=== PATIENT | female | born 1970 | race Caucasian/White ===

== ENCOUNTER 2021-02-20 12:49 | Outpatient (REF) | payer MEDICAID, SELFPAY ==
[2021-02-20 14:57] LABS: MANUAL DIFF FLAG NO
[2021-02-20 15:01] LABS: Basophils Absolute Auto 0.1 X10*3/uL (0.0-0.2); Basophils Percent Auto 0.6 % (0-2); Eosinophils Absolute Auto 0.2 X10*3/uL (0.0-0.4); Eosinophils Percent Auto 2.1 % (0-4); Hematocrit 41.9 % (37-47); Hemoglobin 13.9 g/dl (12.0-16.0); Imm Gran Abs Auto 0.02 X10*3/uL (0.00-0.03); Imm Gran Pct Auto 0.2 % (0.0-0.4); Lymphocytes Absolute Auto 2.9 X10*3/uL (1.2-4.9); Lymphocytes Percent Auto 27.7 % (20-40); Mean Corpuscular HGB Conc 33.2 g/dl (31.0-35.0); Mean Corpuscular Hemoglobin 29.8 pg (27.0-33.0); Mean Corpuscular Volume 89.7 fL (80-98); Monocytes Absolute Auto 0.9 X10*3/uL (0.1-1.2); Monocytes Percent Auto 8.7 % (2-11); Neutrophils Absolute Auto 6.3 X10*3/uL (2.0-8.3); Neutrophils Percent Auto 60.7 % (45-73); Platelet Count 416 X10*3/uL (160-400); Red Blood Count 4.67 X10*6/uL (4.20-5.50); Red Cell Distribution Width 12.8 % (11.0-16.0); White Blood Count 10.4 X10*3/uL (4.8-10.8)
[2021-02-20 15:28] LABS: Alanine Aminotransferase 10 U/L (0-31); Albumin Level 4.3 g/dL (3.5-5.0); Alkaline Phosphatase 63 U/L (39-117); Anion Gap 15 (12-20); Aspartate Amino Transferase 11 U/L (5-31); Bilirubin Total 0.4 mg/dL (0.0-1.0); Blood Urea Nitrogen 9 mg/dL (9-16); C Reactive Protein 0.76 mg/dL (< or = 0.50); Calcium 9.2 mg/dL (8.4-10.2); Carbon Dioxide 25 mmol/L (22-29); Chloride 105 mmol/L (96-108); Estimated Glomerular Filt Rate > 60; Glucose Random 74 mg/dL (60-115); Potassium 4.6 mmol/L (3.3-5.1); Sodium 140 mmol/L (135-145); Total Protein 6.9 g/dL (6.5-8.0)
[2021-02-20 15:54] LABS: Erythrocyte Sedimentation Rate 10 MM/HR (0-20)
== END 2021-02-20 12:50 | disposition home or self-care (01) ==
LOC: HO.LAB 12:49
PROVIDERS: PCP Internal Medicine; Visit Provider Physician Assistant
DX: R19.7 Diarrhea, unspecified (principal); R10.11 Right upper quadrant pain; R74.01 Elevation of levels of liver transaminase levels
CPT/HCPCS: 36415; 80053; 85025; 85652; 86140

== ENCOUNTER → 2021-02-27 10:19 | Outpatient (BNVA) | payer MEDICAID, SELFPAY | PROVIDERS: PCP Internal Medicine; Visit Provider Urology | DX: Q63.1 Lobulated, fused and horseshoe kidney (principal); N39.0 Urinary tract infection, site not specified | CPT/HCPCS: 99202 ==

== ENCOUNTER 2021-03-08 14:25 | Outpatient (REF) | payer MEDICAID, SELFPAY ==
--- NOTE | ~2021-03-08 | CT_ITS ---
EXAMINATION: CT ABDOMEN AND PELVIS WITH CONTRAST CLINICAL INFORMATION: Abdominal pain. COMPARISON: None TECHNIQUE: Multidetector volumetric images were obtained from the superior aspect of the liver through the pubic symphysis following administration 85 mL of Omnipaque 350 intravenous contrast. Sagittal and coronal reformatted images were obtained on the technologist's workstation. Oral contrast: Yes. This CT examination was performed using dose optimization techniques as appropriate, variously including the following: Automated exposure control. Adjustment of mA and/or kV according to patient size (this includes techniques or standardized protocols for targeted exams where dose is matched to indication/reason for exam; i.e. extremities or head). Use of iterative reconstruction technique. DLP: 1225 mGy-cm FINDINGS: LUNG BASES: The visualized lung bases are unremarkable. LIVER, GALLBLADDER, AND BILIARY TREE: The liver is normal in size, shape and attenuation. There are several low-attenuation liver lesions probably representing cysts. Largest measures 6 mm in the peripheral right lobe axial image 27 series 3. There is a calcification in the right lobe of the liver near the gallbladder axial image 23 series 3 that measures approximately 7 x 10 mm and appears benign. No other focal liver lesion is seen. The gallbladder is normal. There is no biliary duct dilatation. PANCREAS: Unremarkable. SPLEEN: Unremarkable. ADRENAL GLANDS: Unremarkable. KIDNEYS AND URETERS: There is a horseshoe kidney. There are bilateral extrarenal pelvises. No stone, mass or hydronephrosis seen. BLADDER: Unremarkable. GASTROINTESTINAL TRACT: There is diverticulosis of the colon. There is a segment of questionable wall thickening and edema of the distal left colon questionable for mild colitis. Small and large bowel is otherwise unremarkable. The appendix is unremarkable. The stomach is unremarkable. ABDOMINAL WALL: There is a small right inguinal hernia containing fat. LYMPH NODES: Normal. VASCULAR: Unremarkable. PELVIC VISCERA: There is an IUD in the uterus in satisfactory position. Uterus and adnexa are otherwise unremarkable. OSSEOUS STRUCTURES: There are degenerative changes of the spine. CT/CT abdomen pelvis w con IMPRESSION: Mild diverticulosis of the colon. No evidence of diverticulitis. Question of mild changes of colitis in the distal left colon versus changes due to underdistention. Horseshoe kidney. Small probable liver cysts. IUD in the uterus in satisfactory position.
[2021-03-08] MEDS: iohexoL 350 MG/ML 100 ML INFUS..BTL IV (15:58)
== END 2021-03-08 14:26 | disposition home or self-care (01) ==
LOC: HO.CT 14:25
PROVIDERS: Visit Provider Physician Assistant
DX: R10.9 Unspecified abdominal pain (principal)
CPT/HCPCS: 74177; Q9967

== ENCOUNTER 2021-03-20 07:46 | Day surgery (SDC) | payer MEDICAID, SELFPAY ==
--- NOTE | 2021-03-19 10:03 | HO.ANESPROP2 ---
HPI - Anesthesia Eval Consult details Narrative: 51yo F for Colonoscopy PMFSH Active Problems Active Problems: All Active Problems (Updated 02/27/21 @ 10:59 by Michael Greco MD) Horseshoe kidney (Acute) Recurrent UTI (urinary tract infection) (Acute) Diarrhea (Acute) Abdominal pain (Acute) Past Medical History Medical History HLD (hyperlipidemia) Horseshoe kidney Migraines Nasal airway abnormality Family History Family History (Updated 03/27/21 @ 11:06 by Sandy Lopez PA-C) Father Hx of colonoscopy S/P left colectomy Paternal Grandfather Pancreatic cancer Paternal Grandmother Dementia Maternal Grandfather Prostate cancer Surgical History Surgical History Hx of breast implants, bilateral S/P sinus surgery Social History Social History (Updated 03/27/21 @ 09:37 by Tish Carrillo CMA) Household Members: Spouse Alcohol intake: current Alcohol intake frequency: holidays/special occasions only Smoking Status: Never smoker Current occupational status: unemployed Meds Allergies Allergy/AdvReac Type Severity Reaction Status Date / Time levofloxacin [LEVOFLOXACIN] Allergy Unknown HANDS NUMB Verified 03/27/21 09:38 & BURNING , LUMP BEHIND EAR Home Medications Medication Instructions Recorded Confirmed Last Taken Type cetirizine 10 mg capsule 10 mg PO DAILY PRN 02/20/21 03/27/21 Unknown History docusate sodium 100 mg capsule 100 mg PO DAILY 02/20/21 03/27/21 Unknown History famotidine 20 mg tablet 20 mg PO DAILY 02/20/21 03/27/21 Unknown History fluticasone propionate 50 1 spray INTRANASAL DAILY 02/20/21 03/27/21 Unknown History mcg/actuation nasal spray,suspension omeprazole 20 mg capsule,delayed 20 mg PO DAILY 02/20/21 03/27/21 Unknown History release propranolol 60 mg capsule,24 60 mg PO DAILY 02/20/21 03/27/21 Unknown History hr,extended release simvastatin 40 mg/5 mL (8 mg/mL) 40 mg PO DAILY 02/20/21 03/27/21 Unknown History oral suspension Exam Exam Date and Time: March 19, 2021 1003 Assessment and Plan Assessment Anesthesia Assessment: Chart Reviewed
[2021-03-20 08:14] VITALS: BP 143/72; PULSE 63; RESP 15; TEMP 36.4; O2SAT 96; BMI 40.2
[2021-03-20] MEDS: Lactated Ringers 1,000 ML 100 ML IVCONT (08:18)
--- NOTE | 2021-03-20 08:49 | HO.ANESPROP2 ---
[facility] Active Problems Active Problems: All Active Problems (Updated 03/19/21 @ 10:08 by Sapphire Babb) Recurrent UTI (urinary tract infection) (Acute) Diarrhea (Acute) Abdominal pain (Acute) Past Medical History Medical History HLD (hyperlipidemia) Horseshoe kidney Migraines Nasal airway abnormality Family History Family History Father Hx of colonoscopy Paternal Grandfather Pancreatic cancer Paternal Grandmother Dementia Maternal Grandfather Prostate cancer Surgical History Surgical History Hx of breast implants, bilateral S/P sinus surgery Social History Social History Household Members: Spouse Alcohol intake: current Alcohol intake frequency: holidays/special occasions only Smoking Status: Never smoker Use of substances other than those prescribed or required for medical reasons: No Are you DNR?: No Advance Directives: No Advance Directives Information Provided: Yes Recently lost weight without trying: No Nutrition Risks: No Nutritional Risk Current occupational status: employed Meds Allergies Allergy/AdvReac Type Severity Reaction Status Date / Time levofloxacin [LEVOFLOXACIN] Allergy Unknown HANDS NUMB Verified 03/20/21 08:19 & BURNING , LUMP BEHIND EAR Active Medications: Current Medications Generic Name Dose Route Start Last Admin Trade Name Freq PRN Reason Stop Dose Admin Lactated Ringer's 1,000 mls @ 100 mls/hr 03/20/21 08:00 03/20/21 08:18 Lr IVCONT 100 mls/hr .Q10H CHRISTINA Administration Home Medications Medication Instructions Recorded Confirmed Last Taken Type cetirizine 10 mg capsule 10 mg PO DAILY PRN 02/20/21 Unknown History docusate sodium 100 mg capsule 100 mg PO DAILY 02/20/21 Unknown History famotidine 20 mg tablet 20 mg PO DAILY 02/20/21 Unknown History fluticasone propionate 50 1 spray INTRANASAL DAILY 02/20/21 Unknown History mcg/actuation nasal spray,suspension omeprazole 20 mg capsule,delayed 20 mg PO DAILY 02/20/21 Unknown History release propranolol 60 mg capsule,24 60 mg PO DAILY 02/20/21 Unknown History hr,extended release simvastatin 40 mg/5 mL (8 mg/mL) 40 mg PO DAILY 02/20/21 Unknown History oral suspension Exam Exam Date and Time: March 20, 2021 0849 Height,Weight and Vital Signs: Height 5 ft 2 in Weight 99.79 kg Last Vital Signs Temp 97.5 F 03/20/21 08:14 Pulse 63 03/20/21 08:14 Resp 15 03/20/21 08:14 BP 143/72 H 03/20/21 08:14 Pulse Ox 96 03/20/21 08:14 Airway Mallampati Class: II TM Dist: >3cm Neck ROM: Full Heart: RRR Lungs: CTA
--- NOTE | 2021-03-20 08:51 | P.OP_ITS ---
Operative Note Operative Note Date of Service: 03/20/21 Narrative: Pre-op diagnosis: Colon cancer screening, diarrhea alternating with constipation, elevated CRP, abnormal CT scan of the abdomen Post-op diagnosis: other (Colon polyps, diverticular, terminal ileal ulcers) Procedure: COLONOSCOPY TILL CECUM WITH BIOPSIES AND SNARE POLYPECTOMY Consent: Indications for the procedure and potential complications of bleeding, perforation, reaction to medications and missed diagnosis were discussed with the patient and informed consent was obtained. Instrument: Olympus PCF H 190 L variable stiffness pediatric colonoscope Monitoring: Vital signs and clinical assessment, intermittent blood pressure monitoring, continuous EKG monitoring, Pulse oximetry and Carbon Dioxide monitoring were done throughout the procedure. Colon withdrawl time was 25 minutes. Procedure: The patient was placed in the left lateral decubitis position and pre-procedure medications were administered. After a digital rectal examination of the ano-rectum, the video colonoscope was inserted into the rectum and advanced through the colon to the cecum. The colonoscope was slowly withdrawn in a retrograde panoramic fashion and the colon mucosa was carefully examined including a retroflexed view of the rectum. Findings and interventions are described below. Procedure Difficulty: Without difficulty Findings: Terminal Ileum: Distal 10-15 cm was examined. Scattered and a 5-8 mm chronic appearing ulcers - biopsies were obtained Cecum: Normal Ascending Colon: A 10 mm sessile polyp removed with a cold snare. Transverse Colon: A 4-5 mm diminutive appearing polyp removed with the cold biopsy. A 7-8 mm sessile polyp removed with a cold snare Descending Colon: Moderate diverticulosis Sigmoid Colon: Severe diverticulosis Rectum: Normal Ano-rectum: Normal Colon preparation: . Good after copious irrigation Impression and Post Procedure Diagnosis: Colonoscopy Findings: Scattered 5-8 mm chronic appearing ulcers in the TI - biopsies were obtained Random biopsies obtained from the right and left colon Three small to medium sized polyps removed Moderate diverticulosis seen in the left colon Plan: Await pathology results Patient has a FU appointment in the GI Clinic on 03/27/21 with RADHA Olivas. Given elevated CRP, and TI ulcers, recommend checking IBD serologies and Fecal calprotectin. If these are elevated, consider treatment with mesalamine (Lialda). Repeat Colonoscopy interval based on path results - in 3 - 5 years if polyps are adenomatous and 10 years if polyps are hyperplastic. Above findings were reviewed with the patient and colon polyps and diverticulosis handouts were given in the discharge area Surgeon: Brad Ko MD Anesthesia: MAC (Dr Camacho) Was an Classified Copy Control Clerk used for this Procedure?: Yes Classified Copy Control Clerk: Walt Lantigua Estimated blood loss (mL): 0 Pathology: other (A- TI BXS R/O CROHN'S B- RIGHT COLON BXS R/O MICROSCOPIC COLITIS C- ASCENDING COLON POLYP D - TRANSVERSE COLON POLYPS E- LEFT COLON BXS R/O MICROSCOPIC COLITIS) Condition: stable Disposition: PACU
--- NOTE | 2021-03-20 08:51 | MHC.SHP ---
Pre-Procedural Eval Section A The patient is an INPATIENT: No Changes since office visit: Yes Patient answered all questions; No Cold of Flu in the past 2 weeks, No New Medical Problems and No Changes in Medication The History & Physical has been completed within 30 days and I have reviewed it.: Yes Section B Chief Complaint: Abdominal Pain Allergies: Allergies Allergy/AdvReac Type Severity Reaction Status Date / Time levofloxacin [LEVOFLOXACIN] Allergy Unknown HANDS NUMB Verified 03/20/21 08:19 & BURNING , LUMP BEHIND EAR Plan I have reviewed the history and physical and performed a pertinent physical examination on my patient. No changes have occurred unless specified.
[2021-03-20 10:32] VITALS: BP 130/72; PULSE 63; RESP 16; TEMP 37.1; O2SAT 96
--- NOTE | 2021-03-20 11:08 | HO.POSTANES ---
Post Anesthesia Evaluation Post Anesthesia Evaluation Vital Signs: Vital Signs Temp Pulse Resp BP Pulse Ox 03/20/21 10:32 98.8 F 63 16 130/72 96 03/20/21 08:14 97.5 F 63 15 143/72 H 96 Anesthesia: Monitored Mental Status: Awake Pain Control: Satisfactory Nausea/Vomiting: None Hydration: Adequate Anesthesia-Related Issues: No Anes. Related Issues
== END 2021-03-20 11:20 | disposition home or self-care (01) ==
PROVIDERS: PCP Internal Medicine; Visit Provider Internal Medicine Gastroenterology
PROC: 0DJD8ZZ Inspection of Lower Intestinal Tract, Via Natural or Artificial Opening Endoscopic (ICD-10-PCS; CPT 45378; principal; 2021-03-20 09:10)
DX: Z12.11 Encounter for screening for malignant neoplasm of colon (principal); Z86.010 Personal history of colon polyps; D12.2 Benign neoplasm of ascending colon; D12.3 Benign neoplasm of transverse colon; K57.30 Diverticulosis of large intestine without perforation or abscess without bleeding; K63.3 Ulcer of intestine; R79.82 Elevated C-reactive protein (CRP); Q63.1 Lobulated, fused and horseshoe kidney; E78.5 Hyperlipidemia, unspecified; Z98.82 Breast implant status; Z79.899 Other long term (current) drug therapy; Z88.8 Allergy status to other drugs, medicaments and biological substances
CPT/HCPCS: 88305

== ENCOUNTER 2021-03-27 09:26 | Outpatient (REF) | payer MEDICAID, SELFPAY ==
[2021-03-27 12:05] LABS: Folate 8.5 ng/mL (> or = 4.0); Vitamin B12 484 pg/mL (200-900)
== END 2021-03-27 09:27 | disposition home or self-care (01) ==
LOC: HO.LAB 09:26
PROVIDERS: PCP Internal Medicine; Visit Provider Physician Assistant
DX: R10.9 Unspecified abdominal pain (principal); D64.9 Anemia, unspecified
CPT/HCPCS: 36415; 82607; 82746; 99212

== ENCOUNTER 2021-04-03 13:58 | Outpatient (REF) | payer MEDICAID, SELFPAY ==
[2021-04-03 15:17] LABS: Blood Urea Nitrogen 12 mg/dL (9-16); Estimated Glomerular Filt Rate > 60
[2021-04-12 23:57] LABS: Calprotectin, Fecal 197 mcg/g
== END 2021-04-03 13:59 | disposition home or self-care (01) ==
LOC: HO.US 13:58
PROVIDERS: Visit Provider Physician Assistant
DX: E61.1 Iron deficiency (principal); R10.9 Unspecified abdominal pain; R19.7 Diarrhea, unspecified
CPT/HCPCS: 36415; 82565; 83993; 84520

== ENCOUNTER 2021-04-06 13:38 | Outpatient (REF) | payer MEDICAID, SELFPAY ==
--- NOTE | ~2021-04-06 | CT_ITS ---
EXAMINATION: CT ENTEROGRAPHY ABDOMEN AND PELVIS WITH CONTRAST CLINICAL INFORMATION: E61.1 - Iron deficiency COMPARISON: CT abdomen and pelvis with IV contrast 03/08/2021 TECHNIQUE: Study performed with oral VoLumen (1350 mL) and 480 mL of water to distend the abdomen. The patient was injected with 85 mL Omnipaque 350 intravenous contrast which was administered without adverse effect. Coronal and sagittal reformatted images were obtained at the technologist's workstation, including additional coronal MIP reformatted images. This CT examination was performed using dose optimization techniques as appropriate, variously including the following: *Automated exposure control *Adjustment of mA and/or kV according to patient size (this includes techniques or standardized protocols for targeted exams where dose is matched to indication/reason for exam; i.e. extremities or head) *Use of iterative reconstruction technique DLP: 1167 mGy-cm FINDINGS: LUNG BASES: The visualized lung bases are unremarkable. There are bilateral breast implants. LIVER, GALLBLADDER, AND BILIARY TREE: Normal in size and smooth in contour and homogeneous. No intrahepatic biliary ductal dilatation. Again, there is a subcapsular cyst lateral right lobe just under 1 cm and a benign coarse calcification right lobe near the gallbladder. The gallbladder is unremarkable. No dilatation or wall thickening or calculus or pericholecystic inflammatory changes. Unremarkable common duct. PANCREAS: Unremarkable. SPLEEN: Unremarkable. ADRENAL GLANDS: Unremarkable. KIDNEYS AND URETERS: There is congenital horseshoe kidney with functioning isthmus. The renal contours are smooth and there is no parenchymal lesion or hydronephrosis or perinephric stranding. No hydroureter. BLADDER: Unremarkable. GASTROINTESTINAL TRACT: Sliding hiatal hernia is present measuring approximately 5 x 4 cm. There is no obstruction or focal inflammatory changes in the bowel or mesentery. The stomach and small bowel and large bowel show no focal wall thickening. There is no pneumatosis. The appendix is normal. There are scattered diverticula mid to distal descending and the sigmoid colon without diverticulitis. There is no ascites or fluid collection. ABDOMINAL WALL: Trace fat-containing umbilical hernia and small right fat-containing inguinal hernia under 3 cm. LYMPH NODES: No lymphadenopathy. VASCULAR: Unremarkable. PELVIC VISCERA: IUD in position. No adnexal mass or ascites. OSSEOUS STRUCTURES: Degenerative changes lower thoracic spine. CT/CT enterography IMPRESSION: 1. No obstruction or bowel wall thickening or focal visible intestinal lesion. 2. Sliding hiatal hernia 5 x 4 cm. 3. Congenital horseshoe kidney.
[2021-04-06] MEDS: iohexoL 350 MG/ML 100 ML INFUS..BTL IV (15:26)
[2021-04-06] MEDS: Sorbitol/Mannit/Xanth Imaging 500 ML LIQUID 1500 ML PO (15:33)
== END 2021-04-06 13:39 | disposition home or self-care (01) ==
LOC: HO.US 13:38
PROVIDERS: Visit Provider Physician Assistant
DX: E61.1 Iron deficiency (principal)
CPT/HCPCS: 74177; Q9967

== ENCOUNTER → 2021-04-11 09:25 | Outpatient (BNVA) | payer MEDICAID, SELFPAY | PROVIDERS: Visit Provider Physician Assistant ==

== ENCOUNTER 2021-06-07 12:12 | Outpatient (REF) | payer MEDICAID, SELFPAY ==
[2021-06-07 13:31] LABS: Hematocrit 41.2 % (37-47); Mean Corpuscular HGB Conc 31.6 g/dl (31.0-35.0); Mean Corpuscular Hemoglobin 28.9 pg (27.0-33.0); Mean Corpuscular Volume 91.6 fL (80-98); Mean Platelet Volume 9.9 fL (9.4-12.3); Platelet Count 372 X10*3/uL (160-400); Red Cell Distribution Width 13.3 % (11.0-16.0); White Blood Count 9.6 X10*3/uL (4.8-10.8)
[2021-06-07 14:30] LABS: Alanine Aminotransferase 13 U/L (0-31); Albumin Level 4.3 g/dL (3.5-5.0); Alkaline Phosphatase 57 U/L (39-117); Aspartate Amino Transferase 14 U/L (5-31); Bilirubin Direct 0.3 mg/dL (0.0-0.5); Bilirubin Total 0.8 mg/dL (0.0-1.0); Blood Urea Nitrogen 9 mg/dL (9-16); C Reactive Protein 0.34 mg/dL (< or = 0.50); Estimated Glomerular Filt Rate > 60; Total Protein 6.8 g/dL (6.5-8.0)
== END 2021-06-07 12:13 | disposition home or self-care (01) ==
LOC: HO.LAB 12:12
PROVIDERS: PCP Internal Medicine; Visit Provider Internal Medicine Gastroenterology
DX: K50.00 Crohn's disease of small intestine without complications (principal)
CPT/HCPCS: 36415; 80076; 82565; 84520; 85027; 86140

== ENCOUNTER → 2021-06-11 09:03 | Outpatient (BNVA) | payer MEDICAID, SELFPAY | PROVIDERS: Visit Provider Internal Medicine Gastroenterology ==

== ENCOUNTER 2021-06-26 13:08 | Outpatient (REF) | payer MEDICAID, SELFPAY ==
--- NOTE | ~2021-06-26 | MM_ITS ---
EXAMINATION: MM SCREENING DIGITAL BREAST TOMOSYNTHESIS, BILATERAL CLINICAL INFORMATION: Screening. Asymptomatic. The lifetime risk of breast cancer based on the Tyrer-Cuzick Model is 10%. COMPARISON: Mammography: 08/21/2018, 08/07/2017 TECHNIQUE: Digital mammography is performed in craniocaudal and mediolateral oblique views along with computer-aided detection (CAD). Digital breast tomosynthesis is performed in implant-displaced craniocaudal and implant-displaced mediolateral oblique views along with computer-aided detection (CAD). Synthesized 2D images are generated from the tomosynthesis. FINDINGS: There are scattered areas of fibroglandular density (ACR BI-RADS breast composition Category b). There are no significant masses, abnormal calcifications, or other abnormalities. There are bilateral implants with smooth contours similar to prior studies. Benign capsular calcifications are again noted on the right. The axilla and skin contours are unremarkable. No significant changes. MM/MM tomosynthesis screen imp BI IMPRESSION: No mammographic evidence of malignancy. ASSESSMENT: BI-RADS 2: Benign RECOMMENDATION: Routine annual mammography screening. This patient's information was entered into a reminder system with a target due date for their next mammogram.
== END 2021-06-26 13:09 | disposition home or self-care (01) ==
LOC: HO.MAMMO 13:08
PROVIDERS: Visit Provider Internal Medicine
DX: Z12.31 Encounter for screening mammogram for malignant neoplasm of breast (principal)
CPT/HCPCS: 77063; 77067

== ENCOUNTER 2021-08-10 12:15 | Outpatient (REF) | payer MEDICAID, SELFPAY ==
[2021-08-10 13:43] LABS: Iron 68 mcg/dL (30-160); Percent Iron Saturation 19 % (15-50); Total Iron Binding Capacity 352 mcg/dL (228-428); Unsaturated Iron Binding 284 ug/dL
[2021-08-16 02:17] LABS: Calprotectin, Fecal 79 mcg/g
== END 2021-08-10 12:16 | disposition home or self-care (01) ==
LOC: HO.LAB 12:15
PROVIDERS: Absent Provider Internal Medicine Gastroenterology; PCP Internal Medicine; Visit Provider Physician Assistant
DX: K50.00 Crohn's disease of small intestine without complications (principal); R10.9 Unspecified abdominal pain
CPT/HCPCS: 36415; 83540; 83993

== ENCOUNTER → 2021-08-13 13:09 | Outpatient (BNVA) | payer MEDICAID, SELFPAY | PROVIDERS: Referring Provider Internal Medicine; Visit Provider Internal Medicine Gastroenterology | DX: K50.00 Crohn's disease of small intestine without complications (principal); K59.09 Other constipation; R10.9 Unspecified abdominal pain; R19.7 Diarrhea, unspecified | CPT/HCPCS: 99212 ==

== ENCOUNTER 2021-11-20 11:35 | Outpatient (REF) | payer MEDICAID, SELFPAY ==
[2021-11-20 12:49] LABS: C Reactive Protein 0.31 mg/dL (< or = 0.50); Estimated Glomerular Filt Rate > 60
== END 2021-11-20 11:36 | disposition home or self-care (01) ==
LOC: HO.LAB 11:35
PROVIDERS: PCP Internal Medicine; Visit Provider Internal Medicine Gastroenterology
DX: R10.9 Unspecified abdominal pain (principal); K50.00 Crohn's disease of small intestine without complications; K59.09 Other constipation; R19.7 Diarrhea, unspecified
CPT/HCPCS: 36415; 81335; 82565; 86140

== ENCOUNTER → 2021-11-22 10:25 | Outpatient (BNVA) | payer MEDICAID, SELFPAY | PROVIDERS: PCP Internal Medicine; Referring Provider Internal Medicine; Visit Provider Internal Medicine Gastroenterology | DX: K50.00 Crohn's disease of small intestine without complications (principal); K59.09 Other constipation; R19.7 Diarrhea, unspecified; R10.9 Unspecified abdominal pain | CPT/HCPCS: 99212 ==

== ENCOUNTER → 2022-02-21 10:58 | Outpatient (BNVA) | payer MEDICAID, SELFPAY | PROVIDERS: PCP Internal Medicine; Referring Provider Internal Medicine; Visit Provider Internal Medicine Gastroenterology | DX: K50.00 Crohn's disease of small intestine without complications (principal); K59.09 Other constipation; R19.7 Diarrhea, unspecified; R10.9 Unspecified abdominal pain | CPT/HCPCS: 99212 ==

== ENCOUNTER 2022-03-11 13:02 | Outpatient (REF) | payer MEDICAID, SELFPAY ==
--- NOTE | ~2022-03-11 | XR_ITS ---
EXAMINATION: XR ABDOMEN KUB CLINICAL INDICATION: Constipation COMPARISON: Previous enterography CT March 2021 TECHNIQUE: AP view of the abdomen. FINDINGS: There is a moderate stool burden seen. There are no dilated loops of bowel to suggest obstruction. There is no evidence of free air. There is an IUD in the pelvis. There are bilateral pelvic calcifications probably representing calcified phleboliths. Bony structures are unremarkable. XR/XR KUB IMPRESSION: Moderate stool burden. No evidence of obstruction.
[2022-03-11 13:29] LABS: MANUAL DIFF FLAG NO
[2022-03-11 13:33] LABS: Basophils Percent Auto 0.4 % (0-2); Eosinophils Absolute Auto 0.3 X10*3/uL (0.0-0.4); Eosinophils Percent Auto 2.5 % (0-4); Hematocrit 41.3 % (37.0-47.0); Hemoglobin 13.3 g/dl (12.0-16.0); Imm Gran Abs Auto 0.03 X10*3/uL (0.00-0.03); Imm Gran Pct Auto 0.3 % (0.0-0.4); Lymphocytes Absolute Auto 2.5 X10*3/uL (1.2-4.9); Lymphocytes Percent Auto 24.8 % (20-40); Mean Corpuscular HGB Conc 32.2 g/dl (31.0-35.0); Mean Corpuscular Hemoglobin 29.6 pg (27.0-33.0); Mean Corpuscular Volume 91.8 fL (80.0-98.0); Mean Platelet Volume 9.3 fL (9.4-12.3); Monocytes Absolute Auto 0.8 X10*3/uL (0.1-1.2); Monocytes Percent Auto 7.7 % (2-11); Neutrophils Absolute Auto 6.4 x10*3/uL (2.0-8.3); Neutrophils Percent Auto 64.3 % (45-73); Platelet Count 321 X10*3/uL (160-400); Red Cell Distribution Width 12.6 % (11.0-16.0); White Blood Count 9.9 X10*3/uL (4.8-10.8)
[2022-03-11 14:02] LABS: Alanine Aminotransferase 12 U/L (0-31); Albumin Level 4.1 g/dL (3.5-5.0); Alkaline Phosphatase 57 U/L (39-117); Anion Gap 12 (12-20); Aspartate Amino Transferase 13 U/L (5-31); Bilirubin Total 0.9 mg/dL (0.0-1.0); Blood Urea Nitrogen 13 mg/dL (9-16); C Reactive Protein 0.29 mg/dL (< or = 0.50); Calcium 9.6 mg/dL (8.4-10.2); Carbon Dioxide 27 mmol/L (22-29); Chloride 106 mmol/L (96-108); Estimated Glomerular Filt Rate > 60; Glucose Random 83 mg/dL (60-115); Potassium 4.5 mmol/L (3.3-5.1); Sodium 140 mmol/L (135-145); Total Protein 6.7 g/dL (6.5-8.0)
== END 2022-03-11 13:03 | disposition home or self-care (01) ==
LOC: HO.XRAY 13:02
PROVIDERS: PCP Internal Medicine; Visit Provider Internal Medicine Gastroenterology
DX: K50.00 Crohn's disease of small intestine without complications (principal); K59.09 Other constipation
CPT/HCPCS: 36415; 80053; 85025; 86140

== ENCOUNTER 2022-03-15 13:21 | Outpatient (REF) | payer MEDICAID, SELFPAY | END 2022-03-15 13:22 | disposition home or self-care (01) | LOC: HO.XRAY 13:21 | PROVIDERS: PCP Internal Medicine; Visit Provider Internal Medicine Gastroenterology | DX: K59.09 Other constipation (principal) | CPT/HCPCS: 74018 ==

== ENCOUNTER 2022-04-04 09:57 | Outpatient (REF) | payer MEDICAID, SELFPAY ==
--- NOTE | ~2022-04-04 | XR_ITS ---
EXAMINATION: XR LUMBOSACRAL SPINE CLINICAL INFORMATION: Low back pain. COMPARISON: CT abdomen/pelvis dated from 03/08/2021. TECHNIQUE: Three views of the lumbosacral spine. FINDINGS: No acute compression deformities or malalignment. Redemonstration of moderate disc space narrowing and facet arthropathy at L5-S1, not significantly changed. Also again noted degenerative sclerosis of the endplates at the level of T11-T12. Normal symmetric appearance of the sacroiliac joints. Small pelvic phleboliths. IUD centered in the pelvis. XR/XR lumbar spine 2-3V IMPRESSION: No acute fractures or subluxation. Similar degree of multilevel degenerative changes of the lumbar spine when compared to a CT from February 2021. IUD overlies the pelvis.
--- NOTE | ~2022-04-04 | XR_ITS ---
EXAMINATION: XR HIP, LEFT CLINICAL INFORMATION: Pain in the left hip. COMPARISON: CT abdomen/pelvis dated from 03/08/2021. TECHNIQUE: Two views of the left hip. FINDINGS: Bones and soft tissues are normal. No fracture. Alignment is anatomic. Hip joint space is maintained. XR/XR hip LT min 2V IMPRESSION: Normal left hip.
[2022-04-12 16:16] LABS: HLA B27 Negative (Negative)
== END 2022-04-04 09:58 | disposition home or self-care (01) ==
LOC: HO.XRAY 09:57
PROVIDERS: PCP Internal Medicine; Referring Provider Internal Medicine; Visit Provider Internal Medicine Gastroenterology
DX: M54.50 Low back pain, unspecified (principal); M25.552 Pain in left hip; K50.00 Crohn's disease of small intestine without complications; K59.09 Other constipation; R19.7 Diarrhea, unspecified; R10.9 Unspecified abdominal pain
CPT/HCPCS: 36415; 72100; 73502; 86812; 99212

== ENCOUNTER 2022-08-09 15:43 | Outpatient (REF) | payer MEDICAID, SELFPAY ==
--- NOTE | ~2022-08-09 | MM_ITS ---
EXAMINATION: MM SCREENING DIGITAL BREAST TOMOSYNTHESIS, BILATERAL CLINICAL INFORMATION: Screening. Asymptomatic. The lifetime risk of breast cancer based on the Tyrer-Cuzick Model is 10%. COMPARISON: Mammography: 06/26/2021, 08/21/2018, 08/07/2017 TECHNIQUE: Digital mammography is performed in craniocaudal and mediolateral oblique views along with computer-aided detection (CAD). Digital breast tomosynthesis is performed in implant-displaced craniocaudal and implant-displaced mediolateral oblique views along with computer-aided detection (CAD). Synthesized 2D images are generated from the tomosynthesis. FINDINGS: There are scattered areas of fibroglandular density (ACR BI-RADS breast composition Category b). Breast tissue composition borders on predominantly fatty. Background stromal markings are stable. No developing density or interval architectural abnormality or abnormal calcifications. Implant contours are smooth. Again, there are numerous benign capsular calcifications around the right implant. The axilla and skin contours are unremarkable. No significant changes. MM/MM tomosynthesis screen imp BI IMPRESSION: No mammographic evidence of malignancy. ASSESSMENT: BI-RADS 2: Benign RECOMMENDATION: Routine annual mammography screening. This patient's information was entered into a reminder system with a target due date for their next mammogram.
== END 2022-08-09 15:44 | disposition home or self-care (01) ==
LOC: HO.MAMMO 15:43
PROVIDERS: Visit Provider Advanced Practice Midwife
DX: Z12.31 Encounter for screening mammogram for malignant neoplasm of breast (principal)
CPT/HCPCS: 77063; 77067

== ENCOUNTER → 2022-09-30 14:42 | Outpatient (BNVA) | payer MEDICAID, SELFPAY | PROVIDERS: PCP Internal Medicine; Visit Provider Physician Assistant | DX: M54.50 Low back pain, unspecified (principal) | CPT/HCPCS: 20610; 99202; J1040 ==

== ENCOUNTER 2022-10-21 11:32 | Outpatient (REF) | payer MEDICAID, SELFPAY | END 2022-10-21 11:33 | disposition home or self-care (01) | LOC: HO.LAB 11:32 | PROVIDERS: PCP Internal Medicine; Visit Provider Internal Medicine Gastroenterology | DX: Z13.89 Encounter for screening for other disorder (principal) ==

== ENCOUNTER 2022-10-25 16:55 | Outpatient (REF) | payer MEDICAID, SELFPAY ==
[2022-10-26 11:19] LABS: Adenovirus F 40/41 Not Detected (Not Detect.); Astrovirus Not Detected (Not Detect.); Campylobacter Not Detected (Not Detect.); Cryptosporidium Not Detected (Not Detect.); Cyclospora cayetanensis Not Detected (Not Detect.); E. coli EAEC Not Detected (Not Detect.); E. coli EPEC Not Detected (Not Detect.); E. coli ETEC Not Detected (Not Detect.); E. coli STEC Not Detected (Not Detect.); Entamoeba histolytica Not Detected (Not Detect.); Giardia lamblia Not Detected (Not Detect.); Norovirus GI/GII Not Detected (Not Detect.); Plesiomonas shigelloides Not Detected (Not Detect.); Rotavirus A Not Detected (Not Detect.); Salmonella Not Detected (Not Detect.); Sapovirus Not Detected (Not Detect.); Shigella sp./EIEC Not Detected (Not Detect.); Vibrio Not Detected (Not Detect.); Vibrio Cholerae Not Detected (Not Detect.); Yersinia enterocolitica Not Detected (Not Detect.)
[2022-10-26 11:55] LABS: CDiff Gene PCR NEGATIVE (Negative)
== END 2022-10-25 16:56 | disposition home or self-care (01) ==
LOC: HO.LNP 16:55
PROVIDERS: Visit Provider Internal Medicine Gastroenterology
DX: R19.7 Diarrhea, unspecified (principal)
CPT/HCPCS: 87493; 87507

== ENCOUNTER → 2023-01-02 12:04 | Outpatient (BNVA) | payer MEDICAID, SELFPAY | PROVIDERS: PCP Internal Medicine; Visit Provider Internal Medicine Gastroenterology | DX: K59.00 Constipation, unspecified (principal); K50.00 Crohn's disease of small intestine without complications; R14.0 Abdominal distension (gaseous); R19.7 Diarrhea, unspecified; K21.9 Gastro-esophageal reflux disease without esophagitis | CPT/HCPCS: 99212 ==

== ENCOUNTER 2023-01-07 14:54 | Outpatient (REF) | payer MEDICAID, SELFPAY ==
[2023-01-07 17:06] LABS: Hematocrit 43.8 % (37.0-47.0); Hemoglobin 14.3 g/dl (12.0-16.0); Mean Corpuscular HGB Conc 32.6 g/dl (31.0-35.0); Mean Corpuscular Hemoglobin 30.3 pg (27.0-33.0); Mean Corpuscular Volume 92.8 fL (80.0-98.0); Mean Platelet Volume 9.9 fL (9.4-12.3); Platelet Count 383 X10*3/uL (160-400); Red Blood Count 4.72 X10*6/uL (4.20-5.50); Red Cell Distribution Width 12.4 % (11.0-16.0)
[2023-01-07 17:36] LABS: Alanine Aminotransferase 20 U/L (0-31); Albumin Level 4.3 g/dL (3.5-5.0); Alkaline Phosphatase 68 U/L (39-117); Anion Gap 15 (12-20); Aspartate Amino Transferase 15 U/L (5-31); Bilirubin Total 0.6 mg/dL (0.0-1.0); Blood Urea Nitrogen 10 mg/dL (9-16); C Reactive Protein 0.49 mg/dL (< or = 0.50); Calcium 9.3 mg/dL (8.4-10.2); Carbon Dioxide 29 mmol/L (22-29); Chloride 103 mmol/L (96-108); Estimated Glomerular Filt Rate > 60; Glucose Random 80 mg/dL (60-115); Potassium 4.7 mmol/L (3.3-5.1); Sodium 142 mmol/L (135-145); Total Protein 6.9 g/dL (6.5-8.0)
[2023-01-07 18:05] LABS: Folate 8.7 ng/mL (> or = 4.0); Vitamin B12 449 pg/mL (200-900); Vitamin D 25-OH Total 29.9 ng/mL (>30)
== END 2023-01-07 14:55 | disposition home or self-care (01) ==
LOC: HO.LAB 14:54
PROVIDERS: PCP Internal Medicine; Visit Provider Internal Medicine Gastroenterology
DX: K50.00 Crohn's disease of small intestine without complications (principal)
CPT/HCPCS: 36415; 80053; 82306; 82607; 82746; 85027; 86140

== ENCOUNTER → 2023-01-14 08:17 | Outpatient (BNVA) | payer MEDICAID, SELFPAY | PROVIDERS: PCP Internal Medicine; Visit Provider Physician Assistant | DX: M70.62 Trochanteric bursitis, left hip (principal) | CPT/HCPCS: 20610; 99212; J1040 ==

== ENCOUNTER 2023-02-10 12:35 | Outpatient (REF) | payer MEDICAID, SELFPAY ==
--- NOTE | ~2023-02-10 | US_ITS ---
EXAMINATION: US VENOUS ULTRASOUND WITH DOPPLER LOWER EXTREMITY, LEFT CLINICAL INFORMATION: Left-sided pain and swelling. COMPARISON: None available. TECHNIQUE: Ultrasound of the deep veins is performed from the hip to the calf with compression sonography and color and pulse Doppler assessment. Spectral analysis with color-flow imaging is performed. FINDINGS: There is normal venous compression and respiratory variation and augmented flow. The visualized common femoral vein, superficial femoral vein, profunda femoral vein, popliteal vein, and the trifurcation region shows no evidence of deep venous thrombosis. No left popliteal cyst. The subcutaneous soft tissues are unremarkable. If the patient's symptoms persist, followup ultrasound in 5 days 7 days might be of value to exclude proximal propagation from a non-visualized calf vein. US/US venous duplex LE IMPRESSION: No evidence for deep venous thrombosis in the visualized veins of the left lower extremity.
== END 2023-02-10 12:36 | disposition home or self-care (01) ==
LOC: HO.US 12:35
PROVIDERS: PCP Internal Medicine; Visit Provider Internal Medicine
DX: M70.62 Trochanteric bursitis, left hip (principal); M79.652 Pain in left thigh; M54.50 Low back pain, unspecified
CPT/HCPCS: 93971; 99202

== ENCOUNTER 2023-02-17 10:51 | Day surgery (SDC) | payer MEDICAID, SELFPAY ==
[2023-02-17 11:58] VITALS: BMI 41.1
[2023-02-17 12:10] VITALS: BP 129/71; PULSE 67; RESP 16; TEMP 36.2; O2SAT 95
[2023-02-17] MEDS: Lactated Ringers 1,000 ML 50 ML IVCONT (12:20)
--- NOTE | 2023-02-17 12:47 | MHC.SHP ---
Pre-Procedural Eval Section A Date of Service: 02/17/23 The patient is an INPATIENT: No The History & Physical has been completed within 30 days and I have reviewed it.: No Section B Chief Complaint: Screening, follow-up of ileal inflammation Relevant Family History (Specify if Yes): Yes Relevant Social History: None Present Medications: see Short Stay [facility] assessment Medical History: Significant History (GE junction at 38 cms. No esophagitis, Song's or stricture. Biopsies obtained from proximal esophagus to check for EOE. Esophageal balloon dilation was performed with 20 mm (60 F) CRE baloon x 60 seconds.) History of Previous Operations: Relevant previous surgery/procedure and date(s) (Hx of breast implants, bilateral Hx of colonoscopy S/P sinus surgery) Allergies: Allergies Allergy/AdvReac Type Severity Reaction Status Date / Time levofloxacin [LEVOFLOXACIN] Allergy Unknown HANDS NUMB Verified 02/10/23 13:35 & BURNING , LUMP BEHIND EAR Review of Systems Sugical H&P ROS: Negative: Constitution, Cardiovascular, Respiratory and Gastrointestinal Exam Surgical H&P Exam: Normal: Heart, Normal: Lungs, Normal: Extremities and Normal: Abdomen Plan Diagnosis/Plan: Unchanged I have reviewed the history and physical and performed a pertinent physical examination on my patient. No changes have occurred unless specified. Time Spent With Patient Time: Total time managing care of this patient today ____ minutes.
--- NOTE | 2023-02-17 12:49 | P.CONAN_ITS ---
[facility] Active Problems Active Problems: All Active Problems (Updated 01/14/23 @ 08:44 by Stefani Salazar) Abdominal pain (Acute) Diarrhea (Acute) Recurrent UTI (urinary tract infection) (Acute) Crohn's disease involving terminal ileum (Acute) Chronic constipation (Acute) Low back pain (Acute) Greater trochanteric bursitis of left hip (Acute) Past Medical History Medical History HLD (hyperlipidemia) Horseshoe kidney Migraines Nasal airway abnormality Family History Family History Father Hx of colonoscopy S/P left colectomy Paternal Grandfather Pancreatic cancer Paternal Grandmother Dementia Maternal Grandfather Prostate cancer Family history of problems with anesthesia: No Surgical History Surgical History (Updated 02/12/23 @ 16:07 by Chantelle Schulz, HUGO) Hx of breast implants, bilateral Hx of colonoscopy S/P sinus surgery History of Problems with Anesthesia: No Social History Social History Household Members: Spouse Alcohol intake: current Alcohol intake frequency: holidays/special occasions only Patient Tobacco Use Status: Never used Tobacco Use of substances other than those prescribed or required for medical reasons: No Are you DNR?: No Advance Directives: No Advance Directives Information Provided: Yes Recently lost weight without trying: No Nutrition Risks: No Nutritional Risk Current occupational status: unemployed Meds Allergies Allergy/AdvReac Type Severity Reaction Status Date / Time levofloxacin [LEVOFLOXACIN] Allergy Unknown HANDS NUMB Verified 02/10/23 13:35 & BURNING , LUMP BEHIND EAR Active Medications: Current Medications Lactated Ringer's (Lr) 1,000 mls @ 50 mls/hr IVCONT .Q20H CHRISTINA Last Admin: 02/17/23 12:20 Dose: 50 mls/hr Home Medications Medication Instructions Recorded Confirmed Last Taken Type cetirizine 10 mg capsule (Allergy 10 mg PO DAILY PRN Allergy Symptoms 02/20/21 02/12/23 Unknown History Relief (cetirizine)) famotidine 20 mg tablet 20 mg PO DAILY 02/20/21 02/12/23 02/17/23 History propranolol 60 mg capsule,24 60 mg PO DAILY 02/20/21 02/12/2323 History hr,extended release ondansetron 4 mg disintegrating 4 mg PO Q8H 09/30/22 02/10/23 Unknown History tablet atomoxetine 40 mg capsule 40 mg PO QAM 01/02/23 02/12/23 Unknown History (Strattera) paroxetine HCl 20 mg tablet 20 mg PO DAILY 01/02/23 02/12/23 02/17/23 History simvastatin 40 mg tablet 40 mg PO QPM 01/02/23 02/12/23 Unknown History atomoxetine 40 mg capsule 40 mg PO BID 02/12/23 02/12/23 Unknown History (Strattera) fluticasone propionate 50 1 spray intranasal DAILY 02/12/23 02/12/23 Unknown History mcg/actuation nasal spray,suspension lorazepam 1 mg tablet 1 mg PO BID PRN Anxiety 02/12/23 02/12/23 Unknown History Exam Exam Date and Time: February 17, 2023 1249 Height,Weight and Vital Signs: Height 5 ft 2 in Weight 102.058 kg Last Vital Signs Temp 97.1 F 02/17/23 12:10 Pulse 67 02/17/23 12:10 Resp 16 02/17/23 12:10 BP 129/71 02/17/23 12:10 Pulse Ox 95 02/17/23 12:10 O2 Del Method Room Air 02/17/23 12:10 Airway Mallampati Class: II (caps laterally) TM Dist: >3cm Neck ROM: Full Heart: rrr Lungs: cta Assessment and Plan Assessment Anesthesia Assessment: Anesthesia Plan Discussed and Chart Reviewed Final Anesthetic Review Family History of Problems with Anesthesia: No History of Problems with Anesthesia: No NPO: Yes ASA Class: III Final Preanesthetic Review: No Changes in Pt Med Stat, Meds/Allgs Chart Reviewed and Consent Obtained/Reviewed Patient Risk: Intermediate Procedure Risk: Intermediate Anesthetic Plan Anesthetic Plan: MAC: Disposition: Standard PACU
--- NOTE | 2023-02-17 13:01 | W.PM.OPN ---
Operative Note Operative Note Date of Service: 02/17/23 Narrative: COLONOSCOPY TILL CECUM WITH BIOPSIES Pre-op diagnosis: Colon cancer screening, follow-up of colon polyps and Crohn's disease Post-op diagnosis:? Diverticulosis, small ileal ulcer Endoscopist:? Brad Ko MD Anesthesia:?MAC Consent: Indications for the procedure and potential complications of bleeding, perforation, reaction to medications and missed diagnosis were discussed with the patient and informed consent was obtained. Instrument: Olympus CF H 190 L variable stiffness adult colonoscope Monitoring: Vital signs and clinical assessment, intermittent blood pressure monitoring, continuous EKG monitoring, Pulse oximetry and Carbon Dioxide monitoring were done throughout the procedure. Please see anesthesia flowsheet. Colon withdrawl time was 21 minutes. Procedure: The patient was placed in the left lateral decubitis position and pre-procedure medications were administered. After a digital rectal examination of the ano-rectum, the video colonoscope was inserted into the rectum and advanced through the colon to the cecum. The colonoscope was slowly withdrawn in a retrograde panoramic fashion and the colon mucosa was carefully examined including a retroflexed view of the rectum. Findings and interventions are described below. Procedure Difficulty: Without difficulty Findings: Terminal Ileum: Distal 10 cm was examined and appeared normal except one 6-7 mm superficial ulcer - biopsies obtained Cecum: Normal Ascending Colon: Normal Transverse Colon: Normal Descending Colon: Moderate diverticulosis Sigmoid Colon: Severe diverticulosis Rectum: Normal Ano-rectum: Moderate internal hemorrhoids Colon preparation: Good after copious irrigation Impression and Post Procedure Diagnosis: Colonoscopy Findings: No polyps were detected Random biopsies were obtained from the TI, right and left colon to check for Crohn's disease Moderate diverticulosis seen in the entire colon Plan: Await pathology results Patient has an appointment on 03/20/23 in the GI Clinic with Brad Ko M.D. Repeat Colonoscopy interval based on path results - in 5 years if biopsies are normal in due to a history of adenomatous colon polyps Above findings were reviewed with the patient and diverticulosis handouts were given in the discharge area
[2023-02-17 13:43] VITALS: BP 87/43; PULSE 70; RESP 16; TEMP 36.2; O2SAT 94
[2023-02-17 13:55] VITALS: BP 98/58; PULSE 62; RESP 14; O2SAT 94
[2023-02-17 14:12] VITALS: BP 112/64; PULSE 55; RESP 14; TEMP 36.2; O2SAT 97
== END 2023-02-17 14:37 | disposition home or self-care (01) ==
PROVIDERS: PCP Internal Medicine; Visit Provider Internal Medicine Gastroenterology
PROC: 0DJD8ZZ Inspection of Lower Intestinal Tract, Via Natural or Artificial Opening Endoscopic (ICD-10-PCS; CPT 45378; principal; 2023-02-17 14:00)
DX: Z12.11 Encounter for screening for malignant neoplasm of colon (principal); K57.30 Diverticulosis of large intestine without perforation or abscess without bleeding; K63.3 Ulcer of intestine; K50.00 Crohn's disease of small intestine without complications; Z86.010 Personal history of colon polyps; Z80.0 Family history of malignant neoplasm of digestive organs
CPT/HCPCS: 45380; 88305

== ENCOUNTER 2023-03-27 10:59 | Outpatient (REF) | payer MEDICAID, SELFPAY ==
[2023-03-27 13:01] LABS: D Dimer High Sensitivity 251 NG/ML
== END 2023-03-27 11:00 | disposition home or self-care (01) ==
LOC: HO.LAB 10:59
PROVIDERS: PCP Internal Medicine; Visit Provider Internal Medicine
DX: I87.2 Venous insufficiency (chronic) (peripheral) (principal)
CPT/HCPCS: 36415; 85379

== ENCOUNTER 2023-03-27 14:41 | Outpatient (REF) | payer MEDICAID, SELFPAY ==
--- NOTE | ~2023-03-27 | US_ITS ---
EXAMINATION: US VENOUS ULTRASOUND WITH DOPPLER LOWER EXTREMITY, BILATERAL CLINICAL INFORMATION: Bilateral lower extremity edema and elevated d-dimer COMPARISON: None available. TECHNIQUE: Ultrasound of the deep veins is performed from the hip to the calf with compression sonography and color and pulse Doppler assessment. Spectral analysis with color-flow imaging is performed. FINDINGS: RIGHT: There is normal venous compression and respiratory variation and augmented flow. The visualized common femoral vein, superficial femoral vein, profunda femoral vein, popliteal vein, and the trifurcation region shows no evidence of deep venous thrombosis. There is no significant popliteal fossa cyst. LEFT: There is normal venous compression and respiratory variation and augmented flow. The visualized common femoral vein, superficial femoral vein, profunda femoral vein, popliteal vein, and the trifurcation region shows no evidence of deep venous thrombosis. There is no significant popliteal fossa cyst. If the patient's symptoms persist, followup ultrasound in 5 days 7 days might be of value to exclude proximal propagation from a non-visualized calf vein. US/US venous duplex LE BI IMPRESSION: No DVT demonstrated in either lower extremity.
== END 2023-03-27 14:42 | disposition home or self-care (01) ==
LOC: HO.US 14:41
PROVIDERS: PCP Internal Medicine; Visit Provider Internal Medicine
DX: I87.2 Venous insufficiency (chronic) (peripheral) (principal)
CPT/HCPCS: 93970

== ENCOUNTER 2023-05-01 17:38 | Outpatient (REF) | payer MEDICARE, MEDICAID, SELFPAY ==
[2023-05-07 23:49] LABS: Calprotectin, Fecal 343 mcg/g
== END 2023-05-01 17:39 | disposition home or self-care (01) ==
LOC: HO.LNP 17:38
PROVIDERS: Visit Provider Internal Medicine Gastroenterology
DX: K50.00 Crohn's disease of small intestine without complications (principal)
CPT/HCPCS: 83993

== ENCOUNTER → 2023-05-15 10:31 | Outpatient (BNVA) | payer MEDICARE, MEDICAID, SELFPAY | PROVIDERS: PCP Internal Medicine; Visit Provider Internal Medicine Gastroenterology | DX: K50.00 Crohn's disease of small intestine without complications (principal); K59.09 Other constipation; R10.9 Unspecified abdominal pain; R19.7 Diarrhea, unspecified | CPT/HCPCS: 99212 ==

== ENCOUNTER 2023-05-16 14:30 | Outpatient (REF) | payer MEDICARE, MEDICAID, SELFPAY ==
[2023-05-16 18:12] LABS: Alanine Aminotransferase 15 U/L (0-31); Albumin Level 4.1 g/dL (3.5-5.0); Alkaline Phosphatase 68 U/L (39-117); Aspartate Amino Transferase 12 U/L (5-31); Bilirubin Direct 0.1 mg/dL (0.0-0.5); Bilirubin Total 0.4 mg/dL (0.0-1.0); Blood Urea Nitrogen 13 mg/dL (9-16); C Reactive Protein 0.68 mg/dL (< or = 0.50); Estimated Glomerular Filt Rate > 60; Total Protein 7.1 g/dL (6.5-8.0)
== END 2023-05-16 14:31 | disposition home or self-care (01) ==
LOC: HO.LAB 14:30
PROVIDERS: PCP Internal Medicine; Visit Provider Internal Medicine Gastroenterology
DX: K50.00 Crohn's disease of small intestine without complications (principal)
CPT/HCPCS: 36415; 80076; 82565; 84520; 85025; 86140

== ENCOUNTER 2023-06-03 09:11 | Day surgery (SDC) | payer MEDICARE, MEDICAID, SELFPAY ==
[2023-05-30 15:56] VITALS: BMI 45.0
--- NOTE | 2023-06-02 10:18 | HO.ANESPROP2 ---
Documented by User: Sapphire Babb NP 06/02/23 10:22 HPI - Anesthesia Eval Consult details Narrative: 53yo F for Upper Endoscopy s/p colo 02/2023 with MAC PMFSH Active Problems Active Problems: All Active Problems (Updated 01/14/23 @ 08:44 by Stefani Salazar) Abdominal pain (Acute) Diarrhea (Acute) Recurrent UTI (urinary tract infection) (Acute) Crohn's disease involving terminal ileum (Acute) Chronic constipation (Acute) Low back pain (Acute) Greater trochanteric bursitis of left hip (Acute) Past Medical History Medical History Crohn disease Depression HLD (hyperlipidemia) Horseshoe kidney Migraines Nasal airway abnormality Family History Family History Father Hx of colonoscopy S/P left colectomy Paternal Grandfather Pancreatic cancer Paternal Grandmother Dementia Maternal Grandfather Prostate cancer Family history of problems with anesthesia: No Surgical History Surgical History Hx of breast implants, bilateral Hx of colonoscopy S/P sinus surgery History of Problems with Anesthesia: No Social History Social History Household Members: Spouse Alcohol intake: current Alcohol intake frequency: holidays/special occasions only Patient Tobacco Use Status: Never used Tobacco Use of substances other than those prescribed or required for medical reasons: Yes Substance Use Type Other:: edibles Substance Use Frequency: Occasionally Are you DNR?: No Advance Directives: No Advance Directives Information Provided: Yes Current occupational status: unemployed Meds Allergies Allergy/AdvReac Type Severity Reaction Status Date / Time levofloxacin [LEVOFLOXACIN] Allergy Unknown HANDS NUMB Verified 06/03/23 09:37 & BURNING , LUMP BEHIND EAR Home Medications Medication Instructions Recorded Confirmed Last Taken Type cetirizine 10 mg capsule (Allergy 10 mg PO DAILY PRN Allergy Symptoms 02/20/21 06/03/23 Unknown History Relief (cetirizine)) famotidine 20 mg tablet 20 mg PO DAILY 02/20/21 06/03/23 02/17/23 History propranolol 60 mg capsule,24 60 mg PO DAILY 02/20/21 06/03/2302/17/23 History hr,extended release ondansetron 4 mg disintegrating 4 mg PO Q8H 09/30/22 06/03/23 Unknown History tablet atomoxetine 40 mg capsule 40 mg PO QAM 01/02/23 06/03/23 Unknown History (Strattera) simvastatin 40 mg tablet 40 mg PO QPM 01/02/23 06/03/23 Unknown History fluticasone propionate 50 1 spray intranasal DAILY 02/12/23 06/03/23 Unknown History mcg/actuation nasal spray,suspension lorazepam 1 mg tablet 1 mg PO BID PRN Anxiety 02/12/23 06/03/23 Unknown History paroxetine HCl 30 mg tablet 30 mg PO DAILY 05/15/23 06/03/23 Unknown History trazodone 100 mg tablet 100 mg PO BEDTIME 06/03/23 06/03/23 Unknown History Exam Exam Date and Time: June 02, 2023 1018 Height,Weight and Vital Signs: Height 5 ft 2 in Weight 111.584 kg Pertinent Lab Results Pertinent Lab Results: Laboratory Tests 01/07/23 05/16/23 05/16/23 15:11 14:47 14:47 WBC 11.7 H Hgb 14.0 Hct 43.6 Plt Count 395 Sodium 142 Potassium 4.7 Chloride 103 Carbon Dioxide 29 BUN 13 Creatinine 0.78 Assessment and Plan Assessment Anesthesia Assessment: Chart Reviewed Final Anesthetic Review Family History of Problems with Anesthesia: No History of Problems with Anesthesia: No Documented by User: Dayan Cantu MD 06/03/23 10:45 PMFSH Active Problems Active Problems: All Active Problems (Updated 06/03/23 @ 10:05 by Dayan Cantu MD) Abdominal pain (Acute) Diarrhea (Acute) Recurrent UTI (urinary tract infection) (Acute) Crohn's disease involving terminal ileum (Acute) Chronic constipation (Acute) Low back pain (Acute) Greater trochanteric bursitis of left hip (Acute) Increased BMI 43.9 Past Medical History Medical History Crohn disease Depression HLD (hyperlipidemia) Horseshoe kidney Migraines Nasal airway abnormality Family History Family History Father Hx of colonoscopy S/P left colectomy Paternal Grandfather Pancreatic cancer Paternal Grandmother Dementia Maternal Grandfather Prostate cancer Surgical History Surgical History Hx of breast implants, bilateral Hx of colonoscopy S/P sinus surgery Social History Social History Household Members: Spouse Alcohol intake: current Alcohol intake frequency: holidays/special occasions only Patient Tobacco Use Status: Never used Tobacco Use of substances other than those prescribed or required for medical reasons: Yes Substance Use Type Other:: edibles Substance Use Frequency: Occasionally Are you DNR?: No Advance Directives: No Advance Directives Information Provided: Yes Current occupational status: unemployed Meds Allergies Allergy/AdvReac Type Severity Reaction Status Date / Time levofloxacin [LEVOFLOXACIN] Allergy Unknown HANDS NUMB Verified 06/03/23 09:37 & BURNING , LUMP BEHIND EAR Home Medications Medication Instructions Recorded Confirmed Last Taken Type cetirizine 10 mg capsule (Allergy 10 mg PO DAILY PRN Allergy Symptoms 02/20/21 06/03/23 Unknown History Relief (cetirizine)) famotidine 20 mg tablet 20 mg PO DAILY 02/20/21 06/03/23 02/17/23 History propranolol 60 mg capsule,24 60 mg PO DAILY 02/20/21 06/03/23 02/17/23 History hr,extended release ondansetron 4 mg disintegrating 4 mg PO Q8H 09/30/22 06/03/23 Unknown History tablet atomoxetine 40 mg capsule 40 mg PO QAM 01/02/23 06/03/23 Unknown History (Strattera) simvastatin 40 mg tablet 40 mg PO QPM 01/02/23 06/03/23 Unknown History fluticasone propionate 50 1 spray intranasal DAILY 02/12/23 06/03/23 Unknown History mcg/actuation nasal spray,suspension lorazepam 1 mg tablet 1 mg PO BID PRN Anxiety 02/12/23 06/03/23 Unknown History paroxetine HCl 30 mg tablet 30 mg PO DAILY 05/15/23 06/03/23 Unknown History trazodone 100 mg tablet 100 mg PO BEDTIME 06/03/23 06/03/23 Unknown History Exam Height,Weight and Vital Signs: Height 5 ft 2 in Weight 111.584 kg Vital Signs Temp Pulse Resp BP Pulse Ox O2 Del Method 06/03/23 10:00 97.1 F 70 16 133/77 97 Room Air Airway Mallampati Class: II TM Dist: >3cm Neck ROM: Full Loose/Missing/Broken Teeth: Yes (Missing 1 tooth bottom left back. Caps intact. Denies broken or loose teeth) Heart: RRR Lungs: CTAB Assessment and Plan Assessment Anesthesia Assessment: Anesthesia Plan Discussed Final Anesthetic Review NPO: Yes ASA Class: III Final Preanesthetic Review: No Changes in Pt Med Stat, Meds/Allgs Chart Reviewed, Consent Obtained/Reviewed and Anes Risks/Benef Reviewed Patient Risk: Intermediate Procedure Risk: Low Assessment/Block/Sedation in SS: Assess/Block/Sedation-SS Anesthetic Plan Anesthetic Plan: MAC: Disposition: Standard PACU
--- NOTE | 2023-06-03 09:33 | MHC.SHP ---
Pre-Procedural Eval Section A Date of Service: 06/03/23 The patient is an INPATIENT: No Changes since office visit: Yes Patient answered all questions; No Cold of Flu in the past 2 weeks, No New Medical Problems and No Changes in Medication The History & Physical has been completed within 30 days and I have reviewed it.: Yes Section B Chief Complaint: Pt co intermittent dysphagia to solids and liquids Allergies: Allergies Allergy/AdvReac Type Severity Reaction Status Date / Time levofloxacin [LEVOFLOXACIN] Allergy Unknown HANDS NUMB Verified 05/15/23 10:37 & BURNING , LUMP BEHIND EAR Plan I have reviewed the history and physical and performed a pertinent physical examination on my patient. No changes have occurred unless specified. Time Spent With Patient Time: Total time managing care of this patient today ____ minutes.
[2023-06-03 09:38] VITALS: BMI 43.9
[2023-06-03 10:00] VITALS: BP 133/77; PULSE 70; RESP 16; TEMP 36.2; O2SAT 97
[2023-06-03] MEDS: Lactated Ringers 1,000 ML 100 ML IVCONT (10:01)
--- NOTE | 2023-06-03 10:18 | W.PM.OPN ---
Operative Note Operative Note Date of Service: 06/03/23 Narrative: FLEXIBLE TRANSORAL UPPER GASTROINTESTINAL ENDOSCOPY WITH BIOPSIES AND ESOPHAGEAL BALLOON DILATION Pre-op diagnosis: Dysphagia to solids, liquids and pills (never had an EGD in the past) Post-op diagnosis: Hiatal hernia, dysphagia, gastritis Endoscopist:? Brad Ko MD Anesthesia:?MAC Consent: Indications for the procedure and potential complications of bleeding, perforation, reaction to medications and missed diagnosis were discussed with the patient and informed consent was obtained. Instrument: Olympus GIF H 190 mid size upper endoscope Monitoring: Vital signs and clinical assessment, continuous EKG monitoring, Pulse oximetry, Carbon Dioxide monitoring and blood pressure monitoring were done throughout the procedure. Procedure: The patient was placed in the left lateral decubitis position and pre-procedure medications were administered and a bite block was placed. The endoscope was inserted into the mouth and advanced under direct vision to the third part of duodenum. A careful inspection was made as the upper endoscope was withdrawn including a retroflexed examination of the proximal stomach; Findings and interventions are described below. Findings: Larynx: Normal Esophagus: Mildly tortuous esophagus with increased tertiary contractions without stricture or ring. Biopsies were obtained from proximal esophagus to check for EOE. GE junction at 35 cms, small hiatal hernia 35 to 37 cms. No esophagitis or Song's. Empiric esophageal balloon dilation was performed with a 19 mm (57 F) balloon for 60 seconds Stomach: Mild gastric erythema. Biopsies were obtained. Grade 3 flap valve on retroflexed examination of the cardia. Duodenum: Normal bulb and descending duodenum Intervention: Biopsies and esophageal balloon dilation as noted above Impression and Post Procedure Diagnosis: Endoscopy Findings: ESOPHAGUS: Mildly tortuous esophagus with increased tertiary contractions without stricture or ring. Biopsies were obtained from proximal esophagus to check for EOE. Small hiatal hernia 35 to 37 cms. Empiric esophageal balloon dilation was performed with a 19 mm (57 F) balloon for 60 seconds STOMACH: Mild gastritis. Dysphagia is likely related to esophageal motility disorder. Plan: Await pathology results. If biopsies are normal and symptoms persist, further evaluation with a barium swallow. Patient has an appointment on 06/19/23 in the GI Clinic with Brad Ko M.D. Above findings were reviewed with the patient and Hiatal hernia handout was given in the discharge area.
[2023-06-03 11:00] VITALS: BP 135/77; PULSE 72; RESP 16; TEMP 37.1; O2SAT 97
[2023-06-03 11:15] VITALS: BP 141/79; PULSE 62; RESP 18; TEMP 37.2; O2SAT 96
== END 2023-06-03 11:53 | disposition home or self-care (01) ==
PROVIDERS: PCP Internal Medicine; Visit Provider Internal Medicine Gastroenterology
PROC: 0DJ08ZZ Inspection of Upper Intestinal Tract, Via Natural or Artificial Opening Endoscopic (ICD-10-PCS; CPT 43235; principal; 2023-06-03 10:40)
DX: R13.10 Dysphagia, unspecified (principal); K29.70 Gastritis, unspecified, without bleeding; K44.9 Diaphragmatic hernia without obstruction or gangrene; R10.9 Unspecified abdominal pain; K50.90 Crohn's disease, unspecified, without complications; Q63.1 Lobulated, fused and horseshoe kidney; E66.9 Obesity, unspecified; Z68.42 Body mass index [BMI] 45.0-49.9, adult; Z79.899 Other long term (current) drug therapy
CPT/HCPCS: 43239; 43249; 88305; 88342; C1726

== ENCOUNTER → 2023-06-03 09:11 | Outpatient (BNV) | payer MEDICAID, SELFPAY | PROVIDERS: PCP Internal Medicine; Visit Provider Internal Medicine Gastroenterology | DX: R13.10 Dysphagia, unspecified (principal); K29.70 Gastritis, unspecified, without bleeding | CPT/HCPCS: 43239; 43249 ==

== ENCOUNTER 2023-06-17 14:52 | Outpatient (REF) | payer MEDICARE, MEDICAID, SELFPAY | END 2023-06-17 14:53 | disposition home or self-care (01) | LOC: HO.CHCLNP 14:52 | PROVIDERS: Visit Provider Internal Medicine | DX: R35.0 Frequency of micturition (principal) | CPT/HCPCS: 87086 ==

== ENCOUNTER 2023-06-19 10:01 | Outpatient (AMB) | payer MEDICARE, MEDICAID, SELFPAY ==
--- NOTE | 2023-06-19 10:07 | A.OFFVIS_ITS ---
Intake Vital Signs 06/19/23 10:10 Height 5 ft 2 in Weight 248 lb BMI 45.4 BP 130/67 Blood Pressure Location Lt brachial Position Sitting Pulse 66 Intake Visit Reasons: S/P EGD; Dr. Ko Intake Note: Patient follow up for abdominal pain and EGD results. Patient cc: abdominal cramping with constipation. Denies any other GI issues. Maintenance Of Way Supervisor Required: No Accompanied by: Self / Same As Patient Allergies levofloxacin [LEVOFLOXACIN] Allergy (Unknown, Verified 06/03/23 09:37) HANDS NUMB & BURNING , LUMP BEHIND EAR Medication List - Last Reconciled 06/19/23 by Brad Ko MD atomoxetine (Strattera) 40 mg PO QAM celecoxib 100 mg PO BID cetirizine (Allergy Relief (cetirizine)) 10 mg PO DAILY PRN famotidine 20 mg PO DAILY fluticasone propionate 50 mcg/actuation 1 spray intranasal DAILY gabapentin 300 mg PO BEDTIME linaclotide (Linzess) 145 mcg PO QAM 30 days lorazepam 1 mg PO BID PRN mesalamine ER (Pentasa) 1,000 mg (2 x 500 mg) PO TID 30 days nitrofurantoin macrocrystal 100 mg PO BID omeprazole 20 mg PO DAILY 60 days ondansetron 4 mg PO Q8H paroxetine HCl 30 mg PO DAILY propranolol ER 60 mg PO DAILY simvastatin 40 mg PO QPM trazodone 100 mg PO BEDTIME HPI S/P EGD; Dr. Ko HPI Details GI clinic visit for this 53 YF for follow up of chronic abdominal pain, constipation and nausea. Patient was diagnosed with Crohn's disease on colonoscopy in 03/2021. IMAGING STUDIES:? 03/2022 KUB SHOWED: ?Moderate stool in the colon. Most of markers were present in the rectum indicating outlet delay or dyssynergia defecation. 04/06/[address] SCAN SHOWED 1. No obstruction or bowel wall thickening or focal visible intestinal lesion. 2. Sliding hiatal hernia 5 x 4 cm. 3. Congenital horseshoe kidney. ENDOSCOPIC STUDIES: 06/03/23 EGD SHOWED: ESOPHAGUS: Mildly tortuous esophagus with increased tertiary contractions without stricture or ring. Biopsies were obtained from proximal esophagus to check for EOE. Small hiatal hernia 35 to 37 cms. Empiric esophageal balloon dilation was performed with a 19 mm (57 F) balloon for 60 seconds STOMACH: Mild gastritis. Dysphagia is likely related to esophageal motility disorder. Plan: Await pathology results.? If biopsies are normal and symptoms persist, further evaluation with a barium swallow. Patient has an appointment on 06/19/23 in the GI Clinic with Brad Ko M.D. BIOPSIES SHOWED: A.? Stomach, antrum, biopsy:? Antral-type mucosa with mild chronic inactive inflammation; no Helicobacter organisms seen. B.? Esophagus, proximal, biopsy: - Squamous epithelium within normal limits; no inflammation seen. - Small fragment of gastric mucosa with mild chronic inactive inflammation; no intestinal metaplasia identified. 02/17/23 COLONOSCOPY SHOWED: Colonoscopy Findings: Terminal Ileum:? Distal 10 cm was examined and appeared normal except one 6-7 mm superficial ulcer - biopsies showed A.? Terminal ileum, biopsy:? Chronic inactive ileitis. No polyps were detected Random biopsies were obtained from the TI, right and left colon to check for Crohn's disease - normal Moderate diverticulosis seen in the entire colon Plan:? Repeat Colonoscopy interval based on path results - in 5 years if biopsies are normal in due to a history of adenomatous colon polyps Above findings were reviewed with the patient and diverticulosis handouts were given in the discharge area 03/20/21 COLONOSCOPY SHOWED: Scattered 5-8 mm chronic appearing ulcers in the TI - biopsies showed: Chronic inactive ileitis; focus of granulation tissue; no granulomata or dysplasia seen. Random biopsies obtained from the right and left colon Three small to medium sized adenomatous polyps removed Moderate diverticulosis seen in the left colon Plan:? Given elevated CRP, and TI ulcers, recommend checking IBD serologies and Fecal calprotectin.? If these are elevated, consider treatment with mesalamine (Lialda). Repeat Colonoscopy interval based on path results - in 3 - 5? years if polyps are adenomatous and 10 years if polyps are hyperplastic. TODAY'S VISIT: EGD results reviewed Dysphagia has improved since she had the EGD and dilation Had anorectal manometry had [facility] end of May and report has been requested. Has more constipation than diarrhea at present since she is on an antibiotic for a UTI. Scheduled for rectocele repair and sling on 07/28/[address] Araujo at [facility] May need a 2nd surgery later. Scheduled to see Dr Araujo next week for pre-op visit. PAST VISITS: Has diarrhea alternating with constipation. Lately having more problems with constipation and has a BM twice a day Had anorectal manometry on 05/14/23 at [facility] and results will be available in 2 weeks. (had difficulty expelling the balloon) Complains of intermittent dysphagia to solids and pills over the last few days Taking one pill at a time. Never had an EGD PT CC: pt reports having abdominal cramping , bloating , diarrhea , constipation , increased GERD Not feeling great Had explosive diarrhea 4 times a day without control Diarrhea lasted for 2 months and now has constipation Seen by Dr Jeffery and was informed pelvic muscles were very weak. Defecography showed rectal prolapse Seen by Dr Araujo (Uro-gynecology) at [facility] - no procedures planned until anorectal manometry is done. Scheduled for ano-rectal manometry in 07/2023. Has gained wt and is on medications for depression Its has been OK Past 6 weeks have been the best 6 weeks for me. The new medication works better Has to be near the bathroom when it starts working she has to be near a bathroom Feels like the medication is helping Still having flare ups and not as many - 2 episodes last week. Episode lasted several hrs - she was exhausted. Nothing was moving and had pain Episodes last for a few hrs and then something releases and she gets relief. Feels like something is stuck in the rectum and usually it can be a tiny piece of stool Gets relief once she is able to expel it. Notes diarrhea only after episodes of flare Family history is positive for Colon cancer in her Dad at age 66 yrs -?w/ flat polyp, anastomosis-Pos cancercous PAST VISITS: Patient 3 month follow up for Crohn's disease and lab results. Patient cc: Nauseas, abdominal pain/bloating on and off, constipation, less diarrhea as before, some difficulty swallowing food. Denies any other GI issues. Diarrhea has improved and having more problems with constipation. Has a BM daily with passage of small pellet like stools. Has had episodes of belly aches, cramping, nausea and cold sweats. Pt is accompanied by her SO. Has a BM 20 min after she eats. Had an episode of fecal incontinence at night and during sexual intercourse - 2- 3 episodes over a 3 week period. Noted tiny white specks in the stool. Can go a few days without a BM. If she has diarrhea its an all day event. Unable to identify any foods that is triggering the diarrhea. Has been avoiding going to the beach due to anxiety of not finding a bathroom. 3-4 episodes of episodes of cramping abdominal pain. Eating less, feels full fast and wt loss of 20 lbs. 05/04/21 Patient called, colonoscopy findings, biopsy and lab results were reviewed with the patient. Patient had COVID infection in November,. Initially her appetite was very poor and has been improving slowly and not back to normal yet. Patient continues to have nausea, decreased appetite and episodes of abdominal pain. Reports nausea is improving slowly. She has constipation alternating with diarrhea without blood or mucus. She notes 1-2 episodes per week of severe abdominal pain on days that she has diarrhea associated with sweating. These episodes lasted for a day, last episode lasted for almost a week. Does not feel great the following day. In between episodes of diarrhea she is constipated.? Notes bloating when she is constipated. Patient was using stool softeners for constipation which she found helpful Patient admits to taking NSAIDs rarely, usually takes Tylenol. Denies known family history of IBD. Her dad had flat polyps and had part of the colon removed. Maternal aunt had her colon and part of small intestine removed for diverticulitis. Patient admits to losing weight - unsure how much weight has she lost since she does not weigh herself regularly RECOMMENDATIONS. 1.? Linda was advised to start Pentasa 1 g twice daily. 2. She will have lab tests checked in 4 weeks. 3. Follow-up appointment as scheduled on 06/11/2021. 4.? Handout on Crohn's disease and mesalamine was mailed to?the?patient [facility] Medical History Crohn disease Depression HLD (hyperlipidemia) Horseshoe kidney Migraines Nasal airway abnormality Surgical History History of esophagogastroduodenoscopy (EGD) Hx of breast implants, bilateral Hx of colonoscopy S/P sinus surgery Family History Father Hx of colonoscopy S/P left colectomy Paternal Grandfather Pancreatic cancer Paternal Grandmother Dementia Maternal Grandfather Prostate cancer Social History Household Members: Spouse Alcohol intake: current Alcohol intake frequency: holidays/special occasions only Patient Tobacco Use Status: Never used Tobacco Current occupational status: unemployed Review of Systems Const All systems reviewed & are unremarkable except as noted in HPI and below Physical Exam Vital Signs: Last Vital Signs Pulse 66 06/19/23 10:10 BP 130/67 06/19/23 10:10 BMI result Body Mass Index 45.4 Const General: healthy appearing and no acute distress Nutritional Appearance: obese Orientation/consciousness: patient oriented x3 Limitations: no limitations HEENT Head: Yes normal to inspection Ears: hearing grossly normal bilaterally Eyes Sclerae: sclerae normal Pupils: Equal, round and reactive pupils present Neck Neck: Yes normal visual inspection Chest Chest palpation & inspection: normal inspection of the chest Resp Effort & Inspection: normal respiratory effort Auscultation: clear to auscultation bilaterally Cardio Palpation: normal PMI Rate: regular rate Rhythm: regular rhythm Heart sounds: S1 normal heart sound present, S2 normal heart sound present and no murmurs GI Palpation (GI): Soft to palpation, nontender and No hepatosplenomegaly present Auscultation: normal bowel sounds Rectal Exam - Female: deferred Skin General skin exam: no rashes or lesions noted Neuro General: patient oriented x3, gait normal and moves all extremities Cranial nerves: Yes Equal, round and reactive pupils present Psych Appearance: grossly normal Mental Status: mental status grossly normal Assessment & Plan Assessment & Plan (1) Abdominal pain: Comment: Colon- procedure report and path reviewed-abdominal pain and alternating stool- r/o chrons- CT enterography update blood work-B12, iron studies Stool calprotectin r/o ibd Code(s): R10.9 - Unspecified abdominal pain (2) Diarrhea: Code(s): R19.7 - Diarrhea, unspecified (3) Crohn's disease involving terminal ileum: Code(s): K50.00 - Crohn's disease of small intestine without complications (4) Chronic constipation: Code(s): K59.09 - Other constipation Plan 53 YF with hyperlipidemia, migraine headaches and horseshoe kidney followed in GI for abdominal pain, constipation alternating with diarrhea. Patient was diagnosed with Crohn's disease during colonoscopy in 03/2021 and was started on Pentasa 1 g three times daily. CRP and sed rate were normal.? Fecal calprotectin was elevated at 197 prior to starting the test and decreased to 79 (on Pentasa). 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 She also complains intermittent episodes of fecal incontinence at night and during sexual intercourse - improved. She is eating less and has lost 20 lbs. TPMT assay showed intermediate enzyme activity. Patient was advised a trail of Ondansetron for nausea and hyoscyamine for abdominal pain 02/2021 CRP slightly elevated at 0.76 and FU CRP has been normal Sitz marker study:??03/2022 KUB SHOWED: ?Moderate stool in the colon. Most of markers were present in the rectum indicating outlet delay or dyssynergia defecation. Linzess 145 mcg daily has been helping her symptoms. Patient had anorectal manometry with biofeedback in 05/2023 at [facility] and report has been requested. 02/17/23 colonoscopy was performed and findings as noted above (advised to hold Pentasa for 4 weeks prior to colonoscopy appt) 02/21/23? Reviewed biopsy results with the pt. Patient had held mesalamine 4 weeks prior to her colonoscopy. I advised her to resume taking mesalamine and have a fecal calprotectin checked after 4 weeks. 06/01 Upper endoscopy was performed for evaluation of dysphagia and findings as noted above.? 06/19/23 Symptoms of dysphagia improved after EGD with balloon dilation. I will obtain a barium swallow patient notes recurrent dysphagia in the future FU in 4 months Medications: Changed From linaclotide (Linzess) 145 mcg PO QAM 30 days 30 caps 3RF K59.09 - Other constipation To linaclotide (Linzess) 290 mcg (2 x 145 mcg) PO QAM 60 caps 3RF 30 days K59.09 - Other constipation Coding Level of Care Code Est Pt Level 4 (52509) Diagnoses Abdominal pain R10.9 Diarrhea R19.7 Crohn's disease involving terminal ileum K50.00 Chronic constipation K59.09 Time Spent (min) 22
[2023-06-19 10:10] VITALS: BP 130/67; PULSE 66; BMI 45.4
== END 2023-06-19 10:36 | disposition home or self-care (01) ==
PROVIDERS: PCP Internal Medicine; Visit Provider Internal Medicine Gastroenterology
DX: R10.9 Unspecified abdominal pain (principal); R19.7 Diarrhea, unspecified; K50.00 Crohn's disease of small intestine without complications; K59.09 Other constipation
CPT/HCPCS: 99214

== ENCOUNTER → 2023-06-19 10:01 | Outpatient (BNVA) | payer MEDICARE, MEDICAID, SELFPAY | PROVIDERS: PCP Internal Medicine; Visit Provider Internal Medicine Gastroenterology | DX: R10.9 Unspecified abdominal pain (principal); R19.7 Diarrhea, unspecified; K50.00 Crohn's disease of small intestine without complications; K59.09 Other constipation | CPT/HCPCS: 99212 ==

== ENCOUNTER 2023-10-23 09:26 | Outpatient (AMB) | payer MEDICARE, MEDICAID, SELFPAY ==
--- NOTE | 2023-10-23 09:31 | A.OFFVIS_ITS ---
Vital Signs 10/23/23 09:36 10/23/23 10:01 Height 5 ft 2 in Weight 270 lb BMI 49.4 BP 185/83 H 156/80 H Blood Pressure Location Lt brachial Lt brachial Position Sitting Sitting Pulse 64 65 Intake Visit Reasons: 4 month follow up Intake Note: Patient follow up for abdominal pain. Patient cc: abdominal cramping, and body aches. Denies any other GI issues. Director Of Laboratory Operations Required: No Accompanied by: Self / Same As Patient Allergies levofloxacin [LEVOFLOXACIN] Allergy (Unknown, Verified 10/23/23 09:31) HANDS NUMB & BURNING , LUMP BEHIND EAR Medication List - Last Reconciled 10/23/23 by Brad Ko MD atomoxetine (Strattera) 40 mg PO QAM baclofen 10 mg PO TID celecoxib 100 mg PO BID cetirizine (Allergy Relief (cetirizine)) 10 mg PO DAILY PRN famotidine 20 mg PO DAILY fluticasone propionate 50 mcg/actuation 1 spray intranasal DAILY linaclotide (Linzess) 290 mcg (2 x 145 mcg) PO QAM 30 days lorazepam 1 mg PO BID PRN mesalamine ER (Pentasa) 1,000 mg (2 x 500 mg) PO TID omeprazole 20 mg PO DAILY 90 days ondansetron 4 mg PO Q8H paroxetine HCl 30 mg PO DAILY propranolol ER 60 mg PO DAILY simvastatin 40 mg PO QPM trazodone 100 mg PO BEDTIME HPI HPI 4 month follow up: Details: GI clinic visit for this 53 YF for follow up of chronic abdominal pain, constipation and nausea. Patient was diagnosed with Crohn's disease on colonoscopy in 03/2021. IMAGING STUDIES:? 03/2022 KUB SHOWED: ?Moderate stool in the colon. Most of markers were present in the rectum indicating outlet delay or dyssynergia defecation. 04/06/[address] SCAN SHOWED 1. No obstruction or bowel wall thickening or focal visible intestinal lesion. 2. Sliding hiatal hernia 5 x 4 cm. 3. Congenital horseshoe kidney. ENDOSCOPIC STUDIES: 06/03/23 EGD SHOWED: ESOPHAGUS: Mildly tortuous esophagus with increased tertiary contractions without stricture or ring. Biopsies were obtained from proximal esophagus to check for EOE. Small hiatal hernia 35 to 37 cms. Empiric esophageal balloon dilation was performed with a 19 mm (57 F) balloon for 60 seconds STOMACH: Mild gastritis. Dysphagia is likely related to esophageal motility disorder. Plan: Await pathology results.? If biopsies are normal and symptoms persist, further evaluation with a barium swallow. Patient has an appointment on 06/19/23 in the GI Clinic with Brad Ko M.D. BIOPSIES SHOWED: A.? Stomach, antrum, biopsy:? Antral-type mucosa with mild chronic inactive inflammation; no Helicobacter organisms seen. B.? Esophagus, proximal, biopsy: - Squamous epithelium within normal limits; no inflammation seen. - Small fragment of gastric mucosa with mild chronic inactive inflammation; no intestinal metaplasia identified. 02/17/23 COLONOSCOPY SHOWED: Colonoscopy Findings: Terminal Ileum:? Distal 10 cm was examined and appeared normal except one 6-7 mm superficial ulcer - biopsies showed A.? Terminal ileum, biopsy:? Chronic inactive ileitis. No polyps were detected Random biopsies were obtained from the TI, right and left colon to check for Crohn's disease - normal Moderate diverticulosis seen in the entire colon Plan:? Repeat Colonoscopy interval based on path results - in 5 years if biopsies are normal in due to a history of adenomatous colon polyps Above findings were reviewed with the patient and diverticulosis handouts were given in the discharge area 03/20/21 COLONOSCOPY SHOWED: Scattered 5-8 mm chronic appearing ulcers in the TI - biopsies showed: Chronic inactive ileitis; focus of granulation tissue; no granulomata or d ysplasia seen. Random biopsies obtained from the right and left colon Three small to medium sized adenomatous polyps removed Moderate diverticulosis seen in the left colon Plan:? Given elevated CRP, and TI ulcers, recommend checking IBD serologies and Fecal calprotectin.? If these are elevated, consider treatment with mesalamine (Lialda). Repeat Colonoscopy interval based on path results - in 3 - 5? years if polyps are adenomatous and 10 years if polyps are hyperplastic. TODAY'S VISIT: Patient cc: abdominal cramping, and body aches. Denies any other GI issues. I had a couple of smaller flare ups - felt like a heavy period cramp rather than pain Had rectocele repair in 07/2023 - went well Notes intermittent incontinence - feels she is wet while walking. - has been trying different things to see what works. When she sits on the toilet - has dumping of the stool and everything comes. takes Linzess 1 tab daily and increases to two tab if she has constipation Swallowing is good. Whole body aches. PAST VISITS: EGD results reviewed Dysphagia has improved since she had the EGD and dilation Had anorectal manometry had [facility] end of May and report has been requested. Has more constipation than diarrhea at present since she is on an antibiotic for a UTI. Scheduled for rectocele repair and sling on 07/28/[address] Araujo at [facility] May need a 2nd surgery later. Scheduled to see Dr Araujo next week for pre-op visit. Has diarrhea alternating with constipation. Lately having more problems with constipation and has a BM twice a day Had anorectal manometry on 05/14/23 at [facility] and results will be available in 2 weeks. (had difficulty expelling the balloon) Complains of intermittent dysphagia to solids and pills over the last few days Taking one pill at a time. Never had an EGD PT CC: pt reports having abdominal cramping , bloating , diarrhea , constipation , increased GERD Not feeling great Had explosive diarrhea 4 times a day without control Diarrhea lasted for 2 months and now has constipation Seen by Dr Jeffery and was informed pelvic muscles were very weak. Defecography showed rectal prolapse Seen by Dr Araujo (Uro-gynecology) at [facility] [place] - no procedures planned until anorectal manometry is done. Scheduled for ano-rectal manometry in 07/2023. Has gained wt and is on medications for depression Its has been OK Past 6 weeks have been the best 6 weeks for me. The new medication works better Has to be near the bathroom when it starts working she has to be near a bathroom Feels like the medication is helping Still having flare ups and not as many - 2 episodes last week. Episode lasted several hrs - she was exhausted. Nothing was moving and had pain Episodes last for a few hrs and then something releases and she gets relief. Feels like something is stuck in the rectum and usually it can be a tiny piece of stool Gets relief once she is able to expel it. Notes diarrhea only after episodes of flare Family history is positive for Colon cancer in her Dad at age 66 yrs -?w/ flat polyp, anastomosis-Pos cancercous PAST VISITS: Patient 3 month follow up for Crohn's disease and lab results. Patient cc: Nauseas, abdominal pain/bloating on and off, constipation, less diarrhea as before, some difficulty swallowing food. Denies any other GI issues. Diarrhea has improved and having more problems with constipation. Has a BM daily with passage of small pellet like stools. Has had episodes of belly aches, cramping, nausea and cold sweats. Pt is accompanied by her SO. Has a BM 20 min after she eats. Had an episode of fecal incontinence at night and during sexual intercourse - 2- 3 episodes over a 3 week period. Noted tiny white specks in the stool. Can go a few days without a BM. If she has diarrhea its an all day event. Unable to identify any foods that is triggering the diarrhea. Has been avoiding going to the beach due to anxiety of not finding a bathroom. 3-4 episodes of episodes of cramping abdominal pain. Eating less, feels full fast and wt loss of 20 lbs. 05/04/21 Patient called, colonoscopy findings, biopsy and lab results were reviewed with the patient. Patient had COVID infection in November,. Initially her appetite was very poor and has been improving slowly and not back to normal yet. Patient continues to have nausea, decreased appetite and episodes of abdominal pain. Reports nausea is improving slowly. She has constipation alternating with diarrhea without blood or mucus. She notes 1-2 episodes per week of severe abdominal pain on days that she has diarrhea associated with sweating. These episodes lasted for a day, last episode lasted for almost a week. Does not feel great the following day. In between episodes of diarrhea she is constipated.? Notes bloating when she is constipated. Patient was using stool softeners for constipation which she found helpful Patient admits to taking NSAIDs rarely, usually takes Tylenol. Denies known family history of IBD. Her dad had flat polyps and had part of the colon removed. Maternal aunt had her colon and part of small intestine removed for div erticulitis. Patient admits to losing weight - unsure how much weight has she lost since she does not weigh herself regularly RECOMMENDATIONS. 1.? Linda was advised to start Pentasa 1 g twice daily. 2. She will have lab tests checked in 4 weeks. 3. Follow-up appointment as scheduled on 06/11/2021. 4.? Handout on Crohn's disease and mesalamine was mailed to?the?patient [facility] Medical History (Updated 10/23/23 @ 09:52 by Brad Ko MD) Depression Crohn disease Migraines HLD (hyperlipidemia) Horseshoe kidney Nasal airway abnormality Surgical History History of esophagogastroduodenoscopy (EGD) Hx of colonoscopy S/P sinus surgery Hx of breast implants, bilateral Family History Father Hx of colonoscopy S/P left colectomy Paternal Grandfather Pancreatic cancer Paternal Grandmother Dementia Maternal Grandfather Prostate cancer Social History Household Members: Spouse Alcohol intake: current Alcohol intake frequency: holidays/special occasions only Patient Tobacco Use Status: Never used Tobacco Current occupational status: unemployed Review of Systems Const All systems reviewed & are unremarkable except as noted in HPI and below Physical Exam Vital Signs: Last Vital Signs Pulse 65 10/23/23 10:01 BP 156/80 H 10/23/23 10:01 BMI result Body Mass Index 49.4 Const General: no acute distress; No healthy appearing Nutritional Appearance: obese Orientation/consciousness: patient oriented x3 Limitations: no limitations HEENT Head: Yes normal to inspection Ears: hearing grossly normal bilaterally Mouth: Normal oral and palatal mucosa present Eyes Sclerae: sclerae normal Pupils: Equal, round and reactive pupils present Neck Neck: Yes normal visual inspection Chest Chest palpation & inspection: normal inspection of the chest Resp Effort & Inspection: normal respiratory effort Auscultation: clear to auscultation bilaterally Cardio Palpation: normal PMI Rate: regular rate Rhythm: regular rhythm Heart sounds: S1 normal heart sound present, S2 normal heart sound present and no murmurs GI Palpation (GI): Soft to palpation, nontender and No hepatosplenomegaly present Auscultation: normal bowel sounds Rectal Exam - Female: deferred Skin General skin exam: no rashes or lesions noted Neuro General: patient oriented x3, gait normal and moves all extremities Cranial nerves: Yes Equal, round and reactive pupils present Psych Appearance: grossly normal Mental Status: mental status grossly normal Assessment & Plan Assessment & Plan (1) GERD (gastroesophageal reflux disease): Code(s): K21.9 - Gastro-esophageal reflux disease without esophagitis Category: Medical (2) Abdominal pain: Comment: Colon- procedure report and path reviewed-abdominal pain and alternating stool- r/o chrons- CT enterography update blood work-B12, iron studies Stool calprotectin r/o ibd Code(s): R10.9 - Unspecified abdominal pain Category: Medical (3) Diarrhea: Code(s): R19.7 - Diarrhea, unspecified Category: Medical (4) Crohn's disease involving terminal ileum: Code(s): K50.00 - Crohn's disease of small intestine without complications Category: Medical (5) Chronic constipation: Code(s): K59.09 - Other constipation Category: Medical (6) Nausea: Code(s): R11.0 - Nausea Category: Medical Plan 53 YF with hyperlipidemia, migraine headaches and horseshoe kidney followed in GI for abdominal pain, constipation alternating with diarrhea. Patient was diagnosed with Crohn's disease during colonoscopy in 03/2021 and was started on Pentasa 1 g three times daily. CRP and sed rate were normal.? Fecal calprotectin was elevated at 197 prior to starting the test and decreased to 79 (on Pentasa). 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 She also complains intermittent episodes of fecal incontinence at night and during sexual intercourse - improved. She is eating less and has lost 20 lbs. TPMT assay showed intermediate enzyme activity. Patient was advised a trail of Ondansetron for nausea and hyoscyamine for abdominal pain 02/2021 CRP slightly elevated at 0.76 and FU CRP has been normal Sitz marker study:??03/2022 KUB SHOWED: ?Moderate stool in the colon. Most of markers were present in the rectum indicating outlet delay or dyssynergia defecation. Linzess 145 mcg daily has been helping her symptoms. Patient had anorectal manometry with biofeedback in 05/2023 at [facility] and report has been requested. 02/17/23 colonoscopy was performed and findings as noted above (advised to hold Pentasa for 4 weeks prior to colonoscopy appt) 02/21/23? Reviewed biopsy results with the pt. Patient had held mesalamine 4 weeks prior to her colonoscopy. I advised her to resume taking mesalamine and have a fecal calprotectin checked after 4 weeks. 06/01 Upper endoscopy was performed for evaluation of dysphagia and findings as noted above.? 05/14/23 Pt had anorectal manometry at [facility]. pt called and anorctal manometry results were reviewed with her: IMPRESSION: Anal normotension with hypocontractility Rectal hypersensitivity, consistent with chronic constipation. Normal balloon expulsion with abnormal pattern of rectal anal coordination. Type 3 dyssynergic defecation pattern, and though balloon expulsion is normal note is made of abnormal Sitz marker study with markers collected in the rectum which would fullfill the 2nd criteria to diagnose this patient with type 3 dyssynergic defecation if she also has constipation not responding to laxatives. Episodes of fecal incontinence may be related to overflow in the setting of anal hypocontractility. Please note high rates of abnormal anorectal manometry findings can be expected even in asymptomatic patients Pt reports doing pelvic floor therapy for 2 months without significant differe nce in her symptoms. Pt is scheduled for rectocele repair and sling surgery on 07/28/2023 at [facility] 06/19/23 Symptoms of dysphagia improved after EGD with balloon dilation. I will obtain a barium swallow patient notes recurrent dysphagia in the future 10/23/24 I had a couple of smaller flare ups - felt like a heavy period cramp rather than pain Had rectocele repair in 07/2023 - went well Notes intermittent incontinence - feels she is wet while walking. - has been trying different things to see what works. When she sits on the toilet - has dumping of the stool and everything comes. takes Linzess 1 tab daily and increases to two tab if she has constipation Swallowing is good. Whole body aches. FU in 6 months Medications: Changed From ondansetron 4 mg PO Q8H R11.0 - Nausea To ondansetron 4 mg PO Q8H 30 tabs 1RF 30 days R11.0 - Nausea
[2023-10-23 09:36] VITALS: BP 185/83; PULSE 64; BMI 49.4
[2023-10-23 10:01] VITALS: BP 156/80; PULSE 65
== END 2023-10-23 10:03 | disposition home or self-care (01) ==
PROVIDERS: PCP Internal Medicine; Visit Provider Internal Medicine Gastroenterology
DX: K21.9 Gastro-esophageal reflux disease without esophagitis (principal); R10.9 Unspecified abdominal pain; R19.7 Diarrhea, unspecified; K50.00 Crohn's disease of small intestine without complications; K59.09 Other constipation; R11.0 Nausea
CPT/HCPCS: 99214

== ENCOUNTER → 2023-10-23 09:26 | Outpatient (BNVA) | payer MEDICARE, MEDICAID, SELFPAY | PROVIDERS: PCP Internal Medicine; Visit Provider Internal Medicine Gastroenterology | DX: R10.9 Unspecified abdominal pain (principal); K21.9 Gastro-esophageal reflux disease without esophagitis; K50.00 Crohn's disease of small intestine without complications; K59.09 Other constipation; R11.0 Nausea; R19.7 Diarrhea, unspecified | CPT/HCPCS: 99212 ==

== ENCOUNTER 2023-12-18 14:47 | Outpatient (REF) | payer OTHER, SELFPAY ==
--- NOTE | ~2023-12-18 | XR_ITS ---
EXAMINATION: XR CHEST CLINICAL INFORMATION: Reason for Exam SOB COMPARISON: None TECHNIQUE: 2 views of the chest FINDINGS: Lines and tubes: None. Clear lungs. No pleural effusion. No pneumothorax. Normal cardiomediastinal silhouette. XR/XR chest 2V IMPRESSION: Clear lungs.
== END 2023-12-18 14:48 | disposition home or self-care (01) ==
LOC: HO.XRAY 14:47
PROVIDERS: PCP Internal Medicine; Visit Provider Internal Medicine
DX: R06.02 Shortness of breath (principal)
CPT/HCPCS: 71046

== ENCOUNTER → 2023-12-26 15:02 | Outpatient (REF) | payer OTHER, SELFPAY ==
--- NOTE | 2023-12-26 15:06 | CA_ITS ---
Transthoracic Echocardiogram Patient (Last, First, Middle): Linda Nicholas, Gender: Female Date of : 1970 Age: 53 Procedure Date: 12/26/2023 Procedure Type: Transthoracic Echocardiogram Location: OP Height: 157.48 cm Weight: 117.94 kg BSA: 2.14 m2 Heart Rate: bpm BP: 130 / 90 mmHg Wet Machine Tender: TO Referring MD: Kalie Calzada MD Symptoms: SOB R06.02 Study Quality: Fair/Contrast Conclusions: - Normal left ventricular size and systolic function. There is mildly increased left ventricular wall thickness. The visually estimated ejection fraction is between 60-65%. There is no evidence of regional wall motion abnormalities. Diastolic function is normal for age. - Normal right ventricular cavity size and systolic function. - Mildly elevated right atrial pressure. Mild pulmonary hypertension is present. - There is mild dilatation of the ascending aorta measuring 3.70 cm and mild dilatation of the aortic arch measuring 3.50 cm. - The inferior vena cava is dilated and collapses greater than 50% with inspiration. Findings Procedure Information Contrast agent, definity, is being given per protocol without apparent complications. Left Ventricle Normal left ventricular size and systolic function. There is mildly increased left ventricular wall thickness. The visually estimated ejection fraction is between 60-65%. There is no evidence of regional wall motion abnormalities. Diastolic function is normal for age. Right Ventricle Normal right ventricular cavity size and systolic function. Atria The left atrium is normal in size. The right atrium is normal in size. Aortic Valve Normal aortic valve structure and function. There is no aortic valve stenosis. There is no aortic valve regurgitation. Mitral Valve The mitral valve appears normal. There is no mitral valve regurgitation. There is no mitral valve stenosis. Pulmonic Valve The pulmonic valve is likely normal. Tricuspid Valve Normal tricuspid valve structure. There is no tricuspid valve regurgitation. The right ventricular systolic pressure is 37 mmHg. Mildly elevated right atrial pressure. Mild pulmonary hypertension is present. Great Vessels There is mild dilatation of the ascending aorta measuring 3.70 cm and mild dilatation of the aortic arch measuring 3.50 cm. Venous The inferior vena cava is dilated and collapses greater than 50% with inspiration. Pericardium/Pleural There is no evidence of pericardial effusion. Measurements 2D Linear Measurements IVSd: 1.07 0.6-0.9/0.6-1.0 cm LVIDd: 4.76 3.9-5.3/4.2-5.9 cm LVIDd Index: 2.22 2.4-3.2/2.2-3.1 cm/m2 LVIDs: 2.96 2.0-3.6 cm LVPWd: 1.10 0.7-1.1 cm LA Diam: 3.90 2.7-3.8/3.0-4.0 cm LAIDs Index: 1.82 1.5-2.3 cm/m2 LV Mass: 233.96 67-162/88-224 g LV Mass Index: 109.33 43-95/49-115 g/m2 LVOT Diam: 2.20 3.0+(-)1.3 cm 2D Systolic Function EF 4C: 68.40 >55% EF 2C: 63.40 >55% EF BiP: 66.20 >55% Mitral Valve MV Pk E: 0.69 MV PK A: 0.38 MV Decel Time: 267.00 E/A: 1.80 E'Lateral: 9.03 E'Medial: 6.85 E/E' Med: 10.10 E/E' Lat: 7.60 PHT: 78.00 MVA PHT: 2.82 Decel [place]: 2.58 Aortic Valve AoV Pk Jaylan: 1.42 AoV Mn Jaylan: 0.95 AoV VTI: 0.36 AoV Pk Grad: 8.00 Aov Mn Grad: 4.00 ANGELES Cont.VTI: 2.52 LVOT LVOT Pk Jaylan: 0.88 LVOT Mn Jaylan: 0.61 LVOT VTI: 0.24 LVOT Pk Grad: 3.00 LVOT Mn Grad: 2.00 LVOT Diam: 2.20 LVOT Area: 3.80 Diastolic Function MV Pk E: 0.69 MV Pk A: 0.38 E/A: 1.80 E'Medial: 6.85 E/E' Med: 10.10 E' Laterial: 9.03 E/E' Lat: 7.60 Right Ventricle TAPSE (mm): 21.20 TVS' Jaylan: 11.00 Tricuspid Valve TR Pk Jaylan: 2.70 TR Pk Grad: 29.00 RA Press: 8.00 RVSP: 37.00 Great Vessels Aorta Sinus of Valsalva: 3.31 2.0-3.5 cm Ao Asc: 3.70 2.1-3.4 cm Ao Arch: 3.50 Updated in Other Vendor System with Status of Final Pierre Singh MD electronically signed on 12/27/2023 11:54:03 AM with status of Final
== END ==
LOC: HO.CARD 15:02
PROVIDERS: PCP Internal Medicine; Visit Provider Internal Medicine
DX: R06.02 Shortness of breath (principal)
CPT/HCPCS: 93306; Q9957

== ENCOUNTER → 2023-12-26 15:06 | Outpatient (BNV) | payer OTHER, SELFPAY | PROVIDERS: PCP Internal Medicine; Visit Provider Internal Medicine Cardiovascular Disease | DX: R06.02 Shortness of breath (principal) | CPT/HCPCS: 93306 ==

== ENCOUNTER 2024-01-21 14:02 | Outpatient (REF) | payer OTHER, SELFPAY ==
--- NOTE | ~2024-01-21 | MM_ITS ---
EXAMINATION: MM SCREENING DIGITAL BREAST TOMOSYNTHESIS, BILATERAL WITH BREAST IMPLANTS CLINICAL INFORMATION: Screening. Asymptomatic. COMPARISON: Mammography: This study is compared with prior exams dating back to 2018. TECHNIQUE: Digital mammography is performed in craniocaudal and mediolateral oblique views along with computer-aided detection (CAD). Digital breast tomosynthesis is performed in implant-displaced craniocaudal and implant-displaced mediolateral oblique views along with computer-aided detection (CAD). Synthesized 2D images are generated from the tomosynthesis. FINDINGS: There are scattered areas of fibroglandular density (ACR BI-RADS breast composition Category b). There are no significant masses, abnormal calcifications, or other abnormalities. There are bilateral, mammographically intact, saline breast implants which are retroglandular. There are chronic benign calcifications on the surface of the right breast implant. MM/MM tomosynthesis screen imp BI IMPRESSION: There are no significant changes from prior study. ASSESSMENT: BI-RADS BI-RADS 1 - Negative RECOMMENDATION: Routine annual mammography screening. 1 year F/U This patient's information was entered into a reminder system with a target due date for their next mammogram.
== END 2024-01-21 14:03 | disposition home or self-care (01) ==
LOC: HO.MAMMO 14:02
PROVIDERS: PCP Internal Medicine; Visit Provider Advanced Practice Midwife
DX: Z12.31 Encounter for screening mammogram for malignant neoplasm of breast (principal)
CPT/HCPCS: 77063; 77067

== ENCOUNTER → 2024-01-21 14:30 | Outpatient (BNV) | payer OTHER, SELFPAY | PROVIDERS: PCP Internal Medicine; Visit Provider Radiology Diagnostic Radiology | DX: Z12.31 Encounter for screening mammogram for malignant neoplasm of breast (principal) | CPT/HCPCS: 77063; 77067 ==

== ENCOUNTER → 2024-02-03 20:30 | Outpatient (BNV) | payer OTHER, SELFPAY | PROVIDERS: PCP Internal Medicine; Visit Provider Internal Medicine | DX: G47.33 Obstructive sleep apnea (adult) (pediatric) (principal) | CPT/HCPCS: 95810 ==

== ENCOUNTER → 2024-02-03 20:30 | Outpatient (REF) | payer OTHER, SELFPAY | LOC: HO.SL 20:30 | PROVIDERS: PCP Internal Medicine; Visit Provider Internal Medicine | DX: G47.33 Obstructive sleep apnea (adult) (pediatric) (principal); G47.19 Other hypersomnia | CPT/HCPCS: 95810 ==

== ENCOUNTER 2024-02-27 10:10 | Outpatient (AMB) | payer OTHER, SELFPAY ==
--- NOTE | 2024-02-27 10:08 | MHC.OFFVIS ---
Vital Signs 02/27/24 10:11 Height 5 ft 2 in Weight 247 lb BMI 45.2 BP 134/78 Blood Pressure Location Rt brachial Position Sitting Pulse 66 Pulse Source Pulse Oximeter Pulse Oximetry (%) 96 Oxygen Delivery Method Room Air Intake Visit Reasons: Shortness of breath Seaweed Harvester Required: No Transitions Rn Care Coordinator: Transitions Rn Care Coordinator offered & declined Accompanied by: Spouse Allergies levofloxacin [LEVOFLOXACIN] Allergy (Unknown, Verified 02/27/24 10:18) HANDS NUMB & BURNING , LUMP BEHIND EAR Medication List - Last Reconciled 02/27/24 by Lauren Navarrete LPN atomoxetine (Strattera) 40 mg PO QAM baclofen 10 mg PO TID celecoxib 100 mg PO BID cetirizine (Allergy Relief (cetirizine)) 10 mg PO DAILY PRN famotidine 20 mg PO DAILY fluticasone propionate 50 mcg/actuation 1 spray intranasal DAILY linaclotide (Linzess) 290 mcg (2 x 145 mcg) PO QAM 30 days lisdexamfetamine (Vyvanse) 70 mg PO DAILY lorazepam 1 mg PO BID PRN mesalamine ER (Pentasa) 1,000 mg (2 x 500 mg) PO TID omeprazole 20 mg PO DAILY ondansetron 4 mg PO Q8H paroxetine HCl 30 mg PO DAILY propranolol ER 60 mg PO DAILY simvastatin 40 mg PO QPM trazodone 100 mg PO BEDTIME HPI HPI Shortness of breath : Details: Linda is a pleasant 54 year old female, never smoker, with underlying PVD. She was referred by PCP for pulmonary evaluation after recent PSG revealed nocturnal hypoxemia. She reported symptoms of significant daytime fatigue and was sent for PSG which was negative for KELSI however revealed mild nocturnal hypoxemia, with 9 minutes <88%. She reports since June she has noticed progressively worsening dyspnea on exertion, decreased exercise capacity, orthopnea and intermittent wheezing. She currently has a productive cough with clear sputum which started with the season change and she attributes to seasonal allergies. No recent allergy testing. No pets at home. She also notes significant weight gain then weight loss of 25+ lbs over a four month period. She reports changes to diet. She is under the care of vascular for PVD since August, wearing compression suit from waist to feet 1-2 hours per day with good effect. She had recent echo which revealed elevated RVSP 37 and will be evaluated by cardiology for possible pulmonary HTN. She denies any prior history of asthma. She denies any occupational exposures. She reports grandmother, smoker, with COPD otherwise no other pertinent family history. [facility], [facility] Medical History (Updated 03/02/24 @ 21:08 by Peyton Worthington NP) Depression Crohn disease Migraines HLD (hyperlipidemia) Horseshoe kidney Nasal airway abnormality Surgical History History of esophagogastroduodenoscopy (EGD) Hx of colonoscopy S/P sinus surgery Hx of breast implants, bilateral Family History Father Hx of colonoscopy S/P left colectomy Paternal Grandfather Pancreatic cancer Paternal Grandmother Dementia Maternal Grandfather Prostate cancer Social History (Updated 02/27/24 @ 10:20 by Lauren Navarrete LPN) Household Members: Spouse Alcohol intake: current Alcohol intake frequency: holidays/special occasions only Patient Tobacco Use Status: Never used Tobacco Current occupational status: unemployed Review of Systems Const Denies chills, Denies excessive sweating, Denies fever(s), Denies headache(s) and Denies night sweats Eyes Denies dry eyes, Denies irritation and Denies itchy eyes ENT Reports Normal hearing present, Denies headache(s), Denies nasal congestion, Denies nasal discharge, Denies post nasal drip and Denies sore throat Card Denies chest pain, Denies chest pain at rest, Denies chest pain with activity, Denies claudication and Denies paroxysmal nocturnal dyspnea Resp Denies chest congestion, Denies excessive phlegm production, Denies pain on inspiration, Denies pain with cough and Denies stridor Musc Denies myalgias Neuro Reports Normal hearing present and Denies headache(s) Endo Denies excessive sweating Jose/Lymph Denies lymphadenopathy Aller/Immun Denies itchy eyes and Denies seasonal rhinorrhea Physical Exam Vital Signs: Last Vital Signs Pulse 66 02/27/24 10:11 BP 134/78 02/27/24 10:11 Pulse Ox 96 02/27/24 10:11 Oxygen Delivery Method Room Air 02/27/24 10:11 BMI result Body Mass Index 45.2 Const General: cooperative, healthy appearing, comfortable, no acute distress, well developed and alert Nutritional Appearance: obese Orientation/consciousness: patient oriented x3 Limitations: no limitations HEENT Head: Yes normal to inspection, Yes normocephalic and Yes atraumatic Ears: hearing grossly normal bilaterally and external ears normal Eyes General: appearance normal, both eyes and all related structures Eyelids: Yes eyelids normal Sclerae: sclerae normal EOM: EOMs intact bilaterally Neck Neck: Yes normal visual inspection and Yes no lymphadenopathy Lymphatic: no lymphadenopathy noted Chest Chest palpation & inspection: normal inspection of the chest Resp Effort & Inspection: normal respiratory effort, able to speak in complete sentences, no audible wheezes, no cough, no stridor, not tachypneic, no tripod positioning and no use of accessory muscles Auscultation: clear to auscultation bilaterally Cardio Jugular venous distension: no JVD Rate: regular rate Rhythm: regular rhythm Skin Other: warm, dry General skin exam: no rashes or lesions noted Neuro General: patient oriented x3 Cranial nerves: Yes Normal hearing present Cognition (Neuro): normal cognition Gait exam (Neuro): Normal gait present Extrem General: Yes normal to inspection, Yes capillary refill normal, Yes no clubbing, cyanosis or edema and Yes no pedal edema Psych Appearance: grossly normal and well kempt Speech and movement: Normal speech and movement present and Clear speech present Affect: normal affect Attitude: cooperative Thought process: Normal thought process present Thought content: Normal thought content present Insight: Good insight present (Psych) Judgement: Good judgement present (Psych) Office Procedures 6 Minute Walk Time:: 10:52 SPO2 % at rest: 97 Pulse at rest: 63 SPO2 % during excercise: 94 Pulse during excercise: 77 SPO2 % after excercise: 97 Pulse after excercise: 82 Distance in yards walked: 1,000 Elvis Score: 6 Performance Observations:: Patient walked unassisted on level ground at a moderate to fast pace. Patient was able to maintain O2 saturation of 94% or greater and a pulse rate no higher than 82 for the entire walk. Patient states she does feel short of breath with brisk walking or on any stairs or incline. Patient did not require supplemental oxygen. [id number] - 6 Minute Walk Results Reviewed Results Reviewed: [address] [address] Cardiology Report Signed Patient: Linda Nicholas MR#: [id number] : 1970 Acct:[id number] Age/Sex: 53 / F ADM Date: 12/26/23 Loc: [facility] Attending Dr: Kalie Calzada MD Ordering Physician: Kalie Calzada MD Date of Service: 12/26/23 Procedure(s): CA echo transthorac w con Accession Number(s): cc: Kalie Calzada MD~ Transthoracic Echocardiogram Patient (Last, First, Middle): Linda Nicholas, Gender: Female Date of : 1970 Age: 53 Procedure Date: 12/26/2023 Procedure Type: Transthoracic Echocardiogram Location: OP Height: 157.48 cm Weight: 117.94 kg BSA: 2.14 m2 Heart Rate: bpm BP: 130 / 90 mmHg Business Continuity Analyst: TO Referring MD: Kalie Calzada MD Symptoms: SOB R06.02 Study Quality: Fair/Contrast Conclusions: - Normal left ventricular size and systolic function. There is mildly increased left ventricular wall thickness. The visually estimated ejection fraction is between 60-65%. There is no evidence of regional wall motion abnormalities. Diastolic function is normal for age. - Normal right ventricular cavity size and systolic function. - Mildly elevated right atrial pressure. Mild pulmonary hypertension is present. - There is mild dilatation of the ascending aorta measuring 3.70 cm and mild dilatation of the aortic arch measuring 3.50 cm. - The inferior vena cava is dilated and collapses greater than 50% with inspiration. Findings Procedure Information Contrast agent, definity, is being given per protocol without apparent complications. Left Ventricle Normal left ventricular size and systolic function. There is mildly increased left ventricular wall thickness. The visually estimated ejection fraction is between 60-65%. There is no evidence of regional wall motion abnormalities. Diastolic function is normal for age. Right Ventricle Normal right ventricular cavity size and systolic function. Atria The left atrium is normal in size. The right atrium is normal in size. Aortic Valve Normal aortic valve structure and function. There is no aortic valve stenosis. There is no aortic valve regurgitation. Mitral Valve The mitral valve appears normal. There is no mitral valve regurgitation. There is no mitral valve stenosis. Pulmonic Valve The pulmonic valve is likely normal. Tricuspid Valve Normal tricuspid valve structure. There is no tricuspid valve regurgitation. The right ventricular systolic pressure is 37 mmHg. Mildly elevated right atrial pressure. Mild pulmonary hypertension is present. Great Vessels There is mild dilatation of the ascending aorta measuring 3.70 cm and mild dilatation of the aortic arch measuring 3.50 cm. Venous The inferior vena cava is dilated and collapses greater than 50% with inspiration. Pericardium/Pleural There is no evidence of pericardial effusion. Measurements 2D Linear Measurements IVSd: 1.07 0.6-0.9/0.6-1.0 cm LVIDd: 4.76 3.9-5.3/4.2-5.9 cm LVIDd Index: 2.22 2.4-3.2/2.2-3.1 cm/m2 LVIDs: 2.96 2.0-3.6 cm LVPWd: 1.10 0.7-1.1 cm LA Diam: 3.90 2.7-3.8/3.0-4.0 cm LAIDs Index: 1.82 1.5-2.3 cm/m2 LV Mass: 233.96 67-162/88-224 g LV Mass Index: 109.33 43-95/49-115 g/m2 LVOT Diam: 2.20 3.0+(-)1.3 cm 2D Systolic Function EF 4C: 68.40 >55% EF 2C: 63.40 >55% EF BiP: 66.20 >55% Mitral Valve MV Pk E: 0.69 MV PK A: 0.38 MV Decel Time: 267.00 E/A: 1.80 E'Lateral: 9.03 E'Medial: 6.85 E/E' Med: 10.10 E/E' Lat: 7.60 PHT: 78.00 MVA PHT: 2.82 Decel Benton: 2.58 Aortic Valve AoV Pk Jaylan: 1.42 AoV Mn Jaylan: 0.95 AoV VTI: 0.36 AoV Pk Grad: 8.00 Aov Mn Grad: 4.00 ANGELES Cont.VTI: 2.52 LVOT LVOT Pk Jaylan: 0.88 LVOT Mn Jaylan: 0.61 LVOT VTI: 0.24 LVOT Pk Grad: 3.00 LVOT Mn Grad: 2.00 LVOT Diam: 2.20 LVOT Area: 3.80 Diastolic Function MV Pk E: 0.69 MV Pk A: 0.38 E/A: 1.80 E'Medial: 6.85 E/E' Med: 10.10 E' Laterial: 9.03 E/E' Lat: 7.60 Right Ventricle TAPSE (mm): 21.20 TVS' Jaylan: 11.00 Tricuspid Valve TR Pk Jaylan: 2.70 TR Pk Grad: 29.00 RA Press: 8.00 RVSP: 37.00 Great Vessels Aorta Sinus of Valsalva: 3.31 2.0-3.5 cm Ao Asc: 3.70 2.1-3.4 cm Ao Arch: 3.50 Updated in Other Vendor System with Status of Final Pierre Singh MD electronically signed on 12/27/2023 11:54:03 AM with status of Final Dictated By: Pierre Singh MD Signed By: <Electronically signed by Pierre Singh MD in OV> 12/27/23 1153 DD/ 1514 TD/TT: Solder Deposit Operator: [address] [address] XRay Report Signed Patient: Linda Nicholas MR#: [id number] : 1970 Acct:[id number] Age/Sex: 53 / F ADM Date: 12/18/23 Loc: [facility] Attending Dr: Kalie Calzada MD Ordering Physician: Kalie Calzada MD Date of Service: 12/18/23 Procedure(s): XR chest 2V Accession Number(s): [id number] cc: Kalie Calzada MD~ EXAMINATION: XR CHEST CLINICAL INFORMATION: Reason for Exam SOB COMPARISON: None TECHNIQUE: 2 views of the chest FINDINGS: Lines and tubes: None. Clear lungs. No pleural effusion. No pneumothorax. Normal cardiomediastinal silhouette. XR/XR chest 2V IMPRESSION: Clear lungs. Dictated By: Kayli Woodson MD Signed By: <Electronically signed by Kayli Woodson MD in OV> 12/22/23 1831 DD/ 1509 TD/TT: Solder Deposit Operator: Assessment & Plan Assessment & Plan (1) Dyspnea: Code(s): R06.00 - Dyspnea, unspecified Category: Medical (2) Cough: Code(s): R05.9 - Cough, unspecified Category: Medical (3) Nocturnal hypoxemia: Code(s): G47.34 - Idiopathic sleep related nonobstructive alveolar hypoventilation Category: Medical Plan Linda's symptoms are likely multifactorial with pulmonary, cardiac and deconditioning/obesity etiologies. Will send for PFT to evaluate for any obstructive or restrictive defect. Will send for chest CT to assess for causes of hypoxia. Prior CXR unremarkable. 6MWT performed and patient does not require supplemental oxygen at this time. Given nocturnal hypoxemia, will send for overnight oximetry. Echo revealed elevated RVSP suggestive of pulmonary HTN, will be evaluated for cardiology with possible RHC. All questions were answered and patient is in agreement of plan. Will follow up to review results or sooner if needed. Orders: Orders AMB 6 minute walk 02/27/24 R06.00 - Dyspnea, unspecified CT chest wo IV con Today G47.34 - Idiopathic sleep related nonobstructive alveolar hypoventilation, R05.9 - Cough, unspecified PFT pulmonary function test Today R06.00 - Dyspnea, unspecified Coding Level of Care Code New Pt Level 4 (70494) Diagnoses Dyspnea R06.00 Cough R05.9 Nocturnal hypoxemia G47.34 CPT Codes Coding ([id number])
[2024-02-27 10:11] VITALS: BP 134/78; PULSE 66; O2SAT 96; BMI 45.2
[2024-02-27 11:50] VITALS: PULSE 63; O2SAT 97
== END 2024-02-27 12:22 | disposition home or self-care (01) ==
PROVIDERS: PCP Internal Medicine; Visit Provider Nurse Practitioner Family
DX: R06.00 Dyspnea, unspecified (principal); R05.9 Cough, unspecified
CPT/HCPCS: 94618; 99204

== ENCOUNTER → 2024-02-27 10:10 | Outpatient (BNVA) | payer OTHER, SELFPAY | PROVIDERS: PCP Internal Medicine; Visit Provider Nurse Practitioner Family | DX: R06.00 Dyspnea, unspecified (principal); R05.9 Cough, unspecified; G47.34 Idiopathic sleep related nonobstructive alveolar hypoventilation | CPT/HCPCS: 94618; 99202 ==

== ENCOUNTER 2024-03-08 10:00 | Outpatient (AMB) | payer OTHER, SELFPAY ==
[2024-03-08 10:07] VITALS: BP 132/82; PULSE 61; BMI 45.7
--- NOTE | 2024-03-08 10:07 | MHC.OFFVIS ---
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/Pulmonary HTN Intake Note: New patient dx pulmonary HTN with ekg had echo in 2012 c/o sob Epic Prelude Analyst Required: No Market Research Associate: Market Research Associate Present Accompanied by: Spouse Allergies levofloxacin [LEVOFLOXACIN] Allergy (Unknown, Verified 02/27/24 10:18) HANDS NUMB & BURNING , LUMP BEHIND EAR Medication List - Last Reviewed 03/08/24 by Marina Keyes, Bobby baclofen 10 mg PO TID celecoxib 100 mg PO BID cetirizine (Allergy Relief (cetirizine)) 10 mg PO DAILY PRN famotidine 20 mg PO DAILY fluticasone propionate 50 mcg/actuation 1 spray intranasal DAILY linaclotide (Linzess) 290 mcg (2 x 145 mcg) PO QAM 30 days lisdexamfetamine (Vyvanse) 70 mg PO DAILY lorazepam 1 mg PO BID PRN mesalamine ER 1,000 mg (2 x 500 mg) PO TID omeprazole 20 mg PO DAILY ondansetron 4 mg PO Q8H paroxetine HCl 30 mg PO DAILY propranolol ER 60 mg PO DAILY simvastatin 40 mg PO QPM trazodone 100 mg PO BEDTIME HPI Comments Details: Thank you for referring Linda in cardiology consultation today for management of exertional shortness of breath. She has a 54-year-old female since last June started noticing increasing exertional shortness of breath. She denies any symptoms of orthopnea, PND, leg edema. No exertional chest pain. No prolonged palpitation irregular heartbeat. Since then she had an echocardiogram in December which showed normal LV ejection fraction with upper limits of normal RV systolic pressure at 37 mm Hg without any significant elevation of right atrial pressures. No significant valvular abnormalities. There was no significant diastolic dysfunction. Subsequently she underwent a sleep study although I do not have a copy of the report. She says she was told that she does not have any significant sleep apnea but has nocturnal hypoxemia and has seen Pulmonary consultation and has been advise possible nighttime oxygen therapy although she has not got that as yet. She is referred here for further evaluation of her shortness of breath and noted borderline RV systolic pressure. Since the report of her echocardiogram she has significantly modified her lifestyle mostly with diet and has lost about 38 lb. She still remains significantly overweight. No family history for premature coronary artery disease PFSH Medical History (Updated 03/08/24 @ 10:43 by Jovan Mendiola MD) Depression Crohn disease Migraines HLD (hyperlipidemia) Horseshoe kidney Nasal airway abnormality Surgical History History of esophagogastroduodenoscopy (EGD) Hx of colonoscopy S/P sinus surgery Hx of breast implants, bilateral Family History Father Hx of colonoscopy S/P left colectomy Paternal Grandfather Pancreatic cancer Paternal Grandmother Dementia Maternal Grandfather Prostate cancer Social History (Updated 02/27/24 @ 10:20 by Lauren Navarrete LPN) Household Members: Spouse Alcohol intake: current Alcohol intake frequency: holidays/special occasions only Patient Tobacco Use Status: Never used Tobacco Current occupational status: unemployed Review of Systems Const Denies chills, Denies daytime sleepiness, Denies fatigue, Denies fever(s), Denies frequent falls, Denies poor appetite, Denies snoring, Denies stops breathing during sleep, Denies weakness, Denies weight gain and Denies weight loss Eyes Denies loss of vision ENT Denies dizziness and Denies hearing loss Card Denies chest pain, Denies claudication, Denies leg edema, Denies lightheadedness, Denies palpitations, Denies dyspnea, Denies dyspnea on exertion and Denies orthopnea Resp Denies cough, Denies excessive phlegm production, Denies dyspnea, Denies dyspnea on exertion, Denies snoring and Denies wheezing GI Denies abdominal pain, Denies hematochezia, Denies change in bowel habits, Denies nausea and Denies vomiting Denies urinary frequency and Denies dysuria Musc Denies arthralgias, Denies muscle weakness, Denies numbness and Denies other (frequent falls) Skin/Breast Denies nail changes and Denies rash Neuro Denies Abnormal speech present, Denies dizziness, Denies frequent falls, Denies loss of vision, Denies memory loss, Denies numbness and Denies weakness Psych Denies depression and Denies memory loss Endo Denies fatigue and Denies palpitations Jose/Lymph Reports easy bruising and Reports other (anemia) Aller/Immun Denies wheezing Physical Exam Vital Signs: Last Vital Signs Pulse 61 03/08/24 10:07 BP 132/82 03/08/24 10:07 BMI result Body Mass Index 45.7 Const General: cooperative, comfortable, no acute distress and alert Nutritional Appearance: obese morbidly obese Orientation/consciousness: patient oriented x3 Limitations: no limitations HEENT Head: Yes normocephalic and Yes atraumatic Neck Neck: Yes trachea midline, Yes supple and Yes no JVD Resp Effort & Inspection: normal respiratory effort Auscultation: clear to auscultation bilaterally Cardio Jugular venous distension: no JVD Palpation: normal PMI Rate: regular rate Rhythm: regular rhythm Heart sounds: S1 normal heart sound present, S2 normal heart sound present, no click, no gallops, no murmurs and no rubs GI Auscultation: normal bowel sounds Skin General skin exam: no rashes or lesions noted Neuro General: patient oriented x3 and no focal motor deficits Speech: No Abnormal speech present Extrem General: Yes no clubbing, cyanosis or edema Psych Appearance: grossly normal Office Procedures EKG Details: EKG shows normal sinus rhythm with normal EKG [id number], Complete Assessment & Plan Assessment & Plan (1) Exertional dyspnea: Code(s): R06.09 - Other forms of dyspnea Category: Medical Plan: Exertional shortness of breath in this woman as probably multifactorial. Given her multiple risk factors obstructive coronary artery disease needs to be ruled out. Will suggest exercise myocardial perfusion imaging. If this is within normal limits most likely explanation for exertional shortness of breath appears to be obesity related restrictive pulmonary defect, exercise-induced pulmonary hypertension and deconditioning. The participation more aggressive weight loss program needs to be pursued. Consider bariatric consultation. She is very motivated to losing weight and is doing dietary modification. Interested in medicine for weight loss as well. She does have borderline pulmonary hypertension which are most likely either obesity hypoventilation related and nocturnal hypoxemia related. This needs to be corrected. If she is sleep apnea this needs to be corrected. She is currently seeing Pulmonary regarding the same. Once she has treatment for this and has adequate optimization for nocturnal hypoxemia repeat limited echocardiogram for evaluation of RV systolic pressure and she will lead to normalization of her RV systolic pressure. In the terminal gauger losing weight is going to be significantly important for her. Continue participate in regular physical activity if stress test is within normal limits. Blood pressure is currently well optimized. Lipids being managed through office with target goal LDL less than 100 mg/dL. Will follow up in the clinic if need be. Thank you for allowing me to partake in the care Coding Level of Care Code New Pt Level 4 (76742) Diagnoses Exertional dyspnea R06.09 CPT Codes EKG - CPT: 71938-[id number], Complete ([id number])
== END 2024-03-08 10:39 | disposition home or self-care (01) ==
PROVIDERS: PCP Internal Medicine; Visit Provider Internal Medicine Cardiovascular Disease
DX: R06.09 Other forms of dyspnea (principal)
CPT/HCPCS: 93010; 99204

== ENCOUNTER → 2024-03-08 10:00 | Outpatient (BNVA) | payer OTHER, SELFPAY | PROVIDERS: PCP Internal Medicine; Visit Provider Internal Medicine Cardiovascular Disease | DX: I27.20 Pulmonary hypertension, unspecified (principal); R06.09 Other forms of dyspnea | CPT/HCPCS: 93005; 99202 ==

== ENCOUNTER → 2024-03-31 08:30 | Outpatient (REF) | payer OTHER, SELFPAY ==
--- NOTE | 2024-03-31 08:33 | CA_ITS ---
Acquisition Time: 2024-03-31 08:45:18 Total Exercise Time: 00:05:21 Test Indications: SOB Medications: SEE H Protocol: TAWNYA Max HR: 125 BPM 75% of Pred: 166 BPM Max BP: 134/080 mmHG Max Work Load: 7.0 METS Exercise stress test exercise 5 min 21 sec of Tawnya protocol achieving 74% MPHR, without chest pains, with moderate SOB, without arrhythmais, with normotensive response to exercise, without EKG changes at achieved workload. Breathing returned to normal by 3 mins recovery Test reviewed with Dr. Mendiola Patient took propranolol morning of test. Referred By: Jovan Mendiola Overread By: Carmen Cedeño
== END ==
LOC: HO.CARD 08:30
PROVIDERS: PCP Internal Medicine; Visit Provider Internal Medicine Cardiovascular Disease
DX: R06.00 Dyspnea, unspecified (principal); R06.09 Other forms of dyspnea
CPT/HCPCS: 93017

== ENCOUNTER → 2024-03-31 08:33 | Outpatient (BNV) | payer OTHER, SELFPAY | PROVIDERS: PCP Internal Medicine; Visit Provider Nurse Practitioner | DX: R06.02 Shortness of breath (principal) | CPT/HCPCS: 93016; 93018 ==

== ENCOUNTER 2024-04-20 12:55 | Outpatient (REF) | payer OTHER, SELFPAY | END 2024-04-20 12:56 | disposition home or self-care (01) | LOC: HO.RESP 12:55 | PROVIDERS: PCP Internal Medicine; Visit Provider Nurse Practitioner Family | DX: R06.00 Dyspnea, unspecified (principal) ==

== ENCOUNTER 2024-04-20 16:26 | Outpatient (REF) | payer OTHER, SELFPAY ==
--- NOTE | ~2024-04-20 | CT_ITS ---
EXAMINATION: CT CHEST WITHOUT CONTRAST CLINICAL INFORMATION: Cough COMPARISON: X-ray from 12/18/2023 TECHNIQUE: Multidetector volumetric CT imaging of the chest was done. Axial MIP volume rendering provided. Sagittal and coronal reformatted images were obtained. This CT examination was performed using dose optimization techniques as appropriate, variously including the following: *Automated exposure control *Adjustment of mA and/or kV according to patient size (this includes techniques or standardized protocols for targeted exams where dose is matched to indication/reason for exam; i.e. extremities or head) *Use of iterative reconstruction technique DLP: 199 mGy-cm FINDINGS: PERSONNEL MANAGER: Unremarkable LUNGS: The lungs are clear with no evidence of inflammation or suspicious nodules. Calcified granuloma seen in the right upper lobe. MEDIASTINUM: The mediastinum is normal. Heart is normal in size. No mediastinal or hilar lymphadenopathy. CORONARY ARTERY CALCIFICATION: None visualized on this study. PLEURA: There is no pleural effusion. No pleural mass or thickening. AXILLA: No lymphadenopathy. UPPER ABDOMEN: Coarse calcification seen within the liver. Hypodense cyst is seen within the liver. OSSEOUS STRUCTURES: Unremarkable. CT/CT chest wo IV con IMPRESSION: 1. No acute cardiopulmonary process. 2. Calcified granuloma in the right upper lobe.
== END 2024-04-20 16:27 | disposition home or self-care (01) ==
LOC: HO.CT 16:26
PROVIDERS: PCP Internal Medicine; Visit Provider Nurse Practitioner Family
DX: R05.9 Cough, unspecified (principal); G47.34 Idiopathic sleep related nonobstructive alveolar hypoventilation
CPT/HCPCS: 71250

== ENCOUNTER → 2024-05-14 08:36 | Outpatient (REF) | payer OTHER, SELFPAY ==
--- NOTE | 2024-05-14 08:39 | CA_ITS ---
Acquisition Time: 2024-05-14 08:48:42 Total Exercise Time: 00:07:00 Test Indications: SOB Medications: SEE H Protocol: TAWNAY Max HR: 157 BPM 94% of Pred: 166 BPM Max BP: 128/074 mmHG Max Work Load: 8.5 METS Exercise stress test exercise 7 min of Tawnya protocol achieivng 90% MPHR, with mild to moderate SOB, no chest discomfort, with isolated PACs, with normotensive response to exercise, without EKG changed. Breathing returned to baseline with rest. Test reviewed with Dr. Mendiola Referred By: Carmen Cedeño Overread By: Carmen Cedeño
== END ==
LOC: HO.CARD 08:36
PROVIDERS: PCP Internal Medicine; Visit Provider Nurse Practitioner
DX: R06.00 Dyspnea, unspecified (principal)
CPT/HCPCS: 93017

== ENCOUNTER → 2024-05-14 08:39 | Outpatient (BNV) | payer OTHER, SELFPAY | PROVIDERS: PCP Internal Medicine; Visit Provider Nurse Practitioner | DX: R06.02 Shortness of breath (principal) | CPT/HCPCS: 93016; 93018 ==

== ENCOUNTER → 2024-05-28 10:06 | Outpatient (BNVA) | payer OTHER, SELFPAY | PROVIDERS: PCP Internal Medicine; Visit Provider Nurse Practitioner Family ==

== ENCOUNTER → 2024-05-28 11:22 | Outpatient (AMB) | payer OTHER, SELFPAY ==
--- NOTE | 2024-05-28 10:06 | MHC.OFFVIS ---
Vital Signs 05/28/24 10:07 Height 5 ft 2 in Weight 232 lb 4 oz BMI 42.5 BP 124/88 Blood Pressure Location Lt brachial Position Sitting Pulse 84 Pulse Source Pulse Oximeter Pulse Oximetry (%) 98 Oxygen Delivery Method Room Air Intake Visit Reasons: CT results/ Spirometry Allergies levofloxacin [LEVOFLOXACIN] Allergy (Unknown, Verified 05/28/24 10:10) HANDS NUMB & BURNING , LUMP BEHIND EAR HPI HPI CT results/ Spirometry: Details: Linda is a pleasant 54 year old female, never smoker, with underlying PVD. She was referred by PCP for pulmonary evaluation after recent PSG. PSG negative for KELSI however revealed mild nocturnal hypoxemia, with 9 minutes <88%. She reports over the last year has noticed progressively worsening dyspnea on exertion, decreased exercise capacity, orthopnea and intermittent wheezing. She denies prior history of asthma. PFT scheduled next week at [facility]. Despite approximately 50 lb weight loss patient reports no change in symptoms. She was evaluated by cardiology who scheduled patient for stress test which did not reveal ischemic EKG changes. Echo revealed elevated RVSP 37. Cardiology felt symptoms of mild pulmonary hypertension could be minimized through weight loss. Today she presents to review chest CT results. [facility] Medical History (Updated 05/28/24 @ 11:17 by Peyton Worthington NP) Depression Crohn disease Migraines HLD (hyperlipidemia) Horseshoe kidney Nasal airway abnormality Surgical History History of esophagogastroduodenoscopy (EGD) Hx of colonoscopy S/P sinus surgery Hx of breast implants, bilateral Family History Father Hx of colonoscopy S/P left colectomy Paternal Grandfather Pancreatic cancer Paternal Grandmother Dementia Maternal Grandfather Prostate cancer Social History Household Members: Spouse Alcohol intake: current Alcohol intake frequency: holidays/special occasions only Patient Tobacco Use Status: Never used Tobacco Current occupational status: unemployed Review of Systems Const Denies chills, Denies excessive sweating, Denies fever(s), Denies headache(s) and Denies night sweats Eyes Denies dry eyes, Denies irritation and Denies itchy eyes ENT Reports Normal hearing present, Denies headache(s), Denies nasal congestion, Denies nasal discharge, Denies post nasal drip and Denies sore throat Card Denies chest pain, Denies chest pain at rest, Denies chest pain with activity, Denies claudication, Denies orthopnea and Denies paroxysmal nocturnal dyspnea Resp Denies chest congestion, Denies excessive phlegm production, Denies pain on inspiration, Denies pain with cough and Denies stridor Musc Denies myalgias Neuro Reports Normal hearing present and Denies headache(s) Endo Denies excessive sweating Jose/Lymph Denies lymphadenopathy Aller/Immun Denies itchy eyes and Denies seasonal rhinorrhea Physical Exam Vital Signs: Last Vital Signs Pulse 84 05/28/24 10:07 BP 124/88 05/28/24 10:07 Pulse Ox 98 05/28/24 10:07 Oxygen Delivery Method Room Air 05/28/24 10:07 BMI result Body Mass Index 42.5 Const General: cooperative, healthy appearing, comfortable, no acute distress, well developed and alert Nutritional Appearance: obese Orientation/consciousness: patient oriented x3 Limitations: no limitations HEENT Head: Yes normal to inspection, Yes normocephalic and Yes atraumatic Ears: hearing grossly normal bilaterally and external ears normal Eyes General: appearance normal, both eyes and all related structures Eyelids: Yes eyelids normal Sclerae: sclerae normal EOM: EOMs intact bilaterally Neck Neck: Yes normal visual inspection and Yes no lymphadenopathy Lymphatic: no lymphadenopathy noted Chest Chest palpation & inspection: normal inspection of the chest Resp Effort & Inspection: normal respiratory effort, able to speak in complete sentences, no audible wheezes, no cough, no stridor, not tachypneic, no tripod positioning and no use of accessory muscles Auscultation: clear to auscultation bilaterally Cardio Jugular venous distension: no JVD Rate: regular rate Rhythm: regular rhythm Skin Other: warm, dry General skin exam: no rashes or lesions noted Neuro General: patient oriented x3 Cranial nerves: Yes Normal hearing present Cognition (Neuro): normal cognition Gait exam (Neuro): Normal gait present Extrem General: Yes normal to inspection, Yes capillary refill normal, Yes no clubbing, cyanosis or edema and Yes no pedal edema Psych Appearance: grossly normal and well kempt Speech and movement: Normal speech and movement present and Clear speech present Affect: normal affect Attitude: cooperative Thought process: Normal thought process present Thought content: Normal thought content present Insight: Good insight present (Psych) Judgement: Good judgement present (Psych) Office Procedures Spirometry Testing Spirometry Comments: In department spirometry completed with results to provider. 67567- Spirometry Results Reviewed Results Reviewed: [address] [address] [address] Scan Report Signed Patient: Linda Nicholas MR#: [id number] : 1970 Acct:[id number] Age/Sex: 54 / F ADM Date: 04/20/24 Loc: HO.CT Attending Dr: Peyton Worthington NP Ordering Physician: Peyton Worthington NP Date of Service: 04/20/24 Procedure(s): CT chest wo IV con Accession Number(s): [id number] cc: Kalie Calzada MD; Peyton Worthington NP~ EXAMINATION: CT CHEST WITHOUT CONTRAST CLINICAL INFORMATION: Cough COMPARISON: X-ray from 12/18/2023 TECHNIQUE: Multidetector volumetric CT imaging of the chest was done. Axial MIP volume rendering provided. Sagittal and coronal reformatted images were obtained. This CT examination was performed using dose optimization techniques as appropriate, variously including the following: *Automated exposure control *Adjustment of mA and/or kV according to patient size (this includes techniques or standardized protocols for targeted exams where dose is matched to indication/reason for exam; i.e. extremities or head) *Use of iterative reconstruction technique DLP: 199 mGy-cm FINDINGS: STRIP STAMP STRAIGHTENER: Unremarkable LUNGS: The lungs are clear with no evidence of inflammation or suspicious nodules. Calcified granuloma seen in the right upper lobe. MEDIASTINUM: The mediastinum is normal. Heart is normal in size. No mediastinal or hilar lymphadenopathy. CORONARY ARTERY CALCIFICATION: None visualized on this study. PLEURA: There is no pleural effusion. No pleural mass or thickening. AXILLA: No lymphadenopathy. UPPER ABDOMEN: Coarse calcification seen within the liver. Hypodense cyst is seen within the liver. OSSEOUS STRUCTURES: Unremarkable. CT/CT chest wo IV con IMPRESSION: 1. No acute cardiopulmonary process. 2. Calcified granuloma in the right upper lobe. Dictated By: Bradford Lin MD Signed By: <Electronically signed by Bradford Lin MD in OV> 05/17/24 1549 Assessment & Plan Assessment & Plan (1) Nocturnal hypoxemia: Code(s): G47.34 - Idiopathic sleep related nonobstructive alveolar hypoventilation Category: Medical (2) Environmental allergies: Code(s): Z91.09 - Other allergy status, other than to drugs and biological substances Category: Medical (3) Dyspnea: Code(s): R06.00 - Dyspnea, unspecified Category: Medical (4) Cough: Code(s): R05.9 - Cough, unspecified Category: Medical Plan Reviewed chest CT which was unremarkable other than noted granuloma of RUL, with no significant findings for hypoxia other than obesity related restriction. PFT is scheduled at [facility] next week. 6MWT performed at last visit and patient does not require supplemental oxygen.Given nocturnal hypoxemia on PSG, will send for overnight oximetry. Echo revealed elevated RVSP of 37, suggestive of mild pulmonary HTN, however normal right ventricle size and function. Patient was evaluated by cardiology who felt if CAD not a contributing factor then symptoms are more likely related to underlying obesity. Will review results of overnight oximetry and plan to repeat echo given significant weight loss since echo. In the mean time, patient reports allergic symptoms and interested in trialing albuterol. Will send for RAST and trial albuterol PRN. All questions were answered and patient is in agreement of plan. Will follow up to review results or sooner if needed. Orders: Orders AMB Spirometry Testing 05/28/24 G47.34 - Idiopathic sleep related nonobstructive alveolar hypoventilation, R06.09 - Other forms of dyspnea Overnight Pulse Oximetry 05/28/24 G47.34 - Idiopathic sleep related nonobstructive alveolar hypoventilation Resp Allergy Profile Region I 05/28/24 Z91.09 - Other allergy status, other than to drugs and biological substances Complete Blood Count Auto Diff 05/28/24 Z91.09 - Other allergy status, other than to drugs and biological substances Immunoglobulin E 05/28/24 Z91.09 - Other allergy status, other than to drugs and biological substances Medications: New albuterol sulfate 90 mcg/actuation 2 puffs inhalation Q4-6H PRN 1 ea 0RF shortness of breath or wheezing Coding Level of Care Code Est Pt Level 4 (86429) Diagnoses Nocturnal hypoxemia G47.34 Environmental allergies Z91.09 Dyspnea R06.00 Cough R05.9 CPT Codes Spirometry - CPT: 35138- Spirometry ([id number])
[2024-05-28 10:07] VITALS: BP 124/88; PULSE 84; O2SAT 98; BMI 42.5
--- OUTSIDE RECORDS SUMMARY | 2024-05-28 10:07 | XMS_ITS | Continuity of Care Document ---
Author Organization [facility] Address [address] [place] [address] [address] [place] [address]- Care Team Providers Care Ladler Name Role Phone Kalie Calzada MD Primary Care Physician [phone] [place]counter [facility] Date[place]/08/22 - 08/15/[address] [place] [address]- Encounter Diagnosis Crohn's disease(Discharge Diagnosis) - 08/08/22 Attending Physician: Lelia Jeffery MD Referring Physician: Brad Ko MD Allergies, Adverse Reactions, Alerts No Known Allergies Medications Cetirizine 0 Refills, Maintenance, 08/08/22 14:08:00 EDT, Partial fill upon patient request if the prescription is for a schedule II opioid drug. Start Date: 08/08/22 Status: Ordered Famotidine 0 Refills, Maintenance, 08/08/22 14:07:00 EDT, Partial fill upon patient request if the prescription is for a schedule II opioid drug. Start Date: 08/08/22 Status: Ordered hyoscyamine 0.125 mg oral tablet 0.125 mg, 1, tablet, By Mouth, 4 times a day, Refills 0, Maintenance, 08/08/22 14:07:00 EDT, Partial fill upon patient request if the prescription is for a schedule II opioid drug. Start Date: 08/08/22 Status: Ordered Linzess By Mouth, Daily, 0 Refills, Maintenance, 08/08/22 14:07:00 EDT, Partial fill upon patient request if the prescription is for a schedule II opioid drug. Start Date: 08/08/22 Status: Ordered Mirena 52 mg intrauteral device 1 each = 52 mg, Vaginally, Once, # 1 each, 0 Refills, Maintenance Start Date: 04/27/10 Status: Ordered Ondansetron 0 Refills, Maintenance, 08/08/22 14:07:00 EDT, Partial fill upon patient request if the prescription is for a schedule II opioid drug. Start Date: 08/08/22 Status: Ordered Pentasa 500 mg oral capsule, extended release 2 capsule = 1,000 mg, By Mouth, 4 times a day, 0 Refills, Maintenance, 08/08/22 14:07:00 EDT, Partial fill upon patient request if the prescription is for a schedule II opioid drug. Start Date: 08/08/22 Status: Ordered Propranolol Refills 0, Maintenance, 08/08/22 14:07:00 EDT, Partial fill upon patient request if the prescription is for a schedule II opioid drug. Start Date: 08/08/22 Status: Ordered Ropinirole By Mouth, 0 Refills, Maintenance Start Date: 09/11/12 Status: Ordered Simvastatin By Mouth, 0 Refills, Maintenance, 08/08/22 14:08:00 EDT, Partial fill upon patient request if the prescription is for a schedule II opioid drug. Start Date: 08/08/22 Status: Ordered Simvastatin Tablet By Mouth, Daily at bedtime, Maintenance, 09/11/12 15:52:25 Start Date: 09/11/12 Status: Ordered Sumatriptan Daily, 0 Refills, Maintenance Start Date: 09/11/12 Status: Ordered Vitamin D3 1000 intl units oral capsule 1 capsule = 1,000 International_Units, By Mouth, Daily, 0 Refills, Maintenance Start Date: 09/11/12 Status: Ordered Problem List Condition Confirmation Course Effective Dates Status Health [facility] Informant Crohn's disease Confirmed Active Obese class II Confirmed Active Diagnosis Diagnosis Type Effective Dates Health [facility] Informant Crohn's disease Discharge Diagnosis 08/08/22 Vital Signs Most recent to oldest [Reference Range]: 1 Height 159 cm (08/08/22 2:02 PM) Weight 93.2 kg (08/08/22 2:02 PM) Pulse Rate [55-90 bpm] 64 bpm (08/08/22 2:02 PM) Body Mass Index [18.5-24.99 kg/m2] 36.87 kg/m2 *>HHI* (08/08/22 2:02 PM) Blood Pressure [90-138/55-84 mm Hg] 139/ 85mm Hg *H* (08/08/22 2:02 PM) Temperature [96.8-100.4 DegF] 97.5 DegF (08/08/22 2:02 PM) Temperature Route Temporal (08/08/22 2:02 PM) Patient Care team information Personnel Name: Kalie Calzada MD Address: Address: [address] [place] [id number]
--- OUTSIDE RECORDS SUMMARY | 2024-05-28 10:07 | XMS_ITS | Continuity of Care Document ---
Author Organization [facility] As [facility] Address [address] [place] [address] ve [address] [place] [address]- Care Team Providers Care Car Body Designer Name Role Phone Elsi ULLOA, Kalie Primary Care Physician En[place] [facility] [place] Date(s): [place]/08/22 - 09/07/[address] [place] [address]- Attending Physician: Celia Kearns Admitting Physician: Celia Kearns Referring Physician: AdmtrCelia Allergies, Adverse Reactions, Alerts No Known Allergies [...] Confirmed Active Obese class II Confirmed Active Patient Care team information Personnel Name: Kalie Calzada MD Address: Address: [address] [place] [id number]
--- OUTSIDE RECORDS SUMMARY | 2024-05-28 10:07 | XMS_ITS | Continuity of Care Document ---
Author Organization [facility] Address [address] [place] [address]- Care Team Providers Care Nurse Orthopaedic Name Role Phone Elsi ULLOA, Kalie Primary Care Physician [phone] [id number] Date(s): 01/17/23 - 02/16/23 [facility] [address] [place], [place] [address] Attending Physician: Celia Kearns Admitting Physician: AdmCelia christine Referring Physician: Admtr, Ar8 Allergies, Adverse Reactions, Alerts Substance Reaction Severity Status Levaquin Active Medications Baclofen By Mouth, 3 times a day, 0 Refills, Maintenance, 01/17/23 9:11:00 EST, Partial fill upon patient request if the prescription is for a schedule II opioid drug. Start Date: 01/17/23 Status: Ordered Celecoxib By Mouth, 0 Refills, Maintenance, 01/17/23 9:11:00 EST, Partial fill upon patient request if the prescription is for a schedule II opioid drug. Start Date: 01/17/23 Status: Ordered Cetirizine 0 Refills, Maintenance, 08/08/22 14:08:00 EDT, Partial fill upon patient request if the prescription is for a schedule II opioid drug. Start Date: 08/08/22 Status: Ordered Famotidine 0 Refills, Maintenance, 08/08/22 14:07:00 EDT, Partial fill upon patient request if the prescription is for a schedule II opioid drug. Start Date: 08/08/22 Status: Ordered Flonase Daily, 0 Refills, Maintenance, 01/17/23 9:11:00 EST, Partial fill upon patient request if the prescription is for a schedule II opioid drug. Start Date: 01/17/23 Status: Ordered hyoscyamine 0.125 mg oral tablet [...] opioid drug. Start Date: 08/08/22 Status: Ordered Lorazepam 0 Refills, Maintenance, 01/17/23 9:11:00 EST, Partial fill upon patient request if the prescriptionis for a schedule II opioid drug. Start Date: 01/17/23 Status: Ordered Mirena 52 mg intrauteral device 1 each = 52 mg, Vaginally, Once, # 1 each, 0 Refills, Maintenance Start Date: 04/27/10 Status: Ordered Omeprazole By Mouth, Daily, 0 Refills, Maintenance, 01/17/23 9:10:00 EST, Partial fill upon patient request ifthe prescription is for a schedule II opioid drug. Start Date: 01/17/23 Status: Ordered Ondansetron 0 Refills, Maintenance, 08/08/22 14:07:00 EDT, Partial fill upon patient request if the prescription is for a schedule II opioid drug. Start Date: 08/08/22 Status: Ordered Paroxetine By Mouth, 0 Refills, Maintenance, 01/17/23 9:11:00 EST, Partial fill upon patient request if the prescription is for a schedule II opioid drug. Start Date: 01/17/23 Status: Ordered Pentasa 500 mg oral capsule, [...] 09/11/12 15:52:25 Start Date: 09/11/12 Status: Ordered Strattera By Mouth, Daily in AM, 0 Refills, Maintenance, 01/17/23 9:11:00 EST, Partial fill upon patient request if the prescription is for a schedule II opioid drug. Start Date: 01/17/23 Status: Ordered Sumatriptan Daily, 0 Refills, Maintenance Start Date: 09/11/12 Status: Ordered Trazodone By Mouth, 0 Refills, Maintenance, 01/17/23 9:11:00 EST, Partial fill upon patient request if the prescription is for a schedule II opioid drug. Start Date: 01/17/23 Status: Ordered Vitamin D3 1000 intl units oral capsule 1 capsule = 1,000 International_Units, By Mouth, Daily, 0 Refills, Maintenance Start Date: 09/11/12 Status: Ordered Problem List Condition Confirmation Course Effective Dates Status Health [facility] Informant Crohn's disease Confirmed Active Severe obesity Confirmed Active Social History Social History Type Response Smoking Status Never (less than 100 in lifetime) entered on: 09/27/22 Sex Patient Care team information Care Team Personnel Name: Kalie Calzada MD Position: [facility] Outreach Member Role: PCP Address: Address: [address] [place] [address]- Care Team Related Persons Name: RODDY BARNETT Address: [address] [place] [address]
--- OUTSIDE RECORDS SUMMARY | 2024-05-28 10:07 | XMS_ITS | Continuity of Care Document ---
Author Organization [facility] Address [address], 4t [place] [address]- Care Team Providers Care Vice President Of Procurement Name Role Phone Elsi ULLOA, Kalie Primary Care Physician [id number] Date[facility]s): 11/19/23 - 04/29/24 [facility] Chiara [employer] [facility] [address], 4th [place] [address]- Attending Physician: Bambi Araujo MD Admitting Physician: Bambi Araujo MD Referring Physician: Kalie Calzada MD Allergies, Adverse Reactions, Alerts Substance Reaction Severity Status Levaquin hand swelling and itching/neck lumps Active Other Environmental Allergy seasonal Active Medications acetaminophen 325 mg oral tablet 650 mg, 2, tablet, By Mouth, Every 4 hours, PRN, # 50 tablet, Refills 0, Tot. Refills 0, Maintenance, Pain , Mild, 07/28/23 13:26:00 EDT, Route to Pharmacy Electronically, [facility]/pharmacy #[id number], Partialfill upon patient request if the prescription is fo... Start Date: 07/28/23 Status: Ordered Baclofen = 10 mg, By Mouth, 3 times a day, 0 Refills, Maintenance, 01/17/23 9:11:00 EST, Partial fill upon patient request if the prescription is for a schedule II opioid drug. Start Date: 01/17/23 Status: Ordered Celecoxib = 100 mg, By Mouth, 2 times a day, 0 Refills, Maintenance, 01/17/23 9:11:00 EST, Partial fill upon patient request if the prescription is for a schedule II opioid drug. Start Date: 01/17/23 Status: Ordered Cetirizine = 10 mg, By Mouth, Daily, 0 Refills, Maintenance, 08/08/22 14:08:00 EDT, Partial fill upon patient request if the prescription is for a schedule II opioid drug. Start Date: 08/08/22 Status: Ordered Famotidine = 20 mg, By Mouth, 2 times a day, 0 Refills, Maintenance, 08/08/22 14:07:00 EDT, Partial fill upon patient request if the prescription is for a schedule II opioid drug. Start Date: 08/08/22 Status: Ordered Flonase Daily, 0 Refills, Maintenance, 01/17/23 9:11:00 EST, Partial fill upon patient request if the prescription is for a schedule II opioid drug. Start Date: 01/17/23 Status: Ordered ibuprofen 600 mg oral tablet 600 mg, 1, tablet, By Mouth, 4 times a day, PRN, # 40 tablet, Refills 0, Tot. Refills 0, Maintenance, for pain, 07/28/23 13:25:00 EDT, Route to Pharmacy Electronically, [facility]/pharmacy #[id number], Partial fill upon patient request if the prescription is for a... Start Date: 07/28/23 Status: Ordered Linzess = 145 mcg, By Mouth, 2 times a day, 0 Refills, Maintenance, 08/08/22 14:07:00 EDT, Partial fill upon patient request if the prescription is for a schedule II opioid drug. Start Date: 08/08/22 Status: Ordered Lorazepam = 1 mg, By Mouth, 2 times a day, 0 Refills, Maintenance, 01/17/23 9:11:00 EST, Partial fill upon patient request if the prescription is for a schedule II opioid drug. Start Date: 01/17/23 Status: Ordered MiraLax oral powder for reconstitution = 17 Gm, By Mouth, Daily, # 238 Gm, 0 Refills, Maintenance, 07/28/23 13:26:00 EDT, REC Powder, [facility]/pharmacy #[id number], Partial fill upon patient request if the prescription is for a schedule II opioid drug., 17 Gm By Mouth Daily, 158, cm, 07/28/23 10:26:0... Start Date: 07/28/23 Status: Ordered Nyamyc 100,000 units/g topical powder See Instructions, APPLY TO AFFECTED AREA TWICE A DAY, # 30 Gm, 0 Refills, Maintenance, 11/27/23 10:21:00 EST, [facility], 30, APPLY TO AFFECTED AREA TWICE A DAY, 158, cm, 07/28/23 10:26:00 EDT, Height, 124, kg, 09/02/23 9:58:00 EDT, Dry Weight Start Date: 11/27/23 Status: Ordered Omeprazole = 20 mg, By Mouth, Daily, 0 Refills, Maintenance, 01/17/23 9:10:00 EST, Partial fill upon patient request if the prescription is for a schedule II opioid drug. Start Date: 01/17/23 Status: Ordered Ondansetron = 4 mg, By Mouth, 3 times a day, PRN, 0 Refills, Maintenance, 08/08/22 14:07:00 EDT, Partial fill upon patient request if the prescription is for a schedule II opioid drug. Start Date: 08/08/22 Status: Ordered oxyCODONE 5 mg oral tablet 5 mg, 1, tablet, By Mouth, Every 6 hours, PRN, # 12 tablet, Refills 0, Tot. Refills 0, Maintenance,as needed for pain, 07/28/23 13:26:00 EDT, Route to Pharmacy Electronically, [facility]/pharmacy #[id number], Partial fill upon patient request if the prescription... Start Date: 07/28/23 Status: Ordered Paxil 30 mg oral tablet 1 tablet = 30 mg, By Mouth, Daily, 0 Refills, Maintenance, 07/25/23 9:12:00 EDT, Partial fill upon patient request if the prescription is for a schedule II opioid drug. Start Date: 07/25/23 Status: Ordered Pentasa 500 mg oral capsule, extended release 2 capsule = 1,000 mg, By Mouth, 3 times a day, 0 Refills, Maintenance, 08/08/22 14:07:00 EDT, Partial fill upon patient request if the prescription is for a schedule II opioid drug. Start Date: 08/08/22 Status: Ordered Propranolol 60 mg, By Mouth, Daily, Refills 0, Maintenance, 08/08/22 14:07:00 EDT, Partial fill upon patient request if the prescription is for a schedule II opioid drug. Start Date: 08/08/22 Status: Ordered Senna 8.6 mg oral tablet 8.6 mg, 1, tablet, By Mouth, Daily at bedtime, # 50 tablet, Refills 0, Tot. Refills 0, Maintenance,07/28/23 13:25:00 EDT, Route to Pharmacy Electronically, [facility]/pharmacy #[id number], Partial fill upon patient request if the prescription is for a schedule II... Start Date: 07/28/23 Status: Ordered Simvastatin = 40 mg, By Mouth, Daily at bedtime, 0 Refills, Maintenance, 08/08/22 14:08:00 EDT, Partial fill upon patient request if the prescription is for a schedule II opioid drug. Start Date: 08/08/22 Status: Ordered Strattera = 100 mg, By Mouth, Daily in AM, 0 Refills, Maintenance, 01/17/23 9:11:00 EST, Partial fill upon patient request if the prescription is for a schedule II opioid drug. Start Date: 01/17/23 Status: Ordered Trazodone = 100 mg, By Mouth, Daily at bedtime, 0 Refills, Maintenance, 01/17/23 9:11:00 EST, Partial fill upon patient request if the prescription is for a schedule II opioid drug. Start Date: 01/17/23 Status: Ordered Problem List Condition Confirmation Course Effective Dates Status Health St atus Informant Crohn's disease Confirmed Active Severe obesity Confirmed Active Social History Social History Type Response Smoking Status Never (less than 100 in lifetime) entered on: 09/27/22 Sex Patient Care team information Care Team Personnel Name: Kalie Calzada MD Position: [facility] Outreach Member Role: PCP Address: Address: [address] [place] [address]- Care Team Related Persons Name: RODDY BARNETT Address: home [address] [place] [address]
--- OUTSIDE RECORDS SUMMARY | 2024-05-28 10:07 | XMS_ITS | Continuity of Care Document ---
Author Organization [facility] Address [address], 4t [place] [address]- Care Team Providers Care Chief Juvenile Probation Officer Name Role Phone Elsi ULLOA, Kalie Primary Care Physician [phone] En[facility] Date(s): 08/12/23 - 09/11/23 [facility] [employer] [facility] [address], 4th [place] [address]- Allergies, Adverse Reactions, Alerts Substance Reaction Severity Status Levaquin hand swelling and itching/neck lumps Active Other Environmental Allergy seasonal Active Medications acetaminophen 325 mg oral tablet 650 mg, 2, tablet, By Mouth, Every 4 hours, PRN, # 50 tablet, Refills 0, Tot. Refills 0, Maintenance, Pain , Mild, 07/28/23 13:26:00 EDT, Route to Pharmacy Electronically, [facility]/pharmacy #[id number], Partialfill upon patient request if the prescription [...] 07/28/23 13:25:00 EDT, Route to Pharmacy Electronically, [facility]/pharmacy #[id number], Partial fill upon patient request if [...] Refills, Maintenance, 07/28/23 13:26:00 EDT, REC Powder, [facility]/pharmacy #[id number], Partial fill upon patient request if the prescription is for a schedule II opioid drug., 17 Gm By Mouth Daily, 158, cm, 07/28/23 10:26:0... Start Date: 07/28/23 Status: Ordered nystatin topical 711185 u/gm powder 1 application, Topically, 2 times a day, # 30 Gm, 0 Refills, Acute 09/16/23 10:54:00 EST, 09/02/23 10:54:00 EDT, Powder, [facility]/pharmacy #[id number], Partial fill upon patient request if the prescription is for a schedule II opioid drug., 1 application Topical... Start Date: 09/02/23 Stop Date: 09/16/23 Status: Ordered Omeprazole = 20 mg, By [...] 07/28/23 13:26:00 EDT, Route to Pharmacy Electronically, [facility]/pharmacy #[id number], Partial fill upon patient request if the [...] Maintenance,07/28/23 13:25:00 EDT, Route to Pharmacy Electronically, [facility]/pharmacy #[id number], Partial fill upon patient request if [...] Team Personnel Name: Kalie Calzada MD Position: [facility] Outreach Member Role: PCP Address: Address: [address] [place] [address]- Care Team Related Persons Name: RODDY BARNETT Address: home [address] [place] [address]
--- OUTSIDE RECORDS SUMMARY | 2024-05-28 10:07 | XMS_ITS | Continuity of Care Document ---
Author Organization [facility] Mauri [employer] [facility] Address [address] [facility] [address] [facility], 4t [place] [address]- Care Team Providers Care Sign Language Instructor Name Role Phone Elsi ULLOA, Kalie Primary Care Physician En[place] [facility] Date(s): 04/25/23 - 05/25/23 [facility] [employer] [facility] [facility] [address] [facility], 4th [place] [address]- Attending Physician: Celia Kearns Admitting Physician: AdmCelia [...] opioid drug. Start Date: 01/17/23 Status: Ordered Gabapentin = 300 mg, By Mouth, Daily, 0 Refills, Maintenance, 04/25/23 11:37:00 EDT, Partial fill upon patientrequest if the prescription is for a schedule II opioid drug. Start Date: 04/25/23 Status: Ordered hyoscyamine 0.125 mg oral tablet [...] Team Personnel Name: Kalie Calzada MD Position: [facility] Outreach Member Role: PCP Address: Address: [address] [place] [address]- Care Team Related Persons Name: RODDY BARNETT Address: home [address] [place] [address]
--- OUTSIDE RECORDS SUMMARY | 2024-05-28 10:07 | XMS_ITS | Continuity of Care Document ---
Author Organization [facility] Address [address] [place] [address]- Care Team Providers Care Survey Engineer Name Role Phone Kalie Calzada MD Primary Care Physician [phone] En[place] [facility] [id number] Date(s): 05/14/23 - 05/14/[address] [address]- Discharge Disposition: A-D/C Home Attending Physician: Ximena Alexandra MD Admitting Physician: Ximena Alexandra MD Referring Physician: Ximena Alexandra MD Allergies, Adverse Reactions, Alerts Substance Reaction [...] Team Personnel Name: Kalie Calzada MD Position: [facility] Outreach Member Role: PCP Address: Address: [address] [place] [address]- Care Team Related Persons Name: RODDY BARNETT Address: home [address] [place] [address]
--- OUTSIDE RECORDS SUMMARY | 2024-05-28 10:08 | XMS_ITS | Continuity of Care Document ---
Author Organization [facility] [place] Address [address] [place] [address]- Care Team Providers Care Keno Writer / Runner Name Role Phone Elsi ULLOA, Kalie Primary Care Physician Encounter [facility] Date(s): 07/03/22 - 09/18/22 [facility] [place] [address] [place], [place] [address] Attending Physician: Eitan Rodriguez MD Referring Physician: Brad Ko MD Allergies, [...] II Confirmed Active Patient Care team information Care Team Personnel Name: Kalie Calzada MD Position: [facility] Outreach Member Role: PCP Address: Address: [address] [place] [address]- Care Team Related Persons Name: RODDY BARNETT Address: home [address] [place] [address]
--- OUTSIDE RECORDS SUMMARY | 2024-05-28 10:08 | XMS_ITS | Continuity of Care Document ---
Author Organization [facility] Address [address] [facility] [facility], 4t [place] [address]- Care Team Providers Care Flow Match Sofa Cutter Name Role Phone Elsi ULLOA, Kalie Primary Care Physician [phone] En[place] [facility] Date(s): 03/17/23 - 04/16/23 [facility] [place] [facility] [address] [facility] [facility], 4th [place] [address]- Allergies, Adverse Reactions, Alerts Substance Reaction Severity [...] Team Personnel Name: Kalie Calzada MD Position: [facility] Outreach Member Role: PCP Address: Address: [address] [place] [address]- Care Team Related Persons Name: RODDY BARNETT Address: home [address] [place] [address]
--- OUTSIDE RECORDS SUMMARY | 2024-05-28 10:08 | XMS_ITS | Continuity of Care Document ---
Author Organization [facility] Address [address] [place] [address]- Care Team Providers Care Bridal Consultant Name Role Phone Kalie Calzada MD Primary Care Physician [id number] Date(s): 03/10/23 - 04/09/[address] [address] Attending Physician: Celia Kearns Admitting Physician: Admtr, Ar8 Referring Physician: Admtr, Ar8 Allergies, Adverse Reactions, [...] CENTER Outreach Member Role: PCP Address: Address: [address] [place] [address]- Care Team Related Persons Name: RODDY BARNETT Address: home [address] [place] [address]
--- OUTSIDE RECORDS SUMMARY | 2024-05-28 10:08 | XMS_ITS | Continuity of Care Document ---
Author Organization [facility] Address [address] [facility], 4[place] [address]- Care Team Providers Care Jig Hand Name Role Phone Elsi ULLOA, Kalie Primary Care Physician [phone] [place] [facility] [place] 05/09/23 - 06/08/23 [facility] [place] [facility] [address] [facility], 4th [place] [address]- Allergies, Adverse Reactions, Alerts Substance Reaction Severity [...] Team Personnel Name: Kalie Calzada MD Position: [facility] Outreach Member Role: PCP Address: Address: [address] [place] [address]- Care Team Related Persons Name: RODDY BARNETT Address: home [address] [place] [address]
--- OUTSIDE RECORDS SUMMARY | 2024-05-28 10:08 | XMS_ITS | Continuity of Care Document ---
Author Organization [facility] Address [address] [facility], 4t [place] [address]- Care Team Providers Care Sleep Lab Technologist Name Role Phone Elsi ULLOA, Kalie Primary Care Physician [phone] [facility] [place] 09/05/22 - 10/05/22 [facility] KhanLaunch[employer] [facility] [address] [facility], 4th [place] [address]- Allergies, Adverse Reactions, Alerts Substance Reaction Severity Status Levaquin Active Medications Cetirizine 0 Refills, Maintenance, 08/08/22 14:08:00 [...] Confirmed Active Obese class II Confirmed Active Social History Social History Type Response Smoking Status Never (less than 100 in lifetime) entered on: 09/27/22 Sex Patient Care team information Care Team Personnel Name: Elsi ULLOA , Kalie Position: [facility] Outreach Member Role: PCP Address: Address: [address] [place] [address]- Care Team Related Persons Name: RODDY BARNETT Address: home [address] [place] [address]
--- OUTSIDE RECORDS SUMMARY | 2024-05-28 10:08 | XMS_ITS | Continuity of Care Document ---
Author Organization [facility] Address [address] [place] [address] [address] [place] [address]- Care Team Providers Care Hadoop Application Developer Name Role Phone Kalie Calzada MD Primary Care Physician [phone] En[place] [facility] [place] Date(s): 09/02/22 - 10/02/[address] [place] [address]- Allergies, Adverse Reactions, Alerts Substance Reaction Severity [...] Team Personnel Name: Kalie Calzada MD Position: [facility] Outreach Member Role: PCP Address: Address: [address] [place] [address]- Care Team Related Persons Name: RODDY BARNETT Address: home [address] [place] [address]
--- OUTSIDE RECORDS SUMMARY | 2024-05-28 10:08 | XMS_ITS | Continuity of Care Document ---
Author Organization [facility] Address [address] [place] [address]- Care Team Providers Care Power Engineer Name Role Phone Kalie Calzada MD Primary Care Physician Encounter [facility] Date(s): 01/13/23 - 02/19/[address] [address] Attending Physician: Kalie Calzada MD Admitting Physician: Kalie Calzada MD Allergies, Adverse Reactions, [...] By Mouth, 0 Refills, Maintenance Start Date: 11/2/12 Status: Ordered Simvastatin By Mouth, 0 Refills, [...] Team Personnel Name: Kalie Calzada MD Position: [facility] Outreach Member Role: PCP Address: Address: [address] [place] [address]- Care Team Related Persons Name: RODDY BARNETT Address: home [address] [place] [address]
--- OUTSIDE RECORDS SUMMARY | 2024-05-28 10:08 | XMS_ITS | Continuity of Care Document ---
Author Organization [facility] Address [address] [place] [address]- Care Team Providers Care Head Porter Name Role Phone Elsi ULLOA, Kalie Primary Care Physician [phone] Encounter [facility] Date(s): 06/11/23 - 07/11/23 [facility] [address] [place] [address]- [place] Allergies, Adverse Reactions, Alerts Substance Reaction Severity [...] Team Personnel Name: Kalie Calzada MD Position: [facility] Outreach Member Role: PCP Address: Address: [address] [place] [address]- Care Team Related Persons Name: RODDY BARNETT Address: home [address] [place] [address]
--- OUTSIDE RECORDS SUMMARY | 2024-05-28 10:08 | XMS_ITS | Continuity of Care Document ---
Author Organization [facility] n[facility] [employer] [facility] Address [address] [facility], 4t [place] [address]- Care Team Providers Care Photographic Spotter Name Role Phone Elsi ULLOA, Kalie Primary Care Physician [phone] [facility] [id number] Date(s): 09/28/22 - 01/26/23 [facility] Khan[facility] [employer] [facility] [address] [facility], 4th Floor [place], [place] [address] Attending Physician: Bambi Araujo MD Admitting Physician: [...] Team Personnel Name: Kalie Calzada MD Position: [facility] Outreach Member Role: PCP Address: Address: [address] [place] [address]- Care Team Related Persons Name: RODDY BARNETT Address: home [address] [place] [address]
--- OUTSIDE RECORDS SUMMARY | 2024-05-28 10:08 | XMS_ITS | Continuity of Care Document ---
Author Organization [facility] Address [address] [place] [address]- Care Team Providers Care Lean Leader Name Role Phone Kalie Calzada MD Primary Care Physician [phone] [id number] Date[facility]s): 12/23/22 - 01/22/23 [facility] [address] [place] [address]- Attending Physician: Celia Kearns Admitting Physician: AdmCelia christine Referring Physician: Admtr Ar8 Allergies, Adverse Reactions, Alerts Substance Reaction [...] Name: Kalie Calzada MD Position: [facility] Outreach Member Role: PCP Address: Address: [address] [place] [address]- Care Team Related Persons Name: RODDY BARNETT Address: home [address] [place] [address]
--- OUTSIDE RECORDS SUMMARY | 2024-05-28 10:08 | XMS_ITS | Continuity of Care Document ---
Author Organization [facility] Mauri nAkorri Networkss [facility] Address [address] [facility], 4t [place] [address]- Care Team Providers Care Graduate Rn Name Role Phone Elsi ULLOA, Kalie Primary Care Physician [phone] [id number] Date(s): 05/21/23 - 09/10/23 [facility] WomenAk[facility] [address], 4th [place] [address]- Attending Physician: Bambi Araujo MD Admitting Physician: [...] 07/28/23 13:26:00 EDT, Route to Pharmacy Electronically, [facility]/pharmacy #[id number], Partialfill upon patient request if the prescription [...] 07/28/23 13:25:00 EDT, Route to Pharmacy Electronically, [facility]/pharmacy #[id number], Partial fill upon patient request if [...] Refills, Maintenance, 07/28/23 13:26:00 EDT, REC Powder, [facility]/pharmacy #[id number], Partial fill upon patient request if the prescription is for a schedule II opioid drug., 17 Gm By Mouth Daily, 158, cm, 07/28/23 10:26:0... Start Date: 07/28/23 Status: Ordered nystatin topical [id number] u/gm powder 1 application, Topically, 2 times a day, # 30 Gm, 0 Refills, Acute 09/16/23 10:54:00 EST, 09/02/23 10:54:00 EDT, Powder, [facility]/pharmacy #[id number], Partial fill upon patient request if [...] 07/28/23 13:26:00 EDT, Route to Pharmacy Electronically, [facility]/pharmacy #[id number], Partial fill upon patient request if [...] Maintenance,07/28/23 13:25:00 EDT, Route to Pharmacy Electronically, [facility]/pharmacy #[id number], Partial fill upon patient request if the [...] Team Personnel Name: Kalie Calzada MD Position: [facility] Outreach Member Role: PCP Address: Address: [address] [place] [address]- Care Team Related Persons Name: RODDY BARNETT Address: home [address] [place] [address]
--- OUTSIDE RECORDS SUMMARY | 2024-05-28 10:08 | XMS_ITS | Continuity of Care Document ---
Author Organization [facility] Address [address] [place] [address]- Care Team Providers Care Commercial Lines Account Assistant Name Role Phone Elsi ULLOA, Kalie Primary Care Physician [place] [facility] [place]02[place]23 - 08/01/23 [facility] [address] [place] [address]- [place] Allergies, Adverse Reactions, Alerts Substance Reaction Severity Status Levaquin hand swelling and itching/neck lumps Active Other Environmental Allergy seasonal Active Medications acetaminophen 325 mg oral tablet 650 mg, 2, tablet, By Mouth, Every 4 hours, PRN, # 50 tablet, Refills 0, Tot. Refills 0, Maintenance, Pain , Mild, 07/28/23 13:26:00 EDT, Route to Pharmacy Electronically, [facility]/pharmacy #[id number], Partialfill upon patient request if the prescription [...] 07/28/23 13:25:00 EDT, Route to Pharmacy Electronically, [facility]/pharmacy #[id number], Partial fill upon patient request [...] Refills, Maintenance, 07/28/23 13:26:00 EDT, REC Powder, [facility]/pharmacy #[id number], Partial fill upon patient request if the prescription is for a schedule II opioid drug., 17 Gm By Mouth Daily, 158, cm, 07/28/23 10:26:0... Start Date: 07/28/23 Status: Ordered Omeprazole = 20 mg, By [...] 07/28/23 13:26:00 EDT, Route to Pharmacy Electronically, [facility]/pharmacy #[id number], Partial fill upon patient request [...] Maintenance,07/28/23 13:25:00 EDT, Route to Pharmacy Electronically, [facility]/pharmacy #[id number], Partial fill upon patient request [...] Personnel Name: Elsi ULLOA , Kalie Position: [facility] Outreach Member Role: PCP Address: Address: [address] [place] [address]- Care Team Related Persons Name: RODDY BARNETT Address: home [address] [place] [address]
--- OUTSIDE RECORDS SUMMARY | 2024-05-28 10:08 | XMS_ITS | Continuity of Care Document ---
Author Organization [facility] [employer] [facility] Address [address] [facility], 4t [place] [address]- Care Team Providers Care Financial Accounting Manager Name Role Phone Elsi ULLOA, Kalie Primary Care Physician [phone] Encounter [facility] Date(s): 09/02/23 - 10/30/23 [facility]ara [employer] [facility] [address], [address]th [place] [address]- Attending Physician: Bambi Araujo MD Admitting Physician: [...] 07/28/23 13:26:00 EDT, Route to Pharmacy Electronically, [facility]/pharmacy #[id number], Partialfill upon patient request if the prescription [...] 07/28/23 13:25:00 EDT, Route to Pharmacy Electronically, [facility]/pharmacy #[id number], Partial fill upon patient request [...] Refills, Maintenance, 07/28/23 13:26:00 EDT, REC Powder, [facility]/pharmacy #[id number], Partial fill upon patient request [...] 07/28/23 13:26:00 EDT, Route to Pharmacy Electronically, [facility]/pharmacy #[id number], Partial fill upon patient request [...] Maintenance,07/28/23 13:25:00 EDT, Route to Pharmacy Electronically, [facility]/pharmacy #[id number], Partial fill upon patient request [...] Team Personnel Name: Kalie Calzada MD Position: [facility] Outreach Member Role: PCP Address: Address: [address] [place] [address]- Care Team Related Persons Name: RODDY BARNETT Address: home [address] [place] [address]
--- OUTSIDE RECORDS SUMMARY | 2024-05-28 10:08 | XMS_ITS | Continuity of Care Document ---
Author Organization [facility] Chiara [employer] Address [address] [facility], 4t [place] [address]- Care Team Providers Care Dairy Farm Worker Name Role Phone Elsi ULLOA, Kalie Primary Care Physician [phone] [id number] Date(s): 09/01/23 - 10/01/23 [facility] [employer] [facility] [address] [facility], 4th [place] [address]- Allergies, Adverse Reactions, Alerts Substance Reaction Severity Status Levaquin hand swelling and itching/neck lumps Active Other Environmental Allergy seasonal Active Medications acetaminophen 325 mg oral tablet 650 mg, 2, tablet, By Mouth, Every 4 hours, PRN, # 50 tablet, Refills 0, Tot. Refills 0, Maintenance, Pain , Mild, 07/28/23 13:26:00 EDT, Route to Pharmacy Electronically, [facility]/pharmacy #[id number], Partialfill upon patient request if the prescription [...] 07/28/23 13:25:00 EDT, Route to Pharmacy Electronically, [facility]/pharmacy #[id number], Partial fill upon patient request [...] Refills, Maintenance, 07/28/23 13:26:00 EDT, REC Powder, [facility]/pharmacy #[id number], Partial fill upon patient request [...] 07/28/23 13:26:00 EDT, Route to Pharmacy Electronically, [facility]/pharmacy #[id number], Partial fill upon patient request [...] Maintenance,07/28/23 13:25:00 EDT, Route to Pharmacy Electronically, [facility]/pharmacy #[id number], Partial fill upon patient request [...] Personnel Name: Kalie Calzada MD Position: [facility] Outreach Member Role: PCP Address: Address: [address] [place] [address]- Care Team Related Persons Name: RODDY BARNETT Address: home [address] [place] [address]
--- OUTSIDE RECORDS SUMMARY | 2024-05-28 10:08 | XMS_ITS | Continuity of Care Document ---
Author Organization [facility] Address [address] [place] [address] ve [address] [place] [address]- Care Team Providers Care Senior Qa Automation Engineer Name Role Phone Elsi ULLOA, Kalie Primary Care Physician [phone] Encounter [facility] Date(s): 08/22/22 - 09/21/[address] [place], [place] [address] Allergies, Adverse Reactions, Alerts No Known Allergies [...] Team Personnel Name: Kalie Calzada MD Position: [facility] Outreach Member Role: PCP Address: Address: [address] [place] [address]- Care Team Related Persons Name: RODDY BARNETT Address: home [address] [place] [address]
--- OUTSIDE RECORDS SUMMARY | 2024-05-28 10:08 | XMS_ITS | Continuity of Care Document ---
Author Organization [facility] Chiara D[employer]on [employer] Address [address] [facility], 4t [place] [address]- Care Team Providers Care Implant Polisher Name Role Phone Elsi ULLOA, Kalie Primary Care Physician [id number] Date[facility]s): 09/01/23 - 10/01/23 [facility] [employer] [facility] [address] [facility], 4th [place] [address]- Allergies, Adverse Reactions, Alerts Substance Reaction Severity Status Levaquin hand swelling and itching/neck lumps Active Other Environmental Allergy seasonal Active Medications acetaminophen 325 mg oral tablet 650 mg, 2, tablet, By Mouth, Every 4 hours, PRN, # 50 tablet, Refills 0, Tot. Refills 0, Maintenance, Pain , Mild, 07/28/23 13:26:00 EDT, Route to Pharmacy Electronically, [facility]/pharmacy #[id number], Partialfill upon patient request if the prescription [...] 07/28/23 13:25:00 EDT, Route to Pharmacy Electronically, [facility]/pharmacy #[id number], Partial fill upon patient request if [...] Refills, Maintenance, 07/28/23 13:26:00 EDT, REC Powder, [facility]/pharmacy #[id number], Partial fill upon patient request if [...] 07/28/23 13:26:00 EDT, Route to Pharmacy Electronically, [facility]/pharmacy #[id number], Partial fill upon patient request if [...] Maintenance,07/28/23 13:25:00 EDT, Route to Pharmacy Electronically, [facility]/pharmacy #[id number], Partial fill upon patient request if [...] Team Personnel Name: Kalie Calzada MD Position: [facility] Outreach Member Role: PCP Address: Address: [address] [place] [address]- Care Team Related Persons Name: RODDY BARNETT Address: [address] [place] [address]
--- OUTSIDE RECORDS SUMMARY | 2024-05-28 10:08 | XMS_ITS | Continuity of Care Document ---
Author Organization [facility] [employer] [facility] Address [address] [facility], [address] [place] [address]- Care Team Providers Care Dimension Mill Worker Name Role Phone Elsi ULLOA, Kalie Primary Care Physician [phone] Encounter [facility] [id number] Date(s): 04/25/23 - 05/02/23 [facility] Chiara [employer] [facility] [address], [address] [place], [place] [address] Attending Physician: Bambi Araujo MD Referring Physician: Kalie [...] Team Personnel Name: Kalie Calzada MD Position: [facility] Outreach Member Role: PCP Address: Address: [address] [place] [address]- Care Team Related Persons Name: RODDY BARNETT Address: home [address] [place] [address]
--- OUTSIDE RECORDS SUMMARY | 2024-05-28 10:08 | XMS_ITS | Continuity of Care Document ---
Author Organization [facility] [employer] [facility] Address [address] [facility], 4t [place] [address]- Care Team Providers Care Tractor Engine Assembler Name Role Phone Elsi ULLOA, Kalie Primary Care Physician Encounter [facility] [id number] Date(s): 03/30/24 - 04/29/24 [facility] Chiara [employer] [facility] [address] [facility], [address] [place], [place] [address] Attending Physician: Admtr, [id number] Admitting Physician: Admtr, Ar8 Referring Physician: Admtr, Ar8 Allergies, Adverse Reactions, Alerts Substance Reaction Severity Status Levaquin hand swelling and itching/neck lumps Active Other Environmental Allergy seasonal Active Medications acetaminophen 325 mg oral tablet 650 mg, 2, tablet, By Mouth, Every 4 hours, PRN, # 50 tablet, Refills 0, Tot. Refills 0, Maintenance, Pain , Mild, 07/28/23 13:26:00 EDT, Route to Pharmacy Electronically, [facility]/pharmacy #[id number], Partialfill upon patient request if the prescription [...] 07/28/23 13:25:00 EDT, Route to Pharmacy Electronically, [facility]/pharmacy #[id number], Partial fill upon [...] Refills, Maintenance, 07/28/23 13:26:00 EDT, REC Powder, [facility]/pharmacy #[id number], Partial fill upon patient request if the prescription is for a schedule II opioid drug., 17 Gm By Mouth Daily, 158, cm, 07/28/23 10:26:0... Start Date: 07/28/23 Status: Ordered Nyamyc 100,000 units/g topical powder See Instructions, APPLY TO AFFECTED AREA TWICE A DAY, # 30 Gm, 0 Refills, Maintenance, 11/27/23 10:21:00 EST, [facility] STORE [id number], 30, APPLY TO AFFECTED AREA TWICE A [...] 07/28/23 13:26:00 EDT, Route to Pharmacy Electronically, [facility]/pharmacy #[id number], Partial fill upon patient request if the [...] Maintenance,07/28/23 13:25:00 EDT, Route to Pharmacy Electronically, [facility]/pharmacy #[id number], Partial fill upon patient request if the [...] HOSPITAL Outreach Member Role: PCP Address: Address: [address] [place] [address]- Care Team Related Persons Name: RODDY BARNETT Address: [address] [place] [address]
--- OUTSIDE RECORDS SUMMARY | 2024-05-28 10:09 | XMS_ITS | Continuity of Care Document ---
Author Organization [facility] [place] Address [address] [place] [address]- Care Team Providers Care Passenger Car Upholsterer Apprentice Name Role Phone Elsi ULLOA, Kalie Primary Care Physician Encounter [facility] Date(s): 08/19/22 - 09/18/22 [facility] [place] [address] [place], [place] [address] Attending Physician: Celia Kearns Admitting Physician: Celia [...] Team Personnel Name: Kalie Calzada MD Position: [facility] Outreach Member Role: PCP Address: Address: [address] [place] [address]- Care Team Related Persons Name: RODDY BARNETT Address: home [address] [place] [address]
--- OUTSIDE RECORDS SUMMARY | 2024-05-28 10:09 | XMS_ITS | Continuity of Care Document ---
Author Organization [facility] ter Address [address] [place] [id number]- Care Team Providers Care Preschool Teacher Assistant Name Role Phone Kalie Calzada MD Primary Care Physician [place] [facility] [place] - 07/28/[address] [address]- Discharge Disposition: A-D/C Home Attending Physician: Bambi Araujo MD Admitting Physician: Bambi Araujo MD Referring Physician: Bambi Araujo MD Allergies, Adverse Reactions, Alerts Substance Reaction Severity Status Levaquin hand swelling and itching/neck lumps Active Other Environmental Allergy seasonal Active Medications acetaminophen 325 mg oral tablet 650 mg, 2, tablet, By Mouth, Every 4 hours, PRN, # 50 tablet, Refills 0, Tot. Refills 0, Maintenance, Pain , Mild, 07/28/23 13:26:00 EDT, Route to Pharmacy Electronically, [facility]/pharmacy #[id number], Partialfill upon patient request if the prescription [...] 07/28/23 13:25:00 EDT, Route to Pharmacy Electronically, [facility]/pharmacy #[id number], Partial fill upon [...] Refills, Maintenance, 07/28/23 13:26:00 EDT, REC Powder, [facility]/pharmacy #[id number], Partial fill upon [...] 07/28/23 13:26:00 EDT, Route to Pharmacy Electronically, [facility]/pharmacy #[id number], Partial fill upon [...] Maintenance,07/28/23 13:25:00 EDT, Route to Pharmacy Electronically, [facility]/pharmacy #[id number], Partial fill upon [...] disease Confirmed Active Severe obesity Confirmed Active Vital Signs Most recent to oldest [Reference Range]: 1 2 3 Height 158 cm (07/28/23 10:26 AM) 158 cm (07/25/23 9:30 AM) Weight 125.8 kg (07/28/23 10:26 AM) 113.5 kg (07/25/23 9:30 AM) Oxygen Saturation [94-100 %] 98 % (07/28/23 5:15 PM) 98 % (07/28/23 4:00 PM) 89 % *L* (07/28/23 3:45 PM) Pulse Rate [55-90 bpm] 60 bpm (07/28/23 10:26 AM) Body Mass Index [18.5-24.99 kg/m2] 50.39 kg/m2 *>HHI* (07/28/23 10:26 AM) 45.47 kg/m2 *>HHI* (07/25/23 9:30 AM) Blood Pressure [90-138/55-84 mm Hg] 135/93mm Hg (07/28/23 4:00 PM) 137/85mm Hg (07/28/23 3:45 PM) 125/80mm Hg (07/28/23 3:30 PM) Respiratory Rate [16-30 br/min] 16 br/min (07/28/23 4:00 PM) 9 br/min *L* (07/28/23 3:45 PM) 10 br/min *L* (07/28/23 3:30 PM) Temperature [96.8-100.4 DegF] 98.3 DegF (07/28/23 1:30 PM) 98.6 DegF (07/28/23 10:26 AM) Liters per Minute 5 L/min (07/28/23 3:00 PM) 5 L/min (07/28/23 2:45 PM) 5 L/min (07/28/23 2:30 PM) Mode of Delivery (Oxygen) Room air (07/28/23 5:15 PM) Room air (07/28/23 4:00 PM) Room air (07/28/23 3:45 PM) Blood pressure sites Arm, left (07/28/23 1:30 PM) Arm, right (07/28/23 10:26 AM) Temperature Route Temporal (07/28/23 1:30 PM) Temporal (07/28/23 10:26 AM) Dry Weight 125.8 kg (07/28/23 10:26 AM) 113.5 kg (07/25/23 9:30 AM) Weight Obtained Via Standing scale (07/28/23 10:26 AM) Patient/family stated (07/25/23 9:30 AM) Dry Weight Obtained Via Standing scale (07/28/23 10:26 AM) Patient/family stated (07/25/23 9:30 AM) Social History Social History Type Response Smoking Status Never (less than 100 in lifetime) entered on: 09/27/22 Sex Note * Melanie Ontiveros RN: PERFORM Event Display: Discharge/Transfer Note Hospital Authored Date: [id number] Nursing Discharge Note Entered On: 07/28/2023 17:25 EDT Performed On: 07/28/2023 17:18 EDT by Melanie Ontiveros RN Nursing Discharge Note 2 Discharge Time : 07/28/2023 17:18 EDT Discharge Level of Care at Discharge : Home/Penitentiary/Foster Care Patient Left Unit Via : Wheelchair Patient Accompanied Off Unit with : Responsible adult DC Instructions Provided & Signed by Pt : Yes Patient Understands D/C Instructions : Yes Verbalized Understanding of D/C Plan By : Patient Patient Instructions Discharge Signed : Yes Did Pt have Specialty Bed or Wound Vac : No Melanie Ontiveros RN - 07/28/2023 17:24 EDT * Melanie Ontiveros RN: PERFORM Event Display: Patient Education/Instruction Authored Date: [id number] Surgery Adult Discharge Instructions [address] [address] Name: HUGO BARNETT : 1970?? Visit: 07/28/2023 10:10?? Current Date: 07/28/2023 16:07 ?? Account: [id number]?? Surgery Discharge Instructions We would like to thank you for allowing us to assist you with your healthcare needs. The following includes patient education materials and information regarding your injury/illness. Our entire staffstrives to provide an excellent experience for our patients and their families. PLEASE ENSURE YOU FOLLOW-UP PER THE INSTRUCTIONS BELOW! ?? YOUR OPINION IS IMPORTANT TO US! Please complete the survey you may receive by mail or email. Your feedback will be used to make improvements to the healthcare experiences of our patients and their families. Surveys are administered by [employer] ?? If further treatment with your primary care physician or another doctor is recommended, it is important for you to keep the appointment. Call your primary care physician or return to the Emergency Department immediately if your condition worsens, fails to improve, or new symptoms develop. If you need to find a doctor, you can call [facility] Link for a referral at [phone] or toll free at [phone] or log in to [email or web address].. ?? [facility], in keeping with [facility] guidance, no longer requires face masks for staff, patientsor visitors in most situations. Similiar to time spent indoors at other locations, there is the chance that you were exposed to repiratory viruses during your time with us (such as flu or COVID-19). If you develop symptoms concerning for a viral respiratory infection, please seek testing (and treatment if indicated) from your medical provider or home test kit. ?? You can view and manage your care through the patient portal or by using a health care jeannette of your choosing. [employer] is a website that allows you to securely view your medical information including your hospital discharge summary, office visit summaries, medications and follow-up visits. You can also request appointments, renew medications, and request access to your medical information using a health care jeannette of your choosing, or just ask a question. You are entitled to know the individuals who participated in your treatment. This information is available within your medical record and will be provided upon your request. You can enroll at [email or web address] or register d uring your next office visit. You have been discharged from [facility], Patient Care Unit: [facility]??. If you have any questions regarding these instructions after you leave, please call us and we will be happy to assist you. [facility] Your Care Team Attending Physician Van ULLOA, Bambi Rosales?? Discharging Providers Julissa Cartagena DO A Reason for Admission RECTOCELE CS DS Primary Care Provider Elsi ULLOA , Kalie? Advance Directive Health Care Proxy on File No What to do next Instructions From Your Doctor ?? Orders? 07/28/23 13:24:00 EDT?? Instructions from your Care Team See physician post op sheet. Prescriptions electronically prescribed. Scheduled Follow-Up Appointments Friday 11:20 AM EDT ?? With: Van ULLOA, Bambi Rosales Where: [facility] [address] [place] [address]- Status: Pending You Need to Schedule the Following Appointments Follow Up with??Bambi Araujo Where: [address], [address] [facility] [place] [address]- Business (1) Follow Up with??Kalie Calzada MD When:??In 0 days Where: [address] [place] [address]- Business (1) Discharge Medications HUGO BARNETT :1970 Visit Date:07/28/2023 Medications: Please continue your medications until treatment is completed or stopped by your provider. You may resume your daily prescription medications. Discuss any questions related to medications with your provider. What How Much When Instructions Next Dose Unchanged Acetaminophen (acetaminophen 325 mg oral tablet) 2 tab(s) Oral Every 4 hours as needed for Pain , Mild Pickup at [facility]/pharmacy #[id number] Unchanged Atomoxetine (Strattera) 100 Milligram Oral Daily in the morning Unchanged Baclofen 10 Milligram Oral 3 times a day Unchanged Celecoxib 100 Milligram Oral Twice a day Unchanged Cetirizine 10 Milligram Oral Daily Unchanged Famotidine 20 Milligram Oral Twice a day Unchanged Fluticasone Nasal (Flonase) Daily Unchanged Ibuprofen (ibuprofen 600 mg oral tablet) 1 tab(s) Oral 4 times a day as needed for for pain Pickup at [facility]/pharmacy #[id number] Unchanged linaclotide (Linzess) 145 Microgram Oral Twice a day Unchanged Lorazepam 1 Milligram Oral Twice a day Unchanged Mesalamine (Pentasa 500 mg oral capsule, extended release) 2 capsule Oral 3 times a day Unchanged Omeprazole 20 Milligram Oral Daily Unchanged Ondansetron 4 Milligram Oral 3 times a day PRN ?? Unchanged Oxycodone (oxyCODONE 5 mg oral tablet) 1 tab(s) Oral Every 6 hours as needed for as needed for pain Pickup at [facility]/pharmacy #0859 Unchanged Paroxetine (Paxil 30 mg oral tablet) 1 tab(s) Oral Daily Unchanged Polyethylene Glycol 3350 (MiraLax oral powder for reconstitution) 17 gram Oral Daily Pickup at [facility]/pharmacy #0859 Unchanged Propranolol 60 Milligram Oral Daily Unchanged Senna (Senna 8.6 mg oral tablet) 1 tab(s) Oral Daily at Bedtime Pickup at [facility]/pharmacy #0859 Unchanged Simvastatin 40 Milligram Oral Daily at Bedtime Unchanged Trazodone 100 Milligram Oral Daily at Bedtime Pharmacy Information [facility]/pharmacy #[id number]: [address], [place] [phone] Allergies (NKA means No Known Allergies) Levaquin??(hand swelling and itching/neck lumps) Other Environmental Allergy??(seasonal) Education Materials Below is the list of Educational Leaflet Providered with your Discharge Instructions. Surgery Medical Daystay Surgical Overnight Discharge Instructions?? Valuables and Belongings I fully understand and agree that [facility] accepts no responsibility for all my personal property including clothing, toilet articles, radios, jewelry, dentures, hearing aids, rings, money, or any other property that is in my possession or is brought to me after admission. I understand certain valuables may be placed in a hospital safe for a short period of time. I understand that the hospital is not liable for loss or damage due to accident, fire, or other natural occurrence while said property is in the safe. I accept full responsibility for any personal property that I keep with me, and will not hold the hospital responsible in case of loss or disappearance. I acknowledge that i have been encouraged to send valuables and belongings home. ?? Review of Valuable and Belonging List: With patient Date for Pt to Sign Valuables/Belongings: 07/28/23 10:26:00 ?? Valuables & Belongings ?? Clothes Electronic devices Jewelry Monetary Items Personal devices Miscellaneous Medications (Valuables) Valuables at Bedside Pants, Shirt, Shoes, Undergarments Cell phone ? Brace, Glasses ? Valuables Sent Home ? Valuables Sent to Security ? Other Discharge Information ? Pulmonary Rehab Status?? Pulmonary Rehab Discharge Status?? Respiratory Rate:??9 br/min??Low ? Common Emergency Awareness Tips IS IT A STROKE? Act FAST and Check for these signs: FACE Does the face look uneven? ARM Does one arm drift down? SPEECH Does their speech sound strange? TIME Call at any sign of stroke ?? Heart Attack Signs Chest discomfort: Most heart attacks involve discomfort in the center of the chest and lasts more than a few minutes, or goes away and comes back. It can feel like uncomfortable pressure, squeezing, fullness or pain. Discomfort in upper body: Symptoms can include pain or discomfort in one or both arms, back, neck, jaw or stomach. Shortness of breath: With or without discomfort. Other signs: Breaking out in a cold sweat, nausea, or lightheaded. Remember, MINUTES DO MATTER. If you experience any of these heart attack warning signs, call to get immediate medical attention! ?? Smoking can increase your chances of developing chronic health problems and can cause harmful effects to other family members in your house. If you smoke, you are strongly encouraged to quit. Please call [facility] Link at [phone] or [phone]) or log in to [email or web address] for referrals to smoking cessation programs. ?? The National Suicide Prevention Hotline is available 02/06 if you or someone you know needs to find a reason to keep living. By calling 6-502-110-bfiq (2839) you'll be connected to a skilled, trained counselor at a crisis center in your area. SURGERY DISCHARGE INSTRUCTIONS SIGNATURE PAGE HUGO BARNETT Location:[facility] Registration Date and Time:07/28/2023 10:10 EDT Primary Care Physician: Elsi ULLOA , [facility] Attending Physician: Van ULLOA, Bambi Rosales, I HUGO BARNETT, have received the above patient education materials/instructions and have verbalized understanding. If ambulance or transport services are being used I further acknowledge being givena choice of service. ?? If you need to contact me, please call me at this number: . Patient/Bioinformatics Developer Name: Patient/Bioinformatics Developer Signature: Relationship to Patient: Witness Name/Signature: Date: * Melanie Ontiveros RN: PERFORM, SIGN, VERIFY Event Display: Patient Education Handout Authored Date: * Melanie Ontiveros RN: PERFORM Event Display: Patient Education Leaflets Authored Date: [id number] Using an Incentive Spirometer ?? [id number] Using an Incentive Spirometer An incentive spirometer is a device that helps you do deep breathing exercises after surgery. Or ithelps lower the risk for breathing problems if you have a lung disease or condition. These exercises expand your lungs, aid in circulation, and may help prevent pneumonia. Deep breathing exercises also help you breathe better and improve the function of your lungs by: ??? Keeping your lungs clear ??? Strengthening your breathing muscles ??? Helping prevent respiratory complications or problems The incentive spirometer gives you a way to take an active part in your recovery. A nurse or respiratory therapist will teach you breathing exercises. To do these exercises, you will breathe in through your mouth and not your nose. The incentive spirometer only works correctly if you breathe in through your mouth. Deep breathing expands the lungs, aids circulation, and helps prevent pneumonia. Your healthcare provider or their staff will tell you how to use the device, your targeted volume(s), and provide other helpful tips to prevent complications (such as pain, dizziness, feeling lightheaded) when blowing in the incentive spirometer. ?? Steps to clear lungs Step 1. Exhale normally. Then, inhale normally. ??? Relax and breathe out. Step 2. Place your lips tightly around the mouthpiece. ??? Make sure the device is upright and not tilted. ??? Sit up and breathe out (exhale) fully ??? Tightly seal your lips around the mouthpiece Step 3. Inhale as much air as you can through the mouthpiece. Don't breathe through your nose. ??? Breathe in (inhale) slowly and deeply. ??? Hold??your breath long enough to keep the balls, piston, or disk raised for at least 3??to 5seconds, or as instructed by your healthcare provider. ??? Exhale slowly to allow the balls, piston, or disk to fall before repeating again. Note: Some spirometers have an indicator to let you know that you are breathing in too fast. If theindicator goes off, breathe in more slowly. Step 4. Repeat the exercise regularly. ??? Do sets of 10 exercises every hour while you're awake,??or as instructed by your healthcare provider. Don't do more than 30 breaths in each set. ??? If you were taught deep breathing and coughing exercises, do them regularly as instructed by your provider,nurse, or respiratory therapist. ?? Follow-up care Make a follow-up appointment, or as directed by your healthcare provider. Also follow up with your provider as advised if your symptoms don't improve or continue to get worse. ?? When to call your healthcare provider Call your healthcare provider right away if you have any of these: ??? Fever 100.4?? (38??C) or higher, or as advised by your provider ??? Brownish, bloody, or smelly sputum (phlegm that you cough up) ?? Call 911 Call 911 if any of these occur:? Shortness of breath that doesn't get better after taking yourmedicine ??? Cool, moist, pale, or blue skin ??? Trouble breathing or swallowing, wheezing ??? Fainting or loss of consciousness ??? Feeling of dizziness or weakness, or a sudden drop in blood pressure ??? Feeling very ill ??? Lightheadedness ??? Chest pain or rapid heart rate ?? Last Reviewed Date: 2022 ?? 7743-9696 [employer]. All rights reserved. This information is not intended as a substitute for professional medical care. Always follow your healthcare professional's instructions. ?? * Rama ARIAS, Melanie: PERFORM Event Display: Patient Education Leaflets Authored Date: [id number] Surgery Medical Daystay Surgical Overnight Discharge Instructions ?? 295 Medical Daystay/Surgical Overnight Discharge Instructions ? Since your coordination and judgment may be altered by medication and/or anesthesia, a responsible adult must drive you home from the hospital. ? If you have received medication for pain or sedation while under our care, you should not drive, operate machinery, drink alcohol, or sign any legal documents for 24 hours.?? You should have someone with you at home tonight. ? Remain at home the day of discharge.?? You may be up and about unless otherwise instructed by your physician. ? You may resume your daily prescription medication schedule.?? Any depressant medication should be avoided for 24 hours unless otherwise instructed by your surgeon or anesthesiologist. ? Call your physician for a follow-up appointment.? If you experience unusual or severe pain not relied by your pain medication, excessive bleedingor drainage, persistent nausea and vomiting, excessive swelling or redness, foul odor from incisionsite or fever over 100.6F, you need to call your physician. ? A follow-up phone call by a nurse will be made the day after your procedure.?? If you have stayed with us over night, you will not be receiving a follow-up phone call. ? Nausea and vomiting are a common side effect of prescription pain medication.?? We recommend that pills are not taken on an empty stomach.?? While taking any prescription pain medication you should not drive or drink alcohol. ? Patient Care team information Care Team Personnel Name: Kalie Calzada MD Position: [facility] Outreach Member Role: PCP Address: Address: [address] [place] [address]- Care Team Related Persons Name: RODDY BARNETT Address: home [address] [place] [address]
--- OUTSIDE RECORDS SUMMARY | 2024-05-28 10:09 | XMS_ITS | Continuity of Care Document ---
Author Organization [facility] Address [address] [place] [address]- Care Team Providers Care Milling/Polishing Operator Name Role Phone Elsi ULLOA, Kalie Primary Care Phys[id number] Date(s): 10/28/23 - 11/30/[facility] [address] [place] [address]- Attending Physician: Bambi Araujo MD Admitting Physician: [...] 07/28/23 13:26:00 EDT, Route to Pharmacy Electronically, [facility]/pharmacy #[id number], Partialfill upon patient request if the prescription [...] 07/28/23 13:25:00 EDT, Route to Pharmacy Electronically, [facility]/pharmacy #[id number], Partial fill upon [...] Refills, Maintenance, 07/28/23 13:26:00 EDT, REC Powder, [facility]/pharmacy #[id number], Partial fill upon patient request if the prescription is for a schedule II opioid drug., 17 Gm By Mouth Daily, 158, cm, 07/28/23 10:26:0... Start Date: 07/28/23 Status: Ordered Nyamyc 100,000 units/g topical powder See Instructions, APPLY TO AFFECTED AREA TWICE A DAY, # 30 Gm, 0 Refills, Maintenance, 11/27/23 10:21:00 EST, [facility] STORE [id number], 30, APPLY TO AFFECTED AREA TWICE A [...] 07/28/23 13:26:00 EDT, Route to Pharmacy Electronically, [facility]/pharmacy #[id number], Partial fill upon patient request if the [...] Maintenance,07/28/23 13:25:00 EDT, Route to Pharmacy Electronically, [facility]/pharmacy #[id number], Partial fill upon patient request if the [...] MD Position: [facility] Outreach Member Role: PCP Address: Address: [address] [place] [id number]- Care Team Related Persons Name: RODDY BARNETT Address: home [address] [place] [address]
== END | disposition home or self-care (01) ==
LOC: HO.HPSW 10:06
PROVIDERS: PCP Internal Medicine; Visit Provider Nurse Practitioner Family
DX: G47.34 Idiopathic sleep related nonobstructive alveolar hypoventilation (principal); Z91.09 Other allergy status, other than to drugs and biological substances; R06.00 Dyspnea, unspecified; R05.9 Cough, unspecified
CPT/HCPCS: 94010; 99214

== ENCOUNTER 2024-05-28 11:32 | Outpatient (REF) | payer OTHER, SELFPAY ==
[2024-05-28 13:56] LABS: MANUAL DIFF FLAG NO
[2024-05-28 13:58] LABS: Basophils Absolute Auto 0.1 X10*3/uL (0.0-0.2); Basophils Percent Auto 0.5 % (0-2); Eosinophils Absolute Auto 0.3 X10*3/uL (0.0-0.4); Eosinophils Percent Auto 2.7 % (0-4); Hemoglobin 14.5 g/dl (12.0-16.0); Imm Gran Abs Auto 0.02 X10*3/uL (0.00-0.03); Imm Gran Pct Auto 0.2 % (0.0-0.4); Lymphocytes Absolute Auto 1.7 X10*3/uL (1.2-4.9); Lymphocytes Percent Auto 17.7 % (20-40); Mean Corpuscular Volume 90.9 fL (80.0-98.0); Mean Platelet Volume 10.2 fL (9.4-12.3); Monocytes Absolute Auto 0.7 X10*3/uL (0.1-1.2); Monocytes Percent Auto 7.1 % (2-11); Neutrophils Percent Auto 71.8 % (45-73); Platelet Count 374 X10*3/uL (160-400); Red Blood Count 4.84 X10*6/uL (4.20-5.50); White Blood Count 9.7 X10*3/uL (4.8-10.8)
[2024-06-01 01:47] LABS: Class Alternaria alternata 0; Class Aspergillus fumigatus 0; Class Bermuda Grass 0; Class Birch 0; Class Cat Dander 0; Class Cladosporium herbarum 0; Class Cockroach 0; Class Common Ragweed 0; Class Cottonwood 0; Class Derm. pterony 0; Class Dermatophagoides farinae 0; Class Dog Dander 0; Class Elm 0; Class Maple Box Elder 0; Class Mountain Cedar 0; Class Mouse Urine Protein 0; Class Mugwort 0; Class Oak 0; Class Penicillium crysogenum 0; Class Rough Pigweed 0; Class Sheep Sorrel 0; Class Sycamore 0; Class Timothy Grass 0; Class Walnut Tree 0; Class White Ash 0; Class White Mulberry 0; D001 IgE D pteronyssinus <0.10 kU/L; D002 - IgE D farinae <0.10 kU/L; E001 - IgE Cat Dander <0.10 kU/L; E005 - IgE Dog Dander <0.10 kU/L; E072-IgE Mouse Urine <0.10 kU/L; G002 IgE Bermuda Grass <0.10 kU/L; G006 - IgE Timothy Grass <0.10 kU/L; I006-IgE Cockroach, German <0.10 kU/L; Immunoglobulin E 40 kU/L (<OR=114); M001 IgE Penicillium chrysogen <0.10 kU/L; M002 - IgE Cladosporium herbar <0.10 kU/L; M003 - IgE Aspergillus fumigat <0.10 kU/L; M006 - IgE Alternaria alternat <0.10 kU/L; T001 IgE Maple/Box Elder <0.10 kU/L; T003 IgE Common Silver Birch <0.10 kU/L; T006 - IgE Cedar, Mountain <0.10 kU/L; T007 - IgE Oak, White <0.10 kU/L; T008 IgE Elm, American <0.10 kU/L; T010 - IgE Walnut <0.10 kU/L; T011 - IgE Maple Leaf Sycamore <0.10 kU/L; T014 - IgE Cottonwood <0.10 kU/L; T015 - IgE Ash, White <0.10 kU/L; T070 - IgE White Mulberry <0.10 kU/L; W001 - IgE Ragweed, Short <0.10 kU/L; W006 - IgE Mugwort <0.10 kU/L; W014 IgE Pigweed, Common <0.10 kU/L; W018 IgE Sheep Sorrel <0.10 kU/L
== END 2024-05-28 11:33 | disposition home or self-care (01) ==
LOC: HO.WFDLDS 11:32
PROVIDERS: Visit Provider Nurse Practitioner Family
DX: G47.34 Idiopathic sleep related nonobstructive alveolar hypoventilation (principal); R06.00 Dyspnea, unspecified; R05.9 Cough, unspecified; Z91.09 Other allergy status, other than to drugs and biological substances
CPT/HCPCS: 36415; 82785; 85025; 86003; 94010; 99212

== ENCOUNTER → 2024-06-17 11:07 | Outpatient (REF) | payer OTHER, SELFPAY ==
--- NOTE | 2024-06-17 11:10 | HM_ITS ---
Cardiac event monitor Indication: Tachycardia Technique: Patient was hooked up to cardiac event monitor from 06 17 2024 to 07/17/2024. I was requested to read this study on 08/12/2024. Total compliance and where time was 29.3 days. Findings: Baseline was normal sinus rhythm with average heart of 68 beats per minute. No significant pauses or av conduction abnormality noted. No significant bradycardia or tachycardia was noted. Rare isolated PACs were noted with rare short runs of PACs noted, no sustained atrial fibrillation. Total burden of PVCs it occasional. No sustained ventricular arrhythmias noted. Patient triggered the monitor 28 times 1 with associated symptom of palpitation correlating with sinus tachycardia. Conclusion: 1. Baseline was normal sinus rhythm with average heart of 68 beats per minute with no significant pauses 2. Rare PACs without sustained atrial fibrillation 3. Occasional PVCs without sustained ventricular arrhythmias 4. Most of the patient triggered events correlated with sinus rhythm MTDD
== END ==
LOC: HO.CARD 11:07
PROVIDERS: PCP Internal Medicine; Visit Provider Internal Medicine Cardiovascular Disease
DX: R00.0 Tachycardia, unspecified (principal); R00.2 Palpitations; R42 Dizziness and giddiness
CPT/HCPCS: 93270

== ENCOUNTER → 2024-06-17 11:10 | Outpatient (BNV) | payer OTHER, SELFPAY | PROVIDERS: PCP Internal Medicine; Visit Provider Internal Medicine Cardiovascular Disease | DX: I49.3 Ventricular premature depolarization (principal); I49.1 Atrial premature depolarization | CPT/HCPCS: 93272 ==

== ENCOUNTER 2024-07-13 13:30 | Outpatient (AMB) | payer OTHER, SELFPAY ==
--- NOTE | 2024-07-13 13:28 | A.OFFVIS_ITS ---
Vital Signs 3 07/13/24 13:32 Height 5 ft 2 in Weight 222 lb 6 oz BMI 40.7 BP 108/74 Blood Pressure Location Rt brachial Position Sitting Pulse 73 Pulse Source Pulse Oximeter Pulse Oximetry (%) 97 Oxygen Delivery Method Room Air Intake Visit Reasons: FU Allergies levofloxacin [LEVOFLOXACIN] Allergy (Unknown, Verified 07/13/24 13:35) HANDS NUMB & BURNING , LUMP BEHIND EAR HPI HPI FU: Details: Linda is a pleasant 54 year old female, never smoker, with underlying PVD, Crohn's disease, HLD and morbid obesity. She was initially reffered by PCP after prior PSG negative for KELSI however no REM and revealed mild nocturnal hypoxemia, with 9 minutes <88%. She continues with symptoms suggestive of KELSI with nonrestorative sleep, daytime fatigue and frequent night awakenings. She was sent for overnight oximetry which revealed nocturnal hypoxemia for 78 minutes and was started on 1L of supplemental oxygen for NOC. She is using trazadone for sleep prescribed by psychiatry however feels this is not effective and will be reaching out to trial another medication. She also reported over the last year, progressively worsening dyspnea on exertion, decreased exercise capacity, orthopnea and intermittent wheezing. Despite approximately 50 lb weight loss patient reports no change in symptoms. She was evaluated by cardiology who scheduled patient for stress test which did not reveal ischemic EKG changes. Echo revealed elevated RVSP 37. Cardiology felt symptoms of mild pulmonary hypertension could be minimized through weight loss. She is currently wearing a 30 day holter for possible SVT. Today she presents to review PFT results. ON LICENSE OF [facility] Medical History (Updated 07/15/24 @ 19:05 by Peyton Worthington NP) Depression Crohn disease Migraines HLD (hyperlipidemia) Horseshoe kidney Nasal airway abnormality Surgical History History of esophagogastroduodenoscopy (EGD) Hx of colonoscopy S/P sinus surgery Hx of breast implants, bilateral Family History Father Hx of colonoscopy S/P left colectomy Paternal Grandfather Pancreatic cancer Paternal Grandmother Dementia Maternal Grandfather Prostate cancer Social History Household Members: Spouse Alcohol intake: current Alcohol intake frequency: holidays/special occasions only Patient Tobacco Use Status: Never used Tobacco Current occupational status: unemployed Review of Systems Const Denies chills, Denies excessive sweating, Denies fever(s), Denies headache(s) and Denies night sweats Eyes Denies dry eyes, Denies irritation and Denies itchy eyes ENT Reports Normal hearing present, Denies headache(s), Denies nasal congestion, Denies nasal discharge, Denies post nasal drip and Denies sore throat Card Denies chest pain, Denies chest pain at rest, Denies chest pain with activity, Denies claudication and Denies paroxysmal nocturnal dyspnea Resp Denies chest congestion, Denies excessive phlegm production, Denies pain on inspiration, Denies pain with cough and Denies stridor Musc Denies myalgias Neuro Reports Normal hearing present and Denies headache(s) Endo Denies excessive sweating Jose/Lymph Denies lymphadenopathy Aller/Immun Denies itchy eyes and Denies seasonal rhinorrhea Physical Exam Vital Signs: Last Vital Signs Pulse 73 07/13/24 13:32 BP 108/74 07/13/24 13:32 Pulse Ox 97 07/13/24 13:32 Oxygen Delivery Method Room Air 07/13/24 13:32 BMI result Body Mass Index 40.7 Const General: cooperative, healthy appearing, comfortable, no acute distress, well developed and alert Nutritional Appearance: obese Orientation/consciousness: patient oriented x3 Limitations: no limitations HEENT Head: Yes normal to inspection, Yes normocephalic and Yes atraumatic Ears: hearing grossly normal bilaterally and external ears normal Eyes General: appearance normal, both eyes and all related structures Eyelids: Yes eyelids normal Sclerae: sclerae normal EOM: EOMs intact bilaterally Neck Neck: Yes normal visual inspection and Yes no lymphadenopathy Lymphatic: no lymphadenopathy noted Chest Chest palpation & inspection: normal inspection of the chest Resp Effort & Inspection: normal respiratory effort, able to speak in complete sentences, no audible wheezes, no cough, no stridor, not tachypneic, no tripod positioning and no use of accessory muscles Auscultation: clear to auscultation bilaterally Cardio Jugular venous distension: no JVD Rate: regular rate Rhythm: regular rhythm Skin Other: warm, dry General skin exam: no rashes or lesions noted Neuro General: patient oriented x3 Cranial nerves: Yes Normal hearing present Cognition (Neuro): normal cognition Gait exam (Neuro): Normal gait present Extrem General: Yes normal to inspection, Yes capillary refill normal, Yes no clubbing, cyanosis or edema and Yes no pedal edema Psych Appearance: grossly normal and well kempt Speech and movement: Normal speech and movement present and Clear speech present Affect: normal affect Attitude: cooperative Thought process: Normal thought process present Thought content: Normal thought content present Insight: Good insight present (Psych) Judgement: Good judgement present (Psych) Results Reviewed Results Reviewed: Assessment & Plan Assessment & Plan (1) Asthma: Code(s): J45.909 - Unspecified asthma, uncomplicated Category: Medical (2) Nocturnal hypoxemia: Code(s): G47.34 - Idiopathic sleep related nonobstructive alveolar hypoventilation Category: Medical (3) Dyspnea: Code(s): R06.00 - Dyspnea, unspecified Category: Medical (4) Cough: Code(s): R05.9 - Cough, unspecified Category: Medical Plan Reviewed PFT which did not reveal any obstructive or restrictive defect and no response to bronchodilator. TLC, RV and DLCO elevated suggestive of asthma. Will trial ICS. Discussed importance of good oral to prevent thrush. She recently started 1 L of supplemental oxygen with sleep as prior sleep study revealed nocturnal hypoxemia. Will send for repeat overnight oximetry to ensure that 1 L is optimal. She continues with symptoms suggestive of KELSI and on prior PSG no REM was recorded. She will reach out to a psychiatrist to trial another sleep aid, as trazodone is suboptimal and if effective will send for repeat sleep study. All questions were answered and patient is in agreement of plan. Will follow-up in 6-8 weeks or sooner if needed. Orders: Orders 2 Overnight Pulse Oximetry Today G47.34 - Idiopathic sleep related nonobstructive alveolar hypoventilation Medications: New 2 fluticasone furoate 100 mcg/actuation (Arnuity Ellipta) 1 inh inhalation DAILY 30 ea 3RF Coding Level of Care Code Est Pt Level 4 (41147) Diagnoses Asthma J45.909 Nocturnal hypoxemia G47.34 Dyspnea R06.00 Cough R05.9
[2024-07-13 13:32] VITALS: BP 108/74; PULSE 73; O2SAT 97; BMI 40.7
== END 2024-07-13 14:02 | disposition home or self-care (01) ==
PROVIDERS: PCP Internal Medicine; Visit Provider Nurse Practitioner Family
DX: J45.909 Unspecified asthma, uncomplicated (principal); G47.34 Idiopathic sleep related nonobstructive alveolar hypoventilation; R06.00 Dyspnea, unspecified; R05.9 Cough, unspecified
CPT/HCPCS: 99214

== ENCOUNTER → 2024-07-13 13:30 | Outpatient (BNVA) | payer OTHER, SELFPAY | PROVIDERS: PCP Internal Medicine; Visit Provider Nurse Practitioner Family | DX: J45.909 Unspecified asthma, uncomplicated (principal); G47.34 Idiopathic sleep related nonobstructive alveolar hypoventilation; R06.00 Dyspnea, unspecified; R05.9 Cough, unspecified | CPT/HCPCS: 99212 ==

== ENCOUNTER 2024-08-10 12:27 | Outpatient (REF) | payer OTHER, SELFPAY ==
[2024-08-10 18:10] LABS: Appearance Urine Clear; Color Urine Yellow; Glucose Urine UA Negative (Negative); Leukocyte Esterase Urine Small (1+) (Negative); Nitrite Urine Negative (Negative); PH 5.5 (5.0-9.0); UMIC TRIGGER UACC YES; Urine Blood Negative (Negative); Urine Ketones Trace mg/dL (Negative); Urine Protein Negative (Neg-Trace)
[2024-08-10 18:19] LABS: Bacteria Urine None Seen (None Seen); Hyaline Casts Urine 0-2 /LPF (0-2); RBC Urine 0-2 /HPF (0-2); UACC Culture Trigger YES; WBC Urine 0-5 /HPF (0-5)
== END 2024-08-10 12:28 | disposition home or self-care (01) ==
LOC: HO.CHCLDS 12:27
PROVIDERS: Visit Provider Internal Medicine
DX: N39.3 Stress incontinence (female) (male) (principal)
CPT/HCPCS: 81001; 87086

== ENCOUNTER 2024-09-07 13:16 | Outpatient (AMB) | payer OTHER, SELFPAY ==
--- NOTE | 2024-09-07 13:19 | MHC.OFFVIS ---
Vital Signs 09/07/24 13:20 Height 5 ft 2 in Weight 212 lb 6 oz BMI 38.8 BP 124/88 Blood Pressure Location Rt brachial Position Sitting Pulse 67 Pulse Source Pulse Oximeter Pulse Oximetry (%) 97 Oxygen Delivery Method Room Air Intake Visit Reasons: FU Allergies levofloxacin [LEVOFLOXACIN] Allergy (Unknown, Verified 09/07/24 13:24) HANDS NUMB & BURNING , LUMP BEHIND EAR HPI HPI FU: Details: Linda is a pleasant 54 year old female, never smoker, with underlying PVD, Crohn's disease, HLD and morbid obesity. She was initially referred by PCP after prior PSG negative for KELSI however no REM and revealed mild nocturnal hypoxemia, with 9 minutes <88%. She continues with symptoms suggestive of KELSI with nonrestorative sleep, daytime fatigue and frequent night awakenings. She was sent for overnight oximetry which revealed nocturnal hypoxemia for 78 minutes and was started on 1L of supplemental oxygen for NOC. Overnight oximetry confirmed this was sufficient. She recently had her trazodone increased but difficult to evaluate effectiveness as she has been caring for her status post shoulder surgery and has not been sleeping well. Will consider repeat once sleep efficiency improves. She was evaluated by cardiology who scheduled patient for stress test which did not reveal ischemic EKG changes. Echo revealed elevated RVSP 37. Cardiology felt symptoms of mild pulmonary hypertension could be minimized through weight loss. She continues to work on weight loss and has lost a total of 70 +lbs. At the last visit she was started on Arnuity and reports improvement in dyspnea, denies wheezing, chest tightness or cough. She does note over the last 2 weeks she has noted worsening dyspnea and wonders if there is worsening pulmonary hypertension despite weight loss. COUNT INCLUDES THE [facility] Medical History (Updated 07/15/24 @ 19:05 by Peyton Worthington NP) Depression Crohn disease Migraines HLD (hyperlipidemia) Horseshoe kidney Nasal airway abnormality Surgical History History of esophagogastroduodenoscopy (EGD) Hx of colonoscopy S/P sinus surgery Hx of breast implants, bilateral Family History Father Hx of colonoscopy S/P left colectomy Paternal Grandfather Pancreatic cancer Paternal Grandmother Dementia Maternal Grandfather Prostate cancer Social History Household Members: Spouse Alcohol intake: current Alcohol intake frequency: holidays/special occasions only Patient Tobacco Use Status: Never used Tobacco Current occupational status: unemployed Review of Systems Const Denies chills, Denies excessive sweating, Denies fever(s), Denies headache(s) and Denies night sweats Eyes Denies dry eyes, Denies irritation and Denies itchy eyes ENT Reports Normal hearing present, Denies headache(s), Denies nasal congestion, Denies nasal discharge, Denies post nasal drip and Denies sore throat Card Denies chest pain, Denies chest pain at rest, Denies chest pain with activity, Denies claudication and Denies paroxysmal nocturnal dyspnea Resp Denies chest congestion, Denies excessive phlegm production, Denies pain on inspiration, Denies pain with cough and Denies stridor Musc Denies myalgias Neuro Reports Normal hearing present and Denies headache(s) Endo Denies excessive sweating Jose/Lymph Denies lymphadenopathy Aller/Immun Denies itchy eyes and Denies seasonal rhinorrhea Physical Exam Vital Signs: Last Vital Signs Pulse 67 09/07/24 13:20 BP 124/88 09/07/24 13:20 Pulse Ox 97 09/07/24 13:20 Oxygen Delivery Method Room Air 09/07/24 13:20 BMI result Body Mass Index 38.8 Const General: cooperative, healthy appearing, comfortable, no acute distress, well developed and alert Nutritional Appearance: obese Orientation/consciousness: patient oriented x3 Limitations: no limitations HEENT Head: Yes normal to inspection, Yes normocephalic and Yes atraumatic Ears: hearing grossly normal bilaterally and external ears normal Eyes General: appearance normal, both eyes and all related structures Eyelids: Yes eyelids normal Sclerae: sclerae normal EOM: EOMs intact bilaterally Neck Neck: Yes normal visual inspection and Yes no lymphadenopathy Lymphatic: no lymphadenopathy noted Chest Chest palpation & inspection: normal inspection of the chest Resp Effort & Inspection: normal respiratory effort, able to speak in complete sentences, no audible wheezes, no cough, no stridor, not tachypneic, no tripod positioning and no use of accessory muscles Auscultation: clear to auscultation bilaterally Cardio Jugular venous distension: no JVD Rate: regular rate Rhythm: regular rhythm Skin Other: warm, dry General skin exam: no rashes or lesions noted Neuro General: patient oriented x3 Cranial nerves: Yes Normal hearing present Cognition (Neuro): normal cognition Gait exam (Neuro): Normal gait present Extrem General: Yes normal to inspection, Yes capillary refill normal, Yes no clubbing, cyanosis or edema and Yes no pedal edema Psych Appearance: grossly normal and well kempt Speech and movement: Normal speech and movement present and Clear speech present Affect: normal affect Attitude: cooperative Thought process: Normal thought process present Thought content: Normal thought content present Insight: Good insight present (Psych) Judgement: Good judgement present (Psych) Assessment & Plan Assessment & Plan (1) Asthma: Code(s): J45.909 - Unspecified asthma, uncomplicated Category: Medical (2) Nocturnal hypoxemia: Code(s): G47.34 - Idiopathic sleep related nonobstructive alveolar hypoventilation Category: Medical (3) Dyspnea: Code(s): R06.00 - Dyspnea, unspecified Category: Medical (4) Cough: Code(s): R05.9 - Cough, unspecified Category: Medical Plan She reports suboptimal effect with Arnuity will switch to Breo. Advised to continue to use 1 L of supplemental oxygen at [facility]. Will consider repeat PSG once she is better able to assess effectiveness of increased trazadone. Given worsening dyspnea will repeat echo, as prior revealed mild pulmonary hypertension. All questions were answered and patient is in agreement of plan. Will follow-up in 6-8 weeks or sooner if needed. Orders: Orders CA echo transthoracic complete 09/07/24 R06.09 - Other forms of dyspnea Medications: New fluticasone furoate-vilanterol 100-25 mcg/dose (Breo Ellipta) 1 inh inhalation DAILY 60 ea 6RF Discontinued fluticasone furoate 100 mcg/actuation Discontinued Reason: Patient Completed Course 1 inh inhalation DAILY 30 ea 3RF Coding Level of Care Code Est Pt Level 4 (83558) Diagnoses Asthma J45.909 Nocturnal hypoxemia G47.34 Dyspnea R06.00 Cough R05.9
[2024-09-07 13:20] VITALS: BP 124/88; PULSE 67; O2SAT 97; BMI 38.8
--- NOTE | 2024-09-07 13:23 | MHC.OFFVIS ---
Vital Signs 09/07/24 13:20 Height 5 ft 2 in Weight 212 lb 6 oz BMI 38.8 Intake Visit Reasons: FU Allergies levofloxacin [LEVOFLOXACIN] Allergy (Unknown, Verified 07/13/24 13:35) HANDS NUMB & BURNING , LUMP BEHIND EAR PFSH Medical History (Updated 07/15/24 @ 19:05 by Peyton Worthington NP) Depression Crohn disease Migraines HLD (hyperlipidemia) Horseshoe kidney Nasal airway abnormality Surgical History History of esophagogastroduodenoscopy (EGD) Hx of colonoscopy S/P sinus surgery Hx of breast implants, bilateral Family History Father Hx of colonoscopy S/P left colectomy Paternal Grandfather Pancreatic cancer Paternal Grandmother Dementia Maternal Grandfather Prostate cancer Social History Household Members: Spouse Alcohol intake: current Alcohol intake frequency: holidays/special occasions only Patient Tobacco Use Status: Never used Tobacco Current occupational status: unemployed Physical Exam Vital Signs: BMI result Body Mass Index 38.8 Quality Reporting (2019) Adult ([facility] 138/01/01/69) Body Mass Index: 38.8 Assessment & Plan Assessment & Plan (1) Asthma: Code(s): J45.909 - Unspecified asthma, uncomplicated Category: Medical (2) Nocturnal hypoxemia: Code(s): G47.34 - Idiopathic sleep related nonobstructive alveolar hypoventilation Category: Medical (3) Dyspnea: Code(s): R06.00 - Dyspnea, unspecified Category: Medical (4) Cough: Code(s): R05.9 - Cough, unspecified Category: Medical Coding Diagnoses Asthma J45.909 Nocturnal hypoxemia G47.34 Dyspnea R06.00 Cough R05.9
== END 2024-09-07 13:46 | disposition home or self-care (01) ==
LOC: HO.HPSW 13:16
PROVIDERS: PCP Internal Medicine; Visit Provider Nurse Practitioner Family
DX: J45.909 Unspecified asthma, uncomplicated (principal); G47.34 Idiopathic sleep related nonobstructive alveolar hypoventilation; R06.00 Dyspnea, unspecified; R05.9 Cough, unspecified
CPT/HCPCS: 99214

== ENCOUNTER → 2024-09-07 13:16 | Outpatient (BNVA) | payer OTHER, SELFPAY | PROVIDERS: PCP Internal Medicine; Visit Provider Nurse Practitioner Family | DX: J45.909 Unspecified asthma, uncomplicated (principal); G47.34 Idiopathic sleep related nonobstructive alveolar hypoventilation; R06.00 Dyspnea, unspecified; R05.9 Cough, unspecified | CPT/HCPCS: 99212 ==

== ENCOUNTER → 2024-10-20 12:44 | Outpatient (REF) | payer OTHER, SELFPAY ==
--- NOTE | 2024-10-20 12:46 | CA_ITS ---
Transthoracic Echocardiogram Patient (Last, First, Middle): Linda Nicholas, Gender: Female Date of : 1970 Age: 54 Procedure Date: 10/20/2024 Procedure Type: Transthoracic Echocardiogram Location: OP Height: 157.48 cm Weight: 92.99 kg BSA: 1.93 m2 Heart Rate: bpm BP: 123 / 88 mmHg Belting Inspector: GUMARO Referring MD: Peyton Worthington SCLEROSCOPE TESTER Character Actor: Jovan Mendiola MD Symptoms: R06.09 - Other forms of dyspnea Study Quality: Fair ECG Rhythm: Sinus Conclusions: - Essentially normal study Findings Left Ventricle Normal left ventricular size, thickness, and systolic function. The visually estimated ejection fraction is between 65-70%. Spectral Doppler is indicative of a normal filling pattern. Right Ventricle Normal right ventricular cavity size and systolic function. Atria Both atria are normal in size. There is no evidence of interatrial shunt. Aortic Valve Normal aortic valve structure and function. There is no aortic valve stenosis. There is no aortic valve regurgitation. Mitral Valve Normal mitral valve structure and function. There is trace mitral valve regurgitation. There is no mitral valve stenosis. Pulmonic Valve The pulmonic valve is likely normal. There is trace pulmonic valve regurgitation. Tricuspid Valve Normal tricuspid valve structure. There is trace tricuspid valve regurgitation. The right ventricular systolic pressure is normal. The right ventricular systolic pressure is 28 mmHg. Normal right atrial pressure. There is no evidence of pulmonary hypertension. Great Vessels All visible segments of the aorta are normal in size. The pulmonary artery was not well visualized. Venous The inferior vena cava is normal in size and collapses greater than 50% with inspiration. Pericardium/Pleural There is no evidence of pericardial effusion. Prior Study Comparison Changes noted compared to prior study dated: 12/26/2023. RV systolic pressure is within normal limits Measurements 2D Linear Measurements IVSd: 1.10 0.6-0.9/0.6-1.0 cm LVIDd: 4.35 3.9-5.3/4.2-5.9 cm LVIDd Index: 2.25 2.4-3.2/2.2-3.1 cm/m2 LVIDs: 2.42 2.0-3.6 cm LVPWd: 0.93 0.7-1.1 cm LA Diam: 3.60 2.7-3.8/3.0-4.0 cm LAIDs Index: 1.87 1.5-2.3 cm/m2 LV Mass: 184.98 67-162/88-224 g LV Mass Index: 95.85 43-95/49-115 g/m2 LVOT Diam: 2.20 3.0+(-)1.3 cm 2D Systolic Function EF 4C: 67.40 >55% EF 2C: 66.30 >55% EF BiP: 66.90 >55% Mitral Valve MV Pk E: 0.54 MV PK A: 0.48 MV Decel Time: 270.00 E/A: 1.10 E'Lateral: 10.80 E'Medial: 7.62 E/E' Med: 7.10 E/E' Lat: 5.00 PHT: 79.00 MVA PHT: 2.78 Decel Brown: 2.00 Aortic Valve AoV Pk Jaylan: 1.18 AoV Mn Jaylan: 0.74 AoV VTI: 0.30 AoV Pk Grad: 6.00 Aov Mn Grad: 3.00 ANGELES Cont.VTI: 2.80 LVOT LVOT Pk Jaylan: 0.86 LVOT Mn Jaylan: 0.57 LVOT VTI: 0.22 LVOT Pk Grad: 3.00 LVOT Mn Grad: 2.00 LVOT Diam: 2.20 LVOT Area: 3.80 Diastolic Function MV Pk E: 0.54 MV Pk A: 0.48 E/A: 1.10 E'Medial: 7.62 E/E' Med: 7.10 E' Laterial: 10.80 E/E' Lat: 5.00 Right Ventricle TAPSE (mm): 22.80 TVS' Jaylan: 11.60 Tricuspid Valve TR Pk Jaylan: 2.50 TR Pk Grad: 25.00 RA Press: 3.00 RVSP: 28.00 Great Vessels Aorta Sinus of Valsalva: 3.28 2.0-3.[address] Ridge: 2.65 1.7-3.4 cm Ao Asc: 3.70 2.1-3.4 cm Ao Arch: 3.30 Updated in Other Vendor System with Status of Final Jovan Mendiola MD electronically signed on 10/21/2024 8:33:05 AM with status of Final
== END ==
LOC: HO.CARD 12:44
PROVIDERS: PCP Internal Medicine; Visit Provider Nurse Practitioner Family
DX: R06.09 Other forms of dyspnea (principal)
CPT/HCPCS: 93306

== ENCOUNTER → 2024-10-20 12:46 | Outpatient (BNV) | payer OTHER, SELFPAY | PROVIDERS: PCP Internal Medicine; Visit Provider Internal Medicine Cardiovascular Disease | DX: R06.02 Shortness of breath (principal) | CPT/HCPCS: 93306 ==

== ENCOUNTER 2024-10-26 15:01 | Outpatient (AMB) | payer OTHER, SELFPAY ==
--- NOTE | 2024-10-26 13:32 | MHC.OFFVIS ---
Vital Signs 10/26/24 15:06 Height 5 ft 2 in Weight 212 lb BMI 38.8 BP 118/76 Blood Pressure Location Lt brachial Position Sitting Pulse 66 Pulse Source Pulse Oximeter Pulse Oximetry (%) 97 Oxygen Delivery Method Room Air Intake Visit Reasons: Asthma Allergies levofloxacin [LEVOFLOXACIN] Allergy (Unknown, Verified 10/26/24 15:08) HANDS NUMB & BURNING , LUMP BEHIND EAR HPI HPI Asthma: Details: Linda is a pleasant 54 year old female, never smoker, with underlying PVD, Crohn's disease, HLD, nocturnal hypoxemia on 1 L supplemental oxygen and morbid obesity. Prior PSG negative for KELSI however poor sleep efficiency. At the last visit, her trazadone was adjusted and started on Lunesta. She reports significant improvements in overall sleep, however has had increase in KELSI symptoms, including nonrestorative sleep, daytime fatigue and loud snoring. She continues to work on weight loss and has lost a total of 70 +lbs. She reported suboptimal effect with Arnuity switched to Breo with good improvement. Unfortunately over the last few days has had chest tightness, productive cough with yellow sputum and feeling feverish. She notes multiple sick contacts. At the last visit, she was questioning if there is worsening pulmonary hypertension despite weight loss as she had worsening respiratory symptoms. Today she presents to review recent echo. PENDING SALE TO [facility] Medical History (Updated 10/27/24 @ 15:13 by Peyton Worthington NP) Depression Crohn disease Migraines HLD (hyperlipidemia) Horseshoe kidney Nasal airway abnormality Surgical History History of esophagogastroduodenoscopy (EGD) Hx of colonoscopy S/P sinus surgery Hx of breast implants, bilateral Family History Father Hx of colonoscopy S/P left colectomy Paternal Grandfather Pancreatic cancer Paternal Grandmother Dementia Maternal Grandfather Prostate cancer Social History Household Members: Spouse Alcohol intake: current Alcohol intake frequency: holidays/special occasions only Patient Tobacco Use Status: Never used Tobacco Current occupational status: unemployed Review of Systems Const Denies chills, Denies excessive sweating, Denies headache(s) and Denies night sweats Eyes Denies dry eyes, Denies irritation and Denies itchy eyes ENT Reports Normal hearing present, Denies headache(s), Denies nasal congestion, Denies nasal discharge, Denies post nasal drip and Denies sore throat Card Denies chest pain, Denies chest pain at rest, Denies chest pain with activity, Denies claudication, Denies leg edema, Denies orthopnea and Denies paroxysmal nocturnal dyspnea Resp Denies pain on inspiration, Denies pain with cough, Denies stridor and Denies wheezing Musc Denies myalgias Neuro Reports Normal hearing present and Denies headache(s) Endo Denies excessive sweating Jose/Lymph Denies lymphadenopathy Aller/Immun Denies itchy eyes, Denies seasonal rhinorrhea and Denies wheezing Physical Exam Vital Signs: Last Vital Signs Pulse 66 10/26/24 15:06 BP 118/76 10/26/24 15:06 Pulse Ox 97 10/26/24 15:06 Oxygen Delivery Method Room Air 10/26/24 15:06 BMI result Body Mass Index 38.8 Const General: cooperative, healthy appearing, comfortable, no acute distress, well developed and alert Nutritional Appearance: obese Orientation/consciousness: patient oriented x3 Limitations: no limitations HEENT Head: Yes normal to inspection, Yes normocephalic and Yes atraumatic Ears: hearing grossly normal bilaterally and external ears normal Eyes General: appearance normal, both eyes and all related structures Eyelids: Yes eyelids normal Sclerae: sclerae normal EOM: EOMs intact bilaterally Neck Neck: Yes normal visual inspection and Yes no lymphadenopathy Lymphatic: no lymphadenopathy noted Chest Chest palpation & inspection: normal inspection of the chest Resp Effort & Inspection: normal respiratory effort, able to speak in complete sentences, no audible wheezes, Actively coughing Quality: productive, no stridor, not tachypneic, no tripod positioning and no use of accessory muscles Auscultation: diminished lung sounds Cardio Jugular venous distension: no JVD Rate: regular rate Rhythm: regular rhythm Skin Other: warm, dry General skin exam: no rashes or lesions noted Neuro General: patient oriented x3 Cranial nerves: Yes Normal hearing present Cognition (Neuro): normal cognition Gait exam (Neuro): Normal gait present Extrem General: Yes normal to inspection, Yes capillary refill normal, Yes no clubbing, cyanosis or edema and Yes no pedal edema Psych Appearance: grossly normal and well kempt Speech and movement: Normal speech and movement present and Clear speech present Affect: normal affect Attitude: cooperative Thought process: Normal thought process present Thought content: Normal thought content present Insight: Good insight present (Psych) Judgement: Good judgement present (Psych) Assessment & Plan Assessment & Plan (1) Asthma: Code(s): J45.909 - Unspecified asthma, uncomplicated Category: Medical (2) Nocturnal hypoxemia: Code(s): G47.34 - Idiopathic sleep related nonobstructive alveolar hypoventilation Category: Medical (3) Dyspnea: Code(s): R06.00 - Dyspnea, unspecified Category: Medical (4) Cough: Code(s): R05.9 - Cough, unspecified Category: Medical (5) Loud snoring: Code(s): R06.83 - Snoring Category: Medical (6) Daytime somnolence: Code(s): R40.0 - Somnolence Category: Medical Plan Will treat bronchitic symptoms with a zpak. She is aware to call if symptoms do not improve. She reports good control of respiratory symptoms otherwise, advised to continue Breo and albuterol MDI PRN. Reviewed echo RSVP prior 38, now 27. Advised to continue to use 1 L of supplemental oxygen at [facility] and will attempt to repeat PSG as she has had adjustments in sleep aides, now with more persistent symptoms of KELSI and continues with nocturnal hypoxemia. All questions were answered and patient is in agreement of plan. Will follow-up to review results or sooner if needed. Orders: Orders RT PSG in-lab sleep study Today G47.34 - Idiopathic sleep related nonobstructive alveolar hypoventilation, R06.83 - Snoring, R40.0 - Somnolence Medications: New azithromycin For 250 mg dose pack: take 500 mg today (day 1), then 250 mg for 4 days (days 2-5) PO 6 tabs 0RF Coding Level of Care Code Est Pt Level 4 (28211) Diagnoses Asthma J45.909 Nocturnal hypoxemia G47.34 Dyspnea R06.00 Cough R05.9 Loud snoring R06.83 Daytime somnolence R40.0
[2024-10-26 15:06] VITALS: BP 118/76; PULSE 66; O2SAT 97; BMI 38.8
== END 2024-10-26 15:27 | disposition home or self-care (01) ==
PROVIDERS: PCP Internal Medicine; Visit Provider Nurse Practitioner Family
DX: J45.909 Unspecified asthma, uncomplicated (principal); G47.34 Idiopathic sleep related nonobstructive alveolar hypoventilation; R06.00 Dyspnea, unspecified; R05.9 Cough, unspecified; R06.83 Snoring; R40.0 Somnolence
CPT/HCPCS: 99214

== ENCOUNTER → 2024-10-26 15:01 | Outpatient (BNVA) | payer OTHER, SELFPAY | PROVIDERS: PCP Internal Medicine; Visit Provider Nurse Practitioner Family | DX: J45.909 Unspecified asthma, uncomplicated (principal); G47.34 Idiopathic sleep related nonobstructive alveolar hypoventilation; R06.00 Dyspnea, unspecified; R06.83 Snoring; R40.0 Somnolence; R05.9 Cough, unspecified; Z99.81 Dependence on supplemental oxygen | CPT/HCPCS: 99212 ==

== ENCOUNTER 2025-02-02 14:15 | Outpatient (REF) | payer OTHER, SELFPAY ==
--- OUTSIDE RECORDS SUMMARY | 2025-02-02 17:08 | XMS_ITS | Encounter Summary ---
Author Organization [employer] Address [address] [place] [address] 7 [place] [address] Care Team Providers Care Manager Stars Name Role Phone Kalie Calzada MD Primary Care Provider [phone] Encounter Details Date Type Department Care Team (Late Contact Info) Description 09/20/2024 Orders Only [facility] MED & PEDS [address] [place], [place] [phone] Kalie Calzada MD [address] [place] [address] SOB (shortness of breath) (Primary Dx); Cough, unspecified type Social History Tobacco Use Types Packs/Day Years Used Date Smoking Tobacco: Never Passive Smoke Exposure: Never Smokeless Tobacco: Never Alcohol Use Standard Drinks/Week Comments Yes 0 (1 standard drink = 0.6 oz pur e alcohol) 1 monthly Depression Answer Date Recorded Patient Health Questionnaire-9 Score 14 08/25/2023 Patient Health Questionnaire-9 Score 14 08/25/2023 Last PHQ-9: Questionnaire Data Not on file 1 Depression Answer Date Recorded Patient Health Questionnaire-2 Score 2 08/25/2023 Comments Unknown Sex and Gender Information Value Date Recorded Sex Assigned at Female 09/09/2022 10:22 AM EDT Legal Sex Female 10:22 AM EDT Gender Identity Female 09/09/2022 10:22 AM EDT Sexual Orientation Straight 09/09/2022 10 :22 AM EDT documented as of this encounter Plan of Treatment Upcoming Encounters Date Type Department Care Team (Late Contact Info) Description 03/10/2025 9:45 AM EDT Office Visit [facility] MED & PEDS [address] [place] [address] Kalie Calzada MD [address] [place] [address] documented as of this encounter Visit Diagnoses Diagnosis SOB (shortness of breath)- Primary Shortness of breath Cough, unspecified type documented in this encounter Additional Health Concerns Assessment Noted Time PHQ-9 Depression Total Score: 14 023 11:22 AM EDT documented as of this encounter Care Teams Manager Stars Relationship Specialty Start Date End Date Kalie Calzada MD [address] [place] [address] PCP - General Internal Medicine 11/16/13 documented as of this encounter
--- OUTSIDE RECORDS SUMMARY | 2025-02-02 17:08 | XMS_ITS | Encounter Summary ---
Author Organization [employer] Address [address] [facility] 7 [place] [address] Care Team Providers Care Car Rental Service Attendant Name Role Phone Kalie Calzada MD Primary Care Provider [phone] Reason for Visit * Reason Comments Med Change Request Encounter Details Date Type Department Care Team ([facility] st Contact Info) Description 01/31/2025 Refill [facility] [address] [place] [address] Kalie Calzada MD [address] [place] [address] Class 2 obesity due to excess calories without serious comorbidity with body mass index (BMI) of 37.0 to 37.9 in adult Social History Tobacco Use Types Packs/Day Years Used Date Smoking Tobacco: Never Passive Smoke Exposure: Never Smokeless Tobacco: Never Alcohol Use Standard Drinks/Week Comments Yes 0 (1 standard drink = 0.6 oz pur e alcohol) 1 monthly Depression Answer Date Recorded Patient Health Questionnaire-9 Score 0 11/16/2024 Patient Health Questionnaire-9 Score 0 11/16/2024 Last PHQ-9: Questionnaire Data Not on file 0 11/16/2024 Housing Stability Answer Date Recorded What is your housing situation today? I do not have housing (Staying with others, in a hotel, in a senior living, living outside on the street, on a beach, in a car, or in a park 11/08/[address] you li ve. Do you have problems with any of the following? None of the above 11/08/2024 Food Insecurity Answer Date Recorded Within the past 12 months, y ou worried that your food would run out before you got money to buy more: Often true 11/08/2024 Within the past 12 months,th e food you bought just didn't last and you didn't have enough money to get more: Often true Transportation Answer Date Recorded In the past 12 months, has l ack of transportation kept you from medical appts, meetings, work or from getting things needed for daily living? No 11/08/2024 Utilities Answer Date Recorded In the past 12 months, has t he electric, gas, oil or water company threatened to shut off services in your home? No 11/08/2024 Depression Answer Date Recorded Patient Health Questionnaire-2 Score 0 11/16/2024 Internet Access Answer Date Recorded Internet Access Q1 No 11/08/2024 Internet Access Q2 Not on file 11/08/2024 Comments Unknown Sex and Gender Information Value Date Recorded Sex Assigned at Female 09/09/2022 10:22 AM EDT Legal Sex Female 10:22 AM EDT Gender Identity Female 09/09/2022 10:22 AM EDT Sexual Orientation Straight 09/09/2022 10 :22 AM EDT documented as of this encounter Plan of Treatment Upcoming Encounters Date Type Department Care Team (Late st Contact Info) Description 03/10/2025 9:45 AM EDT Office Visit [facility] [address] [place] [address] Kalie Calzada MD [address] [place] [address] documented as of this encounter Visit Diagnoses Diagnosis Class 2 obesity due to excess calories without serious comorbidity with body mass index (BMI) of 37.0 to 37.9 in adult documented in this encounter Additional Health Concerns Assessment Noted Time PHQ-9 Depression Total Score: 0 11/16/19 25 1:54 PM EST documented as of this encounter Care Teams Car Rental Service Attendant Relationship Specialty Start Date End Date Kalie Calzada MD [address] [place] [address] PCP - General Internal Medicine 11/16/13 documented as of this encounter
--- OUTSIDE RECORDS SUMMARY | 2025-02-02 17:08 | XMS_ITS | Encounter Summary ---
Author Organization [employer] Address [address] [place] [address] 7 [place] [address] Care Team Providers Care Psych Nurse Name Role Phone Kalie Calzada MD Primary Care Provider [phone] Reason for Visit * Reason Onset Date Comments Med Refill 11/30/2024 Encounter Details Date Type Department Care Team ([facility] st Contact Info) Description 11/30/2024 Refill [facility] [address] [place], [place] [phone] Kalie Calzada MD [address] [place] [address] Crohn's disease of small intestine without complication (CMS/HCC) Social History Tobacco Use Types Packs/Day Years [...] with others, in a hotel, in a jail, living outside on the street, on a [...] Description 03/10/2025 9:45 AM EDT Office Visit [facility] [address] [place] [address] Kalie Calzada MD [address] [place] [address] documented as of this encounter Visit Diagnoses Diagnosis Crohn's disease of small intestine without complication (CMS/HCC) documented in this encounter Additional Health Concerns Assessment Noted Time PHQ-9 Depression Total Score: 0 11/16/19 25 1:54 PM EST documented as of this encounter Care Teams Psych Nurse Relationship Specialty Start Date End Date Kalie Calzada MD [address] [place] [address] PCP - General Internal Medicine 11/16/13 documented as of this encounter
--- OUTSIDE RECORDS SUMMARY | 2025-02-02 17:08 | XMS_ITS | Encounter Summary ---
Author Organization [employer] Address [address] [place] [address] 7 [place] [address] Care Team Providers Care Supervisor Frame Sample And Pattern Name Role Phone Kalie Calzada MD Primary Care Provider [phone] Reason for Visit * Reason Comments Med Refill Encounter Details Date Type Department Care Team ([facility] Contact Info) Description 01/24/2025 Refill [facility]EDS [address] [place], [place] [phone] Kalie Calzada MD [address] [place] [address] Social History Tobacco Use Types Packs/Day Years [...] with others, in a hotel, in a longterm, living outside on the street, on a [...] Description 03/10/2025 9:45 AM EDT Office Visit [facility]EDS [address] [place] [address] Kalie Calzada MD [address] [place] [address] documented as of this encounter Visit Diagnoses Not on filedocumented in this encounter Additional Health Concerns Assessment Noted Time PHQ-9 Depression Total Score: 0 11/16/19 25 1:54 PM EST documented as of this encounter Care Teams Supervisor Frame Sample And Pattern Relationship Specialty Start Date End Date Kalie Calzada MD [address] [place] [address] PCP - General Internal Medicine 11/16/13 documented as of this encounter
--- OUTSIDE RECORDS SUMMARY | 2025-02-02 17:08 | XMS_ITS | Encounter Summary ---
Author Organization [employer] Address [address] [place] [address] 7 [place] [address] Care Team Providers Care Gas Roller Operator Name Role Phone Kalie Calzada MD Primary Care Provider [phone] Reason for Visit * Reason Comments Med Refill Encounter Details Date Type Department Care Team ([facility] Contact Info) Description 11/25/2024 Refill [facility] & PEDS [address] [place], [place] [phone] Kalie Calzada MD [address] [place] [address] Social History Tobacco Use Types Packs/Day Years [...] with others, in a hotel, in a fpc, living outside on the street, on a [...] Description 03/10/2025 9:45 AM EDT Office Visit [facility] & PEDS [address] [place] [address] Kalie Calzada MD [address] [place] [address] documented as of this encounter Visit Diagnoses Not on filedocumented in this encounter Additional Health Concerns Assessment Noted Time PHQ-9 Depression Total Score: 0 11/16/19 25 1:54 PM EST documented as of this encounter Care Teams Gas Roller Operator Relationship Specialty Start Date End Date Kalie Calzada MD [address] [place] [address] PCP - General Internal Medicine 11/16/13 documented as of this encounter
--- OUTSIDE RECORDS SUMMARY | 2025-02-02 17:08 | XMS_ITS | Encounter Summary ---
Author Organization [employer] Address [address] [place] [address] 7 [place] [address] Care Team Providers Care Mechanical Handyman Name Role Phone Kalie Calzada MD Primary Care Provider [phone] Reason for Visit * Reason Comments Med Refill Encounter Details Date Type Department Care Team ([facility] Contact Info) Description 01/21/2025 Refill [facility]S [address] [place], [place] [phone] Kalie Calzada MD [address] [place] [address] Left thigh pain Social History Tobacco Use Types Packs/Day Years [...] with others, in a hotel, in a nursing home, living outside on the street, on a [...] 03/10/2025 9:45 AM EDT Office Visit [facility] & PEDS [address] [place] [address] Kalie Calzada MD [address] [place] [address] documented as of this encounter Visit Diagnoses Diagnosis Left thigh pain Pain in soft tissues of limb documented in this encounter Additional Health Concerns Assessment Noted Time PHQ-9 Depression Total Score: 0 11/16/19 25 1:54 PM EST documented as of this encounter Care Teams Mechanical Handyman Relationship Specialty Start Date End Date Kalie Calzada MD [address] [place] [address] PCP - General Internal Medicine 11/16/13 documented as of this encounter
--- OUTSIDE RECORDS SUMMARY | 2025-02-02 17:08 | XMS_ITS | Encounter Summary ---
Author Organization [employer] Address [address] [place] [address] 7t [place] [address] Care Team Providers Care 6Th Grade Teacher Name Role Phone Kalie Calzada MD Primary Care Provider [phone] Encounter Details Date Type Department Care Team ([facility] st Contact Info) Description 07/07/2024 Orders Only [facility] PEDS [address] [place], [place] [phone] Kalie Calzada MD [address] [place], [place] [phone] Class 3 severe obesity due to excess calories with serious comorbidity and body mass index (BMI) of 40.0 to 44.9 in adult (CMS/HCC) (Primary Dx); Other insomnia Social History Tobacco Use Types Packs/Day Years [...] Description 03/10/2025 9:45 AM EDT Office Visit [facility] MED & PEDS [address] [place] [address] Kalie Calzada MD [address] [place] [address] documented as of this encounter Visit Diagnoses Diagnosis Class 3 severe obesity due to excess calories with serious comorbidity and body mass index (BMI) of 40.0 to 44.9 in adult ([facility])- Primary Other insomnia documented in this encounter Additional Health Concerns Assessment Noted Time PHQ-9 Depression Total Score: 14 023 11:22 AM EDT documented as of this encounter Care Teams 6Th Grade Teacher Relationship Specialty Start Date End Date Kalie Calzada MD [address] [place] [address] PCP - General Internal Medicine 11/16/13 documented as of this encounter
--- OUTSIDE RECORDS SUMMARY | 2025-02-02 17:08 | XMS_ITS | Encounter Summary ---
Author Organization [email or web address] [facility] Address [address] [place] [address] [place] [address] Care Team Providers Care Director Of Perioperative Services Name Role Phone Kalie Calzada MD Primary Care Provider [phone] Reason for Visit * Reason Comments Med Change Request Encounter Details Date Type Department Care Team ([facility] Contact Info) Description 03/27/2023 Refill [facility] PEDS [address] [place] [address] Kalie Calzada MD [address] [place] [address] Venous insufficiency Social History Tobacco Use Types Packs/Day Years Used Date Smoking Tobacco: Never Smokeless Tobacco: Never Comments Unknown Sex and Gender Information Value Date Recorded Sex Assigned at Female 09/09/2022 10:22 AM EDT Legal Sex Female 10:22 AM EDT Gender Identity Female 09/09/2022 10:22 AM EDT Sexual Orientation Straight 09/09/2022 10 :22 AM EDT COVID-19 Exposure Response Date Recorded In the last 10 days, have yo u been in contact with someone who was confirmed or suspected to have Coronavirus/COVID-19? No / Unsure 03/27/2023 9:34 AM EDT documented as of this encounter Plan of Treatment Upcoming Encounters Date Type Department Care Team ([facility] Contact Info) Description 03/10/2025 9:45 AM EDT Office Visit [facility] PEDS [address] [place] [address] Kalie Calzada MD [address] [place], [place] [phone] documented as of this encounter Visit Diagnoses Diagnosis Venous insufficiency Unspecified venous (peripheral) insufficiency documented in this encounter Care Teams Director Of Perioperative Services Relationship Specialty Start Date End Date Kalie Calzada MD [address] [place] [address] PCP - General Internal Medicine 11/16/13 documented as of this encounter
--- OUTSIDE RECORDS SUMMARY | 2025-02-02 17:08 | XMS_ITS | Encounter Summary ---
Author Organization [employer] Address [address] [place] [address] 7 [place] [address] Care Team Providers Care Polysomnography Technologist Name Role Phone Kalie Calzada MD Primary Care Provider [phone] Reason for Visit * Reason Comments Med Refill Encounter Details Date Type Department Care Team ([facility] Contact Info) Description 11/22/2024 Refill [facility] MED & PEDS [address] [place], [place] [phone] Kalie Calzada MD [address] [place] [address] Left thigh pain Social History Tobacco Use [...] with others, in a hotel, in a penitentiary, living outside on the street, on a [...] Description 03/10/2025 9:45 AM EDT Office Visit [facility] MED & PEDS [address] [place] [address] Kalie Calzada MD [address] [place] [address] documented as of this encounter Visit Diagnoses Diagnosis Left thigh pain Pain in soft tissues of limb documented in this encounter Additional Health Concerns Assessment Noted Time PHQ-9 Depression Total Score: 0 11/16/19 25 1:54 PM EST documented as of this encounter Care Teams Polysomnography Technologist Relationship Specialty Start Date End Date Kalie Calzada MD [address] [place] [address] PCP - General Internal Medicine 11/16/13 documented as of this encounter
--- OUTSIDE RECORDS SUMMARY | 2025-02-02 17:08 | XMS_ITS | Encounter Summary ---
Author Organization [employer] Address [address] [place] [address] [place] [address] Care Team Providers Care Assistance Coordinator Name Role Phone Kalie Calzada MD Primary Care Provider [phone] Reason for Visit * Reason Onset Date Comments Prior Authorization 08/11/2024 Encounter Details Date Type Department Care Team ([facility] st Contact Info) Description 08/11/2024 Telephone [facility] MED & PEDS [address] [place], [place] [phone] Kalie Calzada MD [address] [place] [address] Prior Authorization Social History Tobacco Use Types Packs/Day Years [...] AM EDT documented as of this encounter Miscellaneous Notes * Telephone Encounter - Yenni Ramirez - 08/11/2024 12:34 PM EDT Tc from pt stating script for Semaglutide, 2 MG/DOSE, (Ozempic, 2 MG/DOSE,) 8 MG/3ML solution pen-injector requires a PA. documented in this encounter Plan of Treatment Upcoming Encounters Date Type Department Care Team (Late st Contact Info) Description 03/10/2025 9:45 AM EDT Office Visit [facility] MED & PEDS [address] [place] [address] Kalie Calzada MD [address] [place] [address] documented as of this encounter Visit Diagnoses Not on filedocumented in this encounter Additional Health Concerns Assessment Noted Time PHQ-9 Depression Total Score: 14 023 11:22 AM EDT documented as of this encounter Care Teams Assistance Coordinator Relationship Specialty Start Date End Date Kalie Calzada MD [address] [place] [address] PCP - General Internal Medicine 11/16/13 documented as of this encounter
--- OUTSIDE RECORDS SUMMARY | 2025-02-02 17:08 | XMS_ITS | Encounter Summary ---
Author Organization [employer] Address [address] [place] [address] 7 [place] [address] Care Team Providers Care Out Patient Therapist Name Role Phone Kalie Calzada MD Primary Care Provider +1- [phone] Encounter Details Date Type Department Care Team (Late Contact Info) Description 08/09/2024 Orders Only [facility] MED & PEDS [address] [place], [place] [phone] Kalie Calzada MD 505 [place] [address] Stress incontinence in female (Primary Dx) Social History Tobacco Use Types Packs/Day Years [...] Description 03/10/2025 9:45 AM EDT Office Visit [facility] CHC MED & PEDS [address] [place] [address] Kalie Calzada MD 505 [place] [address] documented as of this encounter Procedures Procedure Name Priority Date/Time Associated Diagnosis Comments URINALYSIS, COMPLETE, WITH REFLEX TO CULTURE Routine 08/10/2024 12:28 PM EDT Stress incontinence in female documented in this encounter Results * (ABNORMAL) Urinalysis, Complete, with Reflex to Culture (08/10/2024 12:28 PM EDT) Color Urine Yellow [facility] Appearance Urine Clear [facility] PH 5.5 5.0 - 9.0 [facility] Glucose Urine UA Negative Negative mg/dL [facility] Urine Blood Negative Negative [facility] Specific [place] - Urine 1.020 1.005 - 1.025 [facility] Urine Protein Negative Neg-Trace mg/dL [facility] Urine Ketones Trace Negative mg/dL [facility] Nitrite Urine Negative Negative [facility] Leukocyte Esterase Urine Small (1+)(A) Negative [facility] RBC Urine 0-2 0 - 2 /HPF [facility] Urine WBC 0-5 0 - 5 /HPF [facility] Urine Squamous Epithelial Cell 11-20 0 - 2 /HPF [facility] Urine Bacteria None Seen None Seen [facility] Hyaline Casts, Urine 0-2 0 - 2 /LPF [facility] Urine 08/10/2024 12:2 8 PM EDT 08/10/2024 5:54 PM EDT Narrative [facility] - 08/10/2024 6:21 PM EDT Urine, Catheterized us Kalie Calzada MD LAB URINE ORDERABLES Final Result [facility] [address] [place] [address] [phone] documented in this encounter Visit Diagnoses Diagnosis Stress incontinence in female- Primary documented in this encounter Additional Health Concerns Assessment Noted Time PHQ-9 Depression Total Score: 14 023 11:22 AM EDT documented as of this encounter Care Teams Out Patient Therapist Relationship Specialty Start Date End Date Kalie Calzada MD 505 [place] [address] PCP - General Internal Medicine 11/16/13 documented as of this encounter
--- OUTSIDE RECORDS SUMMARY | 2025-02-02 17:08 | XMS_ITS | Encounter Summary ---
Author Organization [employer] [facility] Address [address] [place] [address] [place] [address] Care Team Providers Care Chemical Plant Operator Name Role Phone Kalie Calzada MD Primary Care Provider +1- [phone] Reason for Visit * Reason Comments Med Change Request Encounter Details Date Type Department Care Team ([facility] Contact Info) Description 03/27/2023 Refill [facility] CHC MED & PEDS [address] [place] [address] Kalie Calzada MD [address] [place] [address] Venous insufficiency Social History Tobacco Use Types [...] Upcoming Encounters Date Type Department Care Team ([facility] Contact Info) Description 03/10/2025 9:45 AM EDT Office Visit [facility] CH[facility] MED & PEDS [address] [place] [address] Kalie Calzada MD [address] [place], [place] [phone] documented as of this encounter Visit Diagnoses Diagnosis Venous insufficiency Unspecified venous (peripheral) insufficiency documented in this encounter Care Teams Chemical Plant Operator Relationship Specialty Start Date End Date Kalie Calzada MD [address] [place] [address] PCP - General Internal Medicine 11/16/13 documented as of this encounter
--- OUTSIDE RECORDS SUMMARY | 2025-02-02 17:08 | XMS_ITS | Encounter Summary ---
Author Organization [employer] Address [address] [place] [address] 7 [place] [address] Care Team Providers Care Polisher Numeral Name Role Phone Kalie Calzada MD Primary Care Provider +1- [phone] Encounter Details Date Type Department Care Team (Late Contact Info) Description 05/20/2024 Orders Only [facility] CHC MED & PEDS [address] [place], [place] [phone] Kalie Calzada MD [address] [place], [place] [phone] Class 3 severe obesity due to excess calories without serious comorbidity with body mass index (BMI) of 40.0 to 44.9 in adult (CMS/HCC) (Primary Dx) Social History Tobacco Use Types Packs/Day Years Used Date Smoking Tobacco: Never Smokeless Tobacco: Never Alcohol Use Standard [...] 03/10/2025 9:45 AM EDT Office Visit [facility] MED & PEDS [address] [place] [address] Kalie Calzada MD 505 [place] [address] documented as of this encounter Visit Diagnoses Diagnosis Class 3 severe obesity due to excess calories without serious comorbidity with body mass index (BMI) of 40.0 to 44.9 in adult (CMS/[facility])- Primary documented in this encounter Additional Health Concerns Assessment Noted Time PHQ-9 Depression Total Score: 14 023 11:22 AM EDT documented as of this encounter Care Teams Polisher Numeral Relationship Specialty Start Date End Date Kalie Calzada MD 505 [place] [address] PCP - General Internal Medicine 11/16/13 documented as of this encounter
--- OUTSIDE RECORDS SUMMARY | 2025-02-02 17:08 | XMS_ITS | Encounter Summary ---
Author Organization [employer] Address [address] [place] [address] 7 [place] [address] Care Team Providers Care Restaurant Crew Name Role Phone Kalie Calzada MD Primary Care Provider +1- [phone] Reason for Visit * Reason Onset Date Comments Med Refill 11/24/2024 Encounter Details Date Type Department Care Team ([facility] st Contact Info) Description 11/24/2024 Refill [facility] CHC MED & PEDS 505 [place] [address] Kalie Calzada MD 505 [place] [address] Left thigh pain Social History Tobacco Use [...] with others, in a hotel, in a correction, living outside on the street, on a [...] Description 03/10/2025 9:45 AM EDT Office Visit [facility] CHC MED & PEDS [address] [place] [address] Kalie Calzada MD 505 [place] [address] documented as of this encounter Visit Diagnoses Diagnosis Left thigh pain Pain in soft tissues of limb documented in this encounter Additional Health Concerns Assessment Noted Time PHQ-9 Depression Total Score: 0 11/16/19 25 1:54 PM EST documented as of this encounter Care Teams Restaurant Crew Relationship Specialty Start Date End Date Kalie Calzada MD 505 [place] [address] PCP - General Internal Medicine 11/16/13 documented as of this encounter
--- OUTSIDE RECORDS SUMMARY | 2025-02-02 17:08 | XMS_ITS | Encounter Summary ---
Author Organization [employer] [facility] Address [address] [place] [address] Care Team Providers Care Radio/Tv Technician Name Role Phone Kalie Calzada MD Primary Care Provider +1- [phone] Reason for Visit * Reason Onset Date Comments Med Refill 06/13/2023 Encounter Details Date Type Department Care Team (Late Contact Info) Description 06/13/2023 Refill [facility] MED & PEDS [address] [place] [address] Kalie Calzada MD 505 [place] [address] Social History Tobacco Use Types Packs/Day Years [...] Description 03/10/2025 9:45 AM EDT Office Visit [facility] MED & PEDS [address] [place] [address] Kalie Calzada MD 505 [place] [address] documented as of this encounter Visit Diagnoses Not on filedocumented in this encounter Care Teams Radio/Tv Technician Relationship Specialty Start Date End Date Kalie Calzada MD [address] [place] [address] PCP - General Internal Medicine 11/16/13 documented as of this encounter
--- OUTSIDE RECORDS SUMMARY | 2025-02-02 17:08 | XMS_ITS | Encounter Summary ---
Author Organization [employer] Address [address] [place] [address] [place] [address] Care Team Providers Care Cable Dispatcher Name Role Phone Kalie Calzada MD Primary Care Provider +1- [phone] Reason for Visit * Reason Onset Date Comments Medication Question 06/12/2023 Encounter Details Date Type Department Care Team ([facility] st Contact Info) Description 06/12/2023 Telephone [facility] CHC MED & PEDS [address] [place], [place] [phone] Kalie Calzada MD 505 [place], [place] [phone] Medication Question Social History Tobacco Use Types Packs/Day Years [...] encounter Miscellaneous Notes * Telephone Encounter - Maxi Kaur RN - 06/12/2023 11:10 AM EDT T/C to pt. For below message, pt. Is having Discomfort when go to pee, a need to pee more often than usual, also has sudden urges to pee, feeling as she is unable to empty her bladder fully, no fever, no chills , little bit smell, no flank or lower back pain. Pt. Offered to come to clinic for further evaluation, but asks to send message to provider to see if provider can prescribe something. Pt.Was advised that RN will send this message to provider for review. Please review and advise. PCP - Dr. Calzada * Telephone Encounter - Erica James - 06/12/2023 10:16 AM EDT Tc from pt requesting a antibiotic for chronic UTI. Any questions, please contact pt at [phone] documented in this encounter Plan of Treatment Upcoming Encounters Date Type Department Care Team (Late st Contact Info) Description 03/10/2025 9:45 AM EDT Office Visit [facility] MED & PEDS [address] [place] [address] Kalie Calzada MD [address] [place] [address] documented as of this encounter Visit Diagnoses Not on filedocumented in this encounter Care Teams Cable Dispatcher Relationship Specialty Start Date End Date Kalie Calzada MD 505 [place] [address] PCP - General Internal Medicine 11/16/13 documented as of this encounter
--- OUTSIDE RECORDS SUMMARY | 2025-02-02 17:08 | XMS_ITS | Encounter Summary ---
Author Organization [employer] Address [address] [place] [address] [place] [address] Care Team Providers Care Real Estate Sales Manager Name Role Phone Kalie Calzada MD Primary Care Provider +1- [phone] Reason for Visit * Reason Onset Date Comments Med Refill 09/06/2024 Encounter Details Date Type Department Care Team (Late Contact Info) Description 09/06/2024 Refill [facility] MED & PEDS [address] [place] [address] Kalie Calzada MD 505 [place] [address] Social History Tobacco Use Types Packs/Day Years [...] 03/10/2025 9:45 AM EDT Office Visit [facility] MED & PEDS [address] [place] [address] Kalie Calzada MD [address] [place] [address] documented as of this encounter Visit Diagnoses Not on filedocumented in this encounter Additional Health Concerns Assessment Noted Time PHQ-9 Depression Total Score: 14 023 11:22 AM EDT documented as of this encounter Care Teams Real Estate Sales Manager Relationship Specialty Start Date End Date Kalie Calzada MD 505 [place] [address] PCP - General Internal Medicine 11/16/13 documented as of this encounter
--- OUTSIDE RECORDS SUMMARY | 2025-02-02 17:08 | XMS_ITS | Encounter Summary ---
Author Organization [email or web address] Address [address] [facility] 7t [place] [address] Care Team Providers Care Superintendent Sales Name Role Phone Kalie Calzada MD Primary Care Provider [phone] Encounter Details Date Type Department Care Team (Late st Contact Info) Description 01/21/2025 Telephone [facility] MEDICINE [address] [place] [address] Kalie Calzada MD 505 [place] [address] Social History Tobacco Use Types Packs/Day Years [...] with others, in a hotel, in a mcc, living outside on the street, on a [...] encounter Miscellaneous Notes * Telephone Encounter - Kalie Calzada MD - 01/21/2025 12:56 PM EDT Patient was called to get the recorded BP from home. She did not check her blood pressure within the last week. I advised to check the blood pressure once a day starting today and to keep the log forthe next call next week to get her readings from home.. She is otherwise asymptomatic. documented in this encounter Plan of Treatment Upcoming Encounters Date Type Department Care Team ([facility] st Contact Info) Description 03/10/2025 9:45 AM EDT Office Visit [facility] MED & PEDS [address] [place] [address] Kalie Calzada MD 505 [place] [address] documented as of this encounter Visit Diagnoses Not on filedocumented in this encounter Additional Health Concerns Assessment Noted Time PHQ-9 Depression Total Score: 0 11/16/19 25 1:54 PM EST documented as of this encounter Care Teams Superintendent Sales Relationship Specialty Start Date End Date Kalie Calzada MD [address] [place] [address] PCP - General Internal Medicine 11/16/13 documented as of this encounter
--- OUTSIDE RECORDS SUMMARY | 2025-02-02 17:08 | XMS_ITS | Encounter Summary ---
Author Organization [employer] Address [address] [place] [address] [place] [address] Care Team Providers Care Surfboard Designer Name Role Phone Kalie Calzada MD Primary Care Provider +1- [phone] Reason for Visit * Reason Onset Date Comments Prior Authorization 01/21/2025 Encounter Details Date Type Department Care Team ([facility] st Contact Info) Description 01/21/2025 Telephone [facility] CHC MED & PEDS [address] [place] [address] Kalie Calzada MD [address] [place] [address] Prior Authorization Social History Tobacco Use Types [...] with others, in a hotel, in a intermediate, living outside on the street, on a [...] encounter Miscellaneous Notes * Telephone Encounter - Carmen Nj LPN - 01/21/2025 8:50 AM EDT PA generated for [employer] via [facility] pending insurance decision. documented in this encounter Plan of Treatment Upcoming Encounters Date Type Department Care Team ([facility] st Contact Info) Description 03/10/2025 9:45 AM EDT Office Visit [facility] MED & PEDS [address] [place] [address] Kalie Calzada MD [address] [place] [address] documented as of this encounter Visit Diagnoses Not on filedocumented in this encounter Additional Health Concerns Assessment Noted Time PHQ-9 Depression Total Score: 0 11/16/19 25 1:54 PM EST documented as of this encounter Care Teams Surfboard Designer Relationship Specialty Start Date End Date Kalie Calzada MD [address] [place] [address] PCP - General Internal Medicine 11/16/13 documented as of this encounter
--- OUTSIDE RECORDS SUMMARY | 2025-02-02 17:08 | XMS_ITS | Encounter Summary ---
Author Organization [employer] Address [address] [facility] 7t [place] [address] Care Team Providers Care Lighting Director Name Role Phone Kalie Calzada MD Primary Care Provider +1 [phone] Encounter Details Date Type Department Care Team (Late st Contact Info) Description 01/21/2025 Orders Only [facility] MEDICINE [address] [place] [address] Kalie Calzada MD 505 [place], [place] [phone] Class 2 obesity due to excess calories without serious comorbidity with body mass index (BMI) of 37.0 to 37.9 in adult (Primary Dx); Left thigh pain Social History Tobacco Use [...] with others, in a hotel, in a halfway, living outside on the street, on a [...] Description 03/10/2025 9:45 AM EDT Office Visit [facility] CHC MED & PEDS 505 [place] [address] Kalie Calzada MD 505 [place] [address] documented as of this encounter Visit Diagnoses Diagnosis Class 2 obesity due to excess calories without serious comorbidity with body mass index (BMI) of 37.0 to 37.9 in adult- Primary Left thigh pain Pain in soft tissues of limb documented in this encounter Additional Health Concerns Assessment Noted Time PHQ-9 Depression Total Score: 0 11/16/19 25 1:54 PM EST documented as of this encounter Care Teams Lighting Director Relationship Specialty Start Date End Date Kalie Calzada MD 505 [place] [address] PCP - General Internal Medicine 11/16/13 documented as of this encounter
--- OUTSIDE RECORDS SUMMARY | 2025-02-02 17:08 | XMS_ITS | Encounter Summary ---
Author Organization [employer] Address [address] [place] [address] [place] [address] Care Team Providers Care Loader Magazine Grinder Name Role Phone Kalie Calzada MD Primary Care Provider [phone]- [phone] Reason for Visit * Reason Onset Date Comments Med Refill 07/13/2024 Encounter Details Date Type Department Care Team (Late Contact Info) Description 07/13/2024 Refill [facility] MED & PEDS [address] [place] [address] Kalie Calzada MD 505 [place] [address] Social History Tobacco Use Types Packs/Day Years [...] Description 03/10/2025 9:45 AM EDT Office Visit [facility] MED & PEDS [address] [place] [address] aKlie Calzada MD 505 [place] [address] documented as of this encounter Visit Diagnoses Not on filedocumented in this encounter Additional Health Concerns Assessment Noted Time PHQ-9 Depression Total Score: 14 023 11:22 AM EDT documented as of this encounter Care Teams Loader Magazine Grinder Relationship Specialty Start Date End Date Kalie Calzada MD [address] [place] [address] PCP - General Internal Medicine 11/16/13 documented as of this encounter
--- OUTSIDE RECORDS SUMMARY | 2025-02-02 17:08 | XMS_ITS | Encounter Summary ---
Author Organization [employer] [facility] Address [address] [place] [address] Care Team Providers Care Vaccinator Name Role Phone Kalie Calzada MD Primary Care Provider +1- [phone] Reason for Visit * Reason Comments Med Refill Encounter Details Date Type Department Care Team ([facility] Contact Info) Description 06/27/2023 Refill [facility] MED & PEDS [address] [place] [address] Jered Chan MD 505 [place] [address] Social History Tobacco Use Types Packs/Day Years [...] Description 03/10/2025 9:45 AM EDT Office Visit [facility] CHC MED & PEDS [address] [place], [place] [phone] Kalie Calzada MD 505 [place] [address] documented as of this encounter Visit Diagnoses Not on filedocumented in this encounter Care Teams Vaccinator Relationship Specialty Start Date End Date Kalie Calzada MD [address] [place] [address] PCP - General Internal Medicine 11/16/13 documented as of this encounter
--- OUTSIDE RECORDS SUMMARY | 2025-02-02 17:08 | XMS_ITS | Encounter Summary ---
Author Organization [employer] Address [address] [place] [address] [place] [address] Care Team Providers Care Speech Professor Name Role Phone Kalie Calzada MD Primary Care Provider +1- [phone] Reason for Visit * Reason Onset Date Comments Med Refill 01/24/2025 Encounter Details Date Type Department Care Team ([facility] st Contact Info) Description 01/24/2025 Telephone [facility] CHC MED & PEDS [address] [place], [place] [phone] Kalie Calzada MD [address] [place] [address] Med Refill Social History Tobacco Use Types Packs/Day Years [...] with others, in a hotel, in a half-way, living outside on the street, on a [...] encounter Miscellaneous Notes * Telephone Encounter - Christie Ohara RN - 01/25/2025 9:11 AM EDT TC to pt. Informed pt that 30 day supply was sent to pt pharmacy. Pt verbalized understanding and expressed will pick up attendant from pharmacy. * Telephone Encounter - Christie Ohara RN - 01/24/2025 4:19 PM EDT TC to pt to verify how often baclofen is being taken. Pt states taking baclofen twice daily once inthe morning and once with dinner. Pt states if at night or middle of night has a back spasm will take another dose but does not go above 3 doses a day. Pt states taking it for lower back pain and muscle spasm and states medication provides relief. Routing information to provider to review. * Telephone Encounter - Marilee Contreras - 01/24/2025 9:19 AM EDT TC from pt requesting medication refill. Medications needing refill : baclofen (Lioresal) 10 MG tablet To be sent to: [id number] - [place] - [address] [place] [address] Pt would like to know if she can get a 30 day supply instead of 10 days documented in this encounter Plan of Treatment Upcoming Encounters Date Type Department Care Team (Late st Contact Info) Description 03/10/2025 9:45 AM EDT Office Visit [facility] MED & PEDS [address] [place] [address] Kalie Calzada MD [address] [place], [place] [phone] documented as of this encounter Visit Diagnoses Not on filedocumented in this encounter Additional Health Concerns Assessment Noted Time PHQ-9 Depression Total Score: 0 11/16/19 25 1:54 PM EST documented as of this encounter Care Teams Speech Professor Relationship Specialty Start Date End Date Kalie Calzada MD [address] [place], [place] [phone] PCP - General Internal Medicine 11/16/13 documented as of this encounter
--- OUTSIDE RECORDS SUMMARY | 2025-02-02 17:08 | XMS_ITS | Encounter Summary ---
Author Organization [employer] [facility] Address [address] [place] [address] 7 [place] [address] Care Team Providers Care Afloat Cryptologic Manager Name Role Phone Kalie Calzada MD Primary Care Provider +1- [phone] Encounter Details Date Type Department Care Team (Late Contact Info) Description 04/15/2023 Orders Only [facility] MED & PEDS [address] [place], [place] [phone] Kalie Calzada MD [address] [place] [address] Venous insufficiency Social History Tobacco Use Types [...] suspected to have Coronavirus/COVID-19? No / Unsure 04/01/2023 9:02 AM EDT documented as of this encounter Plan of Treatment Upcoming Encounters Date Type Department Care Team (Late Contact Info) Description 03/10/2025 9:45 AM EDT Office Visit [facility] MED & PEDS [address] [place] [address] Kalie Calzada MD [address] [place], [place] [phone] documented as of this encounter Visit Diagnoses Diagnosis Venous insufficiency Unspecified venous (peripheral) insufficiency documented in this encounter Care Teams Afloat Cryptologic Manager Relationship Specialty Start Date End Date Kalie Calzada MD [address] [place] [address] PCP - General Internal Medicine 11/16/13 documented as of this encounter
--- OUTSIDE RECORDS SUMMARY | 2025-02-02 17:08 | XMS_ITS | Encounter Summary ---
Author Organization [employer] [facility] Address [address] [place] [address] [place] [address] Care Team Providers Care Captain Of Guards Name Role Phone Kalie Calzada MD Primary Care Provider +1- [phone] Reason for Visit * Reason Comments Med Change Request Encounter Details Date Type Department Care Team ([facility] Contact Info) Description 04/16/2023 Refill [facility]C MED & PEDS [address] [place] [address] Kalie Calzada MD [address] [place] [address] Venous insufficiency Social History Tobacco Use Types [...] Upcoming Encounters Date Type Department Care Team ([facility] Contact Info) Description 03/10/2025 9:45 AM EDT Office Visit [facility] CHC MED & PEDS [address] [place] [address] Kalie Calzada MD [address] [place], [place] [phone] documented as of this encounter Visit Diagnoses Diagnosis Venous insufficiency Unspecified venous (peripheral) insufficiency documented in this encounter Care Teams Captain Of Guards Relationship Specialty Start Date End Date Kalie Calzada MD [address] [place] [address] PCP - General Internal Medicine 11/16/13 documented as of this encounter
--- OUTSIDE RECORDS SUMMARY | 2025-02-02 17:08 | XMS_ITS | Encounter Summary ---
Author Organization [employer] Address [address] [place] [address] Care Team Providers Care Office Machine Repair Shop Supervisor Name Role Phone Kalie Calzada MD Primary Care Provider [phone] Reason for Referral * Imaging (Routine) - Closed Specialty Diagnoses / Procedures Referred By Contac t Referred To Contact Cardiology Diagnoses Venous insufficiency Procedures Vascular US lower extremity venous duplex bilateral Kalie Calzada MD [address] [place] [address] Phone: tel: fax: [address] Phone: tel: fax: Referral ID Status Reason Start Date Expiration Date V isits Requested Visits Authorized [id number] Closed Perform Procedure 03/27/2023 03/26/2024 1 1 Encounter Details Date Type Department Care Team (Late st Contact Info) Description 03/27/2023 Orders Only [facility] MED & PEDS [address] [place], [place] [phone] Kalie Calzada MD [address] [place] [address] [phone] Venous insufficiency (Primary Dx) Social History Tobacco Use Types [...] Recorded In the last 10 days, have rudy castellano been in contact with someone who was confirmed or suspected to have Coronavirus/COVID-19? No / Unsure 03/27/2023 9:34 AM EDT documented as of this encounter Plan of Treatment Upcoming Encounters Date Type Department Care Team ([facility] st Contact Info) Description 03/10/2025 9:45 AM EDT Office Visit [facility] MED & PEDS [address] [place] [address] Kalie Calzada MD [address] [place] [address] documented as of this encounter Procedures Procedure Name Priority Date/Time Associated Diagnosis Comments VASC US LOWER EXTREMITY VENOUS DUPLEX BILATERAL Routine 03/27/2023 3:45 PM EDT documented in this encounter Results * VASC US Lower Extremity Venous Duplex Bilateral (03/27/2023 3:45 PM EDT) 03/27/2023 3:45 PM EDT Narrative [facility] - 03/27/2023 4:00 PM EDT ? [facility] ?[address] ?[place] [address] ? Ultrasound Report ? Signed ? Patient: Yu,Linda ?MR#: [id number] ? : 1970 ?Acct:[id number] ? Age/Sex: 53 / F ?ADM Date: 05/18/23 ? Loc: HO.US ? Attending Dr: Kalie Calzada MD ? Ordering Physician: Kalie Calzada MD ?? Date of Service: 03/27/23 ?? Procedure(s): US venous duplex LE BI ?? Accession Number(s): [id number] ? cc: Kalie Calzada MD ? EXAMINATION: ? US VENOUS ULTRASOUND WITH DOPPLER LOWER EXTREMITY, BILATERAL ? CLINICAL INFORMATION: ? Bilateral lower extremity edema and elevated d-dimer ? COMPARISON: ? None available. ? TECHNIQUE: ?? Ultrasound of the deep veins is performed from the hip to the calf with ?? compression sonography and color and pulse Doppler assessment. Spectral ?? analysis with color-flow imaging is performed. ? FINDINGS: ? RIGHT: ?? There is normal venous compression and respiratory variation and ?? augmented flow. The visualized common femoral vein, superficial femoral ?? vein, profunda femoral vein, popliteal vein, and the trifurcation ?? region shows no evidence of deep venous thrombosis. ?? There is no ?? significant popliteal fossa cyst. ? LEFT: ?? There is normal venous compression and respiratory variation and ?? augmented flow. The visualized common femoral vein, superficial femoral ?? vein, profunda femoral vein, popliteal vein, and the trifurcation ?? region shows no evidence of deep venous thrombosis. ?? There is no ?? significant popliteal fossa cyst. ? If the patient's symptoms persist, followup ultrasound in 5 days 7 days ?? might be of value to exclude proximal propagation from a non-visualized ?? calf vein. ? US/US venous duplex LE BI ?? IMPRESSION: ?? No DVT demonstrated in either lower extremity. ? Dictated By: ?Dawit Andrew MD ? Signed By: ?<Electronically signed by Dawit Andrew MD in OV> ? 03/27/23 1557 ? DD/ 1545 ? TD/TT: ? Piper Helper: SS ? Procedure Note Jessie, Ameya - 05/08/2023 [place] [address] Ultrasound Report Signed Patient: Linda NicholasMR#: [id number] : 1970Acct:[id number] Age/Sex: 53 / FADM Date: 03/27/23 Loc: HO.US Attending Dr: Kalie Calzada MD Ordering Physician: Kalie Calzada MD Date of Service: 03/27/23 Procedure(s): US venous duplex LE BI Accession Number(s): [id number] cc: Beauzile,Thevenin C MD EXAMINATION: US VENOUS ULTRASOUND WITH DOPPLER LOWER EXTREMITY, BILATERAL CLINICAL INFORMATION: Bilateral lower extremity edema and elevated d-dimer COMPARISON: None available. TECHNIQUE: Ultrasound of the deep veins is performed from the hip to the calf with compression sonography and color and pulse Doppler assessment. Spectral analysis with color-flow imaging is performed. FINDINGS: RIGHT: There is normal venous compression and respiratory variation and augmented flow. The visualized common femoral vein, superficial femoral vein, profunda femoral vein, popliteal vein, and the trifurcation region shows no evidence of deep venous thrombosis. There is no significant popliteal fossa cyst. LEFT: There is normal venous compression and respiratory variation and augmented flow. The visualized common femoral vein, superficial femoral vein, profunda femoral vein, popliteal vein, and the trifurcation region shows no evidence of deep venous thrombosis. There is no significant popliteal fossa cyst. If the patient's symptoms persist, followup ultrasound in 5 days 7 days might be of value to exclude proximal propagation from a non-visualized calf vein. US/US venous duplex LE BI IMPRESSION: No DVT demonstrated in either lower extremity. Dictated By: Dawit Andrew MD Signed By: <Electronically signed by Dawit Andrew MD in OV> 03/27/23 1557 DD/ 1545 TD/TT: Piper Helper: SS us [facility] External Provider CV VASC ULAR PROCEDURES Final Result [facility] [address] [place] [address] documented in this encounter Visit Diagnoses Diagnosis Venous insufficiency- Primary Unspecified venous (peripheral) insufficiency documented in this encounter Care Teams Office Machine Repair Shop Supervisor Relationship Specialty Start Date End Date Kalie Calzada MD [address] [place] [address] PCP - General Internal Medicine 11/16/13 documented as of this encounter
--- OUTSIDE RECORDS SUMMARY | 2025-02-02 17:08 | XMS_ITS | Encounter Summary ---
Author Organization [employer] [facility] Address [address] [place] [address] Care Team Providers Care Scientific Informatics Leader Name Role Phone Kalie Calzada MD Primary Care Provider [phone] Reason for Visit * Reason Comments Med Refill Encounter Details Date Type Department Care Team ([facility] Contact Info) Description 08/08/2023 Refill [facility] MED & PEDS [address] [place] [address] Kalie Calzada MD [address] [place] [address] Left thigh pain Social History Tobacco Use [...] 9:45 AM EDT Office Visit [facility] MED & PEDS [address] [place], [place] [phone] Kalie Calzada MD [address] [place] [address] documented as of this encounter Visit Diagnoses Diagnosis Left thigh pain Pain in soft tissues of limb documented in this encounter Care Teams Scientific Informatics Leader Relationship Specialty Start Date End Date Kalie Calzada MD [address] [place] [address] PCP - General Internal Medicine 11/16/13 documented as of this encounter
--- OUTSIDE RECORDS SUMMARY | 2025-02-02 17:08 | XMS_ITS | Encounter Summary ---
Author Organization [employer] Address [address] [place] [address] [place] [address] Care Team Providers Care Tire Tester Name Role Phone Kalie Calzada MD Primary Care Provider [phone] Reason for Visit * Reason Onset Date Comments New script 03/17/2023 Encounter Details Date Type Department Care Team ([facility] Contact Info) Description 03/17/2023 Telephone [facility] MED & PEDS [address] [place], [place] [phone] Kalie Calzada MD [address] [place], [place] [phone] New script Social History Tobacco Use Types Packs/Day Years [...] suspected to have Coronavirus/COVID-19? No / Unsure 03/17/2023 1:54 PM EDT documented as of this encounter Miscellaneous Notes * Telephone Encounter - Louie Mercedes - 03/17/2023 10:11 AM EDT Tc from [place] with [facility] requesting a new script for Famotidine 20 mg tablet due to insurance insurance requires. Please contact Pharmacy to verify at [phone] documented in this encounter Plan of Treatment Upcoming Encounters Date Type Department Care Team ([facility] st Contact Info) Description 03/10/2025 9:45 AM EDT Office Visit [facility] MED & PEDS [address] [place] [address] Kalie Calzada MD [address] [place] [address] documented as of this encounter Visit Diagnoses Not on filedocumented in this encounter Care Teams Tire Tester Relationship Specialty Start Date End Date Kalie Calzada MD [address] [place] [address] PCP - General Internal Medicine 11/16/13 documented as of this encounter
--- OUTSIDE RECORDS SUMMARY | 2025-02-02 17:09 | XMS_ITS | Encounter Summary ---
Author Organization [employer] Address [address] [place] [address] 7 [place] [address] Care Team Providers Care Electronic Game Developer Name Role Phone Kalie Calzada MD Primary Care Provider [phone] Reason for Visit * Reason Comments Med Refill Encounter Details Date Type Department Care Team ([facility] Contact Info) Description 01/13/2025 Refill [facility] CH[facility] MED & PEDS [address] [place], [place] [phone] Kalie Calzada MD [address] [place] [address] Left thigh pain Social History Tobacco Use [...] 03/10/2025 9:45 AM EDT Office Visit [facility] MED & PEDS [address] [place] [address] Kalie Calzada MD [address] [place] [address] documented as of this encounter Visit Diagnoses Diagnosis Left thigh pain Pain in soft tissues of limb documented in this encounter Additional Health Concerns Assessment Noted Time PHQ-9 Depression Total Score: 0 11/16/19 25 1:54 PM EST documented as of this encounter Care Teams Electronic Game Developer Relationship Specialty Start Date End Date Kalie Calzada MD [address] [place] [address] PCP - General Internal Medicine 11/16/13 documented as of this encounter
--- OUTSIDE RECORDS SUMMARY | 2025-02-02 17:09 | XMS_ITS | Encounter Summary ---
Author Organization [employer] Address [address] [place] [address] [place] [address] Care Team Providers Care Hospice Clinical Marketer Name Role Phone Kalie Calzada MD Primary Care Provider [phone] Reason for Referral * Medications - Closed Specialty Diagnoses / Procedures Referred By Contmorenita t Referred To Contact Diagnoses Class 2 obesity due to excess calories without serious comorbidity with body mass index (BMI) of 37.0 to 37.9 in adult Kalie Calzada MD [address] [place] [address] Phone: tel: fax: Referral ID Status Reason Start Date Expiration Date Visits Re quested Visits Authorized [id number] Closed 1 1 Reason for Visit * Reason Comments With monitoring Encounter Details Date Type Department Care Team ([facility] Contact Info) Description 01/06/2025 3:15 PM EST Office Visit [facility] MED & PEDS [address] [place] [address] Kalie Calzada MD [address] [place] [address] Class 2 obesity due to excess calories without serious comorbidity with body mass index (BMI) of 37.0 to 37.9 in adult (Primary Dx) Social History Tobacco Use Types [...] with others, in a hotel, in a [place] [facility], living outside on the street, on a [...] AM EDT documented as of this encounter Last Filed Vital Signs Vital Sign Reading Time Taken Comments Blood Pressure 172/96 01/06/2025 2:57 PM EST Pulse 60 01/06/2025 2:57 PM EST Temperature 36.6 ??C (97.8 ??F) 01/06/2025 2:57 PM ES T Respiratory Rate 20 01/06/2025 2:57 PM EST Oxygen Saturation 95% 01/06/2025 2:57 PM EST Inhaled Oxygen Concentration - - Weight 92.5 kg (204 lb) 01/06/2025 2:57 PM EST Height 157.5 cm (5' 2 ) 01/06/2025 2:57 PM EST Body Mass Index 37.31 01/06/2025 2:57 PM EST documented in this encounter Progress Notes * Kalie Calzada MD - 01/06/2025 3:15 PM EST Subjective Patient ID: Linda Nicholas is a 54 y.o. female who presents for With monitoring. HPI History of severe obesity. Patient has been on Ozempic which is very well- tolerated. Needs a bhva-ju-beii encounter given the fact that the medication was denied by her insurance. She was started on it in March 2024 and she has been consistently losing weight since then. 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 30 tablet 0 baclofen (Lioresal) 10 MG tablet TAKE 1 TABLET BY MOUTH THREE TIMES A DAY 30 tablet 0 celecoxib (CeleBREX) 100 MG capsule TAKE 1 CAPSULE BY MOUTH TWICE A DAY 60 capsule 0 cetirizine (ZyrTEC) 10 MG tablet TAKE 1 TABLET BY MOUTH EVERY DAY 90 tablet 1 Elastic Bandages & Supports (Futuro Therapeutic Stocking) misc To wear daily prior to getting out of bed. Knee high. 15/20 mm/Hg 2 each 3 famotidine (Pepcid) 20 MG tablet TAKE 1 TABLET BY MOUTH TWICE A DAY 180 tablet 0 fluticasone (Flonase) 50 MCG/ACT nasal spray Administer 1-2 sprays into each nostril Once per day. Shake gently. Before first use, prime pump. After use, clean tip and replace cap. 2 inhalers. 32 g 3 Linzess 145 MCG capsule Take 1 capsule (145 mcg) by mouth 2 times daily. 60 capsule 11 propranolol LA (Inderal LA) 60 MG 24 hr capsule TAKE 1 CAPSULE BY MOUTH EVERY DAY 90 capsule 1 semaglutide (Ozempic) 2 MG/1.5ML solution pen-injector Inject 0.25 mg under the skin 1 (one) time per week. 1 each 12 Semaglutide, 2 MG/DOSE, (Ozempic, 2 MG/DOSE,) 8 MG/3ML solution pen-injector Inject 0.75 mL (2 mg) under the skin every 7 (seven) days. 3 mL 3 Semaglutide,0.25 or 0.5MG/DOS, (Ozempic, 0.25 or 0.5 MG/DOSE,) 2 MG/3ML solution pen-injector Inject 2 mg under the skin 1 (one) time per week. 2 mL 1 simvastatin (Zocor) 40 MG tablet TAKE 1 TABLET BY MOUTH EVERY DAY IN THE EVENING 90 tablet 4 traZODone (Desyrel) 100 MG tablet Take 100 mg by mouth at bedtime. traZODone (Desyrel) 150 MG tablet TAKE 1 TABLET BY MOUTH AT BEDTIME 30 tablet 0 No current facility-administered medications on file prior to visit. Allergies Allergen Reactions Levofloxacin Itching and Swelling Other Reaction(s): hand swelling and itching/neck lumps, HANDS NUMB & BURNING , LUMP BEHIND EAR Pollen Extract Other Reaction(s): seasonal Review of Systems Constitutional: Negative for appetite change, chills and diaphoresis. Eyes: Negative for pain, redness and itching. Respiratory: Negative for cough and choking. Cardiovascular: Negative for leg swelling. Gastrointestinal: Negative for anal bleeding and blood in stool. Musculoskeletal: Negative for back pain and gait problem. Objective Physical Exam Constitutional: General: She is not in acute distress. Appearance: Normal appearance. She is not ill-appearing, toxic-appearing or diaphoretic. Cardiovascular: Rate and Rhythm: Normal rate. Pulmonary: Effort: Pulmonary effort is normal. Neurological: General: No focal deficit present. Mental Status: She is alert. Psychiatric: Mood and Affect: Mood normal. Assessment/Plan Diagnoses and all orders for this visit: Class 2 obesity due to excess calories without serious comorbidity with body mass index (BMI) of 37.0 to 37.9 in adult - semaglutide (Ozempic) 2 MG/1.5ML solution pen-injector; Inject 2 mg under the skin 1 (one) time per week. Discussed calorie deficit, recommended reduction of 20-30% of maintenance calories; assembler deck and hull referral offered. Recommended to decrease soda and sugary beverage consumption. Recommended at least 20 g per meal of protein to assist with satiety. Recommended at least 150 min/week of moderate intensity exercise. Patient would greatly benefit from using a GLP-1 receptor agonist to continue to lose weight given his multiple risk factor for coronary artery disease Has elevated blood pressure today. Patient states that her blood pressure is usually at goal at home. Advised to check her blood pressure regularly and to report to the office in 1 week or so. documented in this encounter Plan of Treatment Upcoming Encounters Date Type Department Care Team (Late st Contact Info) Description 03/10/2025 9:45 AM EDT Office Visit [facility] MED & PEDS [address] [place] [address] Kalie Calzada MD [address] [place] [address] documented as of this encounter Visit Diagnoses Diagnosis Class 2 obesity due to excess calories without serious comorbidity with body mass index (BMI) of 37.0 to 37.9 in adult- Primary documented in this encounter Additional Health Concerns Assessment Noted Time PHQ-9 Depression Total Score: 0 11/16/19 25 1:54 PM EST documented as of this encounter Care Teams Hospice Clinical Marketer Relationship Specialty Start Date End Date Kalie Calzada MD [address] [place] [address] PCP - General Internal Medicine 11/16/13 documented as of this encounter
--- OUTSIDE RECORDS SUMMARY | 2025-02-02 17:09 | XMS_ITS | Encounter Summary ---
Author Organization [employer] Address [address] [place] [address], [place] [address] Care Team Providers Care Bat Lathe Operator Name Role Phone Kalie Calzada MD Primary Care Provider [phone] Reason for Referral * Consultation (Routine) - Closed Specialty Diagnoses / Procedures Referred By Contac t Referred To Contact Cardiology Diagnoses Mild pulmonary hypertension (CMS/HCC) Kalie Calzada MD [address] [place] [address] Phone: tel: fax: Jovan Mendiola MD [address] [address] Phone: tel: fax: Referral ID Status Reason Start Date Expiration Date V isits Requested Visits Authorized [id number] Closed Specialty Services Required 01/01/2024 12/31/2024 1 1 Encounter Details Date Type Department Care Team (Late st Contact Info) Description 01/01/2024 Orders Only [facility] MED & PEDS [address] [place], [place] [phone] Kalie Calzada MD [address] [place] [phone] Mild pulmonary hypertension (CMS/HCC) (Primary Dx) Social History Tobacco Use Types Packs/Day Years Used Date Smoking Tobacco: Never Smokeless Tobacco: Never Depression Answer Date Recorded Patient Health Questionnaire-9 [...] Description 03/10/2025 9:45 AM EDT Office Visit [facility] MED [facility] PEDS [address] [place] [address] Kalie Calzada MD [address] [place] [address] Scheduled Referrals Name Type Priority Associated Diagnoses Orde r Schedule Referral to Cardiology Outpatient Referral Routine Mild pulmonary hypertension (CMS/HCC) Expected: 01/01/2024 (Approximate), Expires: 01/01/2025 documented as of this encounter Visit Diagnoses Diagnosis Mild pulmonary hypertension (CMS/HCC)- Primary Other chronic pulmonary heart diseases documented in this encounter Additional Health Concerns Assessment Noted Time PHQ-9 Depression Total Score: 14 023 11:22 AM EDT documented as of this encounter Care Teams Bat Lathe Operator Relationship Specialty Start Date End Date Kalie Calzada MD [address] [place] [address] PCP - General Internal Medicine 11/16/13 documented as of this encounter
--- OUTSIDE RECORDS SUMMARY | 2025-02-02 17:09 | XMS_ITS | Encounter Summary ---
Author Organization [employer] Address [address] [place] [address] [place] [address] Care Team Providers Care Drill Rig Operator Name Role Phone Kalie Calzada MD Primary Care Provider [phone] Reason for Visit * Reason Onset Date Comments Results 12/30/2023 Encounter Details Date Type Department Care Team ([facility] Contact Info) Description 12/30/2023 Telephone [facility] MED & PEDS [address] [place], [place] [phone] Kalie Calzada MD [address] [place], [place] [phone] Results Social History Tobacco Use Types Packs/Day Years [...] encounter Miscellaneous Notes * Telephone Encounter - Marilee Contreras - 12/31/2023 10:49 AM EST Tc from pt requesting results . * Telephone Encounter - Erica Ramirez - 12/30/2023 3:16 PM EST TC from pt requesting call back regarding Results. Type of results: Echocardiogram Date when done: 12/26 Facility: [facility] [place] Please contact pt at [phone] documented in this encounter Plan of Treatment Upcoming Encounters Date Type Department Care Team (Late st Contact Info) Description 03/10/2025 9:45 AM EDT Office Visit [facility] MED & PEDS [address] [place] [address] Kalie Calzada MD [address] [place] [address] documented as of this encounter Visit Diagnoses Not on filedocumented in this encounter Additional Health Concerns Assessment Noted Time PHQ-9 Depression Total Score: 14 023 11:22 AM EDT documented as of this encounter Care Teams Drill Rig Operator Relationship Specialty Start Date End Date Kalie Calzada MD [address] [place] [address] PCP - General Internal Medicine 11/16/13 documented as of this encounter
--- OUTSIDE RECORDS SUMMARY | 2025-02-02 17:09 | XMS_ITS | Encounter Summary ---
Author Organization [employer] Address [address] [place] [address] [place] [address] Care Team Providers Care Wheel Grinder Name Role Phone Kalie Calzada MD Primary Care Provider [phone] Reason for Visit * Reason Onset Date Comments chart prep 01/03/2025 Encounter Details Date Type Department Care Team ([facility] Contact Info) Description 01/03/2025 Telephone [facility] MED & PEDS [address] [place], [place] [phone] Kalie Calzada MD [address] [place] [address] chart prep Social History Tobacco Use Types Packs/Day Years [...] with others, in a hotel, in a custodial, living outside on the street, on a [...] encounter Miscellaneous Notes * Telephone Encounter - Reid Saba MA - 01/03/2025 12:55 PM EST Chart Prep Labs: not done Images: done Vaccines due: yes Referrals: complete Screenings: Overdue care gaps: Sbirt, SDOH, PHQ-9 documented in this encounter Plan of Treatment Upcoming Encounters Date Type Department Care Team (Late st Contact Info) Description 03/10/2025 9:45 AM EDT Office Visit [facility] MED & PEDS [address] [place] [address] Kalie Calzada MD [address] [place] [address] documented as of this encounter Visit Diagnoses Not on filedocumented in this encounter Additional Health Concerns Assessment Noted Time PHQ-9 Depression Total Score: 0 11/16/19 25 1:54 PM EST documented as of this encounter Care Teams Wheel Grinder Relationship Specialty Start Date End Date Kalie Calzada MD [address] [place] [address] PCP - General Internal Medicine 11/16/13 documented as of this encounter
--- OUTSIDE RECORDS SUMMARY | 2025-02-02 17:09 | XMS_ITS | Encounter Summary ---
Author Organization [employer] Address [address] [place] [address] 7[address] [place] [address] Care Team Providers Care Physical Metallurgist Name Role Phone Kalie Calzada MD Primary Care Provider [phone] Encounter Details Date Type Department Care Team ([facility] st Contact Info) Description 12/13/2024 Orders Only [facility] CHC MED & PEDS [address] [place], [place] [phone] Kalie Calzada MD [address] [place] [address] Class 3 severe obesity due to excess calories with serious comorbidity and body mass index (BMI) of 40.0 to 44.9 in adult (CMS/HCC) Social History Tobacco Use Types Packs/Day [...] Description 03/10/2025 9:45 AM EDT Office Visit [facility] CHC MED & PEDS [address] [place] [address] Kalie Calzada MD [address] [place] [address] documented as of this encounter Visit Diagnoses Diagnosis Class 3 severe obesity due to excess calories with serious comorbidity and body mass index (BMI) of 40.0 to 44.9 in adult (CMS/HCC) documented in this encounter Additional Health Concerns Assessment Noted Time PHQ-9 Depression Total Score: 0 11/16/19 25 1:54 PM EST documented as of this encounter Care Teams Physical Metallurgist Relationship Specialty Start Date End Date Kalie Calzada MD [address] [place] [address] PCP - General Internal Medicine 11/16/13 documented as of this encounter
--- OUTSIDE RECORDS SUMMARY | 2025-02-02 17:09 | XMS_ITS | Encounter Summary ---
Author Organization [employer] [facility] Address [address] [place] [address] Care Team Providers Care Mortar Mixer Name Role Phone Kalie Calzada MD Primary Care Provider [phone] Encounter Details Date Type Department Care Team (Late Contact Info) Description 09/08/2023 Abstract [facility] MEDICINE [address] [place], [place] [phone] Kalie Calzada MD [address] [place], [place] [phone] Social History Tobacco Use Types Packs/Day Years [...] Care Team ([facility] Contact Info) Description 03/10/2025 9:45 AM EDT Office Visit [facility] CHC MED & PEDS [address] [place], [place] [phone] Kalie Calzada MD [address] [place], [place] [phone] documented as of this encounter Procedures Procedure Name Priority Date/Time Associated Diagnosis Comments COLONOSCOPY Routine 02/17/2023 documented in this encounter Results * Hm Colonoscopy (02/17/2023) Colonoscopy Normal Normal Narrative Yazmin Ramirez - 02/17/2023 Recommended 5 year follow up us Historical Provider HEALTH MAINTENANCE Edited Result - Final documented in this encounter Visit Diagnoses Not on filedocumented in this encounter Additional Health Concerns Assessment Noted Time PHQ-9 Depression Total Score: 14 023 11:22 AM EDT documented as of this encounter Care Teams Mortar Mixer Relationship Specialty Start Date End Date Kalie Calzada MD [address] [place] [address] PCP - General Internal Medicine 11/16/13 documented as of this encounter
--- OUTSIDE RECORDS SUMMARY | 2025-02-02 17:09 | XMS_ITS | Encounter Summary ---
Author Organization [employer] Address [address] [facility] [address] [place] [address] Care Team Providers Care Cryptozoologist Name Role Phone Kalie Calzada MD Primary Care Provider [phone] Reason for Referral * Consultation (Routine) - Closed Specialty Diagnoses / Procedures Referred By Contac t Referred To Contact Pulmonary Disease Diagnoses SOB (shortness of breath) Excessive daytime sleepiness Kalie Calzada MD [address] [place] [address] Phone: tel: fax: [facility] [address] Floor [place], [place] Phone: tel: fax: Referral ID Status Reason Start Date Expiration Date V isits Requested Visits Authorized [id number] Closed Specialty Services Required 02/19/2024 02/18/2025 1 1 Encounter Details Date Type Department Care Team (Late st Contact Info) Description 02/19/2024 Orders Only [facility] CHC MED & PEDS [address] [place], [place] [phone] Kalie Calzada MD [address] [place], [place] [phone] SOB (shortness of breath) (Primary Dx); Excessive daytime sleepiness Social History Tobacco Use Types Packs/Day Years [...] Upcoming Encounters Date Type Department Care Team ([facility] st Contact Info) Description 03/10/2025 9:45 AM EDT Office Visit [facility] MED & PEDS [address] [place] [address] Kalie Calzada MD [address] [place] [address] Scheduled Referrals Name Type Priority Associated Diagnoses Order Schedule Referral to Pulmonology Outpatient Referral Routine SOB (shortness of breath) Excessive daytime sleepiness Expected: 02/19/2024 (Approximate), Expires: 02/18/2025 documented as of this encounter Visit Diagnoses Diagnosis SOB (shortness of breath)- Primary Shortness of breath Excessive daytime sleepiness documented in this encounter Additional Health Concerns Assessment Noted Time PHQ-9 Depression Total Score: 14 023 11:22 AM EDT documented as of this encounter Care Teams Cryptozoologist Relationship Specialty Start Date End Date Kalie Calzada MD [address] [place] [address] PCP - General Internal Medicine 11/16/13 documented as of this encounter
--- OUTSIDE RECORDS SUMMARY | 2025-02-02 17:09 | XMS_ITS | Encounter Summary ---
Author Organization [employer] Address [address] [place] [address] [place] [address] Care Team Providers Care Diet Attendant Name Role Phone Kalie Calzada MD Primary Care Provider [phone] Reason for Visit * Reason Onset Date Comments Med Refill 11/30/2024 Encounter Details Date Type Department Care Team ([facility] st Contact Info) Description 11/30/2024 Telephone [facility] CHC MED & PEDS [address] [place], [place] [phone] Kalie Calzada MD [address] [place] [address] Med Refill Social History Tobacco Use Types [...] with others, in a hotel, in a alf, living outside on the street, on a [...] encounter Miscellaneous Notes * Telephone Encounter - [facility] - 12/10/2024 1:35 PM EST TC from pt requesting status of Prior medication. Contact pt at [phone] documented in this encounter Plan of Treatment Upcoming Encounters Date Type Department Care Team (Late st Contact Info) Description 03/10/2025 9:45 AM EDT Office Visit [facility] MED & PEDS [address] [place] [address] Kalie Calzada MD [address] [place] [address] documented as of this encounter Visit Diagnoses Not on filedocumented in this encounter Additional Health Concerns Assessment Noted Time PHQ-9 Depression Total Score: 0 11/16/19 25 1:54 PM EST documented as of this encounter Care Teams Diet Attendant Relationship Specialty Start Date End Date Kalie Calzada MD [address] [place] [address] PCP - General Internal Medicine 11/16/13 documented as of this encounter
--- OUTSIDE RECORDS SUMMARY | 2025-02-02 17:09 | XMS_ITS | Clinical Summary ---
Author Organization [employer] Address [address] [facility] 7[address] [place] [address] Care Team Providers Care Maintenance Mechanic Supervisor Name Role Phone Kalie Calzada MD Primary Care Provider [phone] Allergies Active Allergy Reactions Criticality Noted Date Comments Levofloxacin Itching,Swelling Medium 06/05/2016 Other Reaction(s): hand swelling and itching/neck lumps, HANDS NUMB & BURNING , LUMP BEHIND EAR Pollen Extract 07/02/2024 Other Reaction(s): seasonal Medications * This document contains information received from the source organization and may not represent a complete record from that organization. traZODone (Desyrel) 100 MG tablet Take 100 mg by mouth at bedtime. 01/22/20 23 Active Elastic Bandages & Supports (Futuro Therapeutic Stocking) miscIndications: Venous insufficiency To wear daily prior to getting out of bed. Knee high. 15/20 mm/Hg 2 each 3 04/15/20 23 Active simvastatin (Zocor) 40 MG tabletIndication s:Hypercholester olemia TAKE 1 TABLET BY MOUTH EVERY DAY IN THE EVENING 90 tablet 4 02/27/20 24 Active Linzess 145 MCG capsuleIndicatio ns:Crohn's disease of small intestine without complication (CMS/HCC) Take 1 capsule (145 mcg) by mouth 2 times daily. 60 capsule 11 07/02/20 24 Active fluticasone (Flonase) 50 MCG/ACT nasal sprayIndications :SOB (shortness of breath),Cough, unspecified type Administer 1-2 sprays into each nostril Once per day. Shake gently. Before first use, prime pump. After use, clean tip and replace cap. 2 inhalers. 32 g 3 09/22/20 24 2024 Active propranolol LA (Inderal LA) 60 MG 24 hr capsuleIndicatio ns:Periodic headache syndrome, not intractable TAKE 1 CAPSULE BY MOUTH EVERY DAY 90 capsule 1 11/04/20 24 Active traZODone (Desyrel) 150 MG tabletIndication s:Other insomnia TAKE 1 TABLET BY MOUTH AT BEDTIME 30 tablet 12/06/19 25 Active Semaglutide, 2 MG/DOSE, (Ozempic, 2 MG/DOSE,) 8 MG/3ML solution pen-injector Inject 0.75 mL (2 mg) under the skin every 7 (seven) days. 3 mL 3 12/21/19 25 Active cetirizine (ZyrTEC) 10 MG tabletIndication s:Seasonal allergies TAKE 1 TABLET BY MOUTH EVERY DAY 90 tablet 1 12/21/19 25 Active baclofen (Lioresal) 10 MG tabletIndication s:Left thigh pain TAKE 1 TABLET BY MOUTH THREE TIMES A DAY 30 tablet 12/28/19 25 Active semaglutide (Ozempic) 2 MG/1.5ML solution pen-injectorIndi cations:Class 2 obesity due to excess calories without serious comorbidity with body mass index (BMI) of 37.0 to 37.9 in adult Inject 2 mg under the skin 1 (one) time per week. 1 each 12 01/06/20 25 Active celecoxib (CeleBREX) 100 MG capsuleIndicatio ns:Left thigh pain TAKE 1 CAPSULE BY MOUTH TWICE A DAY 60 capsule 01/25/20 25 Active famotidine (Pepcid) 20 MG tablet TAKE 1 TABLET BY MOUTH TWICE A DAY 180 tablet 01/25/20 25 Active baclofen (Lioresal) 10 MG tabletIndication s:Left thigh pain Take 1 tablet (10 mg) by mouth 3 times daily. 90 tablet 3 01/25/20 25 Active Tirzepatide-Weig ht Management (Zepbound) 5 MG/0.5ML solutionIndicati ons:Class 2 obesity due to excess calories without serious comorbidity with body mass index (BMI) of 37.0 to 37.9 in adult Inject 5 mg under the skin 1 (one) time per week. 2 mL 1 02/01/20 25 Active famotidine (Pepcid) 20 MG tablet TAKE 1 TABLET BY MOUTH TWICE A DAY 180 tablet 10/27/20 24 2024 Discontinued semaglutide (Ozempic) 2 MG/1.5ML solution pen-injectorIndi cations:Class 2 obesity due to excess calories without serious comorbidity with body mass index (BMI) of 37.0 to 37.9 in adult Inject 0.25 mg under the skin 1 (one) time per week. 1 each 12 11/24/19 25 2024 Discontinued Semaglutide,0.25 or 0.5MG/DOS, (Ozempic, 0.25 or 0.5 MG/DOSE,) 2 MG/3ML solution pen-injectorIndi cations:Class 3 severe obesity due to excess calories with serious comorbidity and body mass index (BMI) of 40.0 to 44.9 in adult (CMS/HCC) Inject 2 mg under the skin 1 (one) time per week. 2 mL 1 12/13/19 25 2024 Discontinued(T herapy completed) celecoxib (CeleBREX) 100 MG capsuleIndicatio ns:Left thigh pain TAKE 1 CAPSULE BY MOUTH TWICE A DAY 60 capsule 12/21/19 25 2024 Discontinued baclofen (Lioresal) 10 MG tabletIndication s:Left thigh pain Take 1 tablet (10 mg) by mouth 3 times daily. 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 Will send urine for culture and will start on nitrofurantoin, discussed red flags to visit er Crohn's disease 01/07/2023 Viral upper respiratory tract infection 04/21/20 18 Stress incontinence in female 11/01/2013 Hyperlipidemia 08/03/2012 Migraine 08/03/2012 Obesity 08/03/2012 Encounters Date Type Department Care Team Description 01/31/2025 Refill [facility] [address] [place] [id number] Kalie Calzada MD Class 2 obesity due to excess calories without serious comorbidity with body mass index (BMI) of 37.0 to 37.9 in adult 01/24/2025 Refill [facility] [address] [place] [address] Kalie Calzada MD 01/24/2025 Telephone [facility] [address] [place] [address] Kalie Cazlada MD Med Refill 01/21/2025 Refill [facility] [address] [place] [address] Kalie Calzada MD Left thigh pain 01/21/2025 Telephone [facility] [address] [place] [address] Kalie Calzada MD 01/21/2025 Orders Only [facility] [address] [place] [id number] Kalie Calzada MD Class 2 obesity due to excess calories without serious comorbidity with body mass index (BMI) of 37.0 to 37.9 in adult (Primary Dx); Left thigh pain 01/21/2025 Telephone [facility] [address] [place] [address] Kalie Calzada MD Prior Authorization 01/13/2025 Refill [facility] [address] [place] [address] Kalie Calzada MD Left thigh pain 01/06/2025 3:15 PM EST Office Visit [facility] [address] [place] [address] Kalie Calzada MD Class 2 obesity due to excess calories without serious comorbidity with body mass index (BMI) of 37.0 to 37.9 in adult (Primary Dx) 01/06/2025 Travel 01/03/2025 Telephone [facility] [address] [place] [address] Kalie Calzada MD chart prep 12/28/2024 Refill [facility] [address] [place] [address] Kalie Calzada MD Left thigh pain 12/28/2024 Telephone [facility] [address] [place] [address] Kalie Calzada MD 12/27/2024 Refill [facility] [address] [place] [address] Kalie Calzada MD 12/27/2024 Refill [facility] [address] [place] [address] Kalie Calzada MD Left thigh pain 12/24/2024 Refill [facility] [address] [place] [address] Kalie Calzada MD Left thigh pain 12/13/2024 Refill [facility] [address] [place] [address] Kalie Calzada MD Left thigh pain; Seasonal allergies 12/13/2024 Orders Only [facility] [address] [place] [address] Kalie Calzada MD Class 3 severe obesity due to excess calories with serious comorbidity and body mass index (BMI) of 40.0 to 44.9 in adult ([facility]) 12/10/2024 Refill [facility] [address] [place] [address] Kalie Calzada MD Left thigh pain 12/07/2024 Refill [facility] [address] [facility] [place] Casie Landa [phone] Kalie Calzada MD 12/06/2024 Refill [facility] [address] [place] [address] Kalie Calzada MD Other insomnia 12/02/2024 Refill [facility] [address] [place] [address] Kalie Calzada MD Left thigh pain 11/30/2024 Telephone [facility] [address] [place] [address] Kalie Calzada MD Med Refill 11/30/2024 Refill [facility] [address] [place] [address] Kalie Calzada MD Crohn's disease of small intestine without complication ([facility]/HCC) 11/25/2024 Refill [facility] [address] [place] [address] Kalie Calzada MD 11/24/2024 Refill [facility] [address] [place] [address] Kalie Calzada MD Left thigh pain 11/23/2024 Refill [facility] [address] [place] [address] Kalie Calzada MD Class 2 obesity due to excess calories without serious comorbidity with body mass index (BMI) of 37.0 to 37.9 in adult; Left thigh pain 11/22/2024 Refill [facility] [address] [place] [address] Kalie Calzada MD Class 2 obesity due to excess calories without serious comorbidity with body mass index (BMI) of 37.0 to 37.9 in adult 11/22/2024 Refill [facility] [address] [place] [address] Kalie Calzada MD Left thigh pain 11/16/2024 2:00 PM EST Office Visit [facility] [address] [place] [address] Kalie Calzada MD Mixed hyperlipidemia (Primary Dx); Class 2 obesity due to excess calories without serious comorbidity with body mass index (BMI) of 37.0 to 37.9 in adult; Elevated BP without diagnosis of hypertension; Horseshoe kidney; Idiopathic sleep related nonobstructive alveolar hypoventilation; Encounter for immunization 11/16/2024 Travel 11/12/2024 Refill [facility] [address] [place] [address] Kalie Calzada MD Left thigh pain 11/08/2024 Patient Outreach [facility] [address] [place] [address] Kalie Calzada MD Care Coordination (CHW outreach for SDOH housing search-referral completed ) 11/08/2024 Patient Outreach [facility] [address] [place] [address] Kalie Calzada MD Pre-visit Planning (SDOH positive, Tobacco screening negative.) 11/04/2024 Refill [facility] [address] [place] [address] Payton Krishna MD Left thigh pain from Last 3 Months Immunizations Name Administration Dates Next Due Hep B, adult 05/25/2015,11/01/2013,07/01/2013 Influenza injectable quadriv alent IIV4 with preservative 07/27/2019 Influenza injectable quadriv alent preservative free 08/25/2023,07/30/2022 Influenza, IIV3, injectable 08/17/2014 Influenza, Split (incl. margaret fied surface antigen) 11/01/2013,08/03/2012 Influenza, intradermal, quad rivalent, preservative free 08/17/2014 Influenza, seasonal, injecta ble, preservative free 11/16/2024 MMR 07/01/2013 Pfizer Covid-19 Vaccine 12+ 11/16/2024 Tdap 05/20/2021,05/25/2015 Family History Medical History Relation Name Comments Cancer Maternal Grandfather dale COPD Maternal Grandmother rodolfo grandmother Cancer Maternal Grandmother rodolfo grandmother Relation Name Status Comments Maternal Grandfather dale Maternal Grandmother rodolfo grandmother Social History Tobacco Use Types Packs/Day Years Used Date Smoking Tobacco: Never Passive Smoke Exposure: Never Smokeless Tobacco: Never Tobacco Cessation:Counseling Given: Not Answered Alcohol Use Standard Drinks/Week Comments Yes 0 [...] with others, in a hotel, in a snf, living outside on the street, on a [...] Orientation Straight 09/09/2022 10 :22 AM EDT Last Filed Vital Signs Vital Sign Reading [...] Mass Index 37.31 01/06/2025 2:57 PM EST Plan of Treatment Upcoming Encounters Date Type Department Care Team (Late st Contact Info) Description 03/10/2025 9:45 AM EDT Office Visit [facility] [address], [place] [phone] Kalie Calzada MD [address] [place] [address] Health Maintenance Due Date Last Done Comments CT Colonography 1970 FIT DNA/Cologuard 1970 FIT 1970 FOBT 1970 HIV Screening 1970 Sigmoidoscopy 1970 Pneumococcal Vaccine: 50+ Years (1 of 1 - PCV) 02/07/2020 Zoster Vaccines (1 of 2) 02/07/2020 SDOH Screening 11/08/2025 11/08/2024 Alcohol/Substance Use Screening 11/16/2025 11/16/2024 Depression Screening 11/16/2025 11/16/2024, 11/16/19 25 Tobacco Screening 01/06/2026 01/06/2025 Cervical Cancer Screening 01/16/2026 HPV/Cotest 01/16/2026 01/16/2021, 12/09/2017 Pap Smear 01/16/2026 01/16/2021 Mammogram 01/20/2026 01/21/2024, 06/10, 08/25/2018 Lipid Panel 08/12/2027 08/12/2022 Colonoscopy 02/18/2028 02/17/2023 Colorectal Cancer Screening 02/18/2028 DTaP/Tdap/Td Vaccines (3 - Td or Tdap) 05/20/2031 05/20/2021, 05/25/2015 RSV Patients and Patients Aged 60 years or older (1 - 1-dose 75+ series) 2045 Hepatitis B Vaccines Completed 05/25/2015, 11/01/2013, 07/01/2013 Hepatitis C Screening Completed 08/12/2022 COVID-19 Vaccine Completed 11/16/2024, , 04/05/2021, Additional history exists Influenza Vaccine Completed 11/16/2024, , 07/30/2022, Additional history exists HIB Vaccines Aged Out No longer eligi ble based on patient's age to complete this topic HPV Vaccines Aged Out No longer eligi ble based on patient's age to complete this topic Hepatitis A Vaccines Aged Out No long er eligible based on patient's age to complete this topic IPV Vaccines Aged Out No longer eligi ble based on patient's age to complete this topic Meningococcal Vaccine Aged Out No alejo akosua eligible based on patient's age to complete this topic RSV under 20 months Aged Out No longe r eligible based on patient's age to complete this topic Rotavirus Vaccines Aged Out No longer eligible based on patient's age to complete this topic Procedures Procedure Name Priority Date/Time Associated Diagnosis Comments BI MAMMOGRAM SCREEN W JIMMY W IMPLANTS PB Routine 01/21/2024 2:30 PM EDT HM COLONOSCOPY Routine 02/17/2023 ZZZ HISTORICAL HEPATITIS C AB W/REFL TO HCV RNA, QN, PCR Routine 08/12/2022 10:15 AM EDT LIPID PANEL, STANDARD Routine 08/12/2022 10:15 AM EDT HPV MRNA E6/E7 Routine 01/16/2021 2:16 PM EST THINPREP PAP Routine 01/16/2021 2:16 PM EST from Last 3 Months or Most Recently Relevant to Health Maintenance Results * BI Mammogram Screen w/ Jimmy w/ Implants Pb (01/21/2024 2:30 PM EDT) Anatomical Region Laterality Modality Mammography 01/21/2024 2:30 PM EDT Narrative 01/26/2024 6:05 AM EDT ? [facility] ? [address] ?[place] [address] ? Mammography Report ? Signed ? Patient: Fink,Linda ?MR#: [id number] ? : 1970 ?Acct:[id number] ? Age/Sex: 53 / F ?ADM Date: 01/21/24 ? Loc: HO.MAMMO ? Attending Dr: Chava Dewey CNM ? Ordering Physician: CHAVA DEWEY CNM ?Results: 1 ?? Negative ? Date of Service: 01/21/24 ?Follow Up: 1 Year From Orig ?? inal Mammogram ? Procedure(s): MM tomosynthesis screen imp BI ?? Accession Number(s): [id number] ? cc: Kalie Calzada MD; CHAVA DEWEY CNM ? EXAMINATION: ?? MM SCREENING DIGITAL BREAST TOMOSYNTHESIS, BILATERAL WITH BREAST ?? IMPLANTS ? CLINICAL INFORMATION: ? Screening. Asymptomatic. ? COMPARISON: ?? Mammography: This study is compared with prior exams dating back to ?? 2018. ? TECHNIQUE: ?? Digital mammography is performed in craniocaudal and mediolateral ?? oblique views along with computer-aided detection (CAD). Digital breast ?? tomosynthesis is performed in implant-displaced craniocaudal and ?? implant-displaced mediolateral oblique views along with computer-aided ?? detection (CAD). Synthesized 2D images are generated from the ?? tomosynthesis. ? FINDINGS: ?? There are scattered areas of fibroglandular density (ACR BI-RADS breast ?? composition Category b). ? There are no significant masses, abnormal calcifications, or other ?? abnormalities. ?? There are bilateral, mammographically intact, saline breast implants ?? which are retroglandular. ? There are chronic benign calcifications on the surface of the right ?? breast implant. ? MM/MM tomosynthesis screen imp BI ?? IMPRESSION: ?? There are no significant changes from prior study. ? ASSESSMENT: ? BI-RADS BI-RADS 1 - Negative ? RECOMMENDATION: ?? Routine annual mammography screening. ? 1 year F/U ? This patient's information was entered into a reminder system with a ?? target due date for their next mammogram. ? Dictated By: ?Ginny Krishnan MD ? Signed By: ?<Electronically signed by Ginny Krishnan MD in OV> ? 01/26/24 0601 ? DD/ 1430 ? TD/TT: ? Daylight Driller: ? Procedure Note Jessie, Ameya - 01/26/2024 [facility] [address] [place] [address] Mammography Report Signed Patient: Linda NicholasMR#: [id number] : 1970Acct:[id number] Age/Sex: 53 / FADM Date: 01/21/24 Loc: HO.MAMMO Attending Dr: Chava Dewey CNM Ordering Physician: CHAVA DEWEYesults: 1 Negative Date of Service: 01/21/24Follow Up: 1 Year From Orig inal Mammogram Procedure(s): MM tomosynthesis screen imp BI Accession Number(s): [id number] cc: Kalie Calzada MD; CHAVA DEWEY CNM EXAMINATION: MM SCREENING DIGITAL BREAST TOMOSYNTHESIS, BILATERAL WITH BREAST IMPLANTS CLINICAL INFORMATION: Screening. Asymptomatic. COMPARISON: Mammography: This study is compared with prior exams dating back to 2018. TECHNIQUE: Digital mammography is performed in craniocaudal and mediolateral oblique views along with computer-aided detection (CAD). Digital breast tomosynthesis is performed in implant-displaced craniocaudal and implant-displaced mediolateral oblique views along with computer-aided detection (CAD). Synthesized 2D images are generated from the tomosynthesis. FINDINGS: There are scattered areas of fibroglandular density (ACR BI-RADS breast composition Category b). There are no significant masses, abnormal calcifications, or other abnormalities. There are bilateral, mammographically intact, saline breast implants which are retroglandular. There are chronic benign calcifications on the surface of the right breast implant. MM/MM tomosynthesis screen imp BI IMPRESSION: There are no significant changes from prior study. ASSESSMENT: BI-RADS BI-RADS 1 - Negative RECOMMENDATION: Routine annual mammography screening. 1 year F/U This patient's information was entered into a reminder system with a target due date for their next mammogram. Dictated By: Ginny Krishnan MD Signed By: <Electronically signed by Ginny Krishnan MD in OV> 01/26/24 0601 DD/ 1430 TD/TT: Daylight Driller: Chava GRACIAM IMG BI PROCEDURES Final R esult * Hm Colonoscopy (02/17/2023) Pathologist [facility] Colonoscopy Normal Normal Narrative Yazmin Ramirez - 02/17/2023 Recommended 5 year follow up Historical Provider HEALTH MAINTENANCE Edited Result - Final * HEPATITIS C AB W/REFL TO HCV RNA, QN, PCR (08/12/2022 10:15 AM EDT) HEPATITIS C ANTIBODY NON-REACTI VE NON-REACT KELVIN CONVERTED LEGACY LABS INDEX 0.04 <1.00 CONVERTED LEGACY LABS Comment: ?? HCV antibody was non-reactive. There is no laboratory ?? evidence of HCV infection. ?? In most cases, no further action is required. However, if recent HCV exposure is suspected, a test for HCV RNA (test code 35385) is suggested. ?? For additional information please refer to http://Cenzic.[employer]faq/MVN41q2 (This link is being provided for informational/ educational purposes only.) ?? 08/12/2022 10:1 5 AM EDT us Kalie Calzada MD HISTORICAL/NON ORDERABLE LA BS Final Result CONVERTED LEGACY LABS * (ABNORMAL) LIPID PANEL, STANDARD (08/12/2022 10:15 AM EDT) Chol/HDLC Ratio 3.4 <5.0 (calc) CONVERTED LEGACY LABS Cholesterol, Total 156 <200 mg/dL CONVERTED LEGACY LABS HDL Cholesterol 46(L) > OR = 50 mg/dL CONVERTED LEGACY LABS LDL Cholesterol 89 mg/dL (calc) CONVERTED LEGACY LABS Comment: Reference range: <100 ?? Desirable range <100 mg/dL for primary prevention; ?? <70 mg/dL for patients with CHD or diabetic patients ?? with > or = 2 CHD risk factors. ?? LDL-C is now calculated using the Leonel-Del Angel ?? calculation, which is a validated novel method providing ?? better accuracy than the Friedewald equation in the ?? estimation of LDL-C. ?? Leonel SS et al. LEELEE. 2013;310(19): 7398-4331 ?? (http://Cenzic.Flaviar/faq/GNB829) Non-HDL Cholesterol 110 <130 mg/dL (calc) CONVERTED LEGACY LABS Comment: For patients with diabetes plus 1 major ASCVD risk ?? factor, treating to a non-HDL-C goal of <100 mg/dL ?? (LDL-C of <70 mg/dL) is considered a therapeutic ?? option. Triglycerides 111 <150 mg/dL CONVE RTED LEGACY LABS 08/12/2022 10:1 5 AM EDT us Kalie Calzada MD LAB BLOOD ORDERABLES Final Result CONVERTED LEGACY LABS * THINPREP PAP (01/16/2021 2:16 PM EST) Clinical Information: None given [facility] COMMENT SEE COMMENT [facility] Comment: EXPLANATORY NOTE: ? The Pap is a screening test for cervical cancer. It is ?? not a diagnostic test and is subject to false negative ?? and false positive results. It is most reliable when a ?? satisfactory sample, regularly obtained, is submitted ?? with relevant clinical findings and history, and when ?? the Pap result is evaluated along with historic and ?? current clinical information. ?? Drupal Php Developer : SEE COMMENT [facility] Comment: NSS, CT(ASCP) CT screening location: [address] ??[address] Interpretation/R esult: Negative for intraepithelial lesion or malignancy. [facility] LMP: NONE GIVEN [facility] Prev. BX: NONE [facility]IVEN [facility] Prev. PAP: NONE GIVEN [facility] SOURCE: None given [facility] Statement Of Adequacy: SEE COMMENT [facility] Comment: Satisfactory for evaluation. Endocervical/transformation zone component absent. Age and/or menstrual status not provided 01/16/2021 2:16 PM EST Chava GRACIA LAB PATHOLOGY ORDERABLES Final Result Performing Organization Address [facility] Co de Phone Number [facility] [address] * HPV mRNA E6/E7 (01/16/2021 2:16 PM EST) HPV nRNA E6/E7 Not Detected Not Detected [facility] Comment: Methodology: Yeast Stacker-Mediated Amplification This assay detects E6/E7 viral messenger RNA (mRNA) from 14 high-risk HPV types (16,18,31,33,35,39,45,51,52,56,58,59,66,68). ? The analytical performance characteristics of this assay have been determined by [employer]. The modifications have not been cleared or approved by the FDA. This assay has been validated pursuant to the CLIA regulations and is used for clinical purposes. ?? For additional information, please refer to http://education.[employer].Yi De/faq/DJI959q7 (This link if provided for information/ educational purposes only.) 01/16/2021 2:16 PM EST us Chava Dewey CNM LAB BLOOD ORDERABLES Madeline pool Result [facility] [address] from Last 3 Months or Most Recently Relevant to Health Maintenance Insurance [facility] Care Teams Maintenance Mechanic Supervisor Relationship Specialty Start Date End Date Kalie Calzada MD [address] [place] [id number] PCP - General Internal Medicine 11/16/13
--- OUTSIDE RECORDS SUMMARY | 2025-02-02 17:09 | XMS_ITS | Encounter Summary ---
Author Organization [employer] Address [address] [place] [address] 7 [place] [address] Care Team Providers Care Pilot Highway Patrol Name Role Phone Kalie Calzada MD Primary Care Provider [phone] Reason for Visit * Reason Comments Med Refill Encounter Details Date Type Department Care Team ([facility] Contact Info) Description 12/28/2024 Refill [facility] [address] [place], [place] [phone] Kalie Calzada MD [address] [place] [address] Left thigh pain Social History Tobacco Use [...] with others, in a hotel, in a fci, living outside on the street, on a [...] [facility] [address] [place] [address] Kalie Calzada MD [address] [place] [address] documented as of this encounter Visit Diagnoses Diagnosis Left thigh pain Pain in soft tissues of limb documented in this encounter Additional Health Concerns Assessment Noted Time PHQ-9 Depression Total Score: 0 11/16/19 25 1:54 PM EST documented as of this encounter Care Teams Pilot Highway Patrol Relationship Specialty Start Date End Date Kalie Calzada MD [address] [place] [address] PCP - General Internal Medicine 11/16/13 documented as of this encounter
--- OUTSIDE RECORDS SUMMARY | 2025-02-02 17:09 | XMS_ITS | Encounter Summary ---
Author Organization [employer] Address [address] [facility] [address] [place] [address] Care Team Providers Care Manugrapher Name Role Phone Kalie Calzada MD Primary Care Provider [phone] Encounter Details Date Type Department Care Team (Latest Contact Info) Description 01/06/2025 Travel Social History Tobacco Use Types Packs/Day Years [...] others, in a hotel, in a senior care, living outside on the street, on a [...] 9:45 AM EDT Office Visit [facility] [address] [place] [address] Kalie Calzada MD [address] [place] [address] documented as of this encounter Visit Diagnoses Not on filedocumented in this encounter Additional Health Concerns Assessment Noted Time PHQ-9 Depression Total Score: 0 11/16/19 25 1:54 PM EST documented as of this encounter Care Teams Manugrapher Relationship Specialty Start Date End Date Kalie Calzada MD [address] [place] [address] PCP - General Internal Medicine 11/16/13 documented as of this encounter
--- OUTSIDE RECORDS SUMMARY | 2025-02-02 17:09 | XMS_ITS | Encounter Summary ---
Author Organization [employer] Address [address] [place] [address] [place] [address] Care Team Providers Care Rollway Worker Name Role Phone Kalie Calzada MD Primary Care Provider [phone] Reason for Visit * Reason Onset Date Comments Med Refill 12/27/2024 Encounter Details Date Type Department Care Team ([facility] st Contact Info) Description 12/27/2024 Refill [facility]S [address] [place] [address] Kalie Calzada MD [address] [place] [address] Social History Tobacco Use Types Packs/Day Years [...] Description 03/10/2025 9:45 AM EDT Office Visit [facility] [address] [place] [address] Kalie Calzada MD [address] [place] [address] documented as of this encounter Visit Diagnoses Not on filedocumented in this encounter Additional Health Concerns Assessment Noted Time PHQ-9 Depression Total Score: 0 11/16/19 25 1:54 PM EST documented as of this encounter Care Teams Rollway Worker Relationship Specialty Start Date End Date Kalie Calzada MD [address] [place] [address] PCP - General Internal Medicine 11/16/13 documented as of this encounter
== END 2025-02-02 14:16 | disposition home or self-care (01) ==
LOC: HO.MAMMO 14:15
PROVIDERS: PCP Internal Medicine; Visit Provider Internal Medicine
DX: Z12.31 Encounter for screening mammogram for malignant neoplasm of breast (principal)
CPT/HCPCS: 77063; 77067

== ENCOUNTER → 2025-02-02 14:30 | Outpatient (BNV) | payer OTHER, SELFPAY | PROVIDERS: PCP Internal Medicine; Visit Provider Internal Medicine | DX: Z12.31 Encounter for screening mammogram for malignant neoplasm of breast (principal) | CPT/HCPCS: 77063; 77067 ==

== ENCOUNTER 2025-02-08 12:03 | Outpatient (AMB) | payer OTHER, SELFPAY ==
--- NOTE | 2025-02-08 12:06 | A.OFFVIS_ITS ---
Vital Signs 02/08/25 12:07 Height 5 ft 2 in Weight 212 lb BMI 38.8 BP 142/69 H Blood Pressure Location Lt brachial Position Sitting Pulse 62 Pulse Oximetry (%) 97 Oxygen Delivery Method Room Air Intake Visit Reasons: ABDOMINAL PAIN Intake Note: Patient 2 years follow up for abdominal pain med refill. Patient denies any GI issues for today. [place] Customs [employer] Border Officer Required: No Accompanied by: Self / Same As Patient Allergies levofloxacin (LEVOFLOXACIN) Allergy (Unknown, Verified 04/29/25 14:14) HANDS NUMB & BURNING , LUMP BEHIND EAR Medication List - Last Reconciled 02/08/25 by Brad Ko MD albuterol sulfate 90 mcg/actuation 2 puffs inhalation Q4-6H PRN baclofen 10 mg PO TID budesonide-formoterol 80-4.5 mcg/actuation (Symbicort) 2 puffs inhalation Q12H celecoxib 100 mg PO BID cetirizine (Allergy Relief (cetirizine)) 10 mg PO DAILY PRN eszopiclone (Lunesta) 2 mg PO BEDTIME famotidine 20 mg PO DAILY fluticasone furoate-vilanterol 100-25 mcg/dose (Breo Ellipta) 1 inh inhalation DAILY fluticasone propionate 50 mcg/actuation 1 spray intranasal DAILY linaclotide (Linzess) 290 mcg (2 x 145 mcg) PO QAM 30 days lisdexamfetamine (Vyvanse) 70 mg PO DAILY lorazepam 1 mg PO BID PRN mesalamine (Lialda) 2.4 grams (2 x 1.2 gram) PO DAILY 90 days omeprazole 20 mg PO DAILY ondansetron 4 mg PO Q8H 90 days Oxygen Home Use As directed paroxetine HCl 30 mg PO DAILY propranolol ER 60 mg PO DAILY semaglutide (Ozempic) mg subcut simvastatin 40 mg PO QPM HPI HPI ABDOMINAL PAIN: Details: GI clinic visit for this 55 YF for follow up of chronic abdominal pain, constipation and nausea. Patient was diagnosed with Crohn's disease on colonoscopy in 03/2021. Last clinic visit was on 10/23/23 TODAY'S VISIT: Had to switch to Lialda 6 weeks ago since Tree was not covered Doing well on Lialda Denies abdominal pain, diarrhea or constipation Taking Linzess 145 mcg per day ('s prescription) since it was denied by her insurance. On Home oxygen 1 L/min at night due to sleep disorders (not sleep apnea) Has lost 80 lbs on Ozempic x 1 year. PAST VISITS: Patient 2 years follow up for abdominal pain med refill. Patient denies any GI issues for today. . I had a couple of smaller flare ups - felt like a heavy period cramp rather than pain Had rectocele repair in 07/2023 - went well Notes intermittent incontinence - feels she is wet while walking. - has been trying different things to see what works. When she sits on the toilet - has dumping of the stool and everything comes. takes Linzess 1 tab daily and increases to two tab if she has constipation Swallowing is good. Whole body aches. EGD results reviewed Dysphagia has improved since she had the EGD and dilation Had anorectal manometry had [facility] end of May and report has been requested. Has more constipation than diarrhea at present since she is on an antibiotic for a UTI. Scheduled for rectocele repair and sling on 07/28/[address] Araujo at [facility] May need a 2nd surgery later. Scheduled to see Dr Araujo next week for pre-op visit. Has diarrhea alternating with constipation. Lately having more problems with constipation and has a BM twice a day Had anorectal manometry on 05/14/23 at [facility] and results will be available in 2 weeks. (had difficulty expelling the balloon) Complains of intermittent dysphagia to solids and pills over the last few days Taking one pill at a time. Never had an EGD PT CC: pt reports having abdominal cramping , bloating , diarrhea , constipation , increased GERD Not feeling great Had explosive diarrhea 4 times a day without control Diarrhea lasted for 2 months and now has constipation Seen by Dr Jeffery and was informed pelvic muscles were very weak. Defecography showed rectal prolapse Seen by Dr Araujo (Uro-gynecology) at [facility] - no procedures planned until anorectal manometry is done. Scheduled for ano-rectal manometry in 07/2023. Has gained wt and is on medications for depression Its has been OK Past 6 weeks have been the best 6 weeks for me. The new medication works better Has to be near the bathroom when it starts working she has to be near a bathroom Feels like the medication is helping Still having flare ups and not as many - 2 episodes last week. Episode lasted several hrs - she was exhausted. Nothing was moving and had pain Episodes last for a few hrs and then something releases and she gets relief. Feels like something is stuck in the rectum and usually it can be a tiny piece of stool Gets relief once she is able to expel it. Notes diarrhea only after episodes of flare Family history is positive for Colon cancer in her Dad at age 66 yrs -?w/ flat polyp, anastomosis-Pos cancercous PAST VISITS: Patient 3 month follow up for Crohn's disease and lab results. Patient cc: Nauseas, abdominal pain/bloating on and off, constipation, less diarrhea as before, some difficulty swallowing food. Denies any other GI issues. Diarrhea has improved and having more problems with constipation. Has a BM daily with passage of small pellet like stools. Has had episodes of belly aches, cramping, nausea and cold sweats. Pt is accompanied by her SO. Has a BM 20 min after she eats. Noted tiny white specks in the stool. Can go a few days without a BM. If she has diarrhea its an all day event. Unable to identify any foods that is triggering the diarrhea. Has been avoiding going to the beach due to anxiety of not finding a bathroom. 3-4 episodes of episodes of cramping abdominal pain. Eating less, feels full fast and wt loss of 20 lbs. Had an episode of fecal incontinence at night and during sexual intercourse - 2- 3 episodes over a 3 week period. 05/04/21 Patient called, colonoscopy findings, biopsy and lab results were reviewed with the patient. Patient had COVID infection in November,. Initially her appetite was very poor and has been improving slowly and not back to normal yet. Patient continues to have nausea, decreased appetite and episodes of abdominal pain. Reports nausea is improving slowly. She has constipation alternating with diarrhea without blood or mucus. She notes 1-2 episodes per week of severe abdominal pain on days that she has diarrhea associated with sweating. These episodes lasted for a day, last episode lasted for almost a week. Does not feel great the following day. In between episodes of diarrhea she is constipated.? Notes bloating when she is constipated. Patient was using stool softeners for constipation which she found helpful Patient admits to taking NSAIDs rarely, usually takes Tylenol. Denies known family history of IBD. Her dad had flat polyps and had part of the colon removed. Maternal aunt had her colon and part of small intestine removed for diverticulitis. Patient admits to losing weight - unsure how much weight has she lost since she does not weigh herself regularly RECOMMENDATIONS. 1.? Linda was advised to start Pentasa 1 g twice daily. 2. She will have lab tests checked in 4 weeks. 3. Follow-up appointment as scheduled on 06/11/2021. 4.? Handout on Crohn's disease and mesalamine was mailed to?the?patient IMAGING STUDIES:? 03/2022 KUB SHOWED: ?Moderate stool in the colon. Most of markers were present in the rectum indicating outlet delay or dyssynergia defecation. 04/06/[address] SCAN SHOWED 1. No obstruction or bowel wall thickening or focal visible intestinal lesion. 2. Sliding hiatal hernia 5 x 4 cm. 3. Congenital horseshoe kidney. ENDOSCOPIC STUDIES: 06/03/23 EGD SHOWED: ESOPHAGUS: Mildly tortuous esophagus with increased tertiary contractions without stricture or ring. Biopsies were obtained from proximal esophagus to check for EOE. Small hiatal hernia 35 to 37 cms. Empiric esophageal balloon dilation was performed with a 19 mm (57 F) balloon for 60 seconds STOMACH: Mild gastritis. Dysphagia is likely related to esophageal motility disorder. Plan: Await pathology results.? If biopsies are normal and symptoms persist, further evaluation with a barium swallow. Patient has an appointment on 06/19/23 in the GI Clinic with Brad Ko M.D. BIOPSIES SHOWED: A.? Stomach, antrum, biopsy:? Antral-type mucosa with mild chronic inactive inflammation; no Helicobacter organisms seen. B.? Esophagus, proximal, biopsy: - Squamous epithelium within normal limits; no inflammation seen. - Small fragment of gastric mucosa with mild chronic inactive inflammation; no i ntestinal metaplasia identified. 02/17/23 COLONOSCOPY SHOWED: Colonoscopy Findings: Terminal Ileum:? Distal 10 cm was examined and appeared normal except one 6-7 mm superficial ulcer - biopsies showed A.? Terminal ileum, biopsy:? Chronic inactive ileitis. No polyps were detected Random biopsies were obtained from the TI, right and left colon to check for Crohn's disease - normal Moderate diverticulosis seen in the entire colon Plan:? Repeat Colonoscopy interval based on path results - in 5 years if biopsies are normal in due to a history of adenomatous colon polyps Above findings were reviewed with the patient and diverticulosis handouts were given in the discharge area 03/20/21 COLONOSCOPY SHOWED: Scattered 5-8 mm chronic appearing ulcers in the TI - biopsies showed: Chronic inactive ileitis; focus of granulation tissue; no granulomata or dysplasia seen. Random biopsies obtained from the right and left colon Three small to medium sized adenomatous polyps removed Moderate diverticulosis seen in the left colon Plan:? Given elevated CRP, and TI ulcers, recommend checking IBD serologies and Fecal calprotectin.? If these are elevated, consider treatment with mesalamine (Lialda). Repeat Colonoscopy interval based on path results - in 3 - 5? years if polyps are adenomatous and 10 years if polyps are hyperplastic. [facility] Medical History (Updated 02/08/25 @ 12:48 by Brad Ko MD) Depression Crohn disease Migraines HLD (hyperlipidemia) Horseshoe kidney Nasal airway abnormality Surgical History History of esophagogastroduodenoscopy (EGD) Hx of colonoscopy S/P sinus surgery Hx of breast implants, bilateral Family History Father Hx of colonoscopy S/P left colectomy Paternal Grandfather Pancreatic cancer Paternal Grandmother Dementia Maternal Grandfather Prostate cancer Social History Household Members: Spouse Alcohol intake: current Alcohol intake frequency: holidays/special occasions only Patient Tobacco Use Status: Never used Tobacco Current occupational status: unemployed Physical Exam Vital Signs: Last Vital Signs Pulse 62 02/08/25 12:07 BP 142/69 H 02/08/25 12:07 Pulse Ox 97 02/08/25 12:07 Oxygen Delivery Method Room Air 02/08/25 12:07 BMI result Body Mass Index 38.8 Const General: healthy appearing and no acute distress Nutritional Appearance: obese Orientation/consciousness: patient oriented x3 Limitations: no limitations HEENT Head: Yes normal to inspection Ears: hearing grossly normal bilaterally Eyes Sclerae: sclerae normal Pupils: Equal, round and reactive pupils present Neck Neck: Yes normal visual inspection Chest Chest palpation & inspection: normal inspection of the chest Resp Effort & Inspection: normal respiratory effort Auscultation: clear to auscultation bilaterally Cardio Palpation: normal PMI Rate: regular rate Rhythm: regular rhythm Heart sounds: S1 normal heart sound present, S2 normal heart sound present and no murmurs GI Palpation (GI): Soft to palpation, nontender and No hepatosplenomegaly present Auscultation: normal bowel sounds Rectal Exam - Female: deferred Skin General skin exam: no rashes or lesions noted Neuro General: patient oriented x3, gait normal and moves all extremities Cranial nerves: Yes Equal, round and reactive pupils present Psych Appearance: grossly normal Mental Status: mental status grossly normal Assessment & Plan Assessment & Plan (1) Abdominal pain: Comment: Colon- procedure report and path reviewed-abdominal pain and alternating stool- r/o chrons- CT enterography update blood work-B12, iron studies Stool calprotectin r/o ibd Code(s): R10.9 - Unspecified abdominal pain Category: Medical (2) Diarrhea: Code(s): R19.7 - Diarrhea, unspecified Category: Medical (3) Crohn's disease involving terminal ileum: Code(s): K50.00 - Crohn's disease of small intestine without complications Category: Medical (4) Chronic constipation: Code(s): K59.09 - Other constipation Category: Medical (5) GERD (gastroesophageal reflux disease): Code(s): K21.9 - Gastro-esophageal reflux disease without esophagitis Category: Medical (6) Nausea: Code(s): R11.0 - Nausea Category: Medical (7) Crohn disease: Code(s): K50.90 - Crohn's disease, unspecified, without complications Category: Medical Plan 55 YF with hyperlipidemia, migraine headaches and horseshoe kidney followed in GI for abdominal pain, constipation alternating with diarrhea. Patient was diagnosed with Crohn's disease during colonoscopy in 03/2021 and was started on Pentasa 1 g three times daily. CRP and sed rate were normal.? Fecal calprotectin was elevated at 197 prior to starting the test and decreased to 79 (on Pentasa). 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 She also complains intermittent episodes of fecal incontinence at night and during sexual intercourse - improved. She is eating less and has lost 20 lbs. TPMT assay showed intermediate enzyme activity. Patient was advised a trail of Ondansetron for nausea and hyoscyamine for abdominal pain 02/2021 CRP slightly elevated at 0.76 and FU CRP has been normal Sitz marker study:??03/2022 KUB SHOWED: ?Moderate stool in the colon. Most of markers were present in the rectum indicating outlet delay or dyssynergia defecation. Linzess 145 mcg daily has been helping her symptoms. Patient had anorectal manometry with biofeedback in 05/2023 at [facility] and report has been requested. 02/17/23 colonoscopy was performed and findings as noted above (advised to hold Pentasa for 4 weeks prior to colonoscopy appt) 02/21/23? Reviewed biopsy results with the pt. Patient had held mesalamine 4 weeks prior to her colonoscopy. I advised her to resume taking mesalamine and have a fecal calprotectin checked after 4 weeks. 06/01 Upper endoscopy was performed for evaluation of dysphagia and findings as noted above.? 05/14/23 Pt had anorectal manometry at [facility]. pt called and anorctal manometry results were reviewed with her: IMPRESSION: Anal normotension with hypocontractility Rectal hypersensitivity, consistent with chronic constipation. Normal balloon expulsion with abnormal pattern of rectal anal coordination. Type 3 dyssynergic defecation pattern, and though balloon expulsion is normal note is made of abnormal Sitz marker study with markers collected in the rectum which would fullfill the 2nd criteria to diagnose this patient with type 3 dyssynergic defecation if she also has constipation not responding to laxatives. Episodes of fecal incontinence may be related to overflow in the setting of anal hypocontractility. Please note high rates of abnormal anorectal manometry findings can be expected even in asymptomatic patients Pt reports doing pelvic floor therapy for 2 months without significant difference in her symptoms. Pt is scheduled for rectocele repair and sling surgery on 07/28/2023 at [facility] 06/19/23 Symptoms of dysphagia improved after EGD with balloon dilation. I will obtain a barium swallow patient notes recurrent dysphagia in the future 10/23/23 I had a couple of smaller flare ups - felt like a heavy period cramp rather than pain Had rectocele repair in 07/2023 - went well Notes intermittent incontinence - feels she is wet while walking. - has been trying different things to see what works. When she sits on the toilet - has dumping of the stool and everything comes. takes Linzess 1 tab daily and increases to two tab if she has constipation Swallowing is good. Whole body aches. 02/08/25 Had to switch to Lialda 6 weeks ago since Tree was not covered Doing well on Lialda Advised to check labs FU in 6 months - scheduled 08/11/25 Orders: Orders Complete Blood Count Auto Diff 02/08/25 K50.90 - Crohn's disease, unspecified, without complications C Reactive Protein 02/08/25 K50.90 - Crohn's disease, unspecified, without complications Comprehensive Met. Panel 02/08/25 K50.90 - Crohn's disease, unspecified, without complications Coding Level of Care Code Est Pt Level 4 (86459) Diagnoses Abdominal pain R10.9 Diarrhea R19.7 Crohn's disease involving terminal ileum K50.00 Chronic constipation K59.09 GERD (gastroesophageal reflux disease) K21.9 Nausea R11.0 Crohn disease K50.90 Time Spent (min) 21
[2025-02-08 12:07] VITALS: BP 142/69; PULSE 62; O2SAT 97; BMI 38.8
--- OUTSIDE RECORDS SUMMARY | 2025-02-08 14:24 | XMS_ITS | Encounter Summary ---
Author Organization [employer] Address [address] [place] [address] [address] [place] [address] Care Team Providers Care Rag Cutting Machine Operator Name Role Phone Kalie Calzada MD Primary Care Provider [phone] Encounter Details Date Type Department Care Team (Late Contact Info) Description 05/20/2024 Orders Only [facility] [address] [place], [place] [id number] Kalie Calzada MD [address] [place] [address] Class 3 severe obesity due to excess [...] Office Visit [facility] [address] [place] [address] Kalie Calzada MD [address] [place] [address] documented as of this encounter Visit Diagnoses Diagnosis Class 3 severe obesity due to excess calories without serious comorbidity with body mass index (BMI) of 40.0 to 44.9 in adult (CMS/FORMERLY [facility])- Primary documented in this encounter Additional Health Concerns Assessment Noted Time PHQ-9 Depression Total Score: 14 023 11:22 AM EDT documented as of this encounter Care Teams Rag Cutting Machine Operator Relationship Specialty Start Date End Date Kalie Calzada MD [address] [place] [address] PCP - General Internal Medicine 11/16/13 documented as of this encounter
--- OUTSIDE RECORDS SUMMARY | 2025-02-08 14:24 | XMS_ITS | Encounter Summary ---
Author Organization [employer] [facility] Address [address] [place] [address] 7t [place] [address] Care Team Providers Care American Sign Language Teacher Name Role Phone Kalie Calzada MD Primary Care Provider [phone] Encounter Details Date Type Department Care Team (Late st Contact Info) Description 08/09/2024 Orders Only [facility] [address] [place], [place] [phone] Kalie Calzada MD 505 [place] [address] Stress incontinence in female (Primary Dx) Social [...] 03/10/2025 9:45 AM EDT Office Visit [facility] MED & PEDS 505 [place] [address] Kalie Calzada MD 505 [place] [address] documented as of this encounter Procedures Procedure Name Priority Date/Time Associated Diagnosis Comments URINALYSIS, COMPLETE, WITH REFLEX TO CULTURE Routine 08/10/2024 12:28 PM EDT Stress incontinence in female documented in this encounter Results * (ABNORMAL) Urinalysis, Complete, with Reflex to Culture (08/10/2024 12:28 PM EDT) Color Urine Yellow [facility] Appearance Urine Clear [facility] PH 5.5 5.0 - 9.0 [facility] Glucose Urine UA Negative Negative mg/dL [facility] Urine Blood Negative Negative [facility] Specific [place] - Urine 1.020 1.005 - 1.025 [facility] Urine Protein Negative Neg-Trace mg/dL [facility] Urine Ketones Trace Negative mg/dL [facility] Nitrite Urine Negative Negative [facility] Leukocyte Esterase Urine Small (1+)(A) Negative [facility] RBC Urine 0-2 0 - 2 /HPF [facility] Urine WBC 0-5 0 - 5 /HPF [facility] Urine Squamous Epithelial Cell 11-20 0 - 2 /HPF [facility] Urine Bacteria None Seen None Seen [facility] Hyaline Casts, Urine 0-2 0 - 2 /LPF [facility] Urine 08/10/2024 12:2 8 PM EDT 08/10/2024 5:54 PM EDT Narrative [facility] - 08/10/2024 6:21 PM EDT Urine, Catheterized us Kalie Calzada MD LAB URINE ORDERABLES Final Result [facility] [address] [place] [address] [phone] documented in this encounter Visit Diagnoses Diagnosis Stress incontinence in female- Primary documented in this encounter Additional Health Concerns Assessment Noted Time PHQ-9 Depression Total Score: 14 023 11:22 AM EDT documented as of this encounter Care Teams American Sign Language Teacher Relationship Specialty Start Date End Date Kalie Calzada MD 505 [facility] [place] [address] PCP - General Internal Medicine 11/16/13 documented as of this encounter
--- OUTSIDE RECORDS SUMMARY | 2025-02-08 14:24 | XMS_ITS | Encounter Summary ---
Author Organization [employer] Address [address] [place] [address] 7 [place] [address] Care Team Providers Care Bunghole Borer Name Role Phone Kalie Calzada MD Primary Care Provider [phone] Reason for Visit * Reason Onset Date Comments New script 03/17/2023 Encounter Details Date Type Department Care Team ([facility] st Contact Info) Description 03/17/2023 Telephone [facility] CHC MED & PEDS [address] [place], [place] [phone] Kalie Calzada MD 505 [place] [address] New script Social History Tobacco Use Types [...] Miscellaneous Notes * Telephone Encounter - Louie Tovar Mercedes - 03/17/2023 10:11 AM EDT Tc from [place] with [facility] requesting a new script for Famotidine 20 mg tablet due to insurance insurance requires. Please contact Pharmacy to verify at [phone] documented in this encounter Plan of Treatment Upcoming Encounters Date Type Department Care Team ([facility] st Contact Info) Description 03/10/2025 9:45 AM EDT Office Visit [facility] MED & PEDS [address] [place] [address] Kalie Calzada MD 505 [place] [address] documented as of this encounter Visit Diagnoses Not on filedocumented in this encounter Care Teams Bunghole Borer Relationship Specialty Start Date End Date Kalie Calzada MD [address] [place] [address] PCP - General Internal Medicine 11/16/13 documented as of this encounter
--- OUTSIDE RECORDS SUMMARY | 2025-02-08 14:24 | XMS_ITS | Encounter Summary ---
Author Organization [employer] [facility] Address [address] [place] [address] 7 [place] [address] Care Team Providers Care Hobbing Press Operator Name Role Phone Kalie Calzada MD Primary Care Provider [phone] Encounter Details Date Type Department Care Team (Late Contact Info) Description 04/15/2023 Orders Only [facility] MED & PEDS [address] [place] [address] Kalie Calzada MD 505 [place] [address] Venous insufficiency Social History Tobacco Use Types [...] 03/10/2025 9:45 AM EDT Office Visit [facility] MED & PEDS [address] [place] [address] Kalie Calzada MD [address] [place] [address] documented as of this encounter Visit Diagnoses Diagnosis Venous insufficiency Unspecified venous (peripheral) insufficiency documented in this encounter Care Teams Hobbing Press Operator Relationship Specialty Start Date End Date Kalie Calzada MD [address] [place] [address] PCP - General Internal Medicine 11/16/13 documented as of this encounter
--- OUTSIDE RECORDS SUMMARY | 2025-02-08 14:24 | XMS_ITS | Encounter Summary ---
Author Organization [employer] Address [address] [place] [address] 7 [place] [address] Care Team Providers Care Health Coordinator Name Role Phone Kalie Calzada MD Primary Care Provider [phone] Reason for Visit * Reason Onset Date Comments Medication Question 06/12/2023 Encounter Details Date Type Department Care Team ([facility] Contact Info) Description 06/12/2023 Telephone [facility] CHC MED & PEDS [address] [place], [place] [phone] Kalie Calzada MD 505 [place], [place] [phone] Medication Question Social History Tobacco Use Types [...] UTI. Any questions, please contact pt at [phone] documented in this encounter Plan of Treatment Upcoming Encounters Date Type Department Care Team (Late st Contact Info) Description 03/10/2025 9:45 AM EDT Office Visit [facility] MED & PEDS [address] [place] [address] Kalie Calzada MD [address] [place] [address] documented as of this encounter Visit Diagnoses Not on filedocumented in this encounter Care Teams Health Coordinator Relationship Specialty Start Date End Date Kalie Calzada MD 505 [place] [address] PCP - General Internal Medicine 11/16/13 documented as of this encounter
--- OUTSIDE RECORDS SUMMARY | 2025-02-08 14:24 | XMS_ITS | Encounter Summary ---
Author Organization [employer] Address [address] [facility] 7t [place] [address] Care Team Providers Care Senior Pricing Analyst Name Role Phone Kalie Calzada MD Primary Care Provider [phone] Encounter Details Date Type Department Care Team ([facility] Contact Info) Description 07/07/2024 Orders Only [facility] CHC MED & PEDS 505 [place], [place] [phone] Kalie Calzada MD 505 [place] [address] Class 3 severe obesity due to excess [...] Upcoming Encounters Date Type Department Care Team ([facility] Contact Info) Description 03/10/2025 9:45 AM EDT Office Visit [facility] CHC MED & PEDS 505 [place] [address] Kalie Calzada MD 505 [place] [address] documented as of this encounter Visit Diagnoses Diagnosis Class 3 severe obesity due to excess calories with serious comorbidity and body mass index (BMI) of 40.0 to 44.9 in adult ([facility])- Primary Other insomnia documented in this encounter Additional Health Concerns Assessment Noted Time PHQ-9 Depression Total Score: 14 023 11:22 AM EDT documented as of this encounter Care Teams Senior Pricing Analyst Relationship Specialty Start Date End Date Kalie Calzada MD 505 [place] [address] PCP - General Internal Medicine 11/16/13 documented as of this encounter
--- OUTSIDE RECORDS SUMMARY | 2025-02-08 14:24 | XMS_ITS | Encounter Summary ---
Author Organization [employer] Address 75 [facility] 7t [place] [address] Care Team Providers Care Pet Care Attendant Name Role Phone Kalie Calzada MD Primary Care Provider [phone] Reason for Visit * Reason Comments Med Refill Encounter Details Date Type Department Care Team ([facility] Contact Info) Description 11/25/2024 Refill [facility] CHC MED & PEDS 505 [place], [place] [phone] Kalie Calzada MD 505 [place] [address] Social History Tobacco Use Types Packs/Day Years [...] Description 03/10/2025 9:45 AM EDT Office Visit [facility] CHC MED & PEDS [address] [place] [address] Kalie Calzada MD 505 [place] [address] documented as of this encounter Visit Diagnoses Not on filedocumented in this encounter Additional Health Concerns Assessment Noted Time PHQ-9 Depression Total Score: 0 11/16/19 25 1:54 PM EST documented as of this encounter Care Teams Pet Care Attendant Relationship Specialty Start Date End Date Kalie Calzada MD 505 [place] [address] PCP - General Internal Medicine 11/16/13 documented as of this encounter
--- OUTSIDE RECORDS SUMMARY | 2025-02-08 14:24 | XMS_ITS | Encounter Summary ---
Author Organization [employer] Address [address] [facility] 7t [place] [address] Care Team Providers Care Soap Chipper Name Role Phone Kalie Calzada MD Primary Care Provider [phone] Reason for Visit * Reason Comments Med Refill Encounter Details Date Type Department Care Team ([facility] Contact Info) Description 11/22/2024 Refill [facility] CHC MED & PEDS [address] [place], [place] [phone] Kalie Calzada MD 505 [place] [address] Left thigh pain Social History Tobacco Use [...] [facility] 505 [place] [address] Kalie Calzada MD [address] [place] [address] documented as of this encounter Visit Diagnoses Diagnosis Left thigh pain Pain in soft tissues of limb documented in this encounter Additional Health Concerns Assessment Noted Time PHQ-9 Depression Total Score: 0 11/16/19 25 1:54 PM EST documented as of this encounter Care Teams Soap Chipper Relationship Specialty Start Date End Date Kalie Calzada MD [address] [place] [address] PCP - General Internal Medicine 11/16/13 documented as of this encounter
--- OUTSIDE RECORDS SUMMARY | 2025-02-08 14:24 | XMS_ITS | Encounter Summary ---
Author Organization [employer] Address [address] [place] [address] 7 [place] [address] Care Team Providers Care Chip Person Name Role Phone Kalie Calzada MD Primary Care Provider [phone] Reason for Referral * Imaging (Routine) - Closed Specialty Diagnoses / Procedures Referred By Contac t Referred To Contact Cardiology Diagnoses Venous insufficiency Procedures Vascular US lower extremity venous duplex bilateral Kalie Calzada MD [address] [place] [address] Phone: tel: fax: [address] Phone: tel: fax: Referral ID Status Reason Start Date Expiration Date V isits Requested Visits Authorized [id number] Closed Perform Procedure 03/27/2023 03/26/2024 1 1 Encounter Details Date Type Department Care Team (Late st Contact Info) Description 03/27/2023 Orders Only [facility] CHC MED & PEDS [address] [place], [place] [phone] Kalie Calzada MD 505 [place], [place] [phone] Venous insufficiency (Primary Dx) Social History Tobacco [...] Upcoming Encounters Date Type Department Care Team ([facility] st Contact Info) Description 03/10/2025 9:45 AM EDT Office Visit [facility] CHC MED & PEDS [address] [place] [address] Klaie Calzada MD 505 [place] [address] documented as of this encounter Procedures Procedure Name Priority Date/Time Associated Diagnosis Comments [facility] LOWER EXTREMITY VENOUS DUPLEX BILATERAL Routine 03/27/2023 3:45 PM EDT documented in this encounter Results * [facility] Lower Extremity Venous Duplex Bilateral (03/27/2023 3:45 PM EDT) 03/27/2023 3:45 PM EDT Narrative [facility] - 03/27/2023 4:00 PM EDT ? [facility] ?[address] ?[place] [address] ? Ultrasound Report ? Signed ? Patient: Yu,Linda ?MR#: [id number] ? : 1970 ?Acct:[id number] ? Age/Sex: 53 / F ?ADM Date: 05/18/23 ? Loc: HO.US ? Attending Dr: Kalie Calzada MD ? Ordering Physician: Kalie Calzada MD ?? Date of Service: 03/27/23 ?? Procedure(s): US venous duplex LE BI ?? Accession Number(s): [id number] ? cc: Kalie Calzada MD ? EXAMINATION: [...] 1557 ? DD/ 1545 ? TD/TT: ? Chaplain: SS ? Procedure Note Jessie, Image - 05/08/[address] [address] Ultrasound Report Signed Patient: Lisa Nicholas#: [id number] : 1970Acct:[id number] Age/Sex: 53 / FADM Date: 03/27/23 Loc: HO.US Attending Dr: Kalie Calzada MD Ordering Physician: Kalie Calzada MD Date of Service: 03/27/23 Procedure(s): US venous duplex LE BI Accession Number(s): [id number] cc: Kalie Calzada MD EXAMINATION: US VENOUS ULTRASOUND WITH DOPPLER [...] in OV> 03/27/23 1557 DD/ 1545 TD/TT: Chaplain: SS us [facility] External Provider CV VASC ULAR PROCEDURES Final Result [facility] [address] [place] [address] documented in this encounter Visit Diagnoses Diagnosis Venous insufficiency- Primary Unspecified venous (peripheral) insufficiency documented in this encounter Care Teams Chip Person Relationship Specialty Start Date End Date Kalie Calzada MD [address] [place] [address] PCP - General Internal Medicine 11/16/13 documented as of this encounter
--- OUTSIDE RECORDS SUMMARY | 2025-02-08 14:24 | XMS_ITS | Encounter Summary ---
Author Organization [employer] [facility] Address [address] [place] [address] 7 [place] [address] Care Team Providers Care Interactive Video Technician Name Role Phone Kalie Calzada MD Primary Care Provider [phone] Reason for Visit * Reason Onset Date Comments Med Refill 07/13/2024 Encounter Details Date Type Department Care Team (Late st Contact Info) Description 07/13/2024 Refill [facility] MED & PEDS [address] [place] [address] Kalie Calzada MD 505 [place] [address] Social History Tobacco Use Types Packs/Day Years [...] 03/10/2025 9:45 AM EDT Office Visit [facility] MED & PEDS 505 [place] [address] Kalie Calzada MD 505 [place] [address] documented as of this encounter Visit Diagnoses Not on filedocumented in this encounter Additional Health Concerns Assessment Noted Time PHQ-9 Depression Total Score: 14 023 11:22 AM EDT documented as of this encounter Care Teams Interactive Video Technician Relationship Specialty Start Date End Date Kalie Calzada MD 505 [place] [address] PCP - General Internal Medicine 11/16/13 documented as of this encounter
--- OUTSIDE RECORDS SUMMARY | 2025-02-08 14:24 | XMS_ITS | Encounter Summary ---
Author Organization [employer] [facility] Address [address] [place] [address] Care Team Providers Care Computer Numerical Control Machinist Name Role Phone Kalie Calzada MD Primary Care Provider [phone] Reason for Visit * Reason Onset Date Comments Med Refill 06/13/2023 Encounter Details Date Type Department Care Team ([facility] Contact Info) Description 06/13/2023 Refill [facility] MED & PEDS [address] [place] [address] Kalie Calzada MD 505 [place] [address] Social History Tobacco Use Types Packs/Day Years [...] [facility] MED & PEDS [address] [place] [address] Kalie Calzada MD 505 [place] [address] documented as of this encounter Visit Diagnoses Not on filedocumented in this encounter Care Teams Computer Numerical Control Machinist Relationship Specialty Start Date End Date Kalie Calzada MD [address] [place] [address] PCP - General Internal Medicine 11/16/13 documented as of this encounter
--- OUTSIDE RECORDS SUMMARY | 2025-02-08 14:24 | XMS_ITS | Encounter Summary ---
Author Organization [employer] Address [address] [facility] 7 [place] [address] Care Team Providers Care Bark Peeler Name Role Phone Kalie Calzada MD Primary Care Provider [phone] Reason for Visit * Reason Onset Date Comments Med Refill 11/24/2024 Encounter Details Date Type Department Care Team ([facility] st Contact Info) Description 11/24/[address] [facility] CHC MED & PEDS 505 [place], [place] [phone] Kalie Calzada MD 505 [place] [address] Left thigh pain Social History Tobacco Use [...] with others, in a hotel, in a mcfp, living outside on the street, on a [...] [facility] MED & PEDS 505 [place] [address] Kalie Calzada MD 505 [place] [address] documented as of this encounter Visit Diagnoses Diagnosis Left thigh pain Pain in soft tissues of limb documented in this encounter Additional Health Concerns Assessment Noted Time PHQ-9 Depression Total Score: 0 11/16/19 25 1:54 PM EST documented as of this encounter Care Teams Bark Peeler Relationship Specialty Start Date End Date Kalie Calzada MD 505 [place] [address] PCP - General Internal Medicine 11/16/13 documented as of this encounter
--- OUTSIDE RECORDS SUMMARY | 2025-02-08 14:24 | XMS_ITS | Encounter Summary ---
Author Organization [employer] Address 75 [facility] 7 [place] [address] Care Team Providers Care Continuous Mining Machine Company Miner Name Role Phone Kalie Calzada MD Primary Care Provider [phone] Reason for Visit * Reason Onset Date Comments Med Refill 11/30/2024 Encounter Details Date Type Department Care Team ([facility] st Contact Info) Description 11/30/2024 Refill [facility] CHC MED & PEDS [address] [place], [place] [phone] Kalie Calzada MD 505 [place] [address] Crohn's disease of small intestine without complication [...] with others, in a hotel, in a group home, living outside on the street, on [...] 9:45 AM EDT Office Visit [facility] CHC MED & PEDS [address] [place] [address] Kalie Calzada MD [address] [place] [address] documented as of this encounter Visit Diagnoses Diagnosis Crohn's disease of small intestine without complication (CMS/HCC) documented in this encounter Additional Health Concerns Assessment Noted Time PHQ-9 Depression Total Score: 0 11/16/19 25 1:54 PM EST documented as of this encounter Care Teams Continuous Mining Machine Company Miner Relationship Specialty Start Date End Date Kalie Calzada MD 505 [place] [address] PCP - General Internal Medicine 11/16/13 documented as of this encounter
--- OUTSIDE RECORDS SUMMARY | 2025-02-08 14:24 | XMS_ITS | Encounter Summary ---
Author Organization [employer] Address [address] [facility] 7t [place] [address] Care Team Providers Care Senior Accounting Associate Name Role Phone Kalie Calzada MD Primary Care Provider [phone] Encounter Details Date Type Department Care Team (Late st Contact Info) Description 01/21/2025 Orders Only [facility] MEDICINE [address] [place] [address] Kalie Calzada MD 505 [place] [address] Class 2 obesity due to excess calories [...] Description 03/10/2025 9:45 AM EDT Office Visit [facility] CHC MED & PEDS 505 [place] [address] Kalie Calzada MD [address] [place] [address] documented as of this encounter Visit Diagnoses [...] as of this encounter Care Teams Senior Accounting Associate Relationship Specialty Start Date End Date Kalie Calzada MD [address] [place] [address] PCP - General Internal Medicine 11/16/13 documented as of this encounter
--- OUTSIDE RECORDS SUMMARY | 2025-02-08 14:24 | XMS_ITS | Encounter Summary ---
Author Organization [employer] [facility] Address [address] [place] [address] 7 [place] [address] Care Team Providers Care Body Die Maker Name Role Phone Kalie Calzada MD Primary Care Provider [phone] Reason for Visit * Reason Onset Date Comments Med Refill 09/06/2024 Encounter Details Date Type Department Care Team (Late st Contact Info) Description 09/06/2024 Refill [facility] MED & PEDS [address] [place] [address] Kalie Calzada MD [address] [place] [address] Social History Tobacco Use Types Packs/Day Years [...] [facility] MED & PEDS [address] [place] [address] Kalie Calzada MD [address] [place] [address] documented as of this encounter Visit Diagnoses Not on filedocumented in this encounter Additional Health Concerns Assessment Noted Time PHQ-9 Depression Total Score: 14 023 11:22 AM EDT documented as of this encounter Care Teams Body Die Maker Relationship Specialty Start Date End Date Kalie Calzada MD 505 [place] [address] PCP - General Internal Medicine 11/16/13 documented as of this encounter
--- OUTSIDE RECORDS SUMMARY | 2025-02-08 14:24 | XMS_ITS | Encounter Summary ---
Author Organization [employer] [facility] Address [address] [place] [address] 7 [place] [address] Care Team Providers Care Repairer Handtools Name Role Phone Kalie Calzada MD Primary Care Provider [phone] Reason for Visit * Reason Comments Med Change Request Encounter Details Date Type Department Care Team ([facility] Contact Info) Description 03/27/2023 Refill [facility] CHC MED & PEDS [address] [place] [address] Kalie Calzada MD [address] [place] [address] Venous insufficiency Social History Tobacco Use Types [...] Upcoming Encounters Date Type Department Care Team ([facility] Contact Info) Description 03/10/2025 9:45 AM EDT Office Visit [facility] CHC MED & PEDS [address] [place] [address] Kalie Calzada MD 505 [place], [place] [phone] documented as of this encounter Visit Diagnoses Diagnosis Venous insufficiency Unspecified venous (peripheral) insufficiency documented in this encounter Care Teams Repairer Handtools Relationship Specialty Start Date End Date Kalie Calzada MD [address] [place] [address] PCP - General Internal Medicine 11/16/13 documented as of this encounter
--- OUTSIDE RECORDS SUMMARY | 2025-02-08 14:24 | XMS_ITS | Encounter Summary ---
Author Organization [employer] [facility] Address [address] [place] [address] 7 [place] [address] Care Team Providers Care Rivet Hammer Machine Operator Name Role Phone Kalie Calzada MD Primary Care Provider [phone] Reason for Visit * Reason Comments Med Change Request Encounter Details Date Type Department Care Team ([facility] Contact Info) Description 04/16/2023 Refill [facility] MED & PEDS [address] [place] [address] Kalie Calzada MD 505 [place] [address] Venous insufficiency Social History Tobacco Use Types [...] Upcoming Encounters Date Type Department Care Team ([facility] Contact Info) Description 03/10/2025 9:45 AM EDT Office Visit [facility] CH[facility] MED & PEDS [address] [place], [place] [phone] Kalie Calzada MD [address] [place], [place] [phone] documented as of this encounter Visit Diagnoses Diagnosis Venous insufficiency Unspecified venous (peripheral) insufficiency documented in this encounter Care Teams Rivet Hammer Machine Operator Relationship Specialty Start Date End Date Kalie Calzada MD [address] [place] [address] PCP - General Internal Medicine 11/16/13 documented as of this encounter
--- OUTSIDE RECORDS SUMMARY | 2025-02-08 14:24 | XMS_ITS | Encounter Summary ---
Author Organization [employer] [facility] Address [address] [place] [address] 7 [place] [address] Care Team Providers Care Scrap Dealer Name Role Phone Kalie Calzada MD Primary Care Provider [phone] Reason for Visit * Reason Comments Med Change Request Encounter Details Date Type Department Care Team ([facility] Contact Info) Description 03/27/2023 Refill [facility] CHC MED & PEDS [address] [place] [address] Kalie Calzada MD 505 [place] [address] Venous insufficiency Social History Tobacco Use Types [...] Upcoming Encounters Date Type Department Care Team ([facility] Contact Info) Description 03/10/2025 9:45 AM EDT Office Visit [facility] CHC MED & PEDS [address] [place] [address] Kalie Calzada MD 505 [place], [place] [phone] documented as of this encounter Visit Diagnoses Diagnosis Venous insufficiency Unspecified venous (peripheral) insufficiency documented in this encounter Care Teams Scrap Dealer Relationship Specialty Start Date End Date Kalie Calzada MD [address] [place] [address] PCP - General Internal Medicine 11/16/13 documented as of this encounter
--- OUTSIDE RECORDS SUMMARY | 2025-02-08 14:24 | XMS_ITS | Encounter Summary ---
Author Organization [employer] Address [address] [facility] 7 [place] [address] Care Team Providers Care Faculty Research Assistant Name Role Phone Kalie Calzada MD Primary Care Provider [phone] Reason for Visit * Reason Onset Date Comments Med Refill 11/30/2024 Encounter Details Date Type Department Care Team ([facility] Contact Info) Description 11/30/2024 Telephone [facility] CH[facility] MED & PEDS [address] [place], [place] [phone] Kalie Calzada MD 505 [place] [address] Med Refill Social History Tobacco Use Types [...] with others, in a hotel, in a detention, living outside on the street, on a [...] status of Prior medication. Contact pt at [phone] documented in this encounter Plan of Treatment Upcoming Encounters Date Type Department Care Team ([facility] st Contact Info) Description 03/10/2025 9:45 AM EDT Office Visit [facility] MED & PEDS [address] [place] [address] Kalie Calzada MD [address] [place] [address] documented as of this encounter Visit Diagnoses Not on filedocumented in this encounter Additional Health Concerns Assessment Noted Time PHQ-9 Depression Total Score: 0 11/16/19 25 1:54 PM EST documented as of this encounter Care Teams Faculty Research Assistant Relationship Specialty Start Date End Date Kalie Calzada MD 505 [place] [address] PCP - General Internal Medicine 11/16/13 documented as of this encounter
--- OUTSIDE RECORDS SUMMARY | 2025-02-08 14:24 | XMS_ITS | Encounter Summary ---
Author Organization [employer] [facility] Address [address] [place] [address] 7t [place] [address] Care Team Providers Care Statistical Reporting Analyst Name Role Phone Kalie Calzada MD Primary Care Provider [phone] Encounter Details Date Type Department Care Team (Late Contact Info) Description 09/20/2024 Orders Only [facility] MED & PEDS [address] [place], [place] [phone] Kalie Calzada MD 505 [place] [address] SOB (shortness of breath) (Primary Dx); Cough, [...] Description 03/10/2025 9:45 AM EDT Office Visit [facility] MED & PEDS [address] [place] [address] Kalie Calzada MD [address] [place] [address] documented as of this encounter Visit Diagnoses Diagnosis SOB (shortness of breath)- Primary Shortness of breath Cough, unspecified type documented in this encounter Additional Health Concerns Assessment Noted Time PHQ-9 Depression Total Score: 14 023 11:22 AM EDT documented as of this encounter Care Teams Statistical Reporting Analyst Relationship Specialty Start Date End Date Kalie Calzada MD [address] [place] [address] PCP - General Internal Medicine 11/16/13 documented as of this encounter
--- OUTSIDE RECORDS SUMMARY | 2025-02-08 14:24 | XMS_ITS | Encounter Summary ---
Author Organization [employer] Address [address] [facility] 7t [place] [address] Care Team Providers Care Mold Loft Worker Name Role Phone Kalie Calzada MD Primary Care Provider [phone] Reason for Visit * Reason Comments Med Change Request Encounter Details Date Type Department Care Team ([facility] st Contact Info) Description 01/31/2025 Refill [facility] MEDICINE [address] [place], [place] [phone] Kalie Calzada MD 505 [place] [address] Class 2 obesity due to excess calories [...] Description 03/10/2025 9:45 AM EDT Office Visit [facility] CHC MED & PEDS 505 [place] [address] Kalie Calzada MD 505 [place] [address] documented as of this encounter Visit Diagnoses Diagnosis Class 2 obesity due to excess calories without serious comorbidity with body mass index (BMI) of 37.0 to 37.9 in adult documented in this encounter Additional Health Concerns Assessment Noted Time PHQ-9 Depression Total Score: 0 11/16/19 25 1:54 PM EST documented as of this encounter Care Teams Mold Loft Worker Relationship Specialty Start Date End Date Kalie Calzada MD 505 [place] [address] PCP - General Internal Medicine 11/16/13 documented as of this encounter
--- OUTSIDE RECORDS SUMMARY | 2025-02-08 14:24 | XMS_ITS | Encounter Summary ---
Author Organization [employer] [facility] Address [address] [place] [address] [place] [address] Care Team Providers Care Reading Intervention Teacher Name Role Phone Kalie Calzada MD Primary Care Provider [phone] Reason for Visit * Reason Comments Med Refill Encounter Details Date Type Department Care Team ([facility] Contact Info) Description 08/08/2023 Refill [facility] MED & PEDS [address] [place] [address] Kalie Calzada MD 505 [place] [address] Left thigh pain Social History Tobacco Use [...] Upcoming Encounters Date Type Department Care Team ([facility] Contact Info) Description 03/10/2025 9:45 AM EDT Office Visit [facility] MED & PEDS [address] [place], [place] [phone] Kalie Calzada MD 505 [place] [address] documented as of this encounter Visit Diagnoses Diagnosis Left thigh pain Pain in soft tissues of limb documented in this encounter Care Teams Reading Intervention Teacher Relationship Specialty Start Date End Date Kalie Calzada MD [address] [place] [address] PCP - General Internal Medicine 11/16/13 documented as of this encounter
--- OUTSIDE RECORDS SUMMARY | 2025-02-08 14:24 | XMS_ITS | Encounter Summary ---
Author Organization [employer] [facility] Address [address] [place] [address] 7 [place] [address] Care Team Providers Care Box Storage Worker Name Role Phone Kalie Calzada MD Primary Care Provider [phone] Reason for Visit * Reason Comments Med Refill Encounter Details Date Type Department Care Team ([facility] Contact Info) Description 06/27/2023 Refill [facility] MED & PEDS [address] [place] [address] Jered Chan MD [address] [place] [address] Social History Tobacco Use Types Packs/Day Years [...] Upcoming Encounters Date Type Department Care Team ([facility] Contact Info) Description 03/10/2025 9:45 AM EDT Office Visit [facility] CHC MED & PEDS [address] [place], [place] [phone] Kalie Calzada MD 505 [place] [address] documented as of this encounter Visit Diagnoses Not on filedocumented in this encounter Care Teams Box Storage Worker Relationship Specialty Start Date End Date Kalie Calzada MD [address] [place] [address] PCP - General Internal Medicine 11/16/13 documented as of this encounter
--- OUTSIDE RECORDS SUMMARY | 2025-02-08 14:24 | XMS_ITS | Encounter Summary ---
Author Organization [employer] Address [address] [place] [address] 7 [place] [address] Care Team Providers Care Brokerage Clerk Name Role Phone Kalie Calzada MD Primary Care Provider [phone] Reason for Visit * Reason Onset Date Comments Prior Authorization 08/11/2024 Encounter Details Date Type Department Care Team ([facility] Contact Info) Description 08/11/2024 Telephone [facility] CHC MED & PEDS [address] [place], [place] [phone] Kalie Calzada MD 505 [place] [address] Prior Authorization Social History Tobacco Use Types [...] 9:45 AM EDT Office Visit [facility] MED & PEDS 505 [place] [address] Kalie Calzada MD 505 [place] [address] documented as of this encounter Visit Diagnoses Not on filedocumented in this encounter Additional Health Concerns Assessment Noted Time PHQ-9 Depression Total Score: 14 023 11:22 AM EDT documented as of this encounter Care Teams Brokerage Clerk Relationship Specialty Start Date End Date Kalie Calzada MD 505 [place] [address] PCP - General Internal Medicine 11/16/13 documented as of this encounter
--- OUTSIDE RECORDS SUMMARY | 2025-02-08 14:24 | XMS_ITS | Encounter Summary ---
Author Organization [employer] Address [address] [facility] 7t [place] [address] Care Team Providers Care Roller Presser Operator Name Role Phone Kalie Calzdaa MD Primary Care Provider [phone] Encounter Details Date Type Department Care Team ([facility] st Contact Info) Description 02/08/2025 Orders Only GENERIC EXTERNAL DATA DEPARTMENT Provider, Generic External Data Social History Tobacco Use Types Packs/Day Years [...] Upcoming Encounters Date Type Department Care Team ([facility] st Contact Info) Description 03/10/2025 9:45 AM EDT Office Visit [facility] MED & PEDS 505 [place], [place] [phone] Kalie Calzada MD 505 [place], [place] [phone] documented as of this encounter Procedures Procedure Name Priority Date/Time Associated Diagnosis Comments CBC WITH AUTO DIFFERENTIAL Routine 02/08/2025 1:04 PM EDT documented in this encounter Results * (ABNORMAL) CBC auto differential (02/08/2025 1:04 PM EDT) White Blood Count 11.1(H) 4.8 - 10.8 X10*3/uL [facility] Red Blood Count 4.36 4.20 - 5.50 X10*6/uL [facility] Hemoglobin 13.3 12.0 - 16.0 g/dl [facility] Hematocrit 40.2 37.0 - 47.0 % [facility] Mean Corpuscular Volume 92.2 80.0 - 98.0 fL [facility] Mean Corpuscular Hemoglobin 30.5 27.0 - 33.0 pg [facility] Mean Corpuscular HGB Conc 33.1 31.0 - 35.0 g/dl [facility] Red Cell Distribution Width 12.9 11.0 - 16.0 % [facility] Platelet Count 366 160 - 400 X10*3/uL [facility] Mean Platelet Volume 9.7 9.4 - 12.3 fL [facility] Neutrophils Percent Auto 64.8 45 - 73 % [facility] Imm Gran Pct Auto 0.5(H) 0.0 - 0.4 % [facility] Lymphocytes Percent Auto 22.9 20 - 40 % [facility] Monocytes Percent Auto 8.2 2 - 11 % [facility] Eosinophils Percent Auto 3.1 0 - 4 % [facility] Basophils Percent Auto 0.5 0 - 2 % [facility] NRBC Pct Auto 0.0 0.0 - 0.2 /100WBC [facility] Neutrophils Absolute Auto 7.2 2.0 - 8.3 x10*3/uL [facility] Imm Gran Abs Auto 0.05(H) 0.00 - 0.03 X10*3/uL [facility] Lymphocytes Absolute Auto 2.5 1.2 - 4.9 X10*3/uL [facility] Monocytes Absolute Auto 0.9 0.1 - 1.2 X10*3/uL [facility] Eosinophils Absolute Auto 0.3 0.0 - 0.4 X10*3/uL [facility] Basophils Absolute Auto 0.1 0.0 - 0.2 X10*3/uL [facility] NRBC Abs Auto 0.000 0.0 - 0.012 X10*3/uL [facility] 02/08/2025 1:04 PM EDT 02/08/2025 1:05 PM EDT us Generic External Data Provider LAB BLOOD ORDERAB LES Final Result [facility] [address] [place] [address] [phone] documented in this encounter Visit Diagnoses Not on filedocumented in this encounter Additional Health Concerns Assessment Noted Time PHQ-9 Depression Total Score: 0 11/16/19 25 1:54 PM EST documented as of this encounter Care Teams Roller Presser Operator Relationship Specialty Start Date End Date Kalie Calzada MD [address] [place] [address] PCP - General Internal Medicine 11/16/13 documented as of this encounter
--- OUTSIDE RECORDS SUMMARY | 2025-02-08 14:25 | XMS_ITS | Encounter Summary ---
Author Organization [employer] Address [address] [facility] 7t [place] [address] Care Team Providers Care Emergency Planner Name Role Phone Kalie Calzada MD Primary Care Provider [phone] Reason for Visit * Reason Comments Med Refill Encounter Details Date Type Department Care Team ([facility] Contact Info) Description 12/28/2024 Refill [facility] CHC MED & PEDS [address] [place], [place] [phone] Kalie Calzada MD 505 [place] [address] Left thigh pain Social History Tobacco Use [...] Description 03/10/2025 9:45 AM EDT Office Visit [facility] MED & PEDS [address] [place] [address] Kalie Calzada MD 505 [place] [address] documented as of this encounter Visit Diagnoses Diagnosis Left thigh pain Pain in soft tissues of limb documented in this encounter Additional Health Concerns Assessment Noted Time PHQ-9 Depression Total Score: 0 11/16/19 25 1:54 PM EST documented as of this encounter Care Teams Emergency Planner Relationship Specialty Start Date End Date Kalie Calzada MD [address] [place] [address] PCP - General Internal Medicine 11/16/13 documented as of this encounter
--- OUTSIDE RECORDS SUMMARY | 2025-02-08 14:25 | XMS_ITS | Encounter Summary ---
Author Organization [facility] [employer] [facility] Address [address] [place] [address] [address] Care Team Providers Care Film Drying Machine Operator Name Role Phone Kalie Calzada MD Primary Care Provider [phone] Encounter Details Date Type Department Care Team (Late Contact Info) Description 09/08/2023 Abstract [facility] MEDICINE [address] [place] [address] Kalie Calzada MD [address] [place] [address] Social History Tobacco Use Types Packs/Day Years [...] 9:45 AM EDT Office Visit [facility] CHC MED & PEDS 505 [place], [place] [phone] Kalie Calzada MD [address] [place], [place] [phone] documented as of this encounter Procedures Procedure Name Priority Date/Time Associated Diagnosis Comments COLONOSCOPY Routine 02/17/2023 documented in this encounter Results * Colonoscopy (02/17/2023) Colonoscopy Normal Normal Narrative Yazmin Ramirez - 02/17/2023 Recommended 5 year follow up Historical Provider HEALTH MAINTENANCE Edited Result - Final documented in this encounter Visit Diagnoses Not on filedocumented in this encounter Additional Health Concerns Assessment Noted Time PHQ-9 Depression Total Score: 14 023 11:22 AM EDT documented as of this encounter Care Teams Film Drying Machine Operator Relationship Specialty Start Date End Date Kalie Calzada MD [address] [place] [address] PCP - General Internal Medicine 11/16/13 documented as of this encounter
--- OUTSIDE RECORDS SUMMARY | 2025-02-08 14:25 | XMS_ITS | Encounter Summary ---
Author Organization [employer] Address [address] [facility] [address] [place] [address] Care Team Providers Care Agent Telegrapher Name Role Phone Kalie Calzada MD Primary Care Provider [phone] Reason for Referral * Consultation (Routine) - Closed Specialty Diagnoses / Procedures Referred By Contac t Referred To Contact Cardiology Diagnoses Mild pulmonary hypertension (CMS/HCC) Kalie Calzada MD [address] [place] [address] Phone: tel: fax: Jovan Mendiola MD [address] [facility] Floor [address] [place] [address] Phone: tel: fax: Referral ID Status Reason Start Date Expiration Date V isits Requested Visits Authorized [id number] Closed Specialty Services Required 01/01/2024 12/31/2024 1 1 Encounter Details Date Type Department Care Team (Late st Contact Info) Description 01/01/2024 Orders Only [facility] CHC MED & PEDS [address] [place], [place] [phone] Kalie Calzada MD [address] [place], [place] [phone] Mild pulmonary hypertension (CMS/HCC) (Primary Dx) Social [...] Upcoming Encounters Date Type Department Care Team ([facility] st Contact Info) Description 03/10/2025 9:45 AM EDT Office Visit [facility] CHC MED & PEDS [address] [place] [address] Kalie Calzada MD [address] [place] [address] Scheduled Referrals Name Type Priority Associated Diagnoses [...] documented as of this encounter Care Teams Agent Telegrapher Relationship Specialty Start Date End Date Kalie Calzada MD [address] [place] [address] PCP - General Internal Medicine 11/16/13 documented as of this encounter
--- OUTSIDE RECORDS SUMMARY | 2025-02-08 14:25 | XMS_ITS | Encounter Summary ---
Author Organization [employer] Address [address] [place] [address] 7 [place] [address] Care Team Providers Care Call Center Support Consultant Name Role Phone Kalie Calzada MD Primary Care Provider [phone] Reason for Visit * Reason Onset Date Comments Results 12/30/2023 Encounter Details Date Type Department Care Team ([facility] Contact Info) Description 12/30/2023 Telephone [facility] CHC MED & PEDS 505 [place], [place] [phone] Kalie Calzada MD [address] [place] [address] Results Social History Tobacco Use Types Packs/Day [...] results: Echocardiogram Date when done: 12/26 Facility: [facility] Please contact pt at [phone] documented in this encounter Plan of Treatment Upcoming Encounters Date Type Department Care Team (Late st Contact Info) Description 03/10/2025 9:45 AM EDT Office Visit [facility] MED & PEDS [address] [place] [address] Kalie Calzada MD [address] [place] [address] documented as of this encounter Visit Diagnoses Not on filedocumented in this encounter Additional Health Concerns Assessment Noted Time PHQ-9 Depression Total Score: 14 023 11:22 AM EDT documented as of this encounter Care Teams Call Center Support Consultant Relationship Specialty Start Date End Date Kalie Calzada MD [address] [place] [address] PCP - General Internal Medicine 11/16/13 documented as of this encounter
--- OUTSIDE RECORDS SUMMARY | 2025-02-08 14:25 | XMS_ITS | Clinical Summary ---
Author Organization [employer] Address 75 [facility] 7t [place] [address] Care Team Providers Care Metal Weigher Name Role Phone Kalie Calzada MD Primary Care Provider [phone] Allergies Active Allergy Reactions Criticality Noted Date [...] BY MOUTH TWICE A DAY 180 tablet 12/18/20 24 2024 Discontinued celecoxib (CeleBREX) 100 MG capsuleIndicatio ns:Left thigh [...] Encounters Date Type Department Care Team Description 02/08/2025 Orders Only GENERIC EXTERNAL DATA DEPARTMENT Provider, Generic External Data 01/31/2025 Refill [facility] [address] [place] [address] Kalie Calzada MD Class 2 obesity due to excess calories without serious comorbidity with body mass index (BMI) of 37.0 to 37.9 in adult 01/24/2025 Refill [facility] [address] [place] [address] Kalie Calzada MD 01/24/2025 Telephone [facility] [address] [place] [address] Kalie Calzada MD Med Refill 01/21/2025 Refill [facility] [address] [place] [address] Kalie Calzada MD Left thigh pain 01/21/2025 Telephone [facility] [address] [place] [address] Kalie Calzada MD 01/21/2025 Orders Only [facility] [address] [place] [address] Kalie Calzada MD Class 2 obesity due to excess calories without serious comorbidity with body mass index (BMI) of 37.0 to 37.9 in adult (Primary Dx); Left thigh pain 01/21/2025 Telephone [facility] [address] [place] [address] Kalie Calzada MD Prior Authorization 01/13/2025 Refill [facility] [address] [place] [address] Kalie Calzada MD Left thigh pain 01/06/2025 3:15 PM EST Office Visit [facility] [address] [place] [address] Kalie Calzada MD Class 2 obesity due to excess calories without serious comorbidity with body mass index (BMI) of 37.0 to 37.9 in adult (Primary Dx) 01/06/2025 Travel 01/03/2025 Telephone [facility] [address] [place] [address] Kalie Calzada MD chart prep 12/28/2024 Refill [facility] [address] [place] [address] Kalie Calzada MD Left thigh pain 12/28/2024 Telephone [facility] [address] [place] [address] Kalie Calzada MD 12/27/2024 Refill [facility] [address] [place] [address] Kalie Calzada MD 12/27/2024 Refill [facility] [address] [place] [address] Kalie Calzada MD Left thigh pain 12/24/2024 Refill [facility] [address] [place] [address] Kalie Calzada MD Left thigh pain 12/13/2024 Refill [facility] [address] [place] [address] Kalie Calzada MD Left thigh pain; Seasonal allergies 12/13/2024 Orders Only [facility] [address] [place] [address] Kalie Calzada MD Class 3 severe obesity due to excess calories with serious comorbidity and body mass index (BMI) of 40.0 to 44.9 in adult ([facility]) 12/10/2024 Refill [facility] [address] [place] [address] Kalie Calzada MD Left thigh pain 12/07/2024 Refill [facility] [address] [place] [address] Kalie Calzada MD 12/06/2024 Refill [facility] [address] [place] [address] Kalie Calzada MD Other insomnia 12/02/2024 Refill [facility] [address] [place] [address] Kalie Calzada MD Left thigh pain 11/30/2024 Telephone [facility] [address] [place] [address] Kalie Calzada MD Med Refill 11/30/2024 Refill [facility] [address] [place] [address] Kalie Calzada MD Crohn's disease of small intestine without complication ([facility]/HCC) 11/25/2024 Refill [facility] [address] [place] [address] Kalie Calzada MD 11/24/2024 Refill [facility] [address] [place] [address] Kalie Calzada MD Left thigh pain 11/23/2024 Refill [facility] [address] [place] [address] Kalie Calzada MD Class 2 obesity due to excess calories without serious comorbidity with body mass index (BMI) of 37.0 to 37.9 in adult; Left thigh pain 11/22/2024 Refill [facility] [address] [place] [address] Kalie Calzada MD Class 2 obesity due to excess calories without serious comorbidity with body mass index (BMI) of 37.0 to 37.9 in adult 11/22/2024 Refill [facility] [address] [place] [address] Kalie Calzada MD Left thigh pain 11/16/2024 2:00 PM EST Office Visit [facility] [address] [place] [address] Kalie Calzada MD Mixed hyperlipidemia (Primary Dx); Class 2 obesity due to excess calories without serious comorbidity with body mass index (BMI) of 37.0 to 37.9 in adult; Elevated BP without diagnosis of hypertension; Horseshoe kidney; Idiopathic sleep related nonobstructive alveolar hypoventilation; Encounter for immunization 11/16/2024 Travel 11/12/2024 Refill [facility] [address] [place] [address] Kalie Calzada MD Left thigh pain from Last 3 [...] 9:45 AM EDT Office Visit [facility] [address] [place] [address] Kalie Calzada MD [address] [place] [address] Health Maintenance Due Date Last Done Comments CT Colonography 1970 FIT DNA/Cologuard 1970 FIT 1970 FOBT 1970 HIV Screening 1970 Sigmoidoscopy 1970 Pneumococcal Vaccine: 50+ Years (1 of 1 - PCV) 02/07/2020 Zoster Vaccines (1 of 2) 02/07/2020 SDOH Screening 11/08/2025 11/08/2024 Alcohol/Substance Use Screening 11/16/2025 11/16/2024 Depression Screening 11/16/2025 11/16/2024, 11/16/19 Tobacco Screening 01/06/2026 01/06/2025 Cervical Cancer Screening 01/16/2026 HPV/Cotest 01/16/2026 01/16/2021, 12/09/2017 Pap Smear 01/16/2026 01/16/2021 Mammogram 01/20/2026 01/21/2024, 08/05/2021, 08/25/2018 Lipid Panel 08/12/2027 08/12/2022 Colonoscopy 02/18/2028 [...] AUTO DIFFERENTIAL Routine 02/08/2025 1:04 PM EDT BI MAMMOGRAM SCREEN W JIMMY W IMPLANTS [...] Recently Relevant to Health Maintenance Results * (ABNORMAL) CBC auto differential (02/08/2025 1:04 PM EDT) White Blood Count 11.1(H) 4.8 - 10.8 X10*3/uL [facility] Red Blood Count 4.36 4.20 - 5.50 X10*6/uL [facility] Hemoglobin 13.3 12.0 - 16.0 g/dl [facility] Hematocrit 40.2 37.0 - 47.0 % [facility] Mean Corpuscular Volume 92.2 80.0 - 98.0 fL [facility] Mean Corpuscular Hemoglobin 30.5 27.0 - 33.0 pg [facility] Mean Corpuscular HGB Conc 33.1 31.0 - 35.0 g/dl [facility] Red Cell Distribution Width 12.9 11.0 - 16.0 % [facility] Platelet Count 366 160 - 400 X10*3/uL [facility] Mean Platelet Volume 9.7 9.4 - 12.3 fL [facility] Neutrophils Percent Auto 64.8 45 - 73 % [facility] Imm Gran Pct Auto 0.5(H) 0.0 - 0.4 % [facility] Lymphocytes Percent Auto 22.9 20 - 40 % [facility] Monocytes Percent Auto 8.2 2 - 11 % [facility] Eosinophils Percent Auto 3.1 0 - 4 % [facility] Basophils Percent Auto 0.5 0 - 2 % [facility] NRBC Pct Auto 0.0 0.0 - 0.2 /100WBC [facility] Neutrophils Absolute Auto 7.2 2.0 - 8.3 x10*3/uL [facility] Imm Gran Abs Auto 0.05(H) 0.00 - 0.03 X10*3/uL [facility] Lymphocytes Absolute Auto 2.5 1.2 - 4.9 X10*3/uL [facility] Monocytes Absolute Auto 0.9 0.1 - 1.2 X10*3/uL [facility] Eosinophils Absolute Auto 0.3 0.0 - 0.4 X10*3/uL [facility] Basophils Absolute Auto 0.1 0.0 - 0.2 X10*3/uL [facility] NRBC Abs Auto 0.000 0.0 - 0.012 X10*3/uL [facility] 02/08/2025 1:04 PM EDT 02/08/2025 1:05 PM EDT us Generic External Data Provider LAB BLOOD ORDERAB LES Final Result Performing Organization Address City/State/[facility] Co de Phone Number [facility] [address] [place] [phone] * BI Mammogram Screen w/ Jimmy w/ Implants Pb (01/21/2024 2:30 PM EDT) Anatomical Region Laterality Modality Mammography 01/21/2024 2:30 PM EDT Narrative 01/26/2024 6:05 AM EDT ? [facility] [place] ? [address] ?[place] [address] ? Mammography Report ? Signed ? Patient: Yu,Linda ?MR#: [id number] ? : 1970 ?Acct:[id number] ? Age/Sex: 53 / F ?ADM Date: 03/13/24 ? Loc: HO.MAMMO ? Attending Dr: Chava Dewey CNM ? Ordering Physician: CHAVA DEWEY CNM ?Results: 1 ?? Negative ? Date of Service: 01/21/24 ?Follow Up: 1 Year From Orig ?? inal Mammogram ? Procedure(s): MM tomosynthesis screen imp BI ?? Accession Number(s): [id number] ? cc: Kalie Calzada MD; CHAVA DEWEY [...] 0601 ? DD/ 1430 ? TD/TT: ? Chairman Of The Board: ? Procedure Note Donjrter, Image - 01/26/2024 [facility] [address] [place], [place] [address] Mammography Report Signed Patient: Lisa Nicholas#: [id number] : 1970Acct:[id number] Age/Sex: 53 / FADM Date: 01/21/24 Loc: HO.MAMMO Attending Dr: Chava Dewey CNM Ordering Physician: CHAVA DEWEYesults: 1 Negative Date of Service: 01/21/24Follow Up: 1 Year From Orig inal Mammogram Procedure(s): MM tomosynthesis screen imp BI Accession Number(s): [id number] cc: Kalie Calzada MD; CHAVA DEWEY CNM [...] in OV> 01/26/24 0601 DD/ 1430 TD/TT: Chairman Of The Board: Chava Dewey CN IMG BI PROCEDURES Final R esult * Hm Colonoscopy (02/17/2023) Colonoscopy Normal Normal [...] a test for HCV RNA (test code 15953) is suggested. ?? For additional information please refer to http://education.GigsTime.Accelerated IO/faq/DTZ07z8 (This link is being provided for informational/ educational purposes only.) ?? 08/12/2022 10:1 5 AM EDT Kalie Calzada MD HISTORICAL/NON ORDERABLE LA BS [...] the ?? estimation of LDL-C. ?? Leonel MOREL et al. LEELEE. 2013;310(19): 9055-3768 ?? (http://education.Topple Track/faq/QII047) Non-HDL Cholesterol 110 <130 mg/dL (calc) CONVERTED [...] historic and ?? current clinical information. ?? Hydraulic Controls Technician : SEE COMMENT [facility] Comment: NSS, CT(ASCP) CT screening location: [address] ??[address] Interpretation/R esult: Negative for intraepithelial lesion or malignancy. [facility] LMP: NONE GIVEN [facility] Prev. BX: NONE [facility]IVEN [facility] Prev. PAP: NONE [facility]IVEN [facility] SOURCE: None given [facility] Statement Of Adequacy: SEE COMMENT [facility] Comment: Satisfactory for evaluation. Endocervical/transformation zone component absent. Age and/or menstrual status not provided 01/16/2021 2:16 PM EST Chava GRACIA LAB PATHOLOGY ORDERABLES Final Result Performing Organization Address [facility] de Phone Number [facility] [address] * HPV mRNA E6/E7 (01/16/2021 2:16 PM EST) HPV nRNA E6/E7 Not Detected Not Detected [facility] Comment: Methodology: Email Deployment Specialist-Mediated Amplification This assay detects E6/E7 viral messenger RNA (mRNA) from 14 high-risk HPV types (16,18,31,33,35,39,45,51,52,56,58,59,66,68). ? The analytical performance characteristics of this assay have been determined by [employer]. The modifications have not been cleared or approved by the FDA. This assay has been validated pursuant to the CLIA regulations and is used for clinical purposes. ?? For additional information, please refer to http://education.GigsTime.Accelerated IO/faq/PHD579f6 (This link if provided for information/ educational purposes only.) 01/16/2021 2:16 PM EST Chava GRACIA LAB BLOOD ORDERABLES Madeline l Result Performing Organization Address [facility] Co de Phone Number [facility] [address] from Last 3 Months or Most Recently Relevant to Health Maintenance [place] [address] [place] [address] [facility] Care Teams Metal Weigher Relationship Specialty Start Date End Date Kalie Calzada MD [address] [place] [phone] PCP - General Internal Medicine 11/16/13
--- OUTSIDE RECORDS SUMMARY | 2025-02-08 14:25 | XMS_ITS | Encounter Summary ---
Author Organization [employer] Address 75 [facility] 7t [place] [address] Care Team Providers Care Soldering Inspector Name Role Phone Kalie Calzada MD Primary Care Provider [phone] Reason for Referral * Consultation (Routine) - Closed Specialty Diagnoses / Procedures Referred By Contac t Referred To Contact Pulmonary Disease Diagnoses SOB (shortness of breath) Excessive daytime sleepiness Kalie Calzada MD [address] [place] [address] Phone: tel: fax: [facility] Pulmonary [address] 1[address] Floor [place], [place] Phone: tel: fax: Referral ID Status Reason Start Date Expiration Date V isits Requested Visits Authorized [id number] Closed Specialty Services Required 02/19/2024 02/18/2025 1 1 Encounter Details Date Type Department Care Team (Late st Contact Info) Description 02/19/2024 Orders Only [facility]EDS [address] [place], [place] [phone] Kalie Calzada MD [address] [place], [place] [phone] SOB (shortness of breath) (Primary Dx); Excessive [...] Upcoming Encounters Date Type Department Care Team ([facility] st Contact Info) Description 03/10/2025 9:45 AM EDT Office Visit [facility] PED[facility] [address] [place] [address] Kalie Calzada MD [address] [place] [address] Scheduled Referrals Name Type Priority Associated Diagnoses [...] documented as of this encounter Care Teams Soldering Inspector Relationship Specialty Start Date End Date Kalie Calzada MD [address] [place] [address] PCP - General Internal Medicine 11/16/13 documented as of this encounter
--- OUTSIDE RECORDS SUMMARY | 2025-02-08 14:25 | XMS_ITS | Encounter Summary ---
Author Organization [employer] Address 75 [facility] 7t [place] [address] Care Team Providers Care Associate Professor Physician Name Role Phone Kalie Calzada MD Primary Care Provider [phone] Encounter Details Date Type Department Care Team ([facility] st Contact Info) Description 12/13/2024 Orders Only [facility] PEDS [address] [place], [place] [phone] Kalie Calzada MD [address] [place] [address] Class 3 severe obesity due to excess [...] with others, in a hotel, in a care home, living outside on the street, on [...] Description 03/10/2025 9:45 AM EDT Office Visit [facility] MED [facility] PEDS [address] [place] [address] Kalie Calzada MD [address] [place] [address] documented as of this encounter Visit Diagnoses Diagnosis Class 3 severe obesity due to excess calories with serious comorbidity and body mass index (BMI) of 40.0 to 44.9 in adult (CMS/HCC) documented in this encounter Additional Health Concerns Assessment Noted Time PHQ-9 Depression Total Score: 0 11/16/19 25 1:54 PM EST documented as of this encounter Care Teams Associate Professor Physician Relationship Specialty Start Date End Date Kalie Calzada MD [address] [place] [address] PCP - General Internal Medicine 11/16/13 documented as of this encounter
--- OUTSIDE RECORDS SUMMARY | 2025-02-08 14:25 | XMS_ITS | Encounter Summary ---
Author Organization [employer] Address 75 [facility] 7 [place] [address] Care Team Providers Care Dinkey Operator Name Role Phone Kalie Calzada MD Primary Care Provider [phone] Reason for Visit * Reason Onset Date Comments Med Refill 12/27/2024 Encounter Details Date Type Department Care Team ([facility] Contact Info) Description 12/27/2024 Refill [facility] [address] [place] [address] Kalie Calzada MD [address] [place] [address] Social History Tobacco Use Types Packs/Day Years [...] Description 03/10/2025 9:45 AM EDT Office Visit [facility] [address] [place] [address] Kalie Calzada MD [address] [place] [address] documented as of this encounter Visit Diagnoses Not on filedocumented in this encounter Additional Health Concerns Assessment Noted Time PHQ-9 Depression Total Score: 0 11/16/19 25 1:54 PM EST documented as of this encounter Care Teams Dinkey Operator Relationship Specialty Start Date End Date Kalie Calzada MD [address] [place] [address] PCP - General Internal Medicine 11/16/13 documented as of this encounter
== END 2025-02-08 12:50 | disposition home or self-care (01) ==
LOC: HO.HGI 12:04
PROVIDERS: PCP Internal Medicine; Visit Provider Internal Medicine Gastroenterology
DX: R10.9 Unspecified abdominal pain (principal); R19.7 Diarrhea, unspecified; K50.00 Crohn's disease of small intestine without complications; K59.09 Other constipation; K21.9 Gastro-esophageal reflux disease without esophagitis; R11.0 Nausea; K50.90 Crohn's disease, unspecified, without complications
CPT/HCPCS: 99499

== ENCOUNTER 2025-02-08 12:03 | Outpatient (REF) | payer OTHER, SELFPAY ==
[2025-02-08 13:06] LABS: MANUAL DIFF FLAG NO
[2025-02-08 13:56] LABS: Basophils Absolute Auto 0.1 X10*3/uL (0.0-0.2); Basophils Percent Auto 0.5 % (0-2); Eosinophils Absolute Auto 0.3 X10*3/uL (0.0-0.4); Eosinophils Percent Auto 3.1 % (0-4); Hematocrit 40.2 % (37.0-47.0); Hemoglobin 13.3 g/dl (12.0-16.0); Imm Gran Abs Auto 0.05 X10*3/uL (0.00-0.03); Imm Gran Pct Auto 0.5 % (0.0-0.4); Lymphocytes Absolute Auto 2.5 X10*3/uL (1.2-4.9); Lymphocytes Percent Auto 22.9 % (20-40); Mean Corpuscular HGB Conc 33.1 g/dl (31.0-35.0); Mean Corpuscular Hemoglobin 30.5 pg (27.0-33.0); Mean Corpuscular Volume 92.2 fL (80.0-98.0); Mean Platelet Volume 9.7 fL (9.4-12.3); Monocytes Absolute Auto 0.9 X10*3/uL (0.1-1.2); Monocytes Percent Auto 8.2 % (2-11); Neutrophils Absolute Auto 7.2 x10*3/uL (2.0-8.3); Neutrophils Percent Auto 64.8 % (45-73); Platelet Count 366 X10*3/uL (160-400); Red Blood Count 4.36 X10*6/uL (4.20-5.50); Red Cell Distribution Width 12.9 % (11.0-16.0); White Blood Count 11.1 X10*3/uL (4.8-10.8)
[2025-02-08 14:41] LABS: Alanine Aminotransferase 18 U/L (0-31); Alkaline Phosphatase 75 U/L (39-117); Anion Gap 7 (12-20); Aspartate Amino Transferase 21 U/L (5-31); Bilirubin Total 0.3 mg/dL (0.0-1.0); Blood Urea Nitrogen 20 mg/dL (9-16); C Reactive Protein 0.42 mg/dL (< or = 0.50); Calcium 9.1 mg/dL (8.4-10.2); Carbon Dioxide 28 mmol/L (22-29); Chloride 110 mmol/L (96-108); Estimated Glomerular Filt Rate > 60; Glucose Random 92 mg/dL (60-115); Potassium 4.5 mmol/L (3.3-5.1); Sodium 140 mmol/L (135-145); Total Protein 6.8 g/dL (6.5-8.0)
== END 2025-02-08 12:04 | disposition home or self-care (01) ==
LOC: HO.LAB 12:03
PROVIDERS: PCP Internal Medicine; Visit Provider Internal Medicine Gastroenterology
DX: K50.90 Crohn's disease, unspecified, without complications (principal)
CPT/HCPCS: 36415; 80053; 85025; 86140

== ENCOUNTER → 2025-04-12 20:30 | Outpatient (REF) | payer OTHER, SELFPAY | LOC: HO.SL 20:30 | PROVIDERS: PCP Internal Medicine; Visit Provider Nurse Practitioner Family | DX: G47.34 Idiopathic sleep related nonobstructive alveolar hypoventilation (principal); R40.0 Somnolence; R06.83 Snoring | CPT/HCPCS: 95810 ==

== ENCOUNTER → 2025-04-12 23:31 | Outpatient (BNV) | payer OTHER, SELFPAY | PROVIDERS: PCP Internal Medicine; Visit Provider Internal Medicine | DX: G47.33 Obstructive sleep apnea (adult) (pediatric) (principal); R06.83 Snoring | CPT/HCPCS: 95810 ==

== ENCOUNTER 2025-04-29 10:16 | Outpatient (REF) | payer OTHER, SELFPAY ==
--- OUTSIDE RECORDS SUMMARY | 2025-04-29 10:34 | XMS_ITS | Encounter Summary ---
Author Organization [employer] Address [address] [place] [address] 7 [place] [address] Care Team Providers Care Reading Recovery Teacher Name Role Phone Kalie Calzada MD Primary Care Provider [phone] Encounter Details Date Type Department Care Team (Late Contact Info) Description 08/09/2024 Orders Only [facility] MED [facility] PEDS [address] [place], [place] [phone] Kalie Calzada MD [address] [place], [place] [phone] Stress incontinence in female (Primary Dx) Social [...] Department Care Team (Late Contact Info) Description 06/16/2025 2:30 PM EDT Office Visit [facility] MED [facility] PEDS [address] [place] [address] Kalie Calzada MD [address] [place] [address] documented as of this encounter Procedures Procedure Name Priority Date/Time Associated Diagnosis Comments URINALYSIS, COMPLETE, WITH REFLEX TO CULTURE Routine 08/10/2024 12:28 PM EDT Stress incontinence in female documented in this encounter Results * (ABNORMAL) Urinalysis, Complete, with Reflex to Culture (08/10/2024 12:28 PM EDT) Color Urine Yellow [facility] Appearance Urine Clear [facility] PH 5.5 5.0 - 9.0 [facility] Glucose Urine UA Negative Negative mg/dL [facility] Urine Blood Negative Negative [facility] Specific [place] - Urine 1.020 1.005 - 1.025 [facility] Urine Protein Negative Neg-Trace mg/dL [facility] Urine Ketones Trace Negative mg/dL [facility] Nitrite Urine Negative Negative [facility] Leukocyte Esterase Urine Small (1+)(A) Negative [facility] RBC Urine 0-2 0 - 2 /HPF [facility] Urine WBC 0-5 0 - 5 /HPF [facility] Urine Squamous Epithelial Cell 11-20 0 - 2 /HPF [facility] Urine Bacteria None Seen None Seen [facility] Hyaline Casts, Urine 0-2 0 - 2 /LPF [facility] Urine 08/10/2024 12:2 8 PM EDT 08/10/2024 5:54 PM EDT Narrative [facility] - 08/10/2024 6:21 PM EDT Urine, Catheterized us Kalie Calzada MD LAB URINE ORDERABLES Final Result [facility] [address] [place] [phone] [phone] documented in this encounter Visit Diagnoses Diagnosis Stress incontinence in female- Primary documented in this encounter Additional Health Concerns Assessment Noted Time PHQ-9 Depression Total Score: 14 023 11:22 AM EDT documented as of this encounter Care Teams Reading Recovery Teacher Relationship Specialty Start Date End Date Kalie Calzada MD [address] [facility] [place] [address] PCP - General Internal Medicine 11/16/13 documented as of this encounter
[2025-04-29 13:50] LABS: MANUAL DIFF FLAG NO
[2025-04-29 14:01] LABS: Basophils Absolute Auto 0.1 X10*3/uL (0.0-0.2); Basophils Percent Auto 0.5 % (0-2); Eosinophils Absolute Auto 0.3 X10*3/uL (0.0-0.4); Eosinophils Percent Auto 2.9 % (0-4); Hematocrit 44.2 % (37.0-47.0); Hemoglobin 14.3 g/dl (12.0-16.0); Imm Gran Abs Auto 0.04 X10*3/uL (0.00-0.03); Imm Gran Pct Auto 0.4 % (0.0-0.4); Lymphocytes Absolute Auto 2.8 X10*3/uL (1.2-4.9); Lymphocytes Percent Auto 28.4 % (20-40); Mean Corpuscular HGB Conc 32.4 g/dl (31.0-35.0); Mean Corpuscular Hemoglobin 29.6 pg (27.0-33.0); Mean Corpuscular Volume 91.5 fL (80.0-98.0); Mean Platelet Volume 9.6 fL (9.4-12.3); Monocytes Absolute Auto 0.8 X10*3/uL (0.1-1.2); Monocytes Percent Auto 8.2 % (2-11); Neutrophils Absolute Auto 5.8 x10*3/uL (2.0-8.3); Neutrophils Percent Auto 59.6 % (45-73); Platelet Count 408 X10*3/uL (160-400); Red Blood Count 4.83 X10*6/uL (4.20-5.50); Red Cell Distribution Width 12.6 % (11.0-16.0); White Blood Count 9.7 X10*3/uL (4.8-10.8)
[2025-04-29 14:28] LABS: Alanine Aminotransferase 29 U/L (0-31); Albumin Level 4.3 g/dL (3.5-5.0); Alkaline Phosphatase 77 U/L (39-117); Anion Gap 11 (12-20); Aspartate Amino Transferase 32 U/L (5-31); Bilirubin Total 0.4 mg/dL (0.0-1.0); Blood Urea Nitrogen 14 mg/dL (9-16); Calcium 9.5 mg/dL (8.4-10.2); Carbon Dioxide 25 mmol/L (22-29); Chloride 107 mmol/L (96-108); Cholesterol 187 mg/dL (<200); Estimated Glomerular Filt Rate > 60; Glucose Random 80 mg/dL (60-115); HDL Cholesterol 43 mg/dL (>40); LDL Cholesterol Calculated 116 mg/dL (<100); Potassium 4.1 mmol/L (3.3-5.1); Sodium 139 mmol/L (135-145); Total Protein 7.3 g/dL (6.5-8.0); Triglycerides 141 mg/dL (<150)
[2025-04-29 14:55] LABS: TSH reflex Free T4 0.75 uIU/mL (0.32-4.0)
[2025-05-03 16:29] LABS: Immunoglobulin E 16 kU/L (<OR=114)
== END 2025-04-29 10:17 | disposition home or self-care (01) ==
LOC: HO.HMGCLDS 10:16
PROVIDERS: PCP Internal Medicine; Referring Provider Nurse Practitioner Family; Visit Provider Internal Medicine
DX: E78.2 Mixed hyperlipidemia (principal); R03.0 Elevated blood-pressure reading, without diagnosis of hypertension; Q63.1 Lobulated, fused and horseshoe kidney; G47.34 Idiopathic sleep related nonobstructive alveolar hypoventilation; Z91.09 Other allergy status, other than to drugs and biological substances; J45.909 Unspecified asthma, uncomplicated; R06.00 Dyspnea, unspecified; R05.9 Cough, unspecified
CPT/HCPCS: 36415; 80053; 80061; 82785; 84443; 85025; 99212

== ENCOUNTER 2025-04-29 14:07 | Outpatient (AMB) | payer OTHER, SELFPAY ==
--- NOTE | 2025-04-29 14:08 | MHC.OFFVIS ---
Vital Signs 04/29/25 14:10 Height 5 ft 2 in Weight 202 lb BMI 36.9 BP 130/92 H Blood Pressure Location Rt brachial Position Sitting Pulse 77 Pulse Source Pulse Oximeter Pulse Oximetry (%) 100 Oxygen Delivery Method Room Air Intake Visit Reasons: Asthma / sleep study follow up Allergies levofloxacin (LEVOFLOXACIN) Allergy (Unknown, Verified 04/29/25 14:14) HANDS NUMB & BURNING , LUMP BEHIND EAR HPI HPI Asthma / sleep study follow up: Details: Linda is a pleasant 55 year old female, never smoker, with underlying PVD, Crohn's disease, HLD, nocturnal hypoxemia on 1 L supplemental oxygen and morbid obesity. Prior PSG negative for KELSI however poor sleep efficiency. Unforunately she continues with poor sleep, trialed trazadone and Lunesta, recently started Ambien. She has been using 1L of supplemental oxygen NOC, likely due to obesity hypoventilation syndrome, however she continues to work on weight loss and has lost a total of 70 +lbs. Today she presents to review overnight oximetry. At this time, she reports respiratory symptoms have been moderately controlled on Breo 100 mcg, continues with dyspnea. She denies any visits to urgent care or hospitalizations related to respiratory distress since the last visit. [facility] Medical History (Updated 02/08/25 @ 12:48 by Brad Ko MD) Depression Crohn disease Migraines HLD (hyperlipidemia) Horseshoe kidney Nasal airway abnormality Surgical History History of esophagogastroduodenoscopy (EGD) Hx of colonoscopy S/P sinus surgery Hx of breast implants, bilateral Family History Father Hx of colonoscopy S/P left colectomy Paternal Grandfather Pancreatic cancer Paternal Grandmother Dementia Maternal Grandfather Prostate cancer Social History Household Members: Spouse Alcohol intake: current Alcohol intake frequency: holidays/special occasions only Patient Tobacco Use Status: Never used Tobacco Current occupational status: unemployed Review of Systems Const Denies chills, Denies excessive sweating, Denies headache(s) and Denies night sweats Eyes Denies dry eyes, Denies irritation and Denies itchy eyes ENT Reports Normal hearing present, Denies headache(s), Denies nasal congestion, Denies nasal discharge, Denies post nasal drip and Denies sore throat Card Denies chest pain, Denies chest pain at rest, Denies chest pain with activity, Denies claudication, Denies leg edema, Denies orthopnea and Denies paroxysmal nocturnal dyspnea Resp Denies pain on inspiration, Denies pain with cough, Denies stridor and Denies wheezing Musc Denies myalgias Neuro Reports Normal hearing present and Denies headache(s) Endo Denies excessive sweating Jose/Lymph Denies lymphadenopathy Aller/Immun Denies itchy eyes, Denies seasonal rhinorrhea and Denies wheezing Physical Exam Vital Signs: Last Vital Signs Pulse 77 04/29/25 14:10 BP 130/92 H 04/29/25 14:10 Pulse Ox 100 04/29/25 14:10 Oxygen Delivery Method Room Air 04/29/25 14:10 BMI result Body Mass Index 36.9 Const General: cooperative, healthy appearing, comfortable, no acute distress, well developed and alert Nutritional Appearance: obese Orientation/consciousness: patient oriented x3 Limitations: no limitations HEENT Head: Yes normal to inspection, Yes normocephalic and Yes atraumatic Ears: hearing grossly normal bilaterally and external ears normal Eyes General: appearance normal, both eyes and all related structures Eyelids: Yes eyelids normal Sclerae: sclerae normal EOM: EOMs intact bilaterally Neck Neck: Yes normal visual inspection and Yes no lymphadenopathy Lymphatic: no lymphadenopathy noted Chest Chest palpation & inspection: normal inspection of the chest Resp Effort & Inspection: normal respiratory effort, able to speak in complete sentences, no audible wheezes, Actively coughing Quality: productive, no stridor, not tachypneic, no tripod positioning and no use of accessory muscles Auscultation: diminished lung sounds Cardio Jugular venous distension: no JVD Rate: regular rate Rhythm: regular rhythm Skin Other: warm, dry General skin exam: no rashes or lesions noted Neuro General: patient oriented x3 Cranial nerves: Yes Normal hearing present Cognition (Neuro): normal cognition Gait exam (Neuro): Normal gait present Extrem General: Yes normal to inspection, Yes capillary refill normal, Yes no clubbing, cyanosis or edema and Yes no pedal edema Psych Appearance: grossly normal and well kempt Speech and movement: Normal speech and movement present and Clear speech present Affect: normal affect Attitude: cooperative Thought process: Normal thought process present Thought content: Normal thought content present Insight: Good insight present (Psych) Judgement: Good judgement present (Psych) Assessment & Plan Assessment & Plan (1) Asthma: Code(s): J45.909 - Unspecified asthma, uncomplicated Category: Medical (2) Dyspnea: Code(s): R06.00 - Dyspnea, unspecified Category: Medical (3) Cough: Code(s): R05.9 - Cough, unspecified Category: Medical Plan Will increase Breo 100 mcg to Breo 200 mcg. She is aware to call if symptoms continue to be uncontrolled. Reviewed overnight oximetry which revealed oxygen saturation <88% for 0.2 minutes. Will d/c supplemental oxygen. Applauded patient on continued weight loss and she is motivated to continue. Will consider repeat PSG as she has had adjustments in sleep aides, now with more persistent symptoms of KELSI. All questions were answered and patient is in agreement of plan. Will follow-up in 3 months or sooner if needed. Medications: New fluticasone furoate-vilanterol 200-25 mcg/dose (Breo Ellipta) 1 inh inhalation DAILY 60 ea 3RF Discontinued fluticasone furoate-vilanterol 100-25 mcg/dose (Breo Ellipta) Discontinued Reason: Patient Completed Course 1 inh inhalation DAILY 60 ea 6RF budesonide-formoterol 80-4.5 mcg/actuation Discontinued Reason: Patient Completed Course 2 puffs PO Q12H 10.2 ea 3RF Coding Level of Care Code Est Pt Level 4 (28493) Diagnoses Asthma J45.909 Dyspnea R06.00 Cough R05.9
[2025-04-29 14:10] VITALS: BP 130/92; PULSE 77; O2SAT 100; BMI 36.9
== END 2025-04-29 14:51 | disposition home or self-care (01) ==
PROVIDERS: PCP Internal Medicine; Visit Provider Nurse Practitioner Family
DX: J45.909 Unspecified asthma, uncomplicated (principal); R06.00 Dyspnea, unspecified; R05.9 Cough, unspecified
CPT/HCPCS: 99214

== ENCOUNTER 2025-06-13 15:39 | Outpatient (REF) | payer OTHER, SELFPAY ==
--- OUTSIDE RECORDS SUMMARY | 2025-06-13 15:43 | XMS_ITS | Encounter Summary ---
Author Organization [employer] Address [address] [place] [address] [address] [place] [address] Care Team Providers Care Clay Washer Name Role Phone Kalie Calzada MD Primary Care Provider [phone] Encounter Details Date Type Department Care Team (Late Contact Info) Description 08/09/2024 Orders Only [facility] [address], [place] [phone] Kalie Calzada MD [address] [place], [place] [phone] Stress incontinence in female (Primary Dx) Social [...] Description 06/16/2025 2:30 PM EDT Office Visit [facility] [address] [place] [address] Kalie Calzada MD [address] [place] [address] documented as of this encounter Procedures Procedure Name Priority Date/Time Associated Diagnosis Comments URINALYSIS, COMPLETE, WITH REFLEX TO CULTURE Routine 08/10/2024 12:28 PM EDT Stress incontinence in female documented in this encounter Results * (ABNORMAL) Urinalysis, Complete, with Reflex to Culture (08/10/2024 12:28 PM EDT) Color Urine Yellow [facility] Appearance Urine Clear [facility] PH 5.5 5.0 - 9.0 [facility] Glucose Urine UA Negative Negative mg/dL [facility] Urine Blood Negative Negative [facility] Specific [place] - Urine 1.020 1.005 - 1.025 [facility] Urine Protein Negative Neg-Trace mg/dL [facility] Urine Ketones Trace Negative mg/dL [facility] Nitrite Urine Negative Negative [facility] Leukocyte Esterase Urine Small (1+)(A) Negative [facility] RBC Urine 0-2 0 - 2 /HPF [facility] Urine WBC 0-5 0 - 5 /HPF [facility] Urine Squamous Epithelial Cell 11-20 0 - 2 /HPF [facility] Urine Bacteria None Seen None Seen [facility] Hyaline Casts, Urine 0-2 0 - 2 /LPF [facility] Urine 08/10/2024 12:2 8 PM EDT 08/10/2024 5:54 PM EDT Narrative [facility] - 08/10/2024 6:21 PM EDT Urine, Catheterized us Kalie Calzada MD LAB URINE ORDERABLES Final Result [facility] [address] [place] [address] [phone] documented in this encounter Visit Diagnoses Diagnosis Stress incontinence in female- Primary documented in this encounter Additional Health Concerns Assessment Noted Time PHQ-9 Depression Total Score: 14 023 11:22 AM EDT documented as of this encounter Care Teams Clay Washer Relationship Specialty Start Date End Date Kalie Calzada MD [address] [facility] [place] [phone] PCP - General Internal Medicine 11/16/13 documented as of this encounter
[2025-06-13 17:58] LABS: Alanine Aminotransferase 28 U/L (0-31); Albumin Level 4.3 g/dL (3.5-5.0); Alkaline Phosphatase 72 U/L (39-117); Anion Gap 13 (12-20); Aspartate Amino Transferase 23 U/L (5-31); Blood Urea Nitrogen 21 mg/dL (9-16); Calcium 9.2 mg/dL (8.4-10.2); Carbon Dioxide 27 mmol/L (22-29); Chloride 106 mmol/L (96-108); Estimated Glomerular Filt Rate > 60; Potassium 3.9 mmol/L (3.3-5.1); Sodium 142 mmol/L (135-145); Total Protein 7.1 g/dL (6.5-8.0)
== END 2025-06-13 15:40 | disposition home or self-care (01) ==
LOC: HO.CHCLDS 15:39
PROVIDERS: Visit Provider Internal Medicine
DX: I10 Essential (primary) hypertension (principal); E66.813 Obesity, class 3; Z68.41 Body mass index [BMI] 40.0-44.9, adult
CPT/HCPCS: 36415; 80048; 80076